=== PATIENT | male | born 1940 | race Caucasian/White ===

== ENCOUNTER 2023-09-20 14:49 | Observation (INO) | payer OTHER, MEDICARE, SELFPAY ==
[2023-09-20] VITALS (11 sets, daily range): BP systolic 139–164; BP diastolic 73–94; PULSE 86–127; RESP 15–22; TEMP 36.4–36.8; O2SAT 95–98; BMI 27.1
--- NOTE | 2023-09-20 | ECG_ITS ---
Test Reason : TACHY Blood Pressure : / mmHG Vent. Rate : 104 BPM Atrial Rate : 000 BPM P-R Int : 000 ms QRS Dur : 140 ms QT Int : 404 ms P-R-T Axes : 000 -80 069 degrees QTc Int : 531 ms Normal sinus rhythm with frequent and consecutive PACs with possible aberrant conduction Left axis deviation Right bundle branch block Anterior infarct , age undetermined Abnormal ECG No previous ECGs available Referred By: Generic ED Physician Electronically Signed By:JAKE SUN MD
--- NOTE | ~2023-09-20 | XR_ITS ---
EXAMINATION: XR CHEST CLINICAL INFORMATION: Syncope COMPARISON: None available. TECHNIQUE: Frontal view of the chest was obtained. FINDINGS: The lungs are well-expanded and clear of acute pneumonic process. Heart size borderline enlarged with normal pulmonary vascularity is noted. No gross bony abnormality. XR/XR chest 1V IMPRESSION: Mild cardiomegaly. No acute pulmonary process seen.
--- NOTE | 2023-09-20 15:16 | PC.NURSE ---
Pt presents to ED via EMS, reports he was at [facility] outside when he felt weak and like he was going to pass out. Denies fall or head hit, was able to sit down on a bench and rest in the shade. Reports he was outside in sun walking around for extended period today. Denies CP, SOB, nausea or recent illnesses. Reports he overall feels better. Alert and oriented, breathing even and unlabored, skin red, warm, dry. Placed on monitor technician, sinus tachycardia with PVCs. IV in right AC 18G by EMS.
--- NOTE | 2023-09-20 16:35 | ECG_ITS ---
Test Reason : SYNCOPE/REPEAT Blood Pressure : / mmHG Vent. Rate : 101 BPM Atrial Rate : 101 BPM P-R Int : 248 ms QRS Dur : 152 ms QT Int : 368 ms P-R-T Axes : 107 -82 071 degrees QTc Int : 477 ms Sinus tachycardia with 1st degree A-V block with occasional Premature ventricular complexes with frequent Premature atrial complexes Right bundle branch block Left anterior fascicular block Bifascicular block Abnormal ECG When compared with ECG of 20-SEP-2023 15:15, No significant changes seen Referred By: Cecilia Kline Electronically Signed By:JAKE SUN MD
--- NOTE | 2023-09-20 16:38 | ED.GENADULT ---
HPI - General Adult General Chief complaint: General Medical Stated complaint: FELT FAINT/RESOLVED, DIZZY PER EMS Time Seen by Provider: 09/20/23 16:05 Source: patient, family and EMS Mode of arrival: EMS Limitations: no limitations History of Present Illness HPI narrative: Patient is an 82-year-old male with past medical history of hypertension, hyperlipidemia, arthritis who presents emergency department via EMS with his son and daughter at bedside. Reportedly he was outside quite a bit today and is hot. Son does admit that he had not been drinking as much water as he should. He was at an ice cream place outdoors standing in the sun waiting for an order when suddenly he began to feel very lightheaded. By patient's account his daughter and a bystander helped him to go sit at a table in the shade. He felt better after this, but ultimately a bystander called EMS. He states it took some convincing but he agreed to come to the hospital. His daughter reports that he actually slumped over while sitting and when asked for further clarification she admits to loss of consciousness and the patient has no recollection of this. At this time he has no complaints and he is requesting to go home. He does state that at baseline he tends to have an unsteady gait due to arthritis in his knees. He ambulated to the bathroom just prior to my evaluation in he reports that he felt unsteady on his feet more than usual. Currently he denies dizziness, lightheadedness, headache, neck pain, vision changes, chest pain, shortness of breath, difficulty breathing, nausea, vomiting, abdominal pain, numbness or tingling of his extremities. He denies any recent ill contacts. Related Data Home Medications ?Medication ?Instructions ?Recorded ?Confirmed amlodipine 5 mg tablet 5 mg PO DAILY 09/20/23 09/20/23 ascorbic acid (vitamin C) 1,000 mg 1 g PO DAILY 09/20/23 09/20/23 tablet (Vitamin C) loratadine 10 mg tablet (Claritin) 10 mg PO DAILY 09/20/23 09/20/23 lovastatin 20 mg tablet 20 mg PO DAILY 09/20/23 09/20/23 multivitamin 1 tab PO DAILY 09/20/23 09/20/23 naproxen sodium 220 mg tablet 220 mg PO BID PRN Pain 09/20/23 09/20/23 Allergies Allergy/AdvReac Type Severity Reaction Status Date / Time No Known Allergies Allergy Verified 09/20/23 15:06 [facility] Past Medical History Medical History Mixed hyperlipidemia Hypertension Social History Social History Patient Tobacco Use Status: Current everyday Tobacco user Tobacco use type: Cigarette Cigarettes Per Day: 15 Second Hand Smoke Exposure: Yes Advance Directives Date on File: 09/20/23 Physical Exam ED Vital Signs: Vital Signs - 24 hr 09/20/23 14:59 09/20/23 15:10 09/20/23 16:52 Temperature 97.9 F Pulse Rate 112 H 103 H 100 Respiratory Rate 18 18 Blood Pressure 154/79 H 154/89 H 158/83 H Pulse Oximetry 97 98 Oxygen Delivery Method Room Air Room Air 09/20/23 16:54 09/20/23 16:55 09/20/23 16:59 Temperature 97.7 F Pulse Rate 100 112 H 107 H Respiratory Rate 18 Blood Pressure 154/83 H 156/91 H 152/84 H Pulse Oximetry 95 Oxygen Delivery Method Room Air 09/20/23 18:25 09/20/23 19:31 09/20/23 19:59 Temperature 97.6 F Pulse Rate 98 127 H 103 H Respiratory Rate 19 22 H 20 Blood Pressure 153/87 H 164/83 H 162/91 H Pulse Oximetry 95 95 96 Oxygen Delivery Method Room Air Room Air Room Air 09/20/23 20:00 Temperature Pulse Rate 97 Respiratory Rate 15 Blood Pressure 146/94 H Pulse Oximetry 96 Oxygen Delivery Method Room Air BMI result Body Mass Index 27.1 Appearance: Alert.?Oriented to person, place and time. No acute distress.?Normal affect. Eyes: Pupils equal, round and reactive to light.? ENT: Pharynx normal.?? Neck: Normal inspection.? Neck supple.?? CVS: Heart sounds normal. Iregular heart rate and rhythm.? Pulses normal.?? Respiratory: No respiratory distress.? Lung sounds with rales at bilateral bases Abdomen: Soft and non-tender. Normoactive bowel sounds. ?? Skin: Skin warm and dry.? Normal skin color.??? Extremities: No lower extremity edema.? No calf ttp? Neuro: Moves all extremities spontaneously. Sensation intact bilaterally. No focal neuro deficits. Ambulates with unsteady gait. Course Reevaluation(s) Reevaluation #1: CBC is without leukocytosis or left shift, anemia or thrombocytopenia. No electrolyte derangement. No SHEREE. LFTs within normal range. High sensitive troponin within normal range but detectable at 20.1. Repeat EKG revealing a sinus tachycardia with first-degree AV block, bifascicular block; LA interval 248 MS and PVCs, QTC 477, no ST elevation, no ST depression. BNP 111, not consistent with acute CHF. Urinalysis without evidence of infection. Reevaluation #2: Advised by nursing staff patient having runs of V-tach, repeat EKG was obtained, reviewed telemetry tracings, appears to have consistent QRS morphology as noted with sinus beats in alternative leads. I did consult with cardiology; Dr. Arias, suspect this is likely SVT, patient received magnesium sulfate 2 g IV, Mag is currently 1.6, and will start metoprolol 5 mg IV Push. Patient to be admitted to medicine service, spoke with Dr. Stone Time: 19:30 Medications Administered Generic Name Dose Route Start Last Admin Trade Name Freq PRN Reason Stop Dose Admin Enoxaparin Sodium 40 mg 09/20/23 20:45 09/20/23 22:21 Enoxaparin Sodium 40 Mg/0.4 Ml Syringe SUBCUT 40 mg Q24H DORENE Administration Sodium Chloride 3 ml 09/21/23 00:00 09/21/23 01:02 0.9 % Sodium Chloride Flush 3 Ml Syringe IVFLUSH 3 ml QSHIFT DORENE Administration Discontinued Medications Generic Name Dose Route Start Last Admin Trade Name Freq PRN Reason Stop Dose Admin Sodium Chloride 1,000 mls @ 999 mls/hr 09/20/23 18:45 09/20/23 19:57 Ns IV 09/20/23 19:45 Infused .Q1H1M DORENE Infusion Magnesium Sulfate 2 gm in 50 mls @ 25 mls/hr 09/20/23 19:46 09/20/23 20:25 Magnesium Sulfate/H2o IV 09/20/23 21:45 Infused ONCE ONE Infusion Metoprolol Tartrate 5 mg 09/20/23 19:46 09/20/23 19:57 Metoprolol Tartrate 5 Mg/5 Ml Vial IVPUSH 09/20/23 19:47 5 mg ONCE ONE Administration Protocol Metoprolol Tartrate 25 mg 09/20/23 20:24 09/20/23 22:21 Metoprolol Tartrate 25 Mg Tablet PO 09/20/23 20:25 25 mg ONCE ONE Administration Protocol Medical Decision Making Medical Decision Making [facility] Narrative: Patient is an 82-year-old male with past medical history of hypertension, hyperlipidemia, arthritis who presents emergency department via EMS for evaluation of dizziness and a syncopal episode. He currently offers no physical complaints. He has no focal neurological deficits on examination no associated headache, diplopia, vertigo, suspect less likely acute intracranial abnormality. No associated chest pain shortness of breath and reported palpitations. No recent ill symptoms to suspect infectious etiology. You arrived tachycardic but afebrile without tachypnea hypoxia or hypotension. I reviewed his initial EKG obtained prior to my assumption of care, reveals an irregular rhythm with ventricular rate of 104, variable LA interval, or does appear to be P waves preceding each QRS complex, QTC prolonged 531, plan to obtain repeat EKG for further evaluation. Will obtain CBC to evaluate for leukocytosis/ anemia, CMP and lipase to evaluate for abnormal electrolytes /abnormal renal function/ abnormal hepatic/biliary function, EKG and troponin to evaluate for ischemia/ACS. Chest x-ray to evaluate for consolidation/ infiltrate/ mass/ pulmonary congestion and Urinalysis. Differential Diagnosis Differential Diagnoses: The differential diagnosis associated with the presentation includes (Arrhythmia, ACS, PE, dissection, ICH, CVA, orthostatic hypotension, heat exhaustion, dehydration) Admission/Observation Consideration of admission/observation: Escalation of care including admission/observation considered Lab Data 09/20/23 16:52 09/20/23 16:52 Labs: Lab Results 09/20/23 09/20/23 09/20/23 Range/Units 16:51 16:52 19:25 WBC 7.7 (4.8-10.8) X10*3/uL RBC 5.09 (4.60-5.80) X10*6/uL Hgb 16.6 (14.0-18.0) g/dl Hct 46.6 (42.0-52.0) % MCV 91.6 (80.0-98.0) fL MCH 32.6 (27.0-33.0) pg MCHC 35.6 (31.0-36.0) g/dl RDW 12.3 (11.0-16.0) % Plt Count 269 (160-400) X10*3/uL MPV 8.9 L (9.4-12.4) fL Immature Gran % (Auto) 0.3 (0.0-0.4) % Neut % (Auto) 67.6 (45-73) % Lymph % (Auto) 21.3 (20-40) % [place] % (Auto) 7.9 (2-11) % Eos % (Auto) 2.1 (0-4) % Baso % (Auto) 0.8 (0-2) % Lymph # (Auto) 1.7 (1.2-4.9) X10*3/uL [place] # (Auto) 0.6 (0.1-1.2) X10*3/uL Eos # (Auto) 0.2 (0.0-0.4) X10*3/uL Baso # (Auto) 0.1 (0.0-0.2) X10*3/uL Abs Immat Gran (auto) 0.02 (0.00-0.03) X10*3/uL Absolute Neuts (auto) 5.2 (2.0-8.3) x10*3/uL Absolute Nucleated RBC 0.000 (0.0-0.012) X10*3/uL Nucleated RBC % (auto) 0.0 (0.0-0.2) /100WBC PT 12.0 (11.1-13.3) SEC INR 1.0 (0.9-1.1) Sodium 141 (135-145) mmol/L Potassium 3.4 (3.3-5.1) mmol/L Chloride 104 (96-108) mmol/L Carbon Dioxide 27 (22-29) mmol/L Anion Gap 13 (12-20) BUN 13 (9-16) mg/dL Creatinine 0.82 (0.5-1.4) mg/dL Estim Creat Clear Calc 68.2 Estimated GFR > 60 Random Glucose 111 (60-115) mg/dL Calcium 9.7 (8.4-10.2) mg/dL Magnesium 1.6 (1.6-2.6) mg/dL Total Bilirubin 0.5 (0.0-1.0) mg/dL AST 19 (5-37) U/L ALT 12 (0-40) U/L Alkaline Phosphatase 79 (39-117) U/L Troponin I High Sens 20.1 17.7 (<3.5-35.0) ng/L B-Natriuretic Peptide 111 H (<100) pg/mL Total Protein 7.2 (6.5-8.0) g/dL Albumin 4.5 (3.5-5.0) g/dL Urine Color Yellow Urine Appearance Clear Urine pH 7.0 (5.0-9.0) Ur Specific [place] 1.015 (1.005-1.025) Urine Protein Trace (Neg-Trace) mg/dL Urine Glucose (UA) Negative (Negative) mg/dL Urine Ketones Trace (Negative) mg/dL Urine Blood Negative (Negative) Urine Nitrite Negative (Negative) Ur Leukocyte Esterase Negative (Negative) Independent Interpretation I performed an independent interpretation of an: EKG and Plain X-Ray (no consolidation or infiltrates) Radiology Impression Discussion of test interpretation with radiology: I have reviewed the radiologist's reading. Radiologist Impression: XR/XR chest 1V IMPRESSION: Mild cardiomegaly. No acute pulmonary process seen. Independent Historian Clinical information obtained from an independent historian. History obtained from or confirmed by: EMS and Other (Son and daughter) Critical Care Time Critical Care Time Critical Care Time: Yes Total Critical Care Time: 60 Attestation: I personally attest to this critical care time spent taking care of the patient exclusive of all other billable procedures was approximately 60 minutes including initial evaluation of patient, ordering tests, x-ray interpretation, EKG interpretation, medical consultation, documentation, re-evaluation. Discharge Plan Discharge Clinical Impression: Syncope, Atrial tachycardia Patient Disposition: Admitted As Inpatient Interventions: Admission Worksheet (ED) Last Done: 09/20/23 23:26 Discharge Date/Time: 09/21/23 00:33
[2023-09-20 16:59] LABS: Basophils Absolute Auto 0.1 X10*3/uL (0.0-0.2); Basophils Percent Auto 0.8 % (0-2); Eosinophils Absolute Auto 0.2 X10*3/uL (0.0-0.4); Eosinophils Percent Auto 2.1 % (0-4); Hematocrit 46.6 % (42.0-52.0); Hemoglobin 16.6 g/dl (14.0-18.0); Imm Gran Abs Auto 0.02 X10*3/uL (0.00-0.03); Imm Gran Pct Auto 0.3 % (0.0-0.4); Lymphocytes Absolute Auto 1.7 X10*3/uL (1.2-4.9); Lymphocytes Percent Auto 21.3 % (20-40); MANUAL DIFF FLAG NO; Mean Corpuscular HGB Conc 35.6 g/dl (31.0-36.0); Mean Corpuscular Hemoglobin 32.6 pg (27.0-33.0); Mean Corpuscular Volume 91.6 fL (80.0-98.0); Mean Platelet Volume 8.9 fL (9.4-12.4); Monocytes Absolute Auto 0.6 X10*3/uL (0.1-1.2); Monocytes Percent Auto 7.9 % (2-11); Neutrophils Absolute Auto 5.2 x10*3/uL (2.0-8.3); Neutrophils Percent Auto 67.6 % (45-73); Platelet Count 269 X10*3/uL (160-400); Red Blood Count 5.09 X10*6/uL (4.60-5.80); Red Cell Distribution Width 12.3 % (11.0-16.0); White Blood Count 7.7 X10*3/uL (4.8-10.8)
[2023-09-20 17:02] LABS: Appearance Urine Clear; Color Urine Yellow; Glucose Urine UA Negative (Negative); Leukocyte Esterase Urine Negative (Negative); Nitrite Urine Negative (Negative); Specific Gravity - Urine 1.015 (1.005-1.025); Urine Blood Negative (Negative); Urine Ketones Trace mg/dL (Negative); Urine Protein Trace mg/dL (Neg-Trace)
[2023-09-20 17:17] LABS: Alanine Aminotransferase 12 U/L (0-40); Albumin Level 4.5 g/dL (3.5-5.0); Alkaline Phosphatase 79 U/L (39-117); Anion Gap 13 (12-20); Aspartate Amino Transferase 19 U/L (5-37); Bilirubin Total 0.5 mg/dL (0.0-1.0); Blood Urea Nitrogen 13 mg/dL (9-16); Calcium 9.7 mg/dL (8.4-10.2); Carbon Dioxide 27 mmol/L (22-29); Chloride 104 mmol/L (96-108); Creatinine Clr Calc Pharmacy 68.2; Estimated Glomerular Filt Rate > 60; Glucose Random 111 mg/dL (60-115); Magnesium 1.6 mg/dL (1.6-2.6); Potassium 3.4 mmol/L (3.3-5.1); Sodium 141 mmol/L (135-145); Total Protein 7.2 g/dL (6.5-8.0)
[2023-09-20 17:23] LABS: B Type Natriuretic Peptide 111 pg/mL (<100)
[2023-09-20 17:24] LABS: Troponin-I High Sensitivity 20.1 ng/L (<3.5-35.0)
[2023-09-20] MEDS: 0.9 % Sodium Chloride 1,000 ML 999 ML IV (18:49)
--- NOTE | 2023-09-20 19:28 | PC.NURSE ---
pt had a run of arrhythmia on the heart monitor. ecg printed for [employer] review. new ekg order and repeat trop obtained. pt denies cp/sob. is axox4 was resting in stretcher at the time of rhythm change.
[2023-09-20] MEDS: Magnesium Sulfate/H2O 2 GM/50 ML PIGGYBACK IV (19:55)
[2023-09-20] MEDS: Metoprolol Tartrate 5 MG/5 ML VIAL IVPUSH (19:57)
[2023-09-20 20:00] LABS: Troponin-I High Sensitivity 17.7 ng/L (<3.5-35.0)
--- NOTE | 2023-09-20 20:01 | PC.NURSE ---
pt is axox4 able to stand to bedside with steady gait to urinate. pt helped back into stretcher. medicated per jun. mag infusion infusing within 30 minutes per José Miguel, CORSETIER verbal order. vitals WNL as documented. HR down to 90s. pt continues to deny cp/sob/n/v/d/dizziness. family at bedside. call kong within reach.
--- NOTE | 2023-09-20 20:39 | P.HPHOSP_ITS ---
History of Present Illness Date of Service: 09/20/23 Chief Complaint: Syncope This is a 82-year-old male with pertinent history of hypertension, mixed hyperlipidemia, knee osteoarthritis who presents to the emergency department for evaluation after a syncopal episode. Patient states he was standing in line under the sun waiting for a hot dog. It was very hot and after standing for a while, he got dizzy and lightheaded. Soon after, patient slumped over and passed out. Patient does not remember but patient's daughter mentioned it. No chest pain or palpitations prior to the syncopal episode. No rhythmic jerking movement of extremities. Patient states his previous syncopal episode was 5 years ago but does not remember the details. No vomiting, diarrhea. He has been eating and drinking well. He is compliant with medications. No fever, chills, chest discomfort, palpitations, shortness of breath, abdominal pain, changes in urinary or bowel habits. In the emergency department, patient had an episode of SVT and was given IV Lopressor. Review of Systems 2 Constitutional: Constitutional: Reports no additional constitutional complaints ENT: Reports dizziness Cardiovascular: Cardiovascular: Reports no additional cardiovascular complaints and Reports syncope Respiratory: Respiratory: Reports no additional respiratory complaints Gastrointestinal: Gastrointestinal: Reports no additional gastrointestinal complaints Genitourinary: Genitourinary: Reports no additional male genitourinary complaints Neurologic: Reports dizziness and Reports syncope [facility] Medical History Mixed hyperlipidemia Hypertension Pertinent family history: Not significant due to age Social History Smoked in Last 30 Days: Yes Use of substances other than those prescribed or required for medical reasons: No Advance Directives: Yes Advance Directives Information Provided: No Advance Directives on File: No Do you have a plan to hurt others: No Plan Meds Allergies Allergy/AdvReac Type Severity Reaction Status Date / Time No Known Allergies Allergy Verified 09/20/23 15:06 Active Medications: Current Medications Magnesium Sulfate (Magnesium Sulfate/H2o) 2 gm in 50 mls @ 25 mls/hr IV ONCE ONE Stop: 09/20/23 21:45 Last Admin: 09/20/23 19:55 Dose: 25 mls/hr Home Medications ?Medication ?Instructions ?Recorded ?Confirmed ?Last Taken ?Type amlodipine 5 mg tablet 5 mg PO DAILY 09/20/23 09/20/23 09/20/23 06:00 History ascorbic acid (vitamin C) 1,000 mg 1 g PO DAILY 09/20/23 09/20/23 09/20/23 06:00 History tablet (Vitamin C) loratadine 10 mg tablet (Claritin) 10 mg PO DAILY 09/20/23 09/20/23 Unknown History lovastatin 20 mg tablet 20 mg PO DAILY 09/20/23 09/20/23 09/20/23 06:00 History multivitamin 1 tab PO DAILY 09/20/23 09/20/23 09/20/23 06:00 History naproxen sodium 220 mg tablet 220 mg PO BID PRN Pain 09/20/23 09/20/23 09/20/23 06:00 History Physical Exam 2 Vital Signs and Narrative: Vital Signs: Last Vital Signs Temp 97.6 F 09/20/23 18:25 Pulse 97 09/20/23 20:00 Resp 15 09/20/23 20:00 BP 146/94 H 09/20/23 20:00 Pulse Ox 96 09/20/23 20:00 O2 Del Method Room Air 09/20/23 20:00 BMI result Body Mass Index 27.1 Results Labs 09/20/23 16:52 09/20/23 16:52 Labs: Laboratory Results - last 24 hr 09/20/23 09/20/23 09/20/23 16:51 16:52 19:25 MCV 91.6 MCH 32.6 MCHC 35.6 RDW 12.3 Plt Count 269 MPV 8.9 L Immature Gran % (Auto) 0.3 Neut % (Auto) 67.6 Lymph % (Auto) 21.3 [place] % (Auto) 7.9 Eos % (Auto) 2.1 Baso % (Auto) 0.8 Lymph # (Auto) 1.7 [place] # (Auto) 0.6 Eos # (Auto) 0.2 Baso # (Auto) 0.1 Abs Immat Gran (auto) 0.02 Absolute Neuts (auto) 5.2 Absolute Nucleated RBC 0.000 Nucleated RBC % (auto) 0.0 PT 12.0 INR 1.0 Anion Gap 13 Estim Creat Clear Calc 68.2 Estimated GFR > 60 Random Glucose 111 Calcium 9.7 Magnesium 1.6 Total Bilirubin 0.5 AST 19 ALT 12 Alkaline Phosphatase 79 Troponin I High Sens 20.1 17.7 B-Natriuretic Peptide 111 H Total Protein 7.2 Albumin 4.5 Urine Color Yellow Urine Appearance Clear Urine pH 7.0 Ur Specific [place] 1.015 Urine Protein Trace Urine Glucose (UA) Negative Urine Ketones Trace Urine Blood Negative Urine Nitrite Negative Ur Leukocyte Esterase Negative Imaging Radiologist's Impressions: Impressions Chest X-Ray 09/20/23 18:15 IMPRESSION: Mild cardiomegaly. No acute pulmonary process seen. Assessment and Plan (1) Syncope: Status: Acute Plan This is a 82-year-old male with pertinent history of hypertension, mixed hyperlipidemia who presents to the emergency department for evaluation after a syncopal episode. #. Syncope, likely orthostatic: Resuscitated with IV crystalloids. Will monitor on telemetry. Repeat orthostatics in a.m. #. Atrial tachycardia: Add an episode of SVT in the ER. Cardiology consulted from the ER, appreciate assistance #. Hypertension: On amlodipine #. Mixed hyperlipidemia: On statin DVT prophylaxis: Lovenox DNR/DNI. Discussed with patient and son at bedside Quality Stroke Does the patient have a stroke diagnosis?: No VTE Prior VTE?: No VTE Risk Level:: Medical - moderate - high VTE Device Contraindication: Treatment Not Indicated VTE Drug Contraindication: N/A - Med Ordered
--- NOTE | 2023-09-20 21:06 | PHA.MEDREC ---
Pharmacy Consult ? Medication Reconciliation Pharmacy has completed the medication reconciliation. Confirmed med list with help of Patients daughter and patient was able to help confirm as well.
[2023-09-20] MEDS: Metoprolol Tartrate 25 MG TABLET PO (22:21)
[2023-09-20] MEDS: Enoxaparin Sodium 40 MG/0.4 ML SYRINGE SUBCUT (22:21)
[2023-09-21] VITALS (9 sets, daily range): BP systolic 118–169; BP diastolic 71–86; PULSE 72–104; RESP 16–18; TEMP 36.1–36.3; O2SAT 92–96; BMI 25.7
[2023-09-21] MEDS: 0.9 % Sodium Chloride Flush 3 ML SYRINGE IVFLUSH ×2 (01:02→08:49)
[2023-09-21 05:52] LABS: MANUAL DIFF FLAG NO
[2023-09-21 06:24] LABS: Basophils Absolute Auto 0.1 X10*3/uL (0.0-0.2); Basophils Percent Auto 0.9 % (0-2); Eosinophils Absolute Auto 0.3 X10*3/uL (0.0-0.4); Eosinophils Percent Auto 3.3 % (0-4); Hematocrit 45.9 % (42.0-52.0); Hemoglobin 16.1 g/dl (14.0-18.0); Imm Gran Abs Auto 0.02 X10*3/uL (0.00-0.03); Imm Gran Pct Auto 0.3 % (0.0-0.4); Lymphocytes Absolute Auto 2.1 X10*3/uL (1.2-4.9); Lymphocytes Percent Auto 26.1 % (20-40); Mean Corpuscular HGB Conc 35.1 g/dl (31.0-36.0); Mean Corpuscular Hemoglobin 32.8 pg (27.0-33.0); Mean Corpuscular Volume 93.5 fL (80.0-98.0); Mean Platelet Volume 9.4 fL (9.4-12.4); Monocytes Absolute Auto 0.7 X10*3/uL (0.1-1.2); Monocytes Percent Auto 9.4 % (2-11); Neutrophils Absolute Auto 4.7 x10*3/uL (2.0-8.3); Platelet Count 294 X10*3/uL (160-400); Red Blood Count 4.91 X10*6/uL (4.60-5.80); Red Cell Distribution Width 12.2 % (11.0-16.0); White Blood Count 7.8 X10*3/uL (4.8-10.8)
[2023-09-21 06:26] LABS: Anion Gap 12 (12-20); Blood Urea Nitrogen 10 mg/dL (9-16); Calcium 9.5 mg/dL (8.4-10.2); Carbon Dioxide 30 mmol/L (22-29); Chloride 103 mmol/L (96-108); Creatinine Clr Calc Pharmacy 78.8; Estimated Glomerular Filt Rate > 60; Glucose Random 96 mg/dL (60-115); Potassium 3.3 mmol/L (3.3-5.1); Sodium 142 mmol/L (135-145)
[2023-09-21] MEDS: Loratadine 10 MG TABLET PO (08:48)
[2023-09-21] MEDS: Ascorbic Acid 500 MG TABLET 1000 MG PO (08:48)
[2023-09-21] MEDS: Pravastatin Sodium 20 MG TABLET PO (08:48)
[2023-09-21] MEDS: Multivitamin TABLET 1 TAB PO (08:48)
[2023-09-21] MEDS: amLODIPine Besylate 5 MG TABLET PO (08:49)
--- NOTE | 2023-09-21 09:41 | ECG_ITS ---
Test Reason : ARRYTHMIA Blood Pressure : / mmHG Vent. Rate : 112 BPM Atrial Rate : 112 BPM P-R Int : 208 ms QRS Dur : 134 ms QT Int : 330 ms P-R-T Axes : 000 -83 068 degrees QTc Int : 450 ms Normal sinus rhythm with Atrial tachycardia with Premature ventricular complexes Left anterior fascicular block Right bundle branch block Abnormal ECG When compared with ECG of 20-SEP-2023 16:43, Atrial tachycardia is now Present Referred By: Cecilia Kline Electronically Signed By:JAKE SUN MD
--- NOTE | 2023-09-21 10:06 | ECG_ITS ---
Test Reason : irreg hr Blood Pressure : / mmHG Vent. Rate : 090 BPM Atrial Rate : 000 BPM P-R Int : 000 ms QRS Dur : 138 ms QT Int : 412 ms P-R-T Axes : 000 -80 057 degrees QTc Int : 504 ms Normal sinus rhythm with frequent Premature atrial complexes Left anterior fascicular block Right bundle branch block Inferior infarct (cited on or before 20-SEP-2023) Abnormal ECG When compared with ECG of 20-SEP-2023 19:21, No significant changes seen Referred By: Jonelle Sanchez Electronically Signed By:JAKE SUN MD
--- NOTE | 2023-09-21 10:33 | PM.DS ---
DS: Providers Provider Date of Service: 09/21/23 Date of admission: 09/20/23 20:37 Primary care physician: Eduardo Vickers MD Consults: 09/20/23 20:42 Consult to Cardiology Routine Consulting Provider: [facility] Reason for consultation: ?cardiogenic syncope Has provider been notified: Yes DS: Diagnosis Discharge Diagnosis (1) Syncope: Status: Acute (2) Atrial tachycardia: Status: Acute (3) Hypertension: Status: Acute DS: Summary Hospital Course Hospital Course: Admission note HPI This is a 82-year-old male with pertinent history of hypertension, mixed hyperlipidemia, knee osteoarthritis who presents to the emergency department for evaluation after a syncopal episode. Patient states he was standing in line under the sun waiting for a hot dog. It was very hot and after standing for a while, he got dizzy and lightheaded. Soon after, patient slumped over and passed out. Patient does not remember but patient's daughter mentioned it. No chest pain or palpitations prior to the syncopal episode. No rhythmic jerking movement of extremities. Patient states his previous syncopal episode was 5 years ago but does not remember the details. No vomiting, diarrhea. He has been eating and drinking well. He is compliant with medications. No fever, chills, chest discomfort, palpitations, shortness of breath, abdominal pain, changes in urinary or bowel habits. In the emergency department, patient had an episode of SVT and was given IV Lopressor. Hospital course The patient was admitted to the hospital for syncopal episode while under the sun in heated weather with full recovery to normal mentation and strength. Likely a result of Orthostatic drop in his BP. treated with IV fluids with good response overnight. repeated orthostatic vitals were negative. He was able to ambulate on halls with no reported dizziness or recurrence of the syncopal episode. He was seen by senior asic design engineer dr Arias for reported tachycardia events. on EKG has PACs but no VTs. Plan to follow as an outpatient for a holter monitoring. Discharge plan Stay well hydrated Avoid heated weather and sun exposure for long time Continue home medicaitons To follow with dr Arias office as outpatient Time Attestation Discharge Coordination Time (in mins): 25 Quality: Safe Use of Opioids Does Pt have an Active Cancer Diagnosis on the Problem List?: No Quality: Stroke Does the patient have a stroke diagnosis?: No Physical Exam Vital Signs: Vital Signs: Last Vital Signs Temp 97.0 F 09/21/23 07:57 Pulse 84 09/21/23 07:57 Resp 16 09/21/23 07:57 BP 137/79 09/21/23 08:49 Pulse Ox 93 09/21/23 07:57 O2 Del Method Room Air 09/21/23 07:57 BMI result Body Mass Index 25.7 Const: Other: Constitutional : Awake, interactive, not in distress Neck : Normal inspection, Supple Cardiovascular : RRR, no JVP, no lower extremity edema Respiratory : good bilateral air entry, no crackles, wheezes or rhonchi Gastrointestinal: soft, lax, Normal bowel sounds, Non tender Skin : Warm, Dry Neurological : Alert & oriented x3, No focal deficit DS: Data Data Completed and Pending Labs on day of discharge: Laboratory Results - last 24 hr 09/20/23 09/20/23 09/20/23 16:51 16:52 19:25 WBC 7.7 RBC 5.09 Hgb 16.6 Hct 46.6 MCV 91.6 MCH 32.6 MCHC 35.6 RDW 12.3 Plt Count 269 MPV 8.9 L Immature Gran % (Auto) 0.3 Neut % (Auto) 67.6 Lymph % (Auto) 21.3 [place] % (Auto) 7.9 Eos % (Auto) 2.1 Baso % (Auto) 0.8 Lymph # (Auto) 1.7 [place] # (Auto) 0.6 Eos # (Auto) 0.2 Baso # (Auto) 0.1 Abs Immat Gran (auto) 0.02 Absolute Neuts (auto) 5.2 Absolute Nucleated RBC 0.000 Nucleated RBC % (auto) 0.0 PT 12.0 INR 1.0 Sodium 141 Potassium 3.4 Chloride 104 Carbon Dioxide 27 Anion Gap 13 BUN 13 Creatinine 0.82 Estim Creat Clear Calc 68.2 Estimated GFR > 60 Random Glucose 111 Calcium 9.7 Magnesium 1.6 Total Bilirubin 0.5 AST 19 ALT 12 Alkaline Phosphatase 79 Troponin I High Sens 20.1 17.7 B-Natriuretic Peptide 111 H Total Protein 7.2 Albumin 4.5 Urine Color Yellow Urine Appearance Clear Urine pH 7.0 Ur Specific [place] 1.015 Urine Protein Trace Urine Glucose (UA) Negative Urine Ketones Trace Urine Blood Negative Urine Nitrite Negative Ur Leukocyte Esterase Negative 09/21/23 05:20 WBC 7.8 RBC 4.91 Hgb 16.1 Hct 45.9 MCV 93.5 MCH 32.8 MCHC 35.1 RDW 12.2 Plt Count 294 MPV 9.4 Immature Gran % (Auto) 0.3 Neut % (Auto) 60.0 Lymph % (Auto) 26.1 [place] % (Auto) 9.4 Eos % (Auto) 3.3 Baso % (Auto) 0.9 Lymph # (Auto) 2.1 [place] # (Auto) 0.7 Eos # (Auto) 0.3 Baso # (Auto) 0.1 Abs Immat Gran (auto) 0.02 Absolute Neuts (auto) 4.7 Absolute Nucleated RBC 0.000 Nucleated RBC % (auto) 0.0 PT INR Sodium 142 Potassium 3.3 Chloride 103 Carbon Dioxide 30 H Anion Gap 12 BUN 10 Creatinine 0.71 Estim Creat Clear Calc 78.8 Estimated GFR > 60 Random Glucose 96 Calcium 9.5 Magnesium Total Bilirubin AST ALT Alkaline Phosphatase Troponin I High Sens B-Natriuretic Peptide Total Protein Albumin Urine Color Urine Appearance Urine pH Ur Specific [place] Urine Protein Urine Glucose (UA) Urine Ketones Urine Blood Urine Nitrite Ur Leukocyte Esterase Imaging Chest x-ray: Radiologist's impression: ITS Impressions Chest X-Ray 09/20/23 18:15 IMPRESSION: Mild cardiomegaly. No acute pulmonary process seen. Discharge Plan Discharge Anticipated Discharge Date/Time: 09/21/23 10:28 Patient Disposition: Home, Self-Care Discharge Diagnosis: Heat exhaustion, dehydration Referrals: Eduardo Vickers MD [Primary Care Provider] - 1 Week Discharge Medications: Continued multivitamin Tablet 1 tab PO DAILY ascorbic acid (vitamin C) [Vitamin C] 1,000 mg Tablet 1 g PO DAILY amlodipine 5 mg tablet 5 mg PO DAILY naproxen sodium 220 mg Tablet 220 mg PO BID PRN (Reason: Pain) lovastatin 20 mg tablet 20 mg PO DAILY loratadine [Claritin] 10 mg Tablet 10 mg PO DAILY Discharge Orders: Discharge Order (Routine); Ordered 09/21/23 Ordered By: Jonelle Sanchez Diet: Advance to usual diet Activity on Discharge: As tolerated Stand Alone Forms: Patient Portal Discharge page Print Language: Albanian Care Plan Goals: Stay well hydrated Avoid heated weather and sun exposure for long time Continue home medicaitons To follow with dr Arias office as outpatient Health Concerns: Read below Plan of Treatment: Read below Assessment: Read below
--- NOTE | 2023-09-21 10:55 | MHC.CM.PN ---
Addendum entered by Keshia Gaines 09/21/23 11:28: DP: NO REFERRAL SENT TO [facility], P.T. REC HOME WITH FAMILY SUPPORT. PT HAS BEEN MEDICALLY CLEARED FOR DC HOME, NO SERVICES. DAUGHTER WILL TRANSPORT HOME. Original Note: [facility] DELIVERED PT LIVES WITH DAUGHTER. PT USES [facility] FOR MAJOR MOBILITY BUT HAS WALKER IN HOME IF NEEDED. +HCP AT HOME, COPY REQUESTED. PCP MERRY Viramontes DP: PT TO BE SEEN BY P.T. TO DETERMINE PLAN. IF HOME P.T. IS RECOMMENDED, PT HAS NO PREFERENCE TO [facility]. REFERRAL SENT TO [facility]. DAUGHTER WILL TRANSPORT. CM WILL CONTINUE TO FOLLOW FOR PLAN.
--- NOTE | 2023-09-21 11:25 | P.CONCA_ITS ---
History of Present Illness History of Present Illness Date of Service: 09/21/23 Requesting physician: Jonelle Sanchez Chief complaint: Syncope Narrative: I was consulted to see Sandro in cardiology consultation today for loss of consciousness. He has a pleasant 82-year-old male with no significant past cardiac history. He has history of hypertension hyperlipidemia for which she takes medications at home. He is generally doing well but is limited due to his arthritis in his knees and his hands. He said mostly his day-to-day activities and outside the home movement is in conjunction with her daughter. Yesterday was out and about with her daughter are to do some errands and was looking at a plant at a store. Subsequently the event to an ice cream shop and will waiting for an ice cream and subsequently was waiting for heart dogs. He was upright for some period of time and he felt very hot and says he does not tolerate heat very well. Then got lightheaded and felt not well and felt like he was going to follow over when his daughter and another person at the sharp helped him to get to the ground. As per the notes he subsequently lost consciousness for few seconds but recovered very quickly. He had no seizure-like activity. No bowel bladder incontinence. He has never had events like this in the past. He drinks about 24 oz of water and milk at nighttime otherwise does not have overall significant oral intake. Takes his medication amlodipine in the morning. Yesterday while in the ER he was noted to have frequent PACs and short runs of PACs and no ventricular arrhythmias. Overnight he has not had any significant ventricular arrhythmias but PACs with aberrancy. Other cardiac markers have been within normal limits. There has been no evidence of orthostatic. There is no overt bleeding. Review of Systems 2 Constitutional: Constitutional: Reports no additional constitutional complaints Eyes: Eyes: Reports no additional eye complaints Cardiovascular: Cardiovascular: Denies chest pain, Reports lightheadedness, Denies palpitations and Denies dyspnea Respiratory: Respiratory: Denies no additional respiratory complaints and Denies dyspnea Gastrointestinal: Gastrointestinal: Denies no additional gastrointestinal complaints Musculoskeletal: Musculoskeletal: Denies no additional musculoskeletal complaints Integumentary/Breasts: Skin/Breast: Denies system reviewed and no additional complaints, except as docu Neurologic: Denies system reviewed and no additional complaints, except as documented Psychiatric: Psychiatric: Denies no additional psychiatric complaints Endocrine: Endocrine: Denies palpitations PMFSH Past Medical History Medical History Mixed hyperlipidemia Hypertension Social History Social History Patient Tobacco Use Status: Current everyday Tobacco user Tobacco use type: Cigarette Cigarettes Per Day: 15 Second Hand Smoke Exposure: Yes Advance Directives Date on File: 09/20/23 service: No Meds Allergies Allergy/AdvReac Type Severity Reaction Status Date / Time No Known Allergies Allergy Verified 09/20/23 15:06 Active Medications: Current Medications Acetaminophen (Acetaminophen 325 Mg Tablet) 650 mg PO Q6H PRN PRN Reason: Pain, Mild (Pain Scale 1-3) Amlodipine Besylate (Amlodipine Besylate 5 Mg Tablet) 5 mg PO DAILY [facility]; Protocol Last Admin: 09/21/23 08:49 Dose: 5 mg Ascorbic Acid (Ascorbic Acid 500 Mg Tablet) 1,000 mg PO DAILY [facility] Last Admin: 09/21/23 08:48 Dose: 1,000 mg Enoxaparin Sodium (Enoxaparin Sodium 40 Mg/0.4 Ml Syringe) 40 mg SUBCUT Q24H [facility] Last Admin: 09/20/23 22:21 Dose: 40 mg Loratadine (Loratadine 10 Mg Tablet) 10 mg PO DAILY [facility] Last Admin: 09/21/23 08:48 Dose: 10 mg Melatonin (Melatonin 3 Mg Tablet) 6 mg PO BEDTIME PRN PRN Reason: Insomnia Multivitamins/Vitamin C (Multivitamin Tablet) 1 tab PO DAILY [facility] Last Admin: 09/21/23 08:48 Dose: 1 tab Ondansetron HCl (Ondansetron Hcl 4 Mg/2 Ml Vial) 4 mg IVPUSH Q8H PRN PRN Reason: Nausea and Vomiting Pravastatin Sodium (Pravastatin Sodium 20 Mg Tablet) 20 mg PO DAILY [facility] Last Admin: 09/21/23 08:48 Dose: 20 mg Sodium Chloride (0.9 % Sodium Chloride Flush 3 Ml Syringe) 3 ml IVFLUSH QSHIFT [facility] Last Admin: 09/21/23 08:49 Dose: 3 ml Home Medications ?Medication ?Instructions ?Recorded ?Confirmed ?Last Taken ?Type amlodipine 5 mg tablet 5 mg PO DAILY 09/20/23 09/20/23 09/20/23 06:00 History ascorbic acid (vitamin C) 1,000 mg 1 g PO DAILY 09/20/23 09/20/23 09/20/23 06:00 History tablet (Vitamin C) loratadine 10 mg tablet (Claritin) 10 mg PO DAILY 09/20/23 09/20/23 Unknown History lovastatin 20 mg tablet 20 mg PO DAILY 09/20/23 09/20/23 09/20/23 06:00 History multivitamin 1 tab PO DAILY 09/20/23 09/20/23 09/20/23 06:00 History naproxen sodium 220 mg tablet 220 mg PO BID PRN Pain 09/20/23 09/20/23 09/20/23 06:00 History Physical Exam 2 Vital Signs: Vital Signs: Last Vital Signs Temp 97.0 F 09/21/23 07:57 Pulse 104 H 09/21/23 10:41 Resp 16 09/21/23 07:57 BP 137/79 09/21/23 10:41 Pulse Ox 96 09/21/23 10:41 O2 Del Method Room Air 09/21/23 07:57 BMI result Body Mass Index 25.7 Const: General: cooperative, comfortable, no acute distress, well developed, alert and awake Nutritional Appearance: average body habitus and well nourished Orientation/consciousness: patient oriented x3 Limitations: a mbulation with cane HEENT: Head: Yes normocephalic and Yes atraumatic Neck: Neck: Yes trachea midline, Yes supple and Yes no JVD Resp: Effort & Inspection: normal respiratory effort Auscultation: clear to auscultation bilaterally Cardio: Jugular venous distension: no JVD Palpation: normal PMI Rate: r egular rate Rhythm: abnormal rhythm with ectopic beats Heart sounds: S1 normal heart sound present, S2 normal heart sound present, no click, no gallops, no murmurs and no rubs GI: Auscultation: normal bowel sounds Skin: General skin exam: no rashes or lesions noted Neuro: General: patient oriented x3 and no focal motor deficits Extrem: General: Yes no clubbing, cyanosis or edema Objective Labs and Meds 09/21/23 05:20 09/21/23 05:20 Lab results: Laboratory Results - last 24 hr 09/20/23 09/20/23 09/20/23 16:51 16:52 19:25 WBC 7.7 RBC 5.09 Hgb 16.6 Hct 46.6 MCV 91.6 MCH 32.6 MCHC 35.6 RDW 12.3 Plt Count 269 MPV 8.9 L Immature Gran % (Auto) 0.3 Neut % (Auto) 67.6 Lymph % (Auto) 21.3 [place] % (Auto) 7.9 Eos % (Auto) 2.1 Baso % (Auto) 0.8 Lymph # (Auto) 1.7 [place] # (Auto) 0.6 Eos # (Auto) 0.2 Baso # (Auto) 0.1 Abs Immat Gran (auto) 0.02 Absolute Neuts (auto) 5.2 Absolute Nucleated RBC 0.000 Nucleated RBC % (auto) 0.0 PT 12.0 INR 1.0 Sodium 141 Potassium 3.4 Chloride 104 Carbon Dioxide 27 Anion Gap 13 BUN 13 Creatinine 0.82 Estim Creat Clear Calc 68.2 Estimated GFR > 60 Random Glucose 111 Calcium 9.7 Magnesium 1.6 Total Bilirubin 0.5 AST 19 ALT 12 Alkaline Phosphatase 79 Troponin I High Sens 20.1 17.7 B-Natriuretic Peptide 111 H Total Protein 7.2 Albumin 4.5 Urine Color Yellow Urine Appearance Clear Urine pH 7.0 Ur Specific [place] 1.015 Urine Protein Trace Urine Glucose (UA) Negative Urine Ketones Trace Urine Blood Negative Urine Nitrite Negative Ur Leukocyte Esterase Negative 09/21/23 05:20 WBC 7.8 RBC 4.91 Hgb 16.1 Hct 45.9 MCV 93.5 MCH 32.8 MCHC 35.1 RDW 12.2 Plt Count 294 MPV 9.4 Immature Gran % (Auto) 0.3 Neut % (Auto) 60.0 Lymph % (Auto) 26.1 [place] % (Auto) 9.4 Eos % (Auto) 3.3 Baso % (Auto) 0.9 Lymph # (Auto) 2.1 [place] # (Auto) 0.7 Eos # (Auto) 0.3 Baso # (Auto) 0.1 Abs Immat Gran (auto) 0.02 Absolute Neuts (auto) 4.7 Absolute Nucleated RBC 0.000 Nucleated RBC % (auto) 0.0 PT INR Sodium 142 Potassium 3.3 Chloride 103 Carbon Dioxide 30 H Anion Gap 12 BUN 10 Creatinine 0.71 Estim Creat Clear Calc 78.8 Estimated GFR > 60 Random Glucose 96 Calcium 9.5 Magnesium Total Bilirubin AST ALT Alkaline Phosphatase Troponin I High Sens B-Natriuretic Peptide Total Protein Albumin Urine Color Urine Appearance Urine pH Ur Specific [place] Urine Protein Urine Glucose (UA) Urine Ketones Urine Blood Urine Nitrite Ur Leukocyte Esterase EKG shows normal sinus rhythm with frequent PACs with bifascicular block. Imaging Radiologist's impression: Impressions Chest X-Ray 09/20/23 18:15 IMPRESSION: Mild cardiomegaly. No acute pulmonary process seen. Assessment and Plan (1) Syncope: Status: Acute Syncope in this elderly gentleman appears to be most likely related to orthostatic hypotension given prolonged standing posture and exposure to heat. Although no orthostasis has been documented. He is improved with IV fluids. He has no orthostatics today. Was noted to have frequent PACs and has underlying bifascicular block and aberrancy. I think he can be discharged home. I have advised him orthostatic precautions advised him to increase his fluid intake at least to 50 oz. Continue current antihypertensive. Given his frequent arrhythmias would also add Toprol 25 mg to his regimen. Will follow-up with outpatient workup with cardiac event monitor as well as an echocardiogram to evaluate for any significant malignant etiology especially pauses and/or av conduction abnormality. Will follow up as outpatient. Thank you for allowing me to partake in his care Procedures Date of Service Date of Service: 09/21/23
--- OUTSIDE RECORDS SUMMARY | 2023-09-24 09:29 | XMS_ITS | Continuity of Care Document ---
Author Organization [facility] ter Address [address] [place] [id number]- Care Team Providers Care Straightener And Aligner Name Role Phone Eduardo Vickers MD Primary Care Physician [phone] Encounter [facility] Date(s): 03/27/19 - 03/27/[address] [address]- [facility] Discharge Disposition: A-D/C Home Attending Physician: Eduardo Vickers MD Admitting Physician: Eduardo Vickers MD Referring Physician: Eduardo Vickers MD Allergies, Adverse Reactions, Alerts Substance Reaction Severity Status cephalexin Active sulfa drugs Active Bactrim Active Results Radiology Reports * Exam Date Time Procedure Performing Provider Status 03/27/19 3:32 PM Chest 2 Views Frontal and Lat Alanna Bray (Verified) Notes: (Chest 2 Views Frontal and Lat) Reason For Exam: pneumonia, RESULT: Chest 2 Views Frontal and Lat Chest 2 Views Frontal and Lat Reason: pneumonia, COMPARISON: 05/12/2018. FINDINGS: LINES AND TUBES: None. LUNGS AND PLEURA: Clear lungs. Normal pulmonary vascularity. No pleural effusion. No pneumothorax. HEART, MEDIASTINUM AND MAX: Heart is normal in size. Normal mediastinal and hilar contour. BONES AND SOFT TISSUES: No acute abnormality. Stable compression deformity at T12. IMPRESSION: No acute abnormality. I have personally reviewed the images and I agree with this report. WSN: [id number] Dictated By: Chencho Bauman MD Dictated Date/Time: 03/27/19 4:21 pm Reviewed By: Darren Mao MD Signed By: Darren Mao MD Signed Date/Time: 03/27/19 4:26 pm Transcribed By: CSChase Transcribed Date/Time: 03/27/19 4:16 pm
== END 2023-09-21 12:10 | disposition home or self-care (01) ==
LOC: HO.ED 16:48 → HO.EDOVER 20:42 → HO.S3 23:15
PROVIDERS: Nurse Practitioner Family; Admitting Provider Student in an Organized Health Care Education/Training Program; Emergency Provider Internal Medicine; PCP Pediatrics; Visit Provider Student in an Organized Health Care Education/Training Program
DX: E86.0 Dehydration (principal); T67.5XXA Heat exhaustion, unspecified, initial encounter; X58.XXXA Exposure to other specified factors, initial encounter; Y93.89 Activity, other specified; Y92.89 Other specified places as the place of occurrence of the external cause; Y99.9 Unspecified external cause status; R55 Syncope and collapse; I47.19 Other supraventricular tachycardia; I10 Essential (primary) hypertension; E78.2 Mixed hyperlipidemia; I49.9 Cardiac arrhythmia, unspecified; I49.1 Atrial premature depolarization
CPT/HCPCS: 36415; 71045; 80048; 80053; 81003; 83735; 83880; 84484; 85025; 85610; 93005; 96361; 96365; 96372; 96375; 97161; 99221; 99285; J1650; J3475

== ENCOUNTER → 2023-09-20 15:15 | Outpatient (BNV) | payer MEDICARE, OTHER, SELFPAY | PROVIDERS: PCP Pediatrics; Visit Provider Internal Medicine Cardiovascular Disease | DX: R94.31 Abnormal electrocardiogram [ECG] [EKG] (principal) | CPT/HCPCS: 93010 ==

== ENCOUNTER 2023-09-20 20:37 | Outpatient (BNV) | payer OTHER, SELFPAY | END 2023-09-21 09:41 | PROVIDERS: Admitting Provider Student in an Organized Health Care Education/Training Program; Emergency Provider Internal Medicine; PCP Pediatrics; Visit Provider Internal Medicine Cardiovascular Disease | DX: R94.31 Abnormal electrocardiogram [ECG] [EKG] (principal) | CPT/HCPCS: 93010 ==

== ENCOUNTER → 2023-09-20 20:37 | Outpatient (BNV) | payer MEDICARE, OTHER, SELFPAY | PROVIDERS: Admitting Provider Student in an Organized Health Care Education/Training Program; Emergency Provider Internal Medicine; PCP Pediatrics; Visit Provider Student in an Organized Health Care Education/Training Program | DX: R55 Syncope and collapse (principal); I47.19 Other supraventricular tachycardia; I10 Essential (primary) hypertension | CPT/HCPCS: 99222; 99238 ==

== ENCOUNTER → 2023-09-20 20:37 | Outpatient (BNV) | payer MEDICARE, OTHER, SELFPAY | PROVIDERS: Admitting Provider Student in an Organized Health Care Education/Training Program; Emergency Provider Internal Medicine; PCP Pediatrics; Visit Provider Internal Medicine Cardiovascular Disease | DX: R55 Syncope and collapse (principal) | CPT/HCPCS: 99222 ==

== ENCOUNTER → 2023-10-15 12:57 | Outpatient (REF) | payer MEDICARE, OTHER, SELFPAY ==
--- NOTE | 2023-10-15 13:00 | HM_ITS ---
* Total procedure length 30 days. Wear time 25 days. * Underlying rhythm is sinus. Average rate 76/Min. * Atrial fibrillation is present about 6% of the time. Some of the strips labeled as SVT also probably atrial fibrillation. * Some strips labeled as wide complex tachycardia. Duration, 10 beats, 17 beats. Some of this can also be atrial fibrillation. * Occasional ventricular ectopy with a burden of 3.8%. * Occasional supraventricular ectopy with a burden of 4%. * Patient's symptoms of chest pressure and racing correlate with supraventricular ventricular ectopy. Other times where there is no symptoms specified by the patient, correlation with supraventricular and ventricular ectopy, sinus rhythm, atrial fibrillation. * Overall, study is positive for atrial fibrillation rapid ventricular response. MTDD
--- NOTE | 2023-10-15 13:00 | CA_ITS ---
Transthoracic Echocardiogram Patient (Last, First, Middle): Sandro Thayer, Gender: Male Date of : 1940 Age: 82 Procedure Date: 10/15/2023 Procedure Type: Transthoracic Echocardiogram Location: OP Height: 172.72 cm Weight: 78.02 kg BSA: 1.92 m2 Heart Rate: 66 bpm BP: 138 / 74 mmHg Compliance Field Technician: ALAINA Referring MD: Victor M Arias MD Bottom Worker: Victor M Arias MD Symptoms: I10 - Essential (primary) hypertension Study Quality: Adequate ECG Rhythm: Sinus Conclusions: - 1. [id number] LV systolic dysfunction with LVEF of 40-45% with grade 2 diastolic dysfunction 2. At least moderately dilated left atrium 3. Mild mitral regurgitation 4. Mildly elevated right ventricular systolic pressure 5. 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 No gross pericardial effusion Findings Left Ventricle Mildly increased left ventricular cavity size. There is normal left ventricular wall thickness. The left ventricular systolic function is mild to moderately decreased. The visually estimated ejection fraction is between 40-45%. Spectral Doppler is indicative of a pseudonormal filling pattern. E/E prime ratio is >15, consistent with elevated filling pressures. Evidence suggests grade II (moderate) diastolic dysfunction. Right Ventricle Mildly increased right ventricular cavity size. There is normal right ventricular systolic function. Atria The left atrium is moderately dilated. Interatrial shunt cannot be excluded. The right atrium is mildly dilated. Aortic Valve There is mild calcification of the aortic valve. There is no aortic valve stenosis. There is no aortic valve regurgitation. Mitral Valve There is mild anterior and posterior mitral leaflet thickening. There is mild mitral annular calcification. There is mild mitral valve regurgitation. There is no mitral valve stenosis. Pulmonic Valve The pulmonic valve is likely normal. There is trace pulmonic valve regurgitation. Tricuspid Valve Normal tricuspid valve structure. There is mild tricuspid valve regurgitation. Normal right atrial pressure. Mild pulmonary hypertension is present. Great Vessels The pulmonary artery was not well visualized. There is mild dilatation of the ascending aorta measuring 4.40 cm. Small plaque is seen in the sino tubular ridge. Venous The inferior vena cava is normal in size and collapses greater than 50% with inspiration. Pericardium/Pleural There is no evidence of pericardial effusion. Prior Study Comparison No prior study available for comparison. Measurements 2D Linear Measurements IVSd: 1.01 0.6-0.9/0.6-1.0 cm LVIDd: 5.67 3.9-5.3/4.2-5.9 cm LVIDd Index: 2.95 2.4-3.2/2.2-3.1 cm/m2 LVIDs: 4.88 2.0-3.6 cm LVPWd: 1.02 0.7-1.1 cm LA Diam: 4.90 2.7-3.8/3.0-4.0 cm LAIDs Index: 2.55 1.5-2.3 cm/m2 LV Mass: 285.22 67-162/88-224 g LV Mass Index: 148.55 43-95/49-115 g/m2 LVOT Diam: 2.10 3.0+(-)1.3 cm 2D Systolic Function EF 4C: 42.10 >55% EF 2C: 42.50 >55% EF BiP: 45.50 >55% Mitral Valve MV Pk E: 0.91 MV PK A: 0.61 MV Decel Time: 170.00 E/A: 1.50 E'Lateral: 5.00 E'Medial: 2.61 E/E' Med: 34.70 E/E' Lat: 18.10 PHT: 50.00 MVA PHT: 4.40 Decel Robeson: 5.37 Aortic Valve AoV Pk Yuan: 0.69 AoV Pk Grad: 2.00 FRANCIA: 2.90 LVOT LVOT Pk Yuan: 0.63 LVOT Mn Yuan: 0.42 LVOT VTI: 0.12 LVOT Pk Grad: 2.00 LVOT Mn Grad: 1.00 LVOT Diam: 2.10 LVOT Area: 3.46 Diastolic Function MV Pk E: 0.91 MV Pk A: 0.61 E/A: 1.50 E'Medial: 2.61 E/E' Med: 34.70 E' Laterial: 5.00 E/E' Lat: 18.10 Right Ventricle TAPSE (mm): 18.30 TVS' Yuan: 11.70 Tricuspid Valve TR Pk Yuan: 3.12 TR Pk Grad: 39.00 RA Press: 3.00 RVSP: 42.00 Great Vessels Aorta Sinus of Valsalva: 4.30 2.0-3.5 cm Ao Asc: 4.40 2.1-3.4 cm Pulmonary Valve PV Pk Yuan: 0.59 Peak PV Grad: 1.00 Updated in Other Vendor System with Status of Final Victor M Arias MD electronically signed on 10/15/2023 3:18:34 PM with status of Final
== END ==
LOC: HO.CARD 12:57
PROVIDERS: Visit Provider Internal Medicine Cardiovascular Disease
DX: I10 Essential (primary) hypertension (principal); I47.19 Other supraventricular tachycardia; R55 Syncope and collapse
CPT/HCPCS: 93270; 93306

== ENCOUNTER → 2023-10-15 13:00 | Outpatient (BNV) | payer MEDICARE, OTHER, SELFPAY | PROVIDERS: Visit Provider Internal Medicine Cardiovascular Disease | DX: I48.91 Unspecified atrial fibrillation (principal) | CPT/HCPCS: 93272; 93306 ==

== ENCOUNTER 2023-11-05 09:59 | Outpatient (AMB) | payer MEDICARE, OTHER, SELFPAY ==
[2023-11-05 10:19] VITALS: BP 128/60; PULSE 93; BMI 25.1
--- NOTE | 2023-11-05 10:19 | MHC.OFFVIS ---
Vital Signs 11/05/23 10:19 Height 5 ft 9 in Weight 169 lb 12.095 oz BMI 25.1 BP 128/60 Blood Pressure Location Lt brachial Position Sitting Pulse 93 Pulse Source Pulse Oximeter Intake Visit Reasons: SVT on JESSICA per NS Allergies Seasonal Allergies Allergy (Mild, Verified 11/05/23 10:25) sneezing Medication List - Last Reconciled 11/05/23 by Bri Cowan NP-C amiodarone 200 mg orally 400mg ( 2 tab) Twice a day for 2 weeks then reduce dose to 200mg ( 1 tab) daily; apixaban (Eliquis) 5 mg PO BID ascorbic acid (vitamin C) (Vitamin C) 1 g PO DAILY loratadine (Claritin) 10 mg PO DAILY lovastatin 20 mg PO DAILY metoprolol succinate ER (Toprol XL) 25 mg PO DAILY multivitamin 1 tab PO DAILY HPI HPI SVT on JESSICA per NS: Details: Sandro is an 83-year-old male past medical history of hypertension, hyperlipidemia who was recently seen in [facility] following a syncopal event. He was evaluated by Dr. Arias at that time and thought to have had orthostatic hypotension. He did have findings of frequent PACs on the tele monitor and was started on metoprolol XL 25 mg daily. An echocardiogram and cardiac event monitor were ordered. We have received transmissions from his monitor showing AFib with RVR. Today he reports that he has been feeling well since his hospital discharge. He has not had any recurrent syncopal events. He denies lightheadedness, presyncope, falls. He has not noticed any heart palpitations. No chest discomfort at rest or with activity. No shortness of breath, PND, orthopnea or edema. Taking his metoprolol daily. Does normal ADLs and tolerates them well. Daughter is present. [facility] Medical History Mixed hyperlipidemia Hypertension Social History Alcohol intake: current Alcohol intake frequency: 0-2 drinks per day Alcohol type: beer Comment: Beer Patient Tobacco Use Status: Current everyday Tobacco user Tobacco use type: Cigarette Cigarettes Per Day: 15 Second Hand Smoke Exposure: Yes Advance Directives Date on File: 09/20/23 service: No Review of Systems Const All systems reviewed & are unremarkable except as noted in HPI and below Denies weakness ENT Denies dizziness Card Denies chest pain, Denies chest pain with activity, Denies syncope, Denies rapid heart rate, Denies pedal edema, Denies edema, Denies leg edema, Denies lightheadedness, Denies palpitations, Denies dyspnea, Denies dyspnea on exertion and Denies orthopnea Resp Denies cough, Denies dyspnea and Denies dyspnea on exertion GI Denies hematochezia and Denies change in stool character Musc Reports abnormal gait (uses walker), Denies muscle cramps, Denies muscle weakness, Denies numbness, Denies radiating pain into limb and Denies tingling Neuro Reports abnormal gait (uses walker), Denies dizziness, Denies syncope, Denies numbness, Denies tingling and Denies weakness Endo Denies palpitations Physical Exam Vital Signs: Last Vital Signs Pulse 93 11/05/23 10:19 BP 128/60 11/05/23 10:19 BMI result Body Mass Index 25.1 Const General: cooperative, healthy appearing, comfortable and no acute distress Orientation/consciousness: patient oriented x3 Neck Neck: Yes normal visual inspection and Yes no JVD Resp Effort & Inspection: normal respiratory effort Auscultation: clear to auscultation bilaterally, no crackles, no rales, no rhonchi and no wheezes Cardio Jugular venous distension: no JVD Rate: regular rate Rhythm: regular rhythm Heart sounds: S1 normal heart sound present, S2 normal heart sound present, no murmurs and no rubs Neuro General: patient oriented x3 Extrem General: Yes normal to inspection and No no pedal edema Psych Appearance: grossly normal Mental Status: mental status grossly normal Speech and movement: Normal speech and movement present Office Procedures EKG Details: Today, read by me, SR with first degree avb, multifocal atrial focus, PVCs, bifacicular block, cant exclude prior anterior infarct, rate 87, JT index 101 [id number], Complete Assessment & Plan Assessment & Plan (1) Atrial fibrillation: Code(s): I48.91 - Unspecified atrial fibrillation Category: Medical Plan: New finding of atrial fibrillation as seen on strips from cardiac event monitor. Heart rates quite elevated with high of 197. Patient ask specifically about the dates and times the strips were obtained and he does not recall feeling anything unusual. He has not had any recurrent syncopal events. He has never had a diagnosis of atrial fibrillation in the past. He says he has been taking the metoprolol XL 25 mg daily. Diagnosis of atrial fibrillation reviewed with him in detail, stroke risk with AFib discussed. CHADS-VASc score of 3. Anticoagulation is indicated. Will start on Eliquis 5 mg b.i.d. which is the appropriate dose for his weight and creatinine. No history of bleeding issues. EKG done today is showing sinus rhythm with first-degree AV block, some beats have multifocal atrial focus, bifascicular block, JT index 101, rate 87. EKG reviewed with Dr. Arias. Will start him on amiodarone load of 400 mg b.i.d. for 2 weeks then reduce dose down to 200 mg once daily. Continue metoprolol. Office EKG in 1 week. His echocardiogram on 10/15/2023 showed EF 40-45%, grade 2 diastolic dysfunction, mild MR and ascending aorta 4.4 cm. He does not appear in heart failure on examination. Will order a pharmacological nuclear stress test to evaluate for any ischemia. Cardiology office visit in 6 weeks, sooner if needed. (2) Atrial tachycardia: Code(s): I47.19 - Other supraventricular tachycardia Category: Medical Plan: PACs and brief atrial tach noted when he was in [facility]. He was started on metoprolol at that time. Has since been found to have atrial fibrillation. (3) Syncope: Code(s): R55 - Syncope and collapse Category: Medical Plan: Seen in [facility] for syncopal event. It was thought to be orthostatic hypotension. He has not had any recurrent events. He continues to wear the cardiac event monitor at this time. (4) Hypertension: Code(s): I10 - Essential (primary) hypertension Category: Medical Plan: Well controlled at this time. Plan Time spent on chart review, documentation, interview and assessment Orders: Orders NM cardiolite stress test Today I48.91 - Unspecified atrial fibrillation, R55 - Syncope and collapse CA lexiscan stress w adrianne Today I47.19 - Other supraventricular tachycardia, I48.91 - Unspecified atrial fibrillation, R55 - Syncope and collapse Medications: New amiodarone 200 mg orally 400mg ( 2 tab) Twice a day for 2 weeks then reduce dose to 200mg ( 1 tab) daily; 70 tabs 1RF apixaban (Eliquis) 5 mg PO BID 60 tabs 5RF Coding Level of Care Code Est Pt Level 4 (54468) Diagnoses Atrial fibrillation I48.91 Atrial tachycardia I47.19 Syncope R55 Hypertension I10 CPT Codes EKG - CPT: 08456-[id number], Complete ([id number]) Time Spent (min) 30
== END 2023-11-05 11:30 | disposition home or self-care (01) ==
PROVIDERS: PCP Pediatrics; Visit Provider Nurse Practitioner Family
DX: I48.91 Unspecified atrial fibrillation (principal); I47.19 Other supraventricular tachycardia; R55 Syncope and collapse; I10 Essential (primary) hypertension
CPT/HCPCS: 93010; 99214

== ENCOUNTER → 2023-11-05 09:59 | Outpatient (BNVA) | payer MEDICARE, OTHER, SELFPAY | PROVIDERS: Visit Provider Nurse Practitioner Family | DX: I48.91 Unspecified atrial fibrillation (principal); I47.19 Other supraventricular tachycardia; R55 Syncope and collapse; I10 Essential (primary) hypertension | CPT/HCPCS: 93005; 99212 ==

== ENCOUNTER → 2023-11-11 10:03 | Outpatient (BNVA) | payer MEDICARE, OTHER, SELFPAY | PROVIDERS: PCP Pediatrics; Visit Provider Nurse Practitioner Family ==

== ENCOUNTER → 2023-12-10 09:09 | Outpatient (REF) | payer MEDICARE, OTHER, SELFPAY ==
--- NOTE | ~2023-12-10 | NM_ITS ---
Lexiscan Myocardial perfusion study Indication: Syncope, cardiomyopathy Technique: The patient was brought in for a Lexiscan perfusion study on 12/10/2023 and was injected 0.4 mg of Lexiscan intravenously. Within a minute of this injection 25 mCi of sestamibi was given intravenously. Images were obtained using the SPECT gamma camera interlaced with the gating device. Images were obtained in supine position. Resting perfusion study was performed on 12/14/2023. Patient was administered 25 mCi of sestamibi intravenously at rest. Images were then obtained in supine position. Total DLP 99mGy-cm. Images were processed with the software and compared side to side in short axis, horizontal long axis and vertical long axis views. Findings: Raw acquisition reviewed. Arms by the patient's side. The stress perfusion study showed decreased tracer uptake along the inferior wall. There is improvement with CT attenuation correction suggestive of diaphragmatic attenuation artifact. The gated study shows diminished LV systolic function with calculated LVEF of 25%. LV cavity is dilated in size. The gated study shows globally reduced wall thickening and contraction of segments. Resting study shows diminished tracer uptake along the inferior wall. There is improvement with CT attenuation correction which could indicate components of diaphragmatic attenuation artifact. Gating at rest reveals globally reduced wall motion with ejection fraction at 33%. The findings are consistent with fixed inferior perfusion defect. No clear reversible defects. W[place]/WV cardiolite stress test Impression: 1. Myocardial perfusion imaging study shows no evidence of ischemia. Fixed inferior perfusion defect which could indicate diaphragmatic attenuation artifact, but cannot exclude prior infarct. 2. Gated LVEF is 23% during stress and 33% during rest. Correlate with echocardiogram. 3. Transient ischemic dilatation not present, but LV cavity is dilated. EKG component of the test reported separately. Electronically signed by: Jez Alvarado MD 12/15/2023 08:37 AM EDT
--- NOTE | 2023-12-10 09:14 | CA_ITS ---
Acquisition Time: 2023-12-10 09:20:08 Total Exercise Time: 00:02:00 Test Indications: Syncope ABN EKG Medications: AMIODORONE ELIQUIS LOVASTATIN METOPROLOL Protocol: LEXISCAN Max HR: 090 BPM 66% of Pred: 136 BPM Max BP: 152/088 mmHG Max Work Load: 1.0 METS Pharmacological stress test with lexiscan injection, without anginal symptoms, with isolated PVCs, venticular cuplet, and venticular bigeminy, with resting HTN, hypertensive response to injection, with nondiagnoistic EKGs. Aminophylline 75mg IVP given to reverse Lexiscan. Blood pressure returned to baseline. Nuclear images pending. Test revieed with Dr. Lala. Referred By: Bri Cowan Overread By: Osiris Daley
== END ==
LOC: HO.CARD 09:09
PROVIDERS: PCP Pediatrics; Visit Provider Nurse Practitioner Family
DX: I48.91 Unspecified atrial fibrillation (principal); R55 Syncope and collapse; I47.19 Other supraventricular tachycardia
CPT/HCPCS: 78452; 93017; A9500; J0280; J2785

== ENCOUNTER → 2023-12-10 09:14 | Outpatient (BNV) | payer MEDICARE, OTHER, SELFPAY | PROVIDERS: PCP Pediatrics; Visit Provider Nurse Practitioner | DX: R55 Syncope and collapse (principal); I42.9 Cardiomyopathy, unspecified | CPT/HCPCS: 78452; 93016; 93018 ==

== ENCOUNTER 2023-12-16 12:52 | Outpatient (AMB) | payer MEDICARE, OTHER, SELFPAY ==
--- NOTE | 2023-12-16 12:57 | MHC.OFFVIS ---
Vital Signs 12/16/23 12:58 Height 5 ft 9 in Weight 171 lb 15.369 oz BMI 25.4 BP 140/86 H Blood Pressure Location Lt brachial Position Sitting Pulse 76 Intake Visit Reasons: 6-8 wk follow up Intake Note: 6-8 week follow-up with ekg feeling ok Allergies Seasonal Allergies Allergy (Mild, Verified 11/05/23 10:25) sneezing Medication List - Last Reconciled 12/16/23 by Victor M Arias MD amiloride 5 mg PO DAILY amiodarone 200 mg PO DAILY 90 days apixaban (Eliquis) 5 mg PO BID 90 days ascorbic acid (vitamin C) (Vitamin C) 1 g PO DAILY loratadine (Claritin) 10 mg PO DAILY lovastatin 20 mg PO DAILY multivitamin 1 tab PO DAILY HPI Comments Details: Sandro comes for follow-up after recent event monitor. Event monitor was done for syncopal episode which revealed incidental atrial fibrillation with significantly rapid heart rate up to 200 beats per minute. He was subsequently started on amiodarone and Eliquis. He has tolerated both therapy well. He did not notice significant fast heart rate or palpitations. He continues to have orthostatic lightheadedness. He also has issues with hypertension. He underwent a myocardial perfusion imaging which showed no evidence of ischemia but gated LVEF was significantly depressed. He has no signs or symptoms of heart failure. He has no syncopal episodes. He does have poor balance and uses either a cane or a walker to help with ambulation. Denies any exertional chest pain. No orthopnea, PND, leg edema. Takes all his medications. Does not drink adequate amount of fluid every day. [facility] Medical History (Updated 12/16/23 @ 13:23 by Victor M Arias MD) Cardiomyopathy Atrial fibrillation Paroxysmal atrial fibrillation Mixed hyperlipidemia Hypertension Social History Alcohol intake: current Alcohol intake frequency: 0-2 drinks per day Alcohol type: beer Comment: Beer Patient Tobacco Use Status: Current everyday Tobacco user Tobacco use type: Cigarette Cigarettes Per Day: 15 Second Hand Smoke Exposure: Yes Advance Directives Date on File: 09/20/23 service: No Review of Systems Const Denies chills, Denies fatigue, Denies fever(s), Denies frequent falls, Denies weakness, Denies weight gain and Denies weight loss ENT Reports disequilibrium Card Denies chest pain, Denies syncope, Denies leg edema, Reports lightheadedness, Denies palpitations, Denies dyspnea, Denies dyspnea on exertion, Denies orthopnea and Denies other (loss of consciousness) Resp Denies cough, Denies dyspnea and Denies dyspnea on exertion GI Denies hematochezia and Denies change in stool character Musc Denies abnormal gait, Denies muscle weakness, Denies numbness, Denies radiating pain into limb and Denies tingling Neuro Denies abnormal gait, Denies syncope, Denies frequent falls, Denies numbness, Denies tingling, Reports disequilibrium and Denies weakness Endo Denies fatigue and Denies palpitations Physical Exam Vital Signs: Last Vital Signs Pulse 76 12/16/23 12:58 BP 140/86 H 12/16/23 12:58 BMI result Body Mass Index 25.4 Const General: cooperative, healthy appearing, comfortable and no acute distress Orientation/consciousness: patient oriented x3 Neck Neck: Yes normal visual inspection and Yes no JVD Resp Effort & Inspection: normal respiratory effort Auscultation: clear to auscultation bilaterally, no crackles, no rales, no rhonchi and no wheezes Cardio Jugular venous distension: no JVD Rate: regular rate Rhythm: regular rhythm Heart sounds: S1 normal heart sound present, S2 normal heart sound present, no murmurs and no rubs Neuro General: patient oriented x3 Extrem General: Yes normal to inspection and No no pedal edema Psych Appearance: grossly normal Mental Status: mental status grossly normal Speech and movement: Normal speech and movement present Office Procedures EKG Details: EKG shows normal sinus rhythm with first-degree AV block with right bundle and left anterior fascicular block with LVH [id number], Complete Assessment & Plan Assessment & Plan (1) Paroxysmal atrial fibrillation: Code(s): I48.0 - Paroxysmal atrial fibrillation Category: Medical Plan: Paroxysmal atrial fibrillation with significantly rapid ventricular response without any obvious symptoms. This was incidental finding. He does have underlying structural heart issues with moderate left atrial enlargement that makes him more prone to get atrial fibrillation. May contribute to his cardiomyopathy process as his atrial fibrillation was pretty asymptomatic. Continue with amiodarone for rhythm control approach at this point time. Follow-up echocardiogram and Holter monitor in 2 months time. Continue full oral anticoagulation, currently on Eliquis 5 mg b.i.d.. Quarterly renal function test should be pursued. (2) Cardiomyopathy: Code(s): I42.9 - Cardiomyopathy, unspecified Category: Medical Plan: Cardiomyopathy process with LVEF of 40-45% with no evidence of myocardial ischemia. Question tachycardia mediated cardiomyopathy. No signs or symptoms of heart failure. Continue aggressive blood pressure control. Will hold off on any further drug therapy given his significant orthostatic syncope symptoms. Follow-up limited echocardiogram in 2 months time, expect LV function to improve. (3) Syncope: Code(s): R55 - Syncope and collapse Category: Medical Plan: Syncopal episode most likely orthostatic in nature continues to have orthostatic symptoms at this point time. He has not had any recurrent syncopal episodes. Strongly encouraged to participate in orthostatic precautions. Also advised to increase fluid intake but avoid salt loading. Will follow up in the clinic in 6 months time, sooner p.r.n.. Thank you for allowing me to partake in his care Orders: Orders CA Echo Limited 2 Months I42.9 - Cardiomyopathy, unspecified ECG 3 day holter monitor 2 Months I48.0 - Paroxysmal atrial fibrillation Medications: New amlodipine 5 mg PO DAILY 30 tabs 1RF I48.0 - Paroxysmal atrial fibrillation Coding Level of Care Code Est Pt Level 4 (33347) Diagnoses Paroxysmal atrial fibrillation I48.0 Cardiomyopathy I42.9 Syncope R55 CPT Codes EKG - CPT: 55705-[id number], Complete ([id number])
[2023-12-16 12:58] VITALS: BP 140/86; PULSE 76; BMI 25.4
== END 2023-12-16 13:31 | disposition home or self-care (01) ==
PROVIDERS: PCP Pediatrics; Visit Provider Internal Medicine Cardiovascular Disease
DX: I48.0 Paroxysmal atrial fibrillation (principal); I42.9 Cardiomyopathy, unspecified; R55 Syncope and collapse
CPT/HCPCS: 93010; 99214

== ENCOUNTER → 2023-12-16 12:52 | Outpatient (BNVA) | payer MEDICARE, OTHER, SELFPAY | PROVIDERS: PCP Pediatrics; Visit Provider Internal Medicine Cardiovascular Disease | DX: I44.0 Atrioventricular block, first degree (principal); I45.2 Bifascicular block; I48.0 Paroxysmal atrial fibrillation; I42.9 Cardiomyopathy, unspecified; R55 Syncope and collapse; E78.5 Hyperlipidemia, unspecified | CPT/HCPCS: 93005; 99212 ==

== ENCOUNTER 2024-02-06 08:47 | Inpatient (IN) | payer MEDICARE, OTHER, SELFPAY ==
--- NOTE | ~2024-02-06 | CT_ITS ---
EXAMINATION: CT HEAD WITHOUT CONTRAST CLINICAL INFORMATION: Stroke protocol, unspecified indication. COMPARISON: None TECHNIQUE: Contiguous axial imaging was performed from the skull base to vertex without intravenous administration of contrast. This CT examination was performed using dose optimization techniques as appropriate, variously including the following: *Automated exposure control *Adjustment of mA and/or kV according to patient size (this includes techniques or standardized protocols for targeted exams where dose is matched to indication/reason for exam; i.e. extremities or head) *Use of iterative reconstruction technique DLP: 782 mGy-cm FINDINGS: Equivocal asymmetric dense MCA sign on the left side (5:52). There is no evidence of acute intracranial hemorrhage or edematous territorial infarction. A few foci of hypoattenuation in the periventricular and deep white matter are consistent with mild microangiopathy. Todd-white matter differentiation is preserved. Proportional prominence of the ventricles and sulcal spaces. No evidence for obstructive hydrocephalus. No abnormal mass effect or midline shift. No extra-axial fluid collections. No acute soft tissue or osseous abnormalities. Moderate mucoperiosteal thickening of the paranasal sinuses with partial opacification of several ethmoid air cells and inspissated mucous secretions in the right frontal sinus. Large polypoid mixed density filling defects in the bilateral nasal cavities. CT/CT head for stroke IMPRESSION: 1. Suggestion of asymmetric dense MCA sign on the left side that is suspicious for intraluminal thrombus. Recommend further evaluation with a CTA of the head. 2. No edematous arterial infarction or intracranial bleed. 3. Mild chronic microangiopathy with generalized cerebral volume loss. 4. Severe paranasal sinus disease. 5. Large polypoid filling defects in the bilateral nasal cavities. Recommend correlation with direct visualization. This critical result was discussed with Dr. Matias at 02/06/2024 9:14 AM Eastern Time and it was ascertained that the content and urgency of the report was understood at the time of direct communication. Electronically signed by: Judi Corrales MD 02/06/2024 09:24 AM EDT
--- NOTE | ~2024-02-06 | XR_ITS ---
EXAMINATION: XR CHEST CLINICAL INFORMATION: Stroke. COMPARISON: Chest radiograph 09/20/2023. TECHNIQUE: Frontal view of the chest was obtained. FINDINGS: Stable appearance of the cardiomediastinal silhouette. Increased bilateral reticulonodular markings. No consolidation, pleural effusion or pneumothorax. No acute osseous findings. XR/XR chest 1V IMPRESSION: Increased bilateral reticulonodular markings possibly infectious/inflammatory. Recommend short-term follow-up chest radiograph to ensure resolution. Electronically signed by: Judi Corrales MD 02/06/2024 12:31 PM EDT
--- NOTE | ~2024-02-06 | CT_ITS ---
EXAMINATION: CTA NECK WITH CONTRAST (STROKE) CTA BRAIN WITH CONTRAST (STROKE) CLINICAL INFORMATION: Right-sided weakness COMPARISON: None available. TECHNIQUE: CTA of the head and neck was performed in the axial plane from the mediastinum to the skull vertex using 70 mL Omnipaque 350 intravenous contrast. Additional reformatted multiplanar images including maximum intensity projection MIP images are generated on the CT workstation. This CT examination was performed using dose optimization techniques as appropriate, variously including the following: *Automated exposure control *Adjustment of mA and/or kV according to patient size (this includes techniques or standardized protocols for targeted exams where dose is matched to indication/reason for exam; i.e. extremities or head) *Use of iterative reconstruction technique DLP: 1651 mGy-cm FINDINGS: The degree of stenosis determined by criteria similar to NASCET. CTA NECK: Three-vessel aortic arch. Atherosclerotic calcifications scattered through the great vessels without significant stenosis. The origins and cervical segments of the common carotid arteries are patent bilaterally. The common carotid artery bifurcations demonstrate extensive mural calcifications, with severe focal stenosis on the left and mild to moderate focal stenosis on the right. Atherosclerotic calcifications are scattered through the cervical segments of internal carotid arteries without significant stenosis. Extensive atherosclerotic calcifications at the origin of the right vertebral artery with near complete short segment stenosis of the proximal right cervical vertebral artery. There is also severe focal stenosis at the origin of the left vertebral artery. Scattered atherosclerotic calcifications throughout the cervical vertebral arteries with associated multifocal mild to moderate stenosis throughout the right segment. No dissection or aneurysm. CTA HEAD: Moderate atherosclerotic calcifications of the bilateral carotid siphons. Anterior circulation: There is moderate stenosis involving a short segment of the right greater than left cavernous ICAs. The remaining intracranial internal carotid arteries segments are patent bilaterally. The major branches of the anterior and middle cerebral arteries as well as anterior communicating artery complex are patent. No large vessel occlusion, saccular aneurysm, or dissection. Posterior circulation: The left intracranial vertebral artery is hypoplastic however remains patent. The right intracranial vertebral artery demonstrates scattered atherosclerotic aspirations without significant stenosis. The basilar artery is mildly tortuous in course however remains patent. The posterior cerebral and superior cerebellar arteries arise normally from the basilar summit. No aneurysm. Soft tissues: There is a masslike soft tissue density within the posterior aspect of the nasal cavity on the left with partial opacification of the nasopharynx. Otherwise, no suspicious cervical adenopathy. Lungs: Emphysematous changes in the lung apices. Multifocal groundglass opacities bilaterally, right greater than left. Bones: No acute osseous abnormality. No lytic or blastic osseous lesions. Multilevel degenerative changes of the visualized spine. CT/CT angio head neck stroke IMPRESSION: -No large vessel occlusion, saccular aneurysm, or dissection. -Extensive atherosclerotic disease throughout the cervical and intracranial vasculature with associated near complete short segment stenosis of the right proximal cervical vertebral artery, severe stenosis of the left carotid bulb, and mild to moderate stenosis of the right carotid bulb. There is also severe focal stenosis of the left vertebral artery origin as well as multifocal mild to moderate stenoses of the cervical vertebral arteries. -Masslike soft tissue density within the posterior aspect of the nasal cavity on the left with partial opacification of the nasopharynx. Recommend direct visualization to exclude an underlying lesion. -Multifocal groundglass opacities in the lung apices, right greater than left. Electronically signed by: Freddy Child MD 02/06/2024 10:44 AM EDT
--- NOTE | ~2024-02-06 | MR_ITS ---
EXAMINATION: MR BRAIN WITHOUT CONTRAST CLINICAL INFORMATION: Right-sided weakness, rule out stroke COMPARISON: Same day CTA head and neck TECHNIQUE: MRI of the brain was obtained using routine sequences without contrast. FINDINGS: Acute infarct in the left thalamus and left temporal lobe. No hemorrhagic transformation. Scattered and confluent periventricular and deep white matter T2/FLAIR hyperintensities, nonspecific however commonly seen with small vessel ischemic disease. Diffuse prominence of the sulci with associated ex vacuo dilation of the ventricles compatible with global cerebral atrophy. No midline shift or hydrocephalus. No acute extra-axial fluid collections. The osseous structures are unremarkable. The pituitary gland, pineal gland and remaining midline structures are unremarkable. No orbital pathology. Mild mucosal thickening of the paranasal sinuses. Probable polyp in the posterior aspect of the left nasal cavity extending posteriorly to partially opacify the paranasal findings. The mastoid air cells are clear. MR/MR head/brain wo con IMPRESSION: 1. Acute infarct in the left thalamus and left temporal lobe. No hemorrhagic transformation. 2. 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 Electronically signed by: Freddy Child MD 02/06/2024 05:03 PM EDT
--- NOTE | 2024-02-06 08:55 | ECG_ITS ---
Test Reason : STROKE SYMPTOMS Blood Pressure : / mmHG Vent. Rate : 078 BPM Atrial Rate : 078 BPM P-R Int : 244 ms QRS Dur : 164 ms QT Int : 464 ms P-R-T Axes : 087 -73 055 degrees QTc Int : 529 ms Sinus rhythm with 1st degree A-V block Right bundle branch block Left anterior fascicular block Bifascicular block Minimal voltage criteria for LVH, may be normal variant ( R in aVL ) Abnormal ECG When compared with ECG of 21-SEP-2023 10:07, QT has lengthened Referred By: Vandana Matias Electronically Signed By:LISBETH JACOB
[2024-02-06 08:56] VITALS: BP 169/103; BP 170/99; PULSE 83; PULSE 89; RESP 18; TEMP 36.6; O2SAT 98; O2SAT 99; BMI 25.9
[2024-02-06 08:56] LABS: Glucose, Whole Blood 104 mg/dL (60-115)
--- NOTE | 2024-02-06 08:56 | ED_ITS ---
HPI - Fall General Chief Complaint: Stroke Stated Complaint: ?STROKE,UNABLE TO WALK/TALK,LKWT 11PM,R SIDE,+THIN Time Seen by Provider: 02/06/24 08:55 Source: patient and EMS Mode of arrival: EMS Limitations: no limitations History of Present Illness ED Provider: DR. Matias HPI Narrative: 83-year-old male history paroxysmal AFib on Eliquis, hypertension, cardiomyopathy came in by EMS for evaluation after fall and possible stroke with weakness on the right side. Patient lives home with his family ambulate with a cane at home, last known well was last night at 23:00 when he went to bed woke up this morning tried to grab his came and go to the bathroom fell down a patient stated he felt very weak on the right side could not move his leg, family heard the thud found in on the ground as per family patient had slurred speech and some confusion, on arrival to the ED patient is able to have a conversation with a stiff was out noticed aphasia. No CP, no SOB, right-sided weakness. Related Data Home Medications ?Medication ?Instructions ?Recorded ?Confirmed ascorbic acid (vitamin C) 1,000 mg 1 g PO DAILY 09/20/23 12/16/23 tablet (Vitamin C) loratadine 10 mg tablet (Claritin) 10 mg PO DAILY 09/20/23 12/16/23 lovastatin 20 mg tablet 20 mg PO DAILY 09/20/23 12/16/23 multivitamin 1 tab PO DAILY 09/20/23 12/16/23 furosemide 20 mg tablet 20 mg PO DAILY 02/06/24 metoprolol succinate 25 mg 25 mg PO DAILY 02/06/24 tablet,extended release 24 hr nicotine (polacrilex) 4 mg buccal 4 mg PO Q2H PRN Nicotine Cravings 02/06/24 lozenge nicotine 14 mg/24 hr daily 1 patch topical DAILY 02/06/24 transdermal patch Previous Rx's ?Medication ?Instructions ?Recorded apixaban 5 mg tablet (Eliquis) 5 mg PO BID 90 days #180 tabs 11/11/23 amlodipine 5 mg tablet 5 mg PO DAILY #30 tabs 12/16/23 amiodarone 200 mg tablet 200 mg PO DAILY 90 days #90 tabs 12/28/23 Allergies Allergy/AdvReac Type Severity Reaction Status Date / Time Seasonal Allergies Allergy Mild sneezing Verified 02/06/24 09:02 Review of Systems 2 Review of Systems: All other systems are reviewed and are negative Constitutional: Reports as per HPI and Reports no additional constitutional complaints Eyes: Reports as per HPI and Reports no additional eye complaints Reports system reviewed and no additional complaints, except as documented Cardiovascular: Reports as per HPI and Reports no additional cardiovascular complaints Respiratory: Reports as per HPI and Reports no additional respiratory complaints Gastrointestinal: Reports as per HPI and Reports no additional gastrointestinal complaints Genitourinary: Reports no additional female genitourinary complaints Musculoskeletal: Reports no additional musculoskeletal complaints Skin/Breast: Reports system reviewed and no additional complaints, except as docu Psychiatric: Reports no additional psychiatric complaints Endocrine: Reports no additional endocrine complaints Hematologic/Lymphatic: Reports no additional hematologic/lymphatic complaints Allergic/Immunologic: Reports no additional allergic/immunologic complaints Reports system reviewed and no additional complaints, except as documented and Reports Abnormal speech present [facility] Past Medical History Medical History Cardiomyopathy Atrial fibrillation Paroxysmal atrial fibrillation Mixed hyperlipidemia Hypertension Social History Social History Alcohol intake: current Alcohol intake frequency: 0-2 drinks per day Alcohol type: beer Comment: Beer Patient Tobacco Use Status: Current everyday Tobacco user Tobacco use type: Cigarette Cigarettes Per Day: 15 Smoked in Last 30 Days: No Second Hand Smoke Exposure: Yes Use of substances other than those prescribed or required for medical reasons: No Advance Directives: No Advance Directives Information Provided: No Advance Directives Date on File: 09/20/23 service: No Physical Exam 2 Vital Signs: Vital Signs: Last Vital Signs Temp 97.8 F 02/06/24 08:56 Pulse 80 02/06/24 10:11 Resp 17 02/06/24 10:11 BP 174/86 H 02/06/24 10:11 Pulse Ox 92 02/06/24 10:11 O2 Del Method Room Air 02/06/24 10:11 BMI result Body Mass Index 25.9 Vital signs have been reviewed and appear to be correct. Blood pressure elevated. Heart rate normal. Respiratory rate normal. Temperature normal. Oxygen saturation normal. Appearance: Alert. Oriented X3. No acute distress. Head: Normal external exam. Normocephalic. Atraumatic. No Delcid signs noted. No raccoon eyes noted Eyes: PERRLA. EOMI. Conjunctiva and sclera normal. Eyelids normal. ENT: TM's Normal. Pharynx normal. Uvula midline. Moist mucous membranes. No trismus noted. No drooling noted. No muffled voice noted. Neck: Normal inspection. Neck supple. FROM. No adenopathy. Thyroid Normal. No meningeal signs. No neck mass noted. CVS: Normal heart rate and rhythm. Heart sound normal. No murmurs noted. Pulses normal throughout. Respiratory: No respiratory distress. Painless inspiration. Breath sounds normal. No wheezes/rales/rhonchi noted. Chest nontender. No accessory muscle usage noted or decreased air movement noted. Abdomen: Soft and nontender. Bowel sounds normal in all 4 quadrants. No distention noted. No organomegaly noted. No visible injury noted. Back: No CVA tenderness. Full range of motion noted. Skin: Skin warm and dry. Normal skin color. Normal skin turgor. No rashes/lesions/lacerations noted. Extremities: No lower extremity edema. Extremities exhibit normal range of motion. Extremities nontender. Neuro: Oriented X 3. Cranial nerve exam: II-XII are grossly intact No motor deficit. No sensory deficit. Reflexes normal. Cerebellar exam no [id number] dysmetria. NIH Stroke Scale Internal: Initial- Upon Arrival Level of Consciousness: Alert Level of Consciousness Questions: Answers both questions correctly Level of Consciousness Commands: Performs both tasks correctly Best Gaze: Normal Visual: No visual loss Facial Palsy: Normal Motor Arm (Right): Drift Motor Arm (Left): No drift Motor Leg (Right): Some effort against gravity Motor Leg (Left): No drift Limb Ataxia: Absent Sensory: Normal Best Language: No aphasia Dysarthia: Normal Extinction and Inattention: No abnormality Score: 3 Course Reevaluation(s) Reevaluation #1: fall secondary to right-sided weakness, NIH score is 3, last known well was 11 last night and patient is on anticoagulation, patient is not a candidate for thrombolysis. CTA showed no occlusion large vessels, Will administer aspirin, admit to the hospitalist service. Time: 11:27 Medications Administered Discontinued Medications Generic Name Dose Route Start Last Admin Trade Name Freq PRN Reason Stop Dose Admin Potassium Chloride 10 meq in 100 mls @ 100 mls/hr 02/06/24 10:15 02/06/24 10:21 Potassium Chloride/H20 IV 02/06/24 11:14 100 mls/hr ONCE ONE Administration Iohexol 100 ml 02/06/24 10:02 02/06/24 10:02 Iohexol 350 Mg/Ml 100 Ml Infus..Btl IV 02/06/24 10:03 70 ml ONCE ONE Administration Potassium Chloride 40 meq 02/06/24 10:15 02/06/24 10:20 Potassium Chloride Packet 20 Meq Packet PO 02/06/24 10:16 40 meq ONCE ONE Administration Medical Decision Making Differential Diagnosis Differential Diagnoses: The differential diagnosis associated with the presentation includes ( Intracranial bleed, ischemic CVA, electrolyte derangement, severe anemia, ACS, dysrhythmia.) Admission/Observation Consideration of admission/observation: Escalation of care including admission/observation considered Lab Data MDM Lab Attestation statement: I reviewed the patient's lab results. 02/06/24 09:21 02/06/24 09:21 Labs: Lab Results 02/06/24 02/06/24 Range/Units 08:51 09:21 WBC 8.2 (4.8-10.8) X10*3/uL RBC 5.16 (4.60-5.80) X10*6/uL Hgb 16.3 (14.0-18.0) g/dl Hct 47.1 (42.0-52.0) % MCV 91.3 (80.0-98.0) fL MCH 31.6 (27.0-33.0) pg MCHC 34.6 (31.0-36.0) g/dl RDW 12.7 (11.0-16.0) % Plt Count 233 (160-400) X10*3/uL MPV 8.9 L (9.4-12.4) fL Immature Gran % (Auto) 0.6 H (0.0-0.4) % Neut % (Auto) 65.7 (45-73) % Lymph % (Auto) 18.8 L (20-40) % [place] % (Auto) 8.4 (2-11) % Eos % (Auto) 5.6 H (0-4) % Baso % (Auto) 0.9 (0-2) % Lymph # (Auto) 1.5 (1.2-4.9) X10*3/uL [place] # (Auto) 0.7 (0.1-1.2) X10*3/uL Eos # (Auto) 0.5 H (0.0-0.4) X10*3/uL Baso # (Auto) 0.1 (0.0-0.2) X10*3/uL Abs Immat Gran (auto) 0.05 H (0.00-0.03) X10*3/uL Absolute Neuts (auto) 5.4 (2.0-8.3) x10*3/uL Absolute Nucleated RBC 0.000 (0.0-0.012) X10*3/uL Nucleated RBC % (auto) 0.0 (0.0-0.2) /100WBC PT 12.8 H (10.9-12.4) SEC INR 1.1 (0.9-1.1) APTT 33.6 (26.0-36.8) SEC Sodium 142 (135-145) mmol/L Potassium 3.2 L (3.3-5.1) mmol/L Chloride 103 (96-108) mmol/L Carbon Dioxide 28 (22-29) mmol/L Anion Gap 14 (12-20) BUN 15 (9-16) mg/dL Creatinine 0.84 (0.5-1.4) mg/dL Estim Creat Clear Calc 65.4 Estimated GFR > 60 POC Glucose 104 (60-115) mg/dL Random Glucose 106 (60-115) mg/dL Calcium 8.9 D (8.4-10.2) mg/dL Troponin I High Sens 25.3 (<3.5-35.0) ng/L Triglycerides 124 (<150) mg/dL Cholesterol 179 (<200) mg/dL LDL Cholesterol, Calc 96 (<100) mg/dL HDL Cholesterol 59 (>40) mg/dL Independent Interpretation I performed an independent interpretation of an: CT Scan ( Head: No acute intracranial pathology/ CTA no large vessel occlusion.) Radiology Impression Discussion of test interpretation with radiology: I have reviewed the radiologist's reading. Discharge Plan Discharge Clinical Impression: Cerebrovascular accident Patient Disposition: Admitted As Inpatient Print Language: Korean
--- NOTE | 2024-02-06 09:05 | PC.NURSE ---
Patient arrived via EMS from home after his family who lives below him heard him fall. Last known well 11pm last night. Patient reports at baseline ambulates with cane. This morning patient woke up tried to get out of bed but right leg was not moving as it normally would. Patient tried to get up and fell between the bed and the wall. Per provider patient brought to ED 6 and MD/ RN attempted to stand patient. Patient able to stand with x 2 assist, but unable to move right leg, able to move left leg to take a step forward. Speech clear however patient reports feels off balance and as though his brain is foggy . Patient brought TO CT
--- NOTE | 2024-02-06 09:12 | PC.NURSE ---
Right hand grasp weaker than left, able to lift left leg higher than right , reports can normally lift right leg higher than he is currently able to , VICRAMOS
[2024-02-06 09:27] LABS: MANUAL DIFF FLAG NO
[2024-02-06 09:28] LABS: Basophils Absolute Auto 0.1 X10*3/uL (0.0-0.2); Basophils Percent Auto 0.9 % (0-2); Eosinophils Absolute Auto 0.5 X10*3/uL (0.0-0.4); Eosinophils Percent Auto 5.6 % (0-4); Hematocrit 47.1 % (42.0-52.0); Hemoglobin 16.3 g/dl (14.0-18.0); Imm Gran Abs Auto 0.05 X10*3/uL (0.00-0.03); Imm Gran Pct Auto 0.6 % (0.0-0.4); Lymphocytes Absolute Auto 1.5 X10*3/uL (1.2-4.9); Lymphocytes Percent Auto 18.8 % (20-40); Mean Corpuscular HGB Conc 34.6 g/dl (31.0-36.0); Mean Corpuscular Hemoglobin 31.6 pg (27.0-33.0); Mean Corpuscular Volume 91.3 fL (80.0-98.0); Mean Platelet Volume 8.9 fL (9.4-12.4); Monocytes Absolute Auto 0.7 X10*3/uL (0.1-1.2); Monocytes Percent Auto 8.4 % (2-11); Neutrophils Absolute Auto 5.4 x10*3/uL (2.0-8.3); Neutrophils Percent Auto 65.7 % (45-73); Platelet Count 233 X10*3/uL (160-400); Red Blood Count 5.16 X10*6/uL (4.60-5.80); Red Cell Distribution Width 12.7 % (11.0-16.0); White Blood Count 8.2 X10*3/uL (4.8-10.8)
--- NOTE | 2024-02-06 09:32 | PC.NURSE ---
Patient passed swallow screen however reports feeling like his coordination holding cup is off. Patient holding cup with both hands, movements coordinated but slow.
[2024-02-06 09:40] LABS: INTERNATIONAL NORM RATIO 1.1 (0.9-1.1); Prothrombin Time 12.8 SEC (10.9-12.4)
[2024-02-06 09:41] LABS: Anion Gap 14 (12-20); Blood Urea Nitrogen 15 mg/dL (9-16); Calcium 8.9 mg/dL (8.4-10.2); Carbon Dioxide 28 mmol/L (22-29); Chloride 103 mmol/L (96-108); Cholesterol 179 mg/dL (<200); Creatinine Clr Calc Pharmacy 65.4; Estimated Glomerular Filt Rate > 60; Glucose Random 106 mg/dL (60-115); HDL Cholesterol 59 mg/dL (>40); LDL Cholesterol Calculated 96 mg/dL (<100); Potassium 3.2 mmol/L (3.3-5.1); Sodium 142 mmol/L (135-145); Triglycerides 124 mg/dL (<150)
[2024-02-06 09:43] LABS: Partial Thromboplastin Time 33.6 SEC (26.0-36.8)
[2024-02-06 09:47] LABS: Troponin-I High Sensitivity 25.3 ng/L (<3.5-35.0)
[2024-02-06] MEDS: iohexoL 350 MG/ML 100 ML INFUS..BTL IV (10:02)
[2024-02-06 10:11] VITALS: BP 174/86; PULSE 80; RESP 17; O2SAT 92
[2024-02-06] MEDS: Potassium Chloride Packet 20 MEQ PACKET 40 MEQ PO (10:20)
[2024-02-06] MEDS: Potassium Chloride/H20 10 MEQ/100 ML PIGGYBACK 100 MEQ IV (10:21)
[2024-02-06 10:48] LABS: Stroke Lab Use COMPLETE
[2024-02-06 12:00] VITALS: BP 173/94; PULSE 98; RESP 19; TEMP 36.6; O2SAT 93
[2024-02-06] MEDS: Aspirin Enteric Coated 81 MG TABLET.DR PO (12:12)
--- NOTE | 2024-02-06 12:42 | PHA.MEDREC ---
Addendum entered by Sasha Lamar RPh 02/06/24 13:09: MED REC REVIEWED BY BHAVANA Original Note: Pharmacy Consult ? Medication Reconciliation Pharmacy has completed the medication reconciliation. Spoke to pts family in the room to confirm meds.
--- NOTE | 2024-02-06 13:09 | PC.NURSE ---
MRI screening form completed with patient and family at bedside and scanned to MRI. Stroke education provided to patient and family who verbalized understanding.
--- NOTE | 2024-02-06 13:22 | P.HPHOSP_ITS ---
History of Present Illness Date of Service: 02/06/24 Chief Complaint: Right sided weakness An 83 years old male with PMH of PAF on Eliquis, HTN, systolic CHF who presents to the hospital after a fall at home with right sided weakness. The patient lives home with family. Right handed. Lives in 2nd floor and uses stair left. He woke up this morning and sat at the edge of the bed for a minute. when he stood up to walk to the bathroom he felt his right leg is too heavy and ended up falling to the floor with no reportede loss of consciousness or head injury. last time he was normal aroun 11 PM when he went to bed. family reports mild confusion and slurred speech when they found him soon after the fall that has improved by nowNo chest pain, palpitations, SOB, nausea, vomiting, diarrhea or urinary symptoms. No chest pain, palpitations, SOB, nausea, vomiting, diarrhea or urinary symptoms. CT and CTA negative for any acute findings. Admitted for further evaluation and treatment. Review of Systems 2 Review of Systems: No fever, chills but has right sided weakness No chest pain, palpitation No shortness of breath or coughing No abdominal pain, nausea or vomiting No urinary symptoms No any rash or wounds [facility] Medical History Cardiomyopathy Atrial fibrillation Paroxysmal atrial fibrillation Mixed hyperlipidemia Hypertension Social History Alcohol intake: current Alcohol intake frequency: 0-2 drinks per day Alcohol type: beer Comment: Beer Patient Tobacco Use Status: Current everyday Tobacco user Tobacco use type: Cigarette Cigarettes Per Day: 15 Smoked in Last 30 Days: No Second Hand Smoke Exposure: Yes Use of substances other than those prescribed or required for medical reasons: No Advance Directives: No Advance Directives Information Provided: No Advance Directives Date on File: 09/20/23 service: No Meds Allergies Allergy/AdvReac Type Severity Reaction Status Date / Time Seasonal Allergies Allergy Mild sneezing Verified 02/06/24 09:02 Active Medications: Current Medications Acetaminophen (Acetaminophen 325 Mg Tablet) 650 mg PO Q6H PRN PRN Reason: Pain, Mild (Pain Scale 1-3), fever or headache Aspirin (Aspirin Enteric Coated 81 Mg Tablet.) 81 mg PO DAILY DORENE Atorvastatin Calcium (Atorvastatin Calcium 40 Mg Tablet) 40 mg PO BEDTIME DORENE Calcium Carbonate (Calcium Carbonate 750 Mg Tab.Chew) 750 mg PO Q4H PRN PRN Reason: Heartburn Magnesium Hydroxide (Milk Of Magnesia 30 Ml Oral.Susp) 30 ml PO DAILY PRN PRN Reason: Constipation Melatonin (Melatonin 3 Mg Tablet) 6 mg PO BEDTIME PRN PRN Reason: Insomnia Ondansetron HCl (Ondansetron Hcl 4 Mg/2 Ml Vial) 4 mg IVPUSH Q8H PRN PRN Reason: Nausea and Vomiting Home Medications ?Medication ?Instructions ?Recorded ?Confirmed ?Last Taken ?Type ascorbic acid (vitamin C) 1,000 mg 1 g PO DAILY 09/20/23 02/06/24 02/05/24 History tablet (Vitamin C) loratadine 10 mg tablet (Claritin) 10 mg PO DAILY 09/20/23 02/06/24 02/05/24 History lovastatin 20 mg tablet 20 mg PO DAILY 09/20/23 02/06/24 02/05/24 History multivitamin 1 tab PO DAILY 09/20/23 02/06/24 02/05/24 History furosemide 20 mg tablet 20 mg PO DAILY 02/06/24 02/06/24 02/05/24 History nicotine (polacrilex) 4 mg buccal 4 mg PO Q2H PRN Nicotine Cravings 02/06/24 02/06/24 Unknown History lozenge nicotine 14 mg/24 hr daily 1 patch topical DAILY 02/06/24 02/06/24 02/05/24 History transdermal patch Physical Exam 2 Vital Signs and Narrative: Vital Signs: Last Vital Signs Temp 97.8 F 02/06/24 12:00 Pulse 98 02/06/24 12:00 Resp 19 02/06/24 12:00 BP 173/94 H 02/06/24 12:00 Pulse Ox 93 02/06/24 12:00 O2 Del Method Room Air 02/06/24 12:00 BMI result Body Mass Index 25.9 Const: Other: Constitutional : Awake, interactive, not in distress Neck : Normal inspection, Supple Cardiovascular : RRR, no JVP, no lower extremity edema Respiratory : good bilateral air entry, no crackles, wheezes or rhonchi Gastrointestinal: soft, lax, Normal bowel sounds, Non tender Skin : Warm, Dry Neurological : Alert & oriented x3, CN 2-12 within normal with mild right sided droop, speech is clear and coherent, sluggish RUE movements with +4 power, RLE with +4 power as well in all muscle group. gait not tested. Results Labs 02/06/24 09:21 02/06/24 09:21 Labs: Laboratory Results - last 24 hr 02/06/24 02/06/24 08:51 09:21 MCV 91.3 MCH 31.6 MCHC 34.6 RDW 12.7 Plt Count 233 MPV 8.9 L Immature Gran % (Auto) 0.6 H Neut % (Auto) 65.7 Lymph % (Auto) 18.8 L [place] % (Auto) 8.4 Eos % (Auto) 5.6 H Baso % (Auto) 0.9 Lymph # (Auto) 1.5 [place] # (Auto) 0.7 Eos # (Auto) 0.5 H Baso # (Auto) 0.1 Abs Immat Gran (auto) 0.05 H Absolute Neuts (auto) 5.4 Absolute Nucleated RBC 0.000 Nucleated RBC % (auto) 0.0 PT 12.8 H INR 1.1 APTT 33.6 Anion Gap 14 Estim Creat Clear Calc 65.4 Estimated GFR > 60 POC Glucose 104 Random Glucose 106 Calcium 8.9 D Troponin I High Sens 25.3 Triglycerides 124 Cholesterol 179 LDL Cholesterol, Calc 96 HDL Cholesterol 59 Imaging Radiologist's Impressions: Impressions Head CT 02/06/24 08:55 IMPRESSION: 1. Suggestion of asymmetric dense MCA sign on the left side that is suspicious for intraluminal thrombus. Recommend further evaluation with a CTA of the head. 2. No edematous arterial infarction or intracranial bleed. 3. Mild chronic microangiopathy with generalized cerebral volume loss. 4. Severe paranasal sinus disease. 5. Large polypoid filling defects in the bilateral nasal cavities. Recommend correlation with direct visualization. This critical result was discussed with Dr. Matias at 02/06/2024 9:14 AM Eastern Time and it was ascertained that the content and urgency of the report was understood at the time of direct communication. Electronically signed by: Judi Corrales MD 02/06/2024 09:24 AM EDT Head/Neck CTA 02/06/24 09:52 IMPRESSION: -No large vessel occlusion, saccular aneurysm, or dissection. -Extensive atherosclerotic disease throughout the cervical and intracranial vasculature with associated near complete short segment stenosis of the right proximal cervical vertebral artery, severe stenosis of the left carotid bulb, and mild to moderate stenosis of the right carotid bulb. There is also severe focal stenosis of the left vertebral artery origin as well as multifocal mild to moderate stenoses of the cervical vertebral arteries. -Masslike soft tissue density within the posterior aspect of the nasal cavity on the left with partial opacification of the nasopharynx. Recommend direct visualization to exclude an underlying lesion. -Multifocal groundglass opacities in the lung apices, right greater than left. Electronically signed by: Freddy Cihld MD 02/06/2024 10:44 AM EDT RP Chest X-Ray 02/06/24 11:32 IMPRESSION: Increased bilateral reticulonodular markings possibly infectious/inflammatory. Recommend short-term follow-up chest radiograph to ensure resolution. Electronically signed by: Judi Corrales MD 02/06/2024 12:31 PM EDT RP Assessment and Plan (1) Cerebrovascular accident: Status: Acute (2) Paroxysmal atrial fibrillation: Status: Acute (3) Acute right-sided weakness: Status: Acute Plan An 83 years old male with PMH of PAF on Eliquis, HTN, systolic CHF who presents to the hospital after a fall at home with right sided weakness. 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 stroke education , aspiration precautions PAF Continue Eliquis and Amiodarone , rate controlled Systolic CHF, not in exacerbation CXR suggesting increase reticulonodular markings, will need recheck CXR in new future Hx smoking Nicotine replacement prn DVT PPx Eliquis The patient will likley need 2 overnight hospital stay given acute right sided weakness suggestive of stroke pending MRI, Neurology consult and PT\OT Quality Stroke Does the patient have a stroke diagnosis?: Yes Reason for No Anti-thrombotic by Day Two: N/A - Med Ordered VTE Prior VTE?: No VTE Risk Level:: Medical - moderate - high VTE Device Contraindication: Treatment Not Indicated VTE Drug Contraindication: N/A - Med Ordered
[2024-02-06 16:00] VITALS: BP 172/83; PULSE 92; RESP 20; TEMP 36.3; O2SAT 92
[2024-02-06 20:00] VITALS: BP 169/85; PULSE 92; RESP 20; TEMP 37.1; O2SAT 92
[2024-02-06] MEDS: Apixaban 5 MG TABLET PO (20:32)
[2024-02-06] MEDS: Atorvastatin Calcium 40 MG TABLET PO (20:32)
[2024-02-06] MEDS: Melatonin 3 MG TABLET 6 MG PO (20:34)
[2024-02-06 23:32] VITALS: BP 158/81; PULSE 77; RESP 16; TEMP 36.2; O2SAT 95
[2024-02-07 03:35] VITALS: BP 146/68; PULSE 71; RESP 16; TEMP 36.2; O2SAT 92
--- NOTE | 2024-02-07 07:00 | CA_ITS ---
Transthoracic Echocardiogram Patient (Last, First, Middle): Sandro Thayer, Gender: Male Date of : 1940 Age: 83 Procedure Date: 02/07/2024 Procedure Type: Transthoracic Echocardiogram [place] [facility] [place] Height: 175.26 cm Weight: 79.38 kg BSA: 1.95 m2 Heart Rate: bpm BP: 136 / 86 mmHg Tooling Manager: Referring MD: Jonelle Snachez MD Symptoms: acute stroke for evaluation Study Quality: Good ECG Rhythm: Sinus Conclusions: - Normal left ventricular cavity size. There is moderately increased left ventricular wall thickness. The left ventricular systolic function is moderately decreased. The visually estimated ejection fraction is between 30-35%. - Normal right ventricular cavity size and systolic function. - There is mild tricuspid valve regurgitation. - There is mild dilatation of the ascending aorta measuring 4.20 cm. Findings Procedure Information Contrast agent, definity, is being given per protocol without apparent complications. Left Ventricle Normal left ventricular cavity size. There is moderately increased left ventricular wall thickness. The left ventricular systolic function is moderately decreased. The visually estimated ejection fraction is between 30 35%. There is no evidence of regional wall motion abnormalities. There is paradoxical septal motion consistent with a left bundle branch block. Diastolic function is indeterminate on the basis of available data. Right Ventricle Normal right ventricular cavity size and systolic function. Atria The left atrium is mildly dilated. Aortic Valve There is a normal trileaflet aortic valve. There is no aortic valve stenosis. There is no aortic valve regurgitation. Mitral Valve The mitral valve appears normal. There is mild mitral valve regurgitation. There is no mitral valve stenosis. Tricuspid Valve Normal tricuspid valve structure. There is mild tricuspid valve regurgitation. Normal right atrial pressure. There is no evidence of pulmonary hypertension. Great Vessels There is mild dilatation of the ascending aorta measuring 4.20 cm. Venous The inferior vena cava is normal in size and collapses greater than 50% with inspiration. Pericardium/Pleural There is no evidence of pericardial effusion. Prior Study Comparison Changes noted compared to prior study dated: 10/15/2023. Moderate LV dysfunction. Measurements 2D Linear Measurements IVSd: 1.42 0.6-0.9/0.6-1.0 cm LVIDd: 4.81 3.9-5.3/4.2-5.9 cm LVIDd Index: 2.47 2.4-3.2/2.2-3.1 cm/m2 LVIDs: 3.82 2.0-3.6 cm LVPWd: 1.46 0.7-1.1 cm Ao Root: 4.10 2.1-3.5 cm LA Diam: 3.80 2.7-3.8/3.0-4.0 cm LAIDs Index: 1.95 1.5-2.3 cm/m2 LV Mass: 357.21 67-162/88-224 g LV Mass Index: 183.19 43-95/49-115 g/m2 LVOT Diam: 2.40 3.0+(-)1.3 cm 2D Systolic Function EF 4C: 36.50 >55% EF 2C: 23.20 >55% EF BiP: 30.50 >55% Mitral Valve MV Pk E: 0.55 MV PK A: 0.65 MV Decel Time: 121.00 E/A: 0.80 E'Lateral: 5.98 E'Medial: 4.90 E/E' Med: 11.10 E/E' Lat: 9.10 PHT: 35.00 MVA PHT: 6.29 Decel [place]: 4.50 Aortic Valve AoV Pk Yuan: 0.93 AoV Mn Yuan: 0.65 AoV VTI: 0.20 AoV Pk Grad: 3.00 Aov Mn Grad: 2.00 FRANCIA Cont.VTI: 3.83 LVOT LVOT Pk Yuan: 0.78 LVOT Mn Yuan: 0.50 LVOT VTI: 0.17 LVOT Pk Grad: 2.00 LVOT Mn Grad: 1.00 LVOT Diam: 2.40 LVOT Area: 4.52 Diastolic Function MV Pk E: 0.55 MV Pk A: 0.65 E/A: 0.80 E'Medial: 4.90 E/E' Med: 11.10 E' Laterial: 5.98 E/E' Lat: 9.10 Right Ventricle TAPSE (mm): 22.00 TVS' Yuan: 11.00 Tricuspid Valve TR Pk Yuan: 2.48 TR Pk Grad: 25.00 RA Press: 3.00 RVSP: 28.00 Great Vessels Aorta Ao Root-2D: 4.10 2.0-3.7 cm Ao Asc: 4.20 2.1-3.4 cm Pulmonary Valve PV Pk Yuan: 0.73 Peak PV Grad: 2.00 Updated in Other Vendor System with Status of Final Yuriy Lala MD electronically signed on 02/07/2024 8:22:09 PM with status of Final
[2024-02-07 07:14] VITALS: BP 136/86; PULSE 68; RESP 19; TEMP 36.3; O2SAT 93
[2024-02-07 07:20] LABS: Anion Gap 12 (12-20); Blood Urea Nitrogen 18 mg/dL (9-16); Calcium 8.9 mg/dL (8.4-10.2); Carbon Dioxide 29 mmol/L (22-29); Chloride 105 mmol/L (96-108); Cholesterol 164 mg/dL (<200); Creatinine Clr Calc Pharmacy 68.7; Estimated Glomerular Filt Rate > 60; Glucose Random 107 mg/dL (60-115); HDL Cholesterol 58 mg/dL (>40); LDL Cholesterol Calculated 86 mg/dL (<100); Potassium 3.3 mmol/L (3.3-5.1); Sodium 143 mmol/L (135-145); Triglycerides 104 mg/dL (<150)
[2024-02-07 08:09] LABS: Prothrombin Time Whole Bld POC 12.8 sec (11.1-13.5); ~PT, ~INR - Anti Coag Clinic 1.1 (0.9-1.1)
[2024-02-07] MEDS: Apixaban 5 MG TABLET PO ×2 (08:33→20:26)
[2024-02-07] MEDS: Amiodarone HCL 200 MG TABLET PO (08:33)
[2024-02-07] MEDS: Loratadine 10 MG TABLET PO (08:33)
[2024-02-07] MEDS: Furosemide 20 MG TABLET PO (08:33)
[2024-02-07] MEDS: Aspirin Enteric Coated 81 MG TABLET.DR PO (08:33)
[2024-02-07] MEDS: Nicotine 14 MG PATCH.TD24 TRANSDERMA (08:34)
[2024-02-07 11:23] VITALS: BP 136/77; PULSE 80; RESP 17; TEMP 36.4; O2SAT 93
--- NOTE | 2024-02-07 11:36 | P.PNIM_ITS ---
Subjective Subjective Date of Service: 02/07/24 Interval History: seen and evaluated this morning reporting difficulties using his right hand still weak in RLE MRI showing acute stroke no other overnigvht events Review of Systems No fever, chills but has right sided weakness Review of Systems: Yes all other systems are reviewed and are negative Physical Exam 2 Vital Signs: Vital Signs: Last Vital Signs Temp 97.6 F 02/07/24 11:23 Pulse 80 02/07/24 11:23 Resp 17 02/07/24 11:23 BP 136/77 02/07/24 11:23 Pulse Ox 93 02/07/24 11:23 O2 Del Method Room Air 02/07/24 11:23 BMI result Body Mass Index 25.9 Const: Other: Constitutional : Awake, interactive, not in distress Neck : Normal inspection, Supple Cardiovascular : RRR, no JVP, no lower extremity edema Respiratory : good bilateral air entry, no crackles, wheezes or rhonchi Gastrointestinal: soft, lax, Normal bowel sounds, Non tender Skin : Warm, Dry Neurological : Alert & oriented x3, CN 2-12 within normal with mild right sided droop, speech is clear and coherent, sluggish RUE movements with +4 power, RLE with +4 power as well in all muscle group. gait not tested. Objective Data Active Medications Acetaminophen (Acetaminophen 325 Mg Tablet) 650 mg PO Q6H PRN PRN Reason: Pain, Mild (Pain Scale 1-3), fever or headache Amiodarone HCl (Amiodarone Hcl 200 Mg Tablet) 200 mg PO DAILY [facility] Last Admin: 02/07/24 08:33 Dose: 200 mg Documented By: DIAZ Apixaban (Apixaban 5 Mg Tablet) 5 mg PO BID [facility] Last Admin: 02/07/24 08:33 Dose: 5 mg Documented By: DIAZ Ascorbic Acid (Ascorbic Acid 500 Mg Tablet) 1,000 mg PO DAILY [facility] Last Admin: 02/07/24 08:47 Dose: Not Given Documented By: DIAZ Non-Admin Reason: Patient Refused Aspirin (Aspirin Enteric Coated 81 Mg Tablet.) 81 mg PO DAILY [facility] Last Admin: 02/07/24 08:33 Dose: 81 mg Documented By: DIAZ Atorvastatin Calcium (Atorvastatin Calcium 40 Mg Tablet) 40 mg PO BEDTIME [facility] Last Admin: 02/06/24 20:32 Dose: 40 mg Documented By: JAIME Calcium Carbonate (Calcium Carbonate 750 Mg Tab.Chew) 750 mg PO Q4H PRN PRN Reason: Heartburn Furosemide (Furosemide 20 Mg Tablet) 20 mg PO DAILY [facility]; Protocol Last Admin: 02/07/24 08:33 Dose: 20 mg Documented By: DIAZ Loratadine (Loratadine 10 Mg Tablet) 10 mg PO DAILY [facility] Last Admin: 02/07/24 08:33 Dose: 10 mg Documented By: DIAZ Magnesium Hydroxide (Milk Of Magnesia 30 Ml Oral.Susp) 30 ml PO DAILY PRN PRN Reason: Constipation Melatonin (Melatonin 3 Mg Tablet) 6 mg PO BEDTIME PRN PRN Reason: Insomnia Last Admin: 02/06/24 20:34 Dose: 6 mg Documented By: JAIME Multivitamins/Vitamin C (Multivitamin Tablet) 1 tab PO DAILY [facility] Last Admin: 02/07/24 08:46 Dose: Not Given Documented By: DIAZ Non-Admin Reason: Patient Refused Nicotine (Nicotine 14 Mg Patch.Td24) 14 mg TRANSDERMA DAILY [facility] Last Admin: 02/07/24 08:34 Dose: 14 mg Documented By: DIAZ Nicotine Polacrilex (Nicotine Polacrilex Lozenge 4 Mg Lozenge) 4 mg BUCCAL Q2H PRN PRN Reason: Nicotine Cravings Ondansetron HCl (Ondansetron Hcl 4 Mg/2 Ml Vial) 4 mg IVPUSH Q8H PRN PRN Reason: Nausea and Vomiting Labs 02/06/24 09:21 02/07/24 06:28 Labs: Laboratory Results - last 24 hr 02/06/24 02/07/24 08:51 06:28 Hold Purple Top SEE NOTE Whole Blood PT 12.8 Whole Blood INR 1.1 Anion Gap 12 Estim Creat Clear Calc 68.7 Estimated GFR > 60 Random Glucose 107 Calcium 8.9 Triglycerides 104 Cholesterol 164 LDL Cholesterol, Calc 86 HDL Cholesterol 58 Assessment and Plan (1) Acute right-sided weakness: Status: Acute (2) Cerebrovascular accident: Status: Acute (3) Acute thalamic infarction: Status: Acute Plan An 83 years old male with PMH of PAF on Eliquis, HTN, systolic CHF who presents to the hospital after a fall at home with right sided weakness. Right sided weakness 2/2 Acute left thalamus CVA CT and CTA negative for any acute findings MRI brain showing acute left thalamus and temporal lobe stroke pending ECHO passed swallowing screen keep on Tele Neurology consult, consider dual Anti-platelets but patient on Eliquis, ok to add only ASA Start ASA and Atorvastatin PT\OT and [employer] stroke education , aspiration precautions PAF Continue Eliquis and Amiodarone , rate controlled Systolic CHF, not in exacerbation CXR suggesting increase reticulonodular markings, will need recheck CXR in new future Hx smoking Nicotine replacement prn DVT PPx Eliquis The patient will likley need overnight hospital stay given acute right sided weakness suggestive of stroke pending MRI, Neurology consult and PT\OT Quality Stroke Does the patient have a stroke diagnosis?: Yes Reason for No Anti-thrombotic by Day Two: N/A - Med Ordered VTE Prior VTE?: No VTE Risk Level:: Medical - moderate - high VTE Device Contraindication: Treatment Not Indicated VTE Drug Contraindication: N/A - Med Ordered
--- NOTE | 2024-02-07 11:42 | PM.NEUROCN ---
History of Present Illness Data of Consult Service Date: 02/07/24 Primary Care Provider: Eduardo Vickers MD [facility] Reason for consult: Stroke 83 years old man who woke up yesterday and when he tried to get out of bed fell down noticing right-sided weakness. The night before he was okay. There was no associated headache nausea vomiting or double vision. He was feeling little bit better but right-sided weakness was still there. Review of Systems Review of Systems: No recent cold or flu-like illness PMFSH Past Medical History Medical History Cardiomyopathy Atrial fibrillation Paroxysmal atrial fibrillation Mixed hyperlipidemia Hypertension Social History Social History Household Members: Family Housing: House Do you presently have visiting nurse or other home services: No Alcohol intake: current Alcohol intake frequency: 0-2 drinks per day Alcohol type: beer Comment: Beer Patient Tobacco Use Status: Former Tobacco user Tobacco use type: Cigarette Cigarettes Per Day: 15 Years Smoked: 70 e-Cigarette/Vaping Use: Former Use Second Hand Smoke Exposure: No Advance Directives Date on File: 09/20/23 service: No Meds Allergies Allergy/AdvReac Type Severity Reaction Status Date / Time Seasonal Allergies Allergy Mild sneezing Verified 02/06/24 09:02 Active Medications: Current Medications Acetaminophen (Acetaminophen 325 Mg Tablet) 650 mg PO Q6H PRN PRN Reason: Pain, Mild (Pain Scale 1-3), fever or headache Amiodarone HCl (Amiodarone Hcl 200 Mg Tablet) 200 mg PO DAILY [facility] Last Admin: 02/07/24 08:33 Dose: 200 mg Apixaban (Apixaban 5 Mg Tablet) 5 mg PO BID [facility] Last Admin: 02/07/24 08:33 Dose: 5 mg Ascorbic Acid (Ascorbic Acid 500 Mg Tablet) 1,000 mg PO DAILY [facility] Last Admin: 02/07/24 08:47 Dose: Not Given Aspirin (Aspirin Enteric Coated 81 Mg Tablet.Dr) 81 mg PO DAILY [facility] Last Admin: 02/07/24 08:33 Dose: 81 mg Atorvastatin Calcium (Atorvastatin Calcium 40 Mg Tablet) 40 mg PO BEDTIME [facility] Last Admin: 02/06/24 20:32 Dose: 40 mg Calcium Carbonate (Calcium Carbonate 750 Mg Tab.Chew) 750 mg PO Q4H PRN PRN Reason: Heartburn Furosemide (Furosemide 20 Mg Tablet) 20 mg PO DAILY [facility]; Protocol Last Admin: 02/07/24 08:33 Dose: 20 mg Loratadine (Loratadine 10 Mg Tablet) 10 mg PO DAILY [facility] Last Admin: 02/07/24 08:33 Dose: 10 mg Magnesium Hydroxide (Milk Of Magnesia 30 Ml Oral.Susp) 30 ml PO DAILY PRN PRN Reason: Constipation Melatonin (Melatonin 3 Mg Tablet) 6 mg PO BEDTIME PRN PRN Reason: Insomnia Last Admin: 02/06/24 20:34 Dose: 6 mg Multivitamins/Vitamin C (Multivitamin Tablet) 1 tab PO DAILY [facility] Last Admin: 02/07/24 08:46 Dose: Not Given Nicotine (Nicotine 14 Mg Patch.Td24) 14 mg TRANSDERMA DAILY [facility] Last Admin: 02/07/24 08:34 Dose: 14 mg Nicotine Polacrilex (Nicotine Polacrilex Lozenge 4 Mg Lozenge) 4 mg BUCCAL Q2H PRN PRN Reason: Nicotine Cravings Ondansetron HCl (Ondansetron Hcl 4 Mg/2 Ml Vial) 4 mg IVPUSH Q8H PRN PRN Reason: Nausea and Vomiting Home Medications ?Medication ?Instructions ?Recorded ?Confirmed ?Last Taken ?Type ascorbic acid (vitamin C) 1,000 mg 1 g PO DAILY 09/20/23 02/06/24 02/05/24 History tablet (Vitamin C) loratadine 10 mg tablet (Claritin) 10 mg PO DAILY 09/20/23 02/06/24 02/05/24 History lovastatin 20 mg tablet 20 mg PO DAILY 09/20/23 02/06/24 02/05/24 History multivitamin 1 tab PO DAILY 09/20/23 02/06/24 02/05/24 History furosemide 20 mg tablet 20 mg PO DAILY 02/06/24 02/06/24 02/05/24 History nicotine (polacrilex) 4 mg buccal 4 mg PO Q2H PRN Nicotine Cravings 02/06/24 02/06/24 Unknown History lozenge nicotine 14 mg/24 hr daily 1 patch topical DAILY 02/06/24 02/06/24 02/05/24 History transdermal patch Physical Exam Vital Signs: Vital Signs: Last Vital Signs Temp 97.6 F 02/07/24 11:23 Pulse 80 02/07/24 11:23 Resp 17 02/07/24 11:23 BP 136/77 02/07/24 11:23 Pulse Ox 93 02/07/24 11:23 O2 Del Method Room Air 02/07/24 11:23 BMI result Body Mass Index 25.9 Neuro: Other: He is alert and awake with normal spontaneity of speech fluency comprehension and affect. Face is symmetrical. Visual rollins are okay. There is mild right pronator drift. Plantars are equivocal. With double simultaneous stimulation of touch he did not feel on the right side. Results Labs 02/06/24 09:21 02/07/24 06:28 Labs: BMP 02/07/24 06:28 Sodium 143 Potassium 3.3 Chloride 105 Carbon Dioxide 29 BUN 18 H Creatinine 0.80 Calcium 8.9 MRI of brain revealed a small left thalamus and small part of temporal lobe. CTA revealed extensive atherosclerotic intracranial disease. Assessment and Plan (1) Cerebrovascular accident: Qualifiers: CVA mechanism: thrombosis Precerebral and cerebral artery: vertebral artery Laterality of affected vessel: left Qualified Code(s): I63.012 - Cerebral infarction due to thrombosis of left vertebral artery Status: Acute 83 years old man with extensive intracranial atherosclerotic disease had a small left thalamic can smaller left medial temporal acute ischemic infarction resulting in right hemiparesis and some sensory deficit. Mainstay of management is PT OT, anti-platelet therapy and in this regard I would suggest dual anti-platelet therapy with clopidogrel and baby aspirin for few months, statin and blood pressure control. Procedures Date of Service Date of Service: 02/07/24
--- NOTE | 2024-02-07 13:25 | MHC.CM.PN ---
CM met with Patient and his Daughter/HCP/Aixa at bedside and addressed IMM with him (original was given to Patient and a copy has been placed on the chart). Patient lives in a house with his Daughter and Son/Sukhjinder and he uses both a cane and a rollator to assist with mobility. PT is recommending Acute Rehab and Patient has been accepted at his first choice facility, [facility]. CM has initiated and will follow for dc planning. PCP is Dr. Eduardo Vickers.
[2024-02-07 15:53] VITALS: BP 127/81; PULSE 83; RESP 17; TEMP 36.2; O2SAT 96
[2024-02-07 18:23] LABS: MANUAL DIFF FLAG NO
[2024-02-07 18:50] LABS: Basophils Absolute Auto 0.1 X10*3/uL (0.0-0.2); Basophils Percent Auto 0.7 % (0-2); Eosinophils Absolute Auto 0.2 X10*3/uL (0.0-0.4); Eosinophils Percent Auto 2.7 % (0-4); Hematocrit 46.1 % (42.0-52.0); Hemoglobin 15.9 g/dl (14.0-18.0); Imm Gran Abs Auto 0.06 X10*3/uL (0.00-0.03); Imm Gran Pct Auto 0.7 % (0.0-0.4); Lymphocytes Absolute Auto 1.9 X10*3/uL (1.2-4.9); Lymphocytes Percent Auto 22.4 % (20-40); Mean Corpuscular HGB Conc 34.5 g/dl (31.0-36.0); Mean Corpuscular Hemoglobin 31.5 pg (27.0-33.0); Mean Corpuscular Volume 91.5 fL (80.0-98.0); Mean Platelet Volume 9.2 fL (9.4-12.4); Monocytes Absolute Auto 0.7 X10*3/uL (0.1-1.2); Monocytes Percent Auto 7.5 % (2-11); Neutrophils Absolute Auto 5.7 x10*3/uL (2.0-8.3); Platelet Count 266 X10*3/uL (160-400); Red Blood Count 5.04 X10*6/uL (4.60-5.80); Red Cell Distribution Width 12.9 % (11.0-16.0); White Blood Count 8.7 X10*3/uL (4.8-10.8)
[2024-02-07 19:58] VITALS: BP 160/72; PULSE 76; RESP 16; TEMP 36.3; O2SAT 97
[2024-02-07] MEDS: Atorvastatin Calcium 40 MG TABLET PO (20:26)
[2024-02-07 23:02] VITALS: BP 150/80
[2024-02-08] VITALS (8 sets, daily range): BP systolic 136–178; BP diastolic 64–86; PULSE 75–101; RESP 14–20; TEMP 36.2–37; O2SAT 94–98
[2024-02-08] MEDS: Multivitamin TABLET 1 TAB PO (08:30)
[2024-02-08] MEDS: Amiodarone HCL 200 MG TABLET PO (08:30)
[2024-02-08] MEDS: Ascorbic Acid 500 MG TABLET 1000 MG PO (08:30)
[2024-02-08] MEDS: Apixaban 5 MG TABLET PO ×2 (08:30→21:07)
[2024-02-08] MEDS: Furosemide 20 MG TABLET PO (08:30)
[2024-02-08] MEDS: Aspirin Enteric Coated 81 MG TABLET.DR PO (08:31)
[2024-02-08] MEDS: Loratadine 10 MG TABLET PO (08:31)
[2024-02-08] MEDS: Nicotine 14 MG PATCH.TD24 TRANSDERMA (08:31)
--- NOTE | 2024-02-08 11:51 | PM.DS ---
DS: Providers Provider Date of Service: 02/09/24 Date of admission: 02/06/24 13:00 Date of discharge: 02/09/24 Primary care physician: Eduardo Vickers MD Consults: 02/06/24 13:00 Consult to Neurology Stat Consulting Provider: [facility] Reason for consultation: right sided weakness DS: Diagnosis Discharge Diagnosis (1) Acute right-sided weakness: Status: Acute (2) Cerebrovascular accident: Status: Acute (3) Acute thalamic infarction: Status: Acute DS: Summary Hospital Course Hospital Course: from initial hpi: 83 years old male with PMH of PAF on Eliquis, HTN, systolic CHF who presents to the hospital after a fall at home with right sided weakness. The patient lives home with family. Right handed. Lives in 2nd floor and uses stair left. He woke up this morning and sat at the edge of the bed for a minute. when he stood up to walk to the bathroom he felt his right leg is too heavy and ended up falling to the floor with no reportede loss of consciousness or head injury. last time he was normal aroun 11 PM when he went to bed. family reports mild confusion and slurred speech when they found him soon after the fall that has improved by nowNo chest pain, palpitations, SOB, nausea, vomiting, diarrhea or urinary symptoms. No chest pain, palpitations, SOB, nausea, vomiting, diarrhea or urinary symptoms. CT and CTA negative for any acute findings. Admitted for further evaluation and treatment. hospital course: Patient was admitted for acute CVA of the left thalamus and temporal lobe. Was seen by Neurology who recommended continuing apixaban and statin and adding baby aspirin, was seen by PT and OT and recommended for acute rehab to which patient will be discharged. For paroxysmal atrial fibrillation was continued on apixaban and amiodarone. For chronic systolic CHF was not in exacerbation remained euvolemic. Patient still has some right-sided weakness and will be discharged to acute rehab. Time Attestation Discharge Coordination Time (in mins): Thirty-five Quality: Safe Use of Opioids Does Pt have an Active Cancer Diagnosis on the Problem List?: No Quality: Stroke Does the patient have a stroke diagnosis?: Yes Reason for No Anti-thrombotic at DC: N/A - Med Ordered Reason for No Anticoagulant at DC: N/A - Med Ordered Reason Not Initiating IV-Tpa: Drug treatment not indicated Reason for No Anti-thrombotic by Day Two: N/A - Med Ordered Reason for No Statin at DC: N/A - Med Ordered Physical Exam Vital Signs: Vital Signs: Last Vital Signs Temp 97.4 F 02/08/24 10:26 Pulse 94 02/08/24 10:26 Resp 16 02/08/24 10:26 BP 148/69 H 02/08/24 10:26 Pulse Ox 96 02/08/24 10:26 O2 Del Method Room Air 02/08/24 10:26 BMI result Body Mass Index 25.9 Neuro: Other: He is alert and awake with normal spontaneity of speech fluency comprehension and affect. Face is symmetrical. Visual rollins are okay. There is mild right pronator drift. Plantars are equivocal. With double simultaneous stimulation of touch he did not feel on the right side. DS: Data Data Completed and Pending Labs on day of discharge: Laboratory Results - last 24 hr 02/07/24 18:17 WBC 8.7 RBC 5.04 Hgb 15.9 Hct 46.1 MCV 91.5 MCH 31.5 MCHC 34.5 RDW 12.9 Plt Count 266 MPV 9.2 L Immature Gran % (Auto) 0.7 H Neut % (Auto) 66.0 Lymph % (Auto) 22.4 [place] % (Auto) 7.5 Eos % (Auto) 2.7 Baso % (Auto) 0.7 Lymph # (Auto) 1.9 [place] # (Auto) 0.7 Eos # (Auto) 0.2 Baso # (Auto) 0.1 Abs Immat Gran (auto) 0.06 H Absolute Neuts (auto) 5.7 Absolute Nucleated RBC 0.000 Nucleated RBC % (auto) 0.0 Discharge Plan Discharge Anticipated Discharge Date/Time: 02/08/24 11:50 Patient Disposition: Xfer Inpatient Rehab Fac Discharge Diagnosis: CVA Referrals: [facility] [Outside] - 1 Week Eduardo Vickers MD [Primary Care Provider] - 1 Week Discharge Medications: New aspirin 81 mg Tablet,Delayed Release (Dr/Ec) 81 mg PO DAILY Qty: 0 0RF Continued Eliquis 5 mg tablet 5 mg PO BID 90 Days Qty: 180 1RF Rx Instructions: Requested 90 days' supply for lower co-pay amiodarone 200 mg tablet 200 mg PO DAILY 90 Days Qty: 90 1RF Rx Instructions: Refill Now - pt is out of this medication multivitamin Tablet 1 tab PO DAILY ascorbic acid (vitamin C) [Vitamin C] 1,000 mg Tablet 1 g PO DAILY lovastatin 20 mg tablet 20 mg PO DAILY loratadine [Claritin] 10 mg Tablet 10 mg PO DAILY nicotine 14 mg/24 hr patch 24 hour 1 patch topical DAILY furosemide 20 mg tablet 20 mg PO DAILY nicotine (polacrilex) 4 mg lozenge 4 mg PO Q2H PRN (Reason: Nicotine Cravings) Rx Instructions: MAX 20 PIECES IN 24 HOURS Discharge Orders: Discharge Order (Routine); Ordered 02/08/24 Ordered By: Mau Aranda Diet: Advance to usual diet Activity on Discharge: As tolerated Stand Alone Forms: Patient Portal Discharge page Print Language: Bolivian Care Plan Goals: Recovery and prevent further strokes Health Concerns: Stroke Plan of Treatment: Continue apixaban and lovastatin, aspirin added, acute rehab Assessment: See above
--- NOTE | 2024-02-08 12:15 | MHC.CM.PN ---
Addendum entered by Viola Ferrara 02/08/24 13:11: A copy of the Patients HCP has been scanned into the EMR. It has also been sent to [facility]. Original Note: IMM 02/07/24 Patient DX CVA has been accepted @ [facility]. Insurance authorization is pending. 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
--- NOTE | 2024-02-08 14:14 | MHC.SPEECHCO ---
Pt accepted to [facility], pending authorization. No further CLINIC OFFICE ASSISTANT intervention required at this level of care. Continue to recommend re-evaluation by CLINIC OFFICE ASSISTANT at next level of care.
--- NOTE | 2024-02-08 16:32 | HO.PM.IMPN ---
Subjective Subjective Date of Service: 02/08/24 Interval History: right sided weakness Physical Exam Vital Signs: Vital Signs: Last Vital Signs Temp 98.6 F 02/08/24 15:27 Pulse 101 H 02/08/24 15:27 Resp 20 02/08/24 15:27 BP 136/78 02/08/24 15:27 Pulse Ox 94 02/08/24 15:27 O2 Del Method Room Air 02/08/24 15:27 BMI result Body Mass Index 25.9 right hemiparesis Objective Data Active Medications Acetaminophen (Acetaminophen 325 Mg Tablet) 650 mg PO Q6H PRN PRN Reason: Pain, Mild (Pain Scale 1-3), fever or headache Amiodarone HCl (Amiodarone Hcl 200 Mg Tablet) 200 mg PO DAILY [facility] Last Admin: 02/08/24 08:30 Dose: 200 mg Documented By: SHALINI Apixaban (Apixaban 5 Mg Tablet) 5 mg PO BID [facility] Last Admin: 02/08/24 08:30 Dose: 5 mg Documented By: SHALINI Ascorbic Acid (Ascorbic Acid 500 Mg Tablet) 1,000 mg PO DAILY [facility] Last Admin: 02/08/24 08:30 Dose: 1,000 mg Documented By: SHALINI Aspirin (Aspirin Enteric Coated 81 Mg Tablet.) 81 mg PO DAILY [facility] Last Admin: 02/08/24 08:31 Dose: 81 mg Documented By: SHALINI Atorvastatin Calcium (Atorvastatin Calcium 40 Mg Tablet) 40 mg PO BEDTIME [facility] Last Admin: 02/07/24 20:26 Dose: 40 mg Documented By: USMAN Calcium Carbonate (Calcium Carbonate 750 Mg Tab.Chew) 750 mg PO Q4H PRN PRN Reason: Heartburn Furosemide (Furosemide 20 Mg Tablet) 20 mg PO DAILY [facility]; Protocol Last Admin: 02/08/24 08:30 Dose: 20 mg Documented By: SHALINI Loratadine (Loratadine 10 Mg Tablet) 10 mg PO DAILY [facility] Last Admin: 02/08/24 08:31 Dose: 10 mg Documented By: SHALINI Magnesium Hydroxide (Milk Of Magnesia 30 Ml Oral.Susp) 30 ml PO DAILY PRN PRN Reason: Constipation Melatonin (Melatonin 3 Mg Tablet) 6 mg PO BEDTIME PRN PRN Reason: Insomnia Last Admin: 02/06/24 20:34 Dose: 6 mg Documented By: JAIME Multivitamins/Vitamin C (Multivitamin Tablet) 1 tab PO DAILY [facility] Last Admin: 02/08/24 08:30 Dose: 1 tab Documented By: SHALINI Nicotine (Nicotine 14 Mg Patch.Td24) 14 mg TRANSDERMA DAILY [facility] Last Admin: 02/08/24 08:31 Dose: 14 mg Documented By: SHALINI Nicotine Polacrilex (Nicotine Polacrilex Lozenge 4 Mg Lozenge) 4 mg BUCCAL Q2H PRN PRN Reason: Nicotine Cravings Ondansetron HCl (Ondansetron Hcl 4 Mg/2 Ml Vial) 4 mg IVPUSH Q8H PRN PRN Reason: Nausea and Vomiting Labs 02/07/24 18:17 02/07/24 06:28 Labs: Laboratory Results - last 24 hr 02/07/24 18:17 MCV 91.5 MCH 31.5 MCHC 34.5 RDW 12.9 Plt Count 266 MPV 9.2 L Immature Gran % (Auto) 0.7 H Neut % (Auto) 66.0 Lymph % (Auto) 22.4 [place] % (Auto) 7.5 Eos % (Auto) 2.7 Baso % (Auto) 0.7 Lymph # (Auto) 1.9 [place] # (Auto) 0.7 Eos # (Auto) 0.2 Baso # (Auto) 0.1 Abs Immat Gran (auto) 0.06 H Absolute Neuts (auto) 5.7 Absolute Nucleated RBC 0.000 Nucleated RBC % (auto) 0.0 Assessment and Plan (1) Acute thalamic infarction: Status: Acute Plan 83 years old male with PMH of PAF on Eliquis, HTN, systolic CHF who presented to the hospital after a fall at home with right sided weakness. Right sided weakness 2/2 Acute CVA ASA and Atorvastatin continue eliquis plan for acute rehab PAF Continue Eliquis and Amiodarone , rate controlled Systolic CHF, not in exacerbation chronic Hx smoking Nicotine replacement prn DVT PPx Eliquis reason for continued hospitalization:auth pending Quality Stroke Does the patient have a stroke diagnosis?: Yes Reason for No Anti-thrombotic by Day Two: N/A - Med Ordered VTE Prior VTE?: No VTE Risk Level:: Medical - moderate - high VTE Device Contraindication: Treatment Not Indicated VTE Drug Contraindication: N/A - Med Ordered
[2024-02-08] MEDS: Melatonin 3 MG TABLET 6 MG PO (21:07)
[2024-02-08] MEDS: Atorvastatin Calcium 40 MG TABLET PO (21:08)
[2024-02-09 04:00] VITALS: BP 141/66; PULSE 74; RESP 12; TEMP 36.6; O2SAT 93
[2024-02-09 07:41] VITALS: BP 129/60; PULSE 80; RESP 18; TEMP 36.6; O2SAT 94
[2024-02-09] MEDS: Nicotine 14 MG PATCH.TD24 TRANSDERMA (08:19)
[2024-02-09] MEDS: Multivitamin TABLET 1 TAB PO (08:19)
[2024-02-09] MEDS: Ascorbic Acid 500 MG TABLET 1000 MG PO (08:19)
[2024-02-09] MEDS: Furosemide 20 MG TABLET PO (08:20)
[2024-02-09] MEDS: Amiodarone HCL 200 MG TABLET PO (08:20)
[2024-02-09] MEDS: Aspirin Enteric Coated 81 MG TABLET.DR PO (08:20)
[2024-02-09] MEDS: Apixaban 5 MG TABLET PO (08:21)
[2024-02-09] MEDS: Loratadine 10 MG TABLET PO (08:21)
--- NOTE | 2024-02-09 08:42 | MHC.CM.PN ---
Pt has been medically cleared for DC, he will go to [facility] acute [facility] this afternoon via BLS.
[2024-02-09 10:52] VITALS: BP 128/86; PULSE 91; RESP 17; TEMP 36.7; O2SAT 94
[2024-02-09 11:58] VITALS: BP 128/86; PULSE 91; O2SAT 94
--- NOTE | 2024-02-09 12:07 | PC.NURSE ---
Per Md Q2 neuro assessment no longer required
== END 2024-02-09 15:03 | DRG 65 ==
LOC: HO.ED 11:23 → HO.EDOVER 14:00 → HO.IMC 14:06
PROVIDERS: Admitting Provider Student in an Organized Health Care Education/Training Program; Emergency Provider Emergency Medicine; PCP Pediatrics; Visit Provider Internal Medicine
DX: I63.012 Cerebral infarction due to thrombosis of left vertebral artery (principal); G81.91 Hemiplegia, unspecified affecting right dominant side; I50.22 Chronic systolic (congestive) heart failure; R29.703 NIHSS score 3; I48.0 Paroxysmal atrial fibrillation; I11.0 Hypertensive heart disease with heart failure; Z79.01 Long term (current) use of anticoagulants; Z87.891 Personal history of nicotine dependence; Z79.899 Other long term (current) drug therapy
CPT/HCPCS: 36415; 70450; 70496; 70498; 70551; 71045; 80048; 80061; 82947; 84484; 85025; 85610; 85730; 93005; 93306; 96125; 97110; 97116; 97162; 97166; 97530; 97535; 99285; J3480; Q9957; Q9967

== ENCOUNTER → 2024-02-06 08:55 | Outpatient (BNV) | payer MEDICARE, OTHER, SELFPAY | PROVIDERS: Admitting Provider Student in an Organized Health Care Education/Training Program; Emergency Provider Emergency Medicine; Visit Provider Internal Medicine | DX: I45.2 Bifascicular block (principal); R94.31 Abnormal electrocardiogram [ECG] [EKG] | CPT/HCPCS: 93010 ==

== ENCOUNTER → 2024-02-06 09:39 | Outpatient (BNV) | payer MEDICARE, OTHER, SELFPAY | PROVIDERS: Emergency Provider Emergency Medicine; Visit Provider Student in an Organized Health Care Education/Training Program | DX: R53.1 Weakness (principal); I63.012 Cerebral infarction due to thrombosis of left vertebral artery; I63.81 Other cerebral infarction due to occlusion or stenosis of small artery | CPT/HCPCS: 99223; 99232; 99239; 99499 ==

== ENCOUNTER 2024-02-06 13:00 | Outpatient (BNV) | payer MEDICARE, OTHER, SELFPAY | END 2024-02-07 07:00 | PROVIDERS: Admitting Provider Student in an Organized Health Care Education/Training Program; Emergency Provider Emergency Medicine; PCP Pediatrics; Visit Provider Internal Medicine Cardiovascular Disease | DX: I34.0 Nonrheumatic mitral (valve) insufficiency (principal); I36.1 Nonrheumatic tricuspid (valve) insufficiency; I44.7 Left bundle-branch block, unspecified | CPT/HCPCS: 93306 ==

== ENCOUNTER → 2024-02-06 13:00 | Outpatient (BNV) | payer MEDICARE, OTHER, SELFPAY | PROVIDERS: Admitting Provider Student in an Organized Health Care Education/Training Program; Emergency Provider Emergency Medicine; PCP Pediatrics; Visit Provider Psychiatry & Neurology Neurology | DX: I63.012 Cerebral infarction due to thrombosis of left vertebral artery (principal) | CPT/HCPCS: 99222 ==

== ENCOUNTER → 2024-05-15 10:15 | Outpatient (BNV) | payer MEDICARE, OTHER, SELFPAY | PROVIDERS: Emergency Provider Emergency Medicine; PCP Pediatrics; Visit Provider Radiology Diagnostic Radiology | DX: R56.9 Unspecified convulsions (principal) | CPT/HCPCS: 70450; 71046 ==

== ENCOUNTER → 2024-05-15 10:15 | Outpatient (BNV) | payer MEDICARE, OTHER, SELFPAY | PROVIDERS: Admitting Provider Student in an Organized Health Care Education/Training Program; Emergency Provider Emergency Medicine; PCP Pediatrics; Visit Provider Internal Medicine | DX: R94.31 Abnormal electrocardiogram [ECG] [EKG] (principal); I45.2 Bifascicular block | CPT/HCPCS: 93010 ==

== ENCOUNTER → 2024-05-15 15:31 | Outpatient (BNV) | payer MEDICARE, OTHER, SELFPAY | PROVIDERS: Admitting Provider Student in an Organized Health Care Education/Training Program; Emergency Provider Emergency Medicine; PCP Pediatrics; Visit Provider Psychiatry & Neurology Neurology | DX: I48.92 Unspecified atrial flutter (principal) | CPT/HCPCS: 99222 ==

== ENCOUNTER → 2024-05-15 15:31 | Outpatient (BNV) | payer MEDICARE, OTHER, SELFPAY | PROVIDERS: Admitting Provider Student in an Organized Health Care Education/Training Program; Emergency Provider Emergency Medicine; PCP Pediatrics; Visit Provider Internal Medicine | DX: I48.92 Unspecified atrial flutter (principal); I42.9 Cardiomyopathy, unspecified; I45.2 Bifascicular block | CPT/HCPCS: 99223 ==

== ENCOUNTER → 2024-05-15 15:31 | Outpatient (BNV) | payer MEDICARE, OTHER, SELFPAY | PROVIDERS: Admitting Provider Student in an Organized Health Care Education/Training Program; Emergency Provider Emergency Medicine; PCP Pediatrics; Visit Provider Student in an Organized Health Care Education/Training Program | DX: I45.2 Bifascicular block (principal); I48.92 Unspecified atrial flutter; J18.9 Pneumonia, unspecified organism; A41.9 Sepsis, unspecified organism; J96.01 Acute respiratory failure with hypoxia | CPT/HCPCS: 99232; 99239 ==

== ENCOUNTER 2024-06-07 10:28 | Outpatient (AMB) | payer MEDICARE, OTHER, SELFPAY ==
--- NOTE | 2024-06-07 10:40 | A.OFFVIS_ITS ---
Vital Signs 06/07/24 10:41 Height 5 ft 9 in BMI Reason not done Patient refused/unable BP 122/62 Blood Pressure Location Lt brachial Position Sitting Pulse 60 Pulse Source Monitor Intake Visit Reasons: 6m follow up Allergies Seasonal Allergies Allergy (Mild, Verified 05/15/24 10:20) sneezing Medication List - Last Reconciled 06/07/24 by Victor M Arias MD acetaminophen 650 mg PO Q6H PRN amiodarone 200 mg PO DAILY 90 days apixaban (Eliquis) 5 mg PO BID@0800,1700 ascorbic acid (vitamin C) (Vitamin C) 1 g PO DAILY aspirin 81 mg PO DAILY atorvastatin 80 mg PO DAILY@1700 doxycycline hyclate 100 mg PO BID [id number] 100-62.5-25 mcg (Trelegy Ellipta) 1 ea inhalation DAILY furosemide 20 mg PO DAILY loratadine (Claritin) 10 mg PO DAILY metoprolol tartrate 50 mg PO BID multivitamin 1 tab PO DAILY pantoprazole 40 mg PO DAILY@0630 HPI Comments Details: Sandro comes for follow-up. He was recently admitted to the hospital with pneumonia and question seizure however this was ruled out. During the hospitalization was noted to have wide complex tachycardia which she was suspected to be atrial flutter with aberrant conduction. Metoprolol was added to his regimen and continue amiodarone therapy. He is currently feeling well. As per the daughter he was having lot of symptoms of patient denies a lot of symptoms. Denies any significant orthopnea, PND, leg edema. Complains of edema in his feet. Denies any exertional shortness of breath although daughter notices that he is short of breath with activity. He does use a walker to move around the house. Has had no new neurologic symptoms. No significant prolonged palpitations, fast heart rate. No lightheadedness, syncope. FORMERLY [facility], [facility]–1983 Medical History Cardiomyopathy Acute respiratory failure with hypoxia Sepsis Bifascicular block Atrial flutter with rapid ventricular response Left lower lobe pneumonia Atrial fibrillation Paroxysmal atrial fibrillation Mixed hyperlipidemia Hypertension Family History Unknown No problems noted. Social History Household Members: Family Housing: House Do you presently have visiting nurse or other home services: No Alcohol intake: current Alcohol intake frequency: 0-2 drinks per day Alcohol type: beer Comment: Beer Patient Tobacco Use Status: Former Tobacco user Tobacco use type: Cigarette Cigarettes Per Day: 15 Years Smoked: 70 e-Cigarette/Vaping Use: Former Use Second Hand Smoke Exposure: No Advance Directives Date on File: 09/20/23 service: No Review of Systems Const Denies weakness ENT Denies dizziness Card Denies chest pain, Denies chest pain with activity, Denies syncope, Denies rapid heart rate, Denies pedal edema, Denies edema, Denies leg edema, Denies lightheadedness, Denies palpitations, Denies dyspnea, Denies dyspnea on exertion and Denies orthopnea Resp Denies cough, Denies dyspnea and Denies dyspnea on exertion GI Denies hematochezia and Denies change in stool character Musc Denies abnormal gait, Denies muscle cramps, Denies muscle weakness, Denies numbness, Denies radiating pain into limb and Denies tingling Neuro Denies abnormal gait, Denies dizziness, Denies syncope, Denies numbness, Denies tingling and Denies weakness Endo Denies palpitations Physical Exam Vital Signs: Last Vital Signs Pulse 60 06/07/24 10:41 BP 122/62 06/07/24 10:41 Const General: cooperative, healthy appearing, comfortable and no acute distress Orientation/consciousness: patient oriented x3 Limitations: wheelchair Neck Neck: Yes normal visual inspection and Yes no JVD Resp Effort & Inspection: normal respiratory effort Auscultation: clear to auscultation bilaterally, crackles (Coarse) bilateral, no rales, no rhonchi and no wheezes Cardio Jugular venous distension: no JVD Rate: regular rate Rhythm: regular rhythm Heart sounds: S1 normal heart sound present, S2 normal heart sound present, no murmurs and no rubs Neuro General: patient oriented x3 Extrem General: Yes normal to inspection and No no pedal edema Psych Appearance: grossly normal Mental Status: mental status grossly normal Speech and movement: Normal speech and movement present Office Procedures EKG Details: EKG shows normal sinus rhythm with first-degree AV block with PACs with aberrant conduction with right bundle-branch block and LVH with left axis deviation suggestive of left anterior fascicular block [id number], Complete Assessment & Plan Assessment & Plan (1) Paroxysmal atrial fibrillation: Code(s): I48.0 - Paroxysmal atrial fibrillation Category: Medical Plan: Paroxysmal atrial fibrillation/flutter which has now suppressed on metoprolol and amiodarone therapy. Continue the same. Follow-up Holter monitor in couple of months. Continue full oral anticoagulation, currently on Eliquis 5 mg b.i.d.. Importance of oral anticoagulation was discussed. High risk for recurrent stroke given his prior stroke event. Avoidance of stimulants was discussed. He does have lung findings that up possibly suggestive of fibrotic disease. He is being followed up by Pulmonary. If there was suggestion of interstitial lung disease may need to consider alternative to amiodarone therapy including ablation if he is agreeable. (2) Cardiomyopathy: Code(s): I42.9 - Cardiomyopathy, unspecified Category: Medical Plan: Cardiomyopathy without overt signs of congestive heart failure at this point time. Continue metoprolol for neurohormonal modulation. Currently on Lasix 20 mg daily without any signs or symptoms of heart failure. Continue the same. Daily weight monitoring avoidance salt loading was discussed. Additional diuretics as need be. Will also add low-dose valsartan for neurohormonal modulation. Advised to monitor blood pressure at home maintain a log. Follow- up echocardiogram in 2 months time. Will follow up in the clinic in 3 months time, sooner p.r.n.. Thank you for allowing me to partake in his care Orders: Orders CA echo transthoracic complete 2 Months I42.9 - Cardiomyopathy, unspecified ECG 3 day holter monitor 2 Months I48.0 - Paroxysmal atrial fibrillation Medications: New valsartan 20 mg (1/2 x 40 mg) PO BID 30 tabs 5RF Coding Level of Care Code Est Pt Level 4 (41971) Complex EM visit Add On G2211 Diagnoses Paroxysmal atrial fibrillation I48.0 Cardiomyopathy I42.9 CPT Codes EKG - CPT: 94518-[id number], Complete ([id number])
[2024-06-07 10:41] VITALS: BP 122/62; PULSE 60
--- OUTSIDE RECORDS SUMMARY | 2024-06-07 11:06 | XMS_ITS | Data Portability ---
Author Organization [facility], Main Office Address [address] [place] [id number] Care Team Providers Care Hooker Machine Tender Name Role Phone EDUARDO LUZ Primary Care Provider [phone] ROSA ZHONG Orthopedic Surgeon ROMEO RAMOS Sales Development Director DEPARTMENT OF AFFAIRS Merchandiser MONI CARDIOVASCULAR S Iron Worker [phone] NATALIIA PLASENCIA Marble Ceiling Installer Assessment Encounter Date Assessment Date Assessment LastModified by Organization Details LastModified Time 03/08/2024 03/08/2024 Discussed with patient the signs/symptom s warranted for a return to office visit and/or an ER visit. Patient understood and agreed with the plan. [email or web address] Not available 03/07/2024 20:59:10 Plan of Treatment Reminders Order Date Submit Date Provider Last Modified By Organization Details Last Modified Time Details Appointments FOLLOW UP HOSP 30 MIN 2024 01:45P Vel Luz MD Not available Not available Not available Lab HbA1c (hemoglob in A1c), blood 2023 024 MICHELLE [facility], [address], [place], [address], 01/21/2024 08:09:27 urinalysi s macro (dipstick ) panel, urine 2023 024 MICHELLE [facility], [address] , [address], [place], [address], 01/19/2024 08:09:20 pro BNP (pro B-type natriuret ic peptide), serum or plasma 2023 024 [facility], [address], [address], [place], [address], 01/21/2024 08:09:28 CMP, serum or plasma 2023 024 [facility], [address], [address], [place], [address], 01/21/2024 08:09:25 lipid panel, serum 2023 024 [facility], [address], [address], [place], [address], 01/21/2024 08:09:26 Referral None recorded. Procedures None recorded. Surgeries None recorded. Imaging None recorded. Medication Orders lidocaine 5 % topical patch 2023 025 [facility]/Pharmacy #[id number], [address] [place], [address], 05/24/2024 14:53:30 nicotine (polacril ex) 4 mg buccal lozenge [address]/Pharmacy #[id number], [address] [place], [address], 05/24/2024 14:53:15 nicotine 14 mg/24 hr daily transderm al patch [address]/Pharmacy #0315, [address] [place], [address], 05/24/2024 14:53:02 furosemid e 20 mg tablet 2023 024 [facility]/Pharmacy #[id number], [address] [place], [address], 01/06/2024 15:03:47 Patient TargetsNo targets recorded. Patient Instructions Encounter Date Encounter Id Patient Instructions Last Modified By Organization Details Last Modified Time 01/06/2024 [id number] shortness of breath: care instructions [email or web address] Not available 01/06/2024 15:03:42 heart failure: care instructions [email or web address] Not available 01/06/2024 15:03:42 learning about heart failure [email or web address] Not available 01/06/2024 15:03:42 03/08/2024 [id number] [facility], all current and discharge medications (OTC, herbal therapies, supplements) reviewed and reconciled with patient and or caregiver, including potential side effects, drug interactions, instructions, and the consequences of not taking medication. Reviewed potential barriers to medication adherence, such as side effects from medication or cost of medication. [email or web address] Not available 03/08/2024 11:01:56 Reason for Referral None Reported. Results Created Date Observation Date Name Description Value Unit Range Abnormal Flag Note LastModifiedBy Organization Detail LastModifiedTime 12/17/1912/18/2023 TSH+F REE T4 TSH 2.770 uIU/m L 0.450- 4.500 normal Not Available [facility] ([facility]) [address] [place], [address], 12/18/2023 06:08:02 12/17/19 24 12/18/2023 TSH+F REE T4 T4,free(dire ct) 1.36 NG/dL 0.82-1 .77 normal Not Available [facility] ([facility]) [address] [place], [address], 12/18/2023 06:08:02 01/18/2001/19/2024 URINA LYSIS , ROUTI NE specific gravity 1.019 1.005- 1.030 normal Not Available [facility] ([facility]) [address] [place], [address], 01/19/2024 08:09:20 01/18/2001/19/2024 URINA LYSIS , ROUTI NE pH 7.0 5.0-7. 5 normal Not Available [facility] ([facility]) [address] [place], [address], 01/19/2024 08:09:20 01/18/2001/19/2024 URINA LYSIS , ROUTI NE urine-color Yellow yellow Not Available [facility] ([facility]) [address] [facility] [facility] [address], [place], [address], 01/19/2024 08:09:20 01/18/2001/19/2024 URINA LYSIS , ROUTI NE appearance Clear clear Not Available [facility] ([facility]) [address] [facility] [facility] [address], [place], [address], 01/19/2024 08:09:20 01/18/2001/19/2024 URINA LYSIS , ROUTI NE WBC esterase Negati ve negati ve Not Available [facility] ([facility]) [address] [facility] [address], [place], [address], 01/19/2024 08:09:20 01/18/2001/19/2024 URINA LYSIS , ROUTI NE protein 1+ negati ve/tra ce abnormal Not Available [facility] ([facility]) [address] [facility] [address], [place], [address], 01/19/2024 08:09:20 01/18/2001/19/2024 URINA LYSIS , ROUTI NE glucose Negati ve negati ve Not Available [facility] ([facility]) [address] [facility] [address], [place], [address], 01/19/2024 08:09:20 01/18/2001/19/2024 URINA LYSIS , ROUTI NE ketones Negati ve negati ve Not Available [facility] ([facility]) [address] [facility] [address], [place], [address], 01/19/2024 08:09:20 01/18/2001/19/2024 URINA LYSIS , ROUTI NE occult blood Negati ve negati ve Not Available [facility] ([facility]) [address] [place], [address], 01/19/2024 08:09:20 01/18/2001/19/2024 URINA LYSIS , ROUTI NE bilirubin Negati ve negati ve Not Available [facility] ([facility]) [address] [facility] [address], [place], [address], 01/19/2024 08:09:20 01/18/20 24 01/19/2024 URINA LYSIS , ROUTI NE urobilinogen ,semi-qn 0.2 mg/dL 0.2-1. 0 normal Not Available [facility] ([facility]) [address] [facility] [address], [place], [address], 01/19/2024 08:09:20 01/18/2001/19/2024 URINA LYSIS , ROUTI NE nitrite, urine Negati ve negati ve Not Available [facility] ([facility]) [address] [facility] [address], [place], [address], 01/19/2024 08:09:20 01/18/2001/19/2024 URINA LYSIS , ROUTI NE microscopic examination See below: Micro scopi c was indic ated and was perfo rmed. Not Available [facility] ([facility]) [address] [place], [address], 01/19/2024 08:09:20 01/18/20 24 01/19/2024 URINA LYSIS , ROUTI NE WBC None seen /hpf 0 - 5 Not Available [facility] ([facility]) [address] [facility] [address], [place], [address], 01/19/2024 08:09:20 01/18/20 24 01/19/2024 URINA LYSIS , ROUTI NE RBC 0-2 /hpf 0 - 2 Not Available [facility] ([facility]) [address] [place], [address], 01/19/2024 08:09:20 01/18/20 24 01/19/2024 URINA LYSIS , ROUTI NE epithelial cells (non renal) None seen /hpf 0 - 10 Not Available [facility] ([facility]) [address], [place], [address], 01/19/2024 08:09:20 01/18/2001/19/2024 URINA LYSIS , ROUTI NE epithelial cells (renal) INSTRUCTOR HAIRSPRING Not Available [facility] ([facility]) [address], [place], [address], 01/19/2024 08:09:20 01/18/2001/19/2024 URINA LYSIS , ROUTI NE casts None seen /lpf none seen Not Available [facility] ([facility]) [address] [facility] [address], [place], [address], 01/19/2024 08:09:20 01/18/2001/19/2024 URINA LYSIS , ROUTI NE cast type INSTRUCTOR HAIRSPRING Not Available [facility] ([facility]) [address] [facility] [address], [place], [address], 01/19/2024 08:09:20 01/18/2001/19/2024 URINA LYSIS , ROUTI NE crystals INSTRUCTOR HAIRSPRING Not Available [facility] ([facility]) [address] [facility] [address], [place], [address], 01/19/2024 08:09:20 01/18/2001/19/2024 URINA LYSIS , ROUTI NE crystal type INSTRUCTOR HAIRSPRING Not Available [facility] ([facility]) [address] [facility] [address], [place], [address], 01/19/2024 08:09:20 01/18/2001/19/2024 URINA LYSIS , ROUTI NE mucus threads INSTRUCTOR HAIRSPRING Not Available [facility] ([facility]) [address] [facility] [address], [place], [address], 01/19/2024 08:09:20 01/18/2001/19/2024 URINA LYSIS , ROUTI NE bacteria None seen none seen/f ew Not Available [facility] ([facility]) [address] [facility] [address], [place], [address], 01/19/2024 08:09:20 01/18/20 24 01/19/2024 URINA LYSIS , ROUTI NE yeast INSTRUCTOR HAIRSPRING Not Available [facility] ([facility]) [address] [place], [address], 01/19/2024 08:09:20 01/18/20 24 01/19/2024 URINA LYSIS , ROUTI NE trichomonas INSTRUCTOR HAIRSPRING Not Available [facility] ([facility]) [address] [place], [address], 01/19/2024 08:09:20 01/18/2001/19/2024 URINA LYSIS , ROUTI NE comment INSTRUCTOR HAIRSPRING Not Available [facility] ([facility]) [address] [facility] [place], [address], 01/19/2024 08:09:20 01/18/20 24 01/19/2024 COMP. METAB OLIC PANEL (14) glucose 96 mg/dL 70-99 normal Not Available [facility] ([facility]) [address] [place], [address], 01/21/2024 08:09:24 01/18/20 24 01/19/2024 COMP. METAB OLIC PANEL (14) BUN 21 mg/dL 8-27 normal Not Available [facility] ([facility]) [address] [facility] [place], [address], 01/21/2024 08:09:24 01/18/20 24 01/19/2024 COMP. METAB OLIC PANEL (14) creatinine 0.97 mg/dL 0.76-1 .27 normal Not Available [facility] ([facility]) [address] [facility] [place], [address], 01/21/2024 08:09:24 01/18/20 24 01/19/2024 COMP. METAB OLIC PANEL (14) eGFR 77 mL/mi n/1.7 3 >59 normal Not Available [facility] ([facility]) [address] [place], [address], 01/21/2024 08:09:24 01/18/20 24 01/19/2024 COMP. METAB OLIC PANEL (14) BUN/creatini ne ratio 22 10-24 normal Not Available [facility] ([facility]) [address] [place], [address], 01/21/2024 08:09:24 01/18/20 24 01/19/2024 COMP. METAB OLIC PANEL (14) sodium 144 mmol/ L 134-14 4 normal Not Available [facility] ([facility]) [address] [place], [address], 01/21/2024 08:09:24 01/18/20 24 01/19/2024 COMP. METAB OLIC PANEL (14) potassium 3.8 mmol/ L 3.5-5. 2 normal Not Available [facility] ([facility]) [address], [place], [address], 01/21/2024 08:09:24 01/18/20 24 01/19/2024 COMP. METAB OLIC PANEL (14) chloride 100 mmol/ L 96-106 normal Not Available [facility] ([facility]) [address] [place], [address], 01/21/2024 08:09:24 01/18/20 24 01/19/2024 COMP. METAB OLIC PANEL (14) carbon dioxide, total 28 mmol/ L 20-29 normal Not Available [facility] ([facility]) [address] [place], [address], 01/21/2024 08:09:24 01/18/20 24 01/19/2024 COMP. METAB OLIC PANEL (14) calcium 9.3 mg/dL 8.6-10 .2 normal Not Available [facility] ([place] [facility]) [address] [place], [address], 01/21/2024 08:09:24 01/18/20 24 01/19/2024 COMP. METAB OLIC PANEL (14) protein, total 6.3 g/dL 6.0-8. 5 normal Not Available [facility] ([facility]) [address] [place], [address], 01/21/2024 08:09:24 01/18/20 24 01/19/2024 COMP. METAB OLIC PANEL (14) albumin 4.3 g/dL 3.7-4. 7 normal Not Available [facility] ([facility]) [address] [place], [address], 01/21/2024 08:09:24 01/18/20 24 01/19/2024 COMP. METAB OLIC PANEL (14) globulin, total 2.0 g/dL 1.5-4. 5 Not Available [facility] ([facility]) [address] [place], [address], 01/21/2024 08:09:24 01/18/2001/19/2024 COMP. METAB OLIC PANEL (14) bilirubin, total 0.6 mg/dL 0.0-1. 2 normal Not Available [facility] ([facility]) [address] [place], [address], 01/21/2024 08:09:24 01/18/20 24 01/19/2024 COMP. METAB OLIC PANEL (14) alkaline phosphatase 91 IU/L 44-121 normal Not Available [facility] ([facility]) [address] [place], [address], 01/21/2024 08:09:24 01/18/20 24 01/19/2024 COMP. METAB OLIC PANEL (14) AST (SGOT) 22 IU/L 0-40 normal Not Available [facility] ([facility]) [address] [place], [address], 01/21/2024 08:09:24 01/18/20 24 01/19/2024 COMP. METAB OLIC PANEL (14) ALT (SGPT) 14 IU/L 0-44 normal Not Available [facility] ([facility]) [address] [facility] [address], [place], [address], 01/21/2024 08:09:24 01/18/2001/21/2024 URINA LYSIS , ROUTI NE specific gravity COMMEN T Eliana e refer to the follo wing speci men for addit ional lab resul ts. Not Available [facility] ([facility]) [address] [facility] [address], [place], [address], 01/21/2024 08:09:26 01/18/2001/21/2024 URINA LYSIS , ROUTI NE pH TNP Test not perfo rmed Not Available [facility] ([facility]) [address] [facility] [address], [place], [address], 01/21/2024 08:09:26 01/18/2001/21/2024 URINA LYSIS , ROUTI NE urine-color INSTRUCTOR HAIRSPRING Not Available [facility] ([facility]) [address] [facility] [address], [place], [address], 01/21/2024 08:09:26 01/18/2001/21/2024 URINA LYSIS , ROUTI NE appearance INSTRUCTOR HAIRSPRING Not Available [facility] ([facility]) [address] [facility] [address], [place], [address], 01/21/2024 08:09:26 01/18/2001/21/2024 URINA LYSIS , ROUTI NE WBC esterase INSTRUCTOR HAIRSPRING Not Available [facility] ([facility]) [address] [facility] [address], [place], [address], 01/21/2024 08:09:26 01/18/20 24 01/21/2024 URINA LYSIS , ROUTI NE protein TNP Test not perfo rmed Not Available [facility] ([facility]) [address] [facility] [address], [place], [address], 01/21/2024 08:09:26 01/18/2001/21/2024 URINA LYSIS , ROUTI NE glucose TNP Test not perfo rmed Not Available [facility] ([facility]) [address] [facility] [address], [place], [address], 01/21/2024 08:09:26 01/18/2001/21/2024 URINA LYSIS , ROUTI NE ketones TNP Test not perfo rmed Not Available [facility] ([facility]) [address] [facility] [address], [place], [address], 01/21/2024 08:09:26 01/18/2001/21/2024 URINA LYSIS , ROUTI NE occult blood INSTRUCTOR HAIRSPRING Not Available [facility] ([facility]) [address] [facility] [address], [place], [address], 01/21/2024 08:09:26 01/18/2001/21/2024 URINA LYSIS , ROUTI NE bilirubin INSTRUCTOR HAIRSPRING Not Available [facility] ([facility]) [address] [facility] [address], [place], [address], 01/21/2024 08:09:26 01/18/2001/21/2024 URINA LYSIS , ROUTI NE urobilinogen ,semi-qn INSTRUCTOR HAIRSPRING Not Available [facility] ([facility]) [address] [place], [address], 01/21/2024 08:09:26 01/18/2001/21/2024 URINA LYSIS , ROUTI NE nitrite, urine INSTRUCTOR HAIRSPRING Not Available [facility] ([facility]) [address] [place], [address], 01/21/2024 08:09:26 01/18/2001/21/2024 URINA LYSIS , ROUTI NE microscopic examination INSTRUCTOR HAIRSPRING Not Available [facility] ([facility]) [address] [facility] [address], [place], [address], 01/21/2024 08:09:26 01/18/2001/19/2024 LIPID PANEL cholesterol, total 172 mg/dL 100-19 9 normal Not Available [facility] ([facility]) [address] [place], [address], 01/21/2024 08:09:26 01/18/2001/19/2024 LIPID PANEL triglyceride s 74 mg/dL 0-149 normal Not Available [facility] ([facility]) [address] [facility] [place], [address], 01/21/2024 08:09:26 01/18/2001/19/2024 LIPID PANEL HDL cholesterol 69 mg/dL >39 normal Not Available [facility] ([facility]) [address] [facility] [place], [address], 01/21/2024 08:09:26 01/18/2001/19/2024 LIPID PANEL VLDL cholesterol jossue 14 mg/dL 5-40 Not Available [facility] ([facility]) [address] [facility] [place], [address], 01/21/2024 08:09:26 01/18/2001/19/2024 LIPID PANEL LDL [facility] 89 mg/dL 0-99 Not Available [facility] ([facility]) [address] [facility] [place], [address], 01/21/2024 08:09:26 01/18/2001/19/2024 LIPID PANEL LDL calc comment: INSTRUCTOR HAIRSPRING Not Available [facility] ([facility]) [address] [facility] [place], [address], 01/21/2024 08:09:26 01/18/20 24 01/19/2024 HEMOG LOBIN A1C hemoglobin A1C 5.9 % 4.8-5. 6 above high normal Predi abete s: 5.7 - 6.4 Diabe maryanne: >6.4 Glyce john contr ol for adult s with diabe maryanne: <7.0 Not Available [facility] ([facility]) [address] [facility] [address], [place], [address], 01/21/2024 08:09:27 01/18/20 24 01/19/2024 NT-RI OBNP nt-probnp 961 pg/mL 0-486 above high normal The follo wing cut-p oints have been sugge sted for the use of proBN P for the diagn ostic evalu ation of heart failu re (HF) in patie nts with acute dyspn ea: Modal ity Age Optim al Cut (year s) Point ----- ----- ----- ----- ----- ----- ----- ----- ----- ----- ---- Diagn osis (rule in HF) <50 450 pg/mL 50 - 75 900 pg/mL >75 1800 pg/mL Exclu clotilde (rule out HF) Age indep enden t 300 pg/mL Not Available [facility] ([facility]) [address] [facility] [address], [place], [address], 01/21/2024 08:09:28 01/18/20 24 01/21/[address] PROBL EM request problem COMMEN T Pleas e refer to the follo wing speci men [place]ul [place]. [id number] Not Available [facility] ([facility]) [address] [facility] [address], [place], [address], 01/21/2024 08:09:28 12/15/19 24 12/10/2023 myoca rdial perfu clotilde study w/ ramila beasley n (PROC ) No observ ation record ed. [facility] (Medical Records) [address] [address], [place], [address], 01/06/2024 14:54:08 05/15/1905/15/2024 CT, head, w/o contr ast No observ ation record ed. [facility] (Medical Records) [address] [place], [address], 05/17/2024 10:30:20 05/15/19 25 05/15/2024 XR, chest No observ ation record ed. [facility] (Medical Records) [address] [place], [address], 05/17/2024 10:32:13 05/17/19 25 05/15/2024 elect roleigh ephal ogram (EEG) (PROC ) No observ ation record ed. [facility] (Medical Records) [address] [place], [address], 05/17/2024 11:26:46 Result Notes None recorded. Problems Name Problem SNOMED Code Status Onset Date Resolution Date Notes Provider Name and Address Organization Details Recorded Time Tobacco dependen ce syndrome 75344678 Completed 201310/31/2013 IMPRESSI ON: PT REMAINS PRECONTE MPLATIVE AND UNDERSTA NDING/AC CEPTING OF POTENTIA L DECORATOR HAND HEALTYH CONSEQUE NCES. AWARE OF AVAIALAB LE TREATMEN T OPTIONS. ; RECORDED 08/25/19 14 9:12AM BY HELEN GUDINO MA, ANNOTATI ON/ADDEN DUM Eduardo Luz MD [address], [place], [address] , [facility] 6 08:56:47 Influenz a vaccine needed [id number] Completed 201210/31/2013 RECORDED 02/14/20 13 9:08AM BY HELEN GUDINO MA, OFFICE VISIT Eduardo Luz MD [address], [place], [address] , [facility] 6 08:56:47 Adult health examinat ion Completed 201309/03/2014 IMPRESSI ON: WILL UPDATE IMMUNIZA TION STATUS AND SCREEN BASED ON RISK FACTORS. REGULAR DENTAL CARE AND SEATBELT USE ADVISED. DISTRACT ED DRIVING DISCUSSE D. COLON AND PROSTATE CANCER SCREENIN G ARE NOT UTD AND PT UNDERSTA NDS/ACCE PT POTENTIA L CONSEQUE NCES. PT CURRENTL Y DEMONSTR ATES LOW RISK FOR FALLS AND NO SIGNIFIC ANT COGNITIV E DECLINE. 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 MILD INCREASE TODAY LIKELY CORRELAT ES TO WEIGHT GAIN. INCREASE D EFFORTS FOR NA INTAKE REDUCTIO N, EXERCISE AND WEIGHT LOSS ADVISED. ; RECORDED 02/14/20 13 9:03AM BY HELEN GUDINO MA, ANNOTATI ON/ADDEN DUM Eduardo Luz MD [address] [facility] [address], [place], [address] , [facility] 6 08:56:47 Insomnia [id number] Completed 201309/07/2016 MITCH Rene [address] [facility], [place], [address] , [facility] 3 14:06:35 Renewal of prescrip tion Completed 201210/31/2013 RECORDED 02/14/20 13 9:03AM BY HELEN GUDINO MA, ANNOTATI ON/ADDEN DUM Eduardo Luz MD [address] [facility] [facility] [address], [place], [address] , [facility] 6 08:56:47 Obesity [id number] Completed 201309/05/2015 Eduardo Luz MD [address] [facility] [address], [place], [address] , [facility] 9 11:00:13 [place]weig ht [id number] Completed 201309/07/2016 Eduardo Luz MD [address] [facility] [address] [address], [place], [address] , [facility] 7 10:18:52 Chronic sinusiti s 92668531 Completed 201309/16/2018 Helen Gudino MA null, [facility] 9 10:26:04 Screenin g for malignan t neoplasm of colon Completed 201310/31/2013 RECORDED 08/25/19 14 9:22AM BY HELEN GUDINO MA, OFFICE VISIT Eduardo Luz MD [address] [facility], [place], [address] , [facility] 6 08:56:47 Tobacco dependen ce syndrome [id number] Active 2013 Not Available [facility] 2 13:16:52 Tobacco dependen ce syndrome 80556978 Completed 201311/27/2013 IMPRESSI ON: PT REMAINS PRECONTE MPLATIVE AND UNDERSTA NDING/AC CEPTING OF POTENTIA L DECORATOR HAND HEALTYH CONSEQUE NCES. AWARE OF AVAIALAB LE TREATMEN T OPTIONS. ; RECORDED 08/25/19 14 9:12AM BY HELEN GUDINO MA, ANNOTATI ON/ADDEN DUM Eduardo Luz MD [address] [facility], [place], [address] , [facility] 6 08:56:47 Influenz a vaccine needed [id number] 06 Completed 201211/27/2013 RECORDED 02/14/20 13 9:08AM BY HELEN GUDINO MA, OFFICE VISIT Eduardo Luz MD [address] [facility], [place], [address] , [facility] 6 08:56:47 Pure hypercho lesterol emia [id number] Completed 201311/27/2013 RECORDED 08/25/19 14 9:45AM BY EDUARDO Vasques MD, OFFICE VISIT Eduardo Luz MD [address] [facility] [address], [place], [address] , [facility] 6 08:56:47 Renewal of prescrip tion Completed 201211/27/2013 RECORDED 02/14/20 13 9:03AM BY HELEN GUDINO MA, ANNOTATI ON/ADDEN DUM Eduardo Luz MD [address] [facility], [place], [address] , [facility] 6 08:56:47 Screenin g for malignan t neoplasm of colon Completed 201311/27/2013 RECORDED 08/25/19 14 9:22AM BY HELEN GUDINO MA, OFFICE VISIT Eduardo Luz MD [address] [facility] [address], [place], [address] , [facility] 6 08:56:47 Impaired fasting glycemia 662456351 Active Not Available [employer] 2 13:16:52 Body mass index 30+ - obesity 752717561 Completed 09/07/2016 Eduardo Luz MD [address] [facility] [address], [place], [address] , [facility] 7 10:18:48 Weight decrease d 691545605 Completed 09/05/2015 Eduardo Luz MD [address], [place], [address] , [facility] 6 08:56:47 Verruca vulgaris 71672481 Active Not Available [facility] 2 13:16:52 Rupture of anterior cruciate ligament 658439948 Active Not Available [facility] 2 13:16:52 Tear of meniscus of knee 005187686 Active Not Available [facility] 2 13:16:52 Advance directiv carmine [place] with patient 594436168 Completed 09/16/2017 Eduardo Luz MD [address], [place], [address] , [facility] 8 08:58:51 Body mass index 25-29 - overweig ht 481650503 Completed 09/16/2018 Helen Gudino MA [facility], [facility] 9 10:25:59 Proteinu meri 20043486 Completed 201605/11/2018 Eduardo Luz MD [address], [place], [address] , [facility] 9 22:20:18 Obesity 066363444 Active 2018 Not Available [facility] 2 13:16:52 Ventricu lar prematur e beats 74485872 Active 2018 Not Available [facility] 2 13:16:52 Left axis deviatio n greater than -90 degrees by EKG 950637 Completed 201804/10/2019 Eduardo Luz MD [address], [place], [address] , [facility] 9 12:02:04 Left axis deviatio n 86507139 Active 2018 Not Available [facility] 2 13:16:52 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 Not Available [facility] 2 13:16:52 Diastoli c dysfunct ion 8875662 Active 2019 Not Available [facility] 2 13:16:52 Ascendin g aorta dilatati on 987945621 Active 2019 4.4cm Eduardo Luz MD [address], [place], [address] , [facility] 4 12:50:16 Left atrial dilatati on 333302154 Active 2019 Not Available [facility] 2 13:16:52 Calcific ation of mitral valve 855367656 Active 2019 Not Available [facility] 2 13:16:52 Insomnia 367768991 [facility] 2022 [facility] [address], [place], [address] , [facility] 3 14:06:35 Angle-cl osure glaucoma 569705023 Active 2022 bilatera l Eduardo Luz MD [address], [place], [address] , [facility] 3 20:53:53 Prediabe maryanne 344953854 Active 2022 Eduardo Luz MD [address], [place], [address] , [facility] 3 11:39:43 Not for resuscit ation 607070067 Active 2022 Eduardo Luz MD [address], [place], [address] , [facility] 3 12:55:21 Atrial fibrilla tion 80863533 Active 2023 Eduardo Luz MD [address], [place], [address] , [facility] 4 13:01:17 Paroxysm al atrial fibrilla tion 479552294 Active 2023 Eduardo Luz MD [address] [address], [place], [address] , [facility] 4 12:03:13 Congesti ve heart failure 64017246 Active 2023 EF 25% Eduardo Luz MD [address] [address], [place], [address] , [facility] 4 13:27:48 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 Procedures Surgical History Date Name Laterality Status Provider Name and Address Organization Details Recorded Time 12/10/19 24 radionuclide myocardial perfusion stress study completed Eduardo Luz MD [address], [address], [facility] 12/15/2023 13:27:03 10/15/19 24 Echo transthoracic completed Eduardo Luz MD [address], [address], [facility] 12/07/2023 11:34:21 12/02/19 23 Advanced Care Planning completed Eduardo Luz MD [address], [address], [facility] 12/01/2022 12:54:51 09/24/19 22 injection of bilateral knee joints completed Eduardo Luz MD [address] [facility], [place], [address], [facility] 09/27/2021 14:14:18 09/19/19 20 Mini-Cog Test completed Helen Gudino MA [facility] 09/19/2019 11:00:15 05/29/19 20 Echo transthoracic completed Eduardo Luz MD [address] [facility] [address] [facility], [place], [address], [facility] 05/31/2019 07:45:39 09/17/19 19 Mini-Cog Test completed Helen Gudino MA [facility] 09/16/2018 10:30:16 09/17/19 18 Mini-Cog Test completed Emerita Paulino MA [facility] 09/16/2017 08:27:28 09/08/19 17 Fall Risk Assessment completed Helen Gudino MA [facility] 09/07/2016 09:57:15 09/08/19 17 Mini-Cog Test completed Helen Gudino MA [facility] 09/07/2016 09:57:27 09/05/19 16 Fall Risk Assessment completed Helen Gudino MA [facility] 09/05/2015 08:38:38 09/05/19 16 Mini-Cog Test completed Helen Gudino MA [facility] 09/05/2015 08:38:38 09/05/19 16 Advanced Care Planning completed Helen Gudino MA [facility] 09/05/2015 08:38:38 09/04/19 15 Fall Risk Assessment completed Helen Gudino MA [facility] 09/03/2014 09:47:01 09/04/19 15 Mini-Cog Test completed Helen Gudino MA [facility] 09/03/2014 09:47:01 04/19/18 80 Back Surgery completed Eduardo Luz MD [address] [facility] [address], [place], [address], [facility] 02/19/2014 08:28:43 Colonoscopy completed Helen Gudino MA [facility] 09/03/2014 09:47:00 Arthroscopic Surgery completed Elham Gasca [facility] 01/25/2020 10:06:23 Imaging Results Imaging Date Name Status LastModified by Organization Details LastModified Time 12/10/2023 myocardial perfusion study w/ wall motion (PROC) completed [facility] (Medical Records) [address] [place], [address], 01/06/2024 14:54:08 05/15/2024 CT, head, w/o contrast completed [facility] (Medical Records) [address] [place], [address], 05/17/2024 10:30:20 05/15/2024 XR, chest completed [facility] (Medical Records) [address] [place], [address], 05/17/2024 10:32:13 05/15/2024 electroencephalogram (EEG) (PROC) completed [facility] (Medical Records) [address] [place], [address], 05/17/2024 11:26:46 Procedure Notes None recorded. Medical Equipment None Reported. Allergies Allergen ID Allergen Name Allergen Category Reaction Reaction Severity Criticality Documentation Date Start Date Code Code System Note Provider Name and Address Organization Details Recorded Time 65596 sulfameth azine medicatio n diarrhea Not available Not available 09/16/2018 36153 RxNorm Helen Gudino MA null, [facility] 9 10:24:39 4082 cephalexi n monohydra te medicatio n abdominal pain mild Not available 10/31/20132013 38645 8 RxNorm Eduardo Luz MD [address], [place], [address], [facility] 8 08:58:04 Medications Name Sig Start Date Stop Date Status Note LastModified by Organization Details LastModified Time atorvastat in 80 mg tablet Take 1 tablet every day by oral route for 90 days. active Not Available Not Available No t Available ascorbic acid (vitamin C) 1,000 mg tablet Take 1 tablet every day by oral route. active Not Available Not Available No t Available doxycyclin e hyclate 100 mg capsule Take 1 capsule twice a day by oral route for 3 days. 2024 active Not Available Not Available Not Avai lable azithromyc in 250 mg tablet TAKE 2 TABLETS (500 MG) BY ORAL ROUTE ONCE DAILY FOR 1 DAY THEN 1 TABLET (250 MG) BY ORAL ROUTE ONCE DAILY FOR 4 DAYS 09/16 completed Not Available Not Available Not Available amiodarone 200 mg tablet Take 1 tablet every day by oral route. active Not Available Not Available No t Available lisinopril 20 mg tablet Take 1 tablet every day by oral route. 05/24 completed Not Available Not Available Not Available atenolol 50 mg-chlorth alidone 25 mg tablet TAKE 1 TABLET BY MOUTH EVERY DAY 07/17 completed Not Available Not Available Not Available amlodipine 2.5 mg tablet Take 1 tablet every day by oral route. 12/01 completed Not Available Not Available Not Available amlodipine 5 mg tablet TAKE 1 TABLET BY MOUTH EVERY DAY 09/26 completed Not Available Not Available Not Available lovastatin 10 mg tablet TAKE 1 TABLET BY MOUTH EVERY DAY 01/24 completed Not Available Not Available Not Available aspirin 81 mg tablet,del ayed release TAKE 1 TABLET BY MOUTH EVERY DAY active Not Available Not Available No t Available Aleve 220 mg tablet Take 1 tablet every 12 hours by oral route as needed. 03/06 completed Not Available Not Available Not Available amoxicilli n 875 mg tablet 03/08 completed Not Available Not Available Not Available prednisolo ne acetate 1 % eye drops,susp ension ADMINIST ER 1 DROP INTO LEFT EYE FOUR TIMES A DAY FOR 5 DAYS. 12/06 completed Not Available Not Available Not Available lorazepam 0.5 mg tablet Take 1 tablet as needed by oral route at bedtime for 30 days. 03/06 completed Not Available Not Available Not Available ascorbic acid (vitamin C) 500 mg tablet Take 2 tablets every day by oral route as directed . 05/24 completed Not Available Not Available Not Available Nicoderm CQ 14 mg/24 hr daily transderma l patch Apply 1 patch every day by transder mal route. active PLEASE VERIFY IF USING 05/24/19 Not Available Not Available Not Available pantoprazo le 40 mg tablet,del ayed release Take 1 tablet every day by oral route for 90 days. active Not Available Not Available No t Available lidocaine 5 % topical patch APPLY 1 PATCH BY TOPICAL ROUTE ONCE DAILY (MAY WEAR UP TO 12HOURS. ) active PA DENIED; must get OTC Not Available Not Available Not Available metoprolol tartrate 50 mg tablet Take 1 tablet twice a day by oral route. active Not Available Not Available No t Available Tylenol 325 mg tablet Take 2 tablets every 6 hours by oral route as needed. active Not Available Not Available No t Available hydroxyzin e HCl 25 mg tablet Take 1 tablet as needed by oral route at bedtime for 90 days. active Not Available Not Available No t Available furosemide 20 mg tablet TAKE 1 TABLET BY MOUTH EVERY DAY active Not Available Not Available No t Available metoprolol succinate ER 25 mg tablet,ext ended release 24 hr TAKE 1 TABLET BY MOUTH EVERY DAY 09/26 completed Not Available Not Available Not Available cefuroxime axetil 500 mg tablet Take 1 tablet every 12 hours by oral route for 3 days. 2024 active Not Available Not Available Not Avai lable lovastatin 20 mg tablet TAKE 1 TABLET BY MOUTH EVERY DAY 03/06 completed Not Available Not Available Not Available albuterol sulfate HFA 90 mcg/actuat ion aerosol inhaler INHALE 2 PUFFS BY MOUTH EVERY 4 HOURS NEEDED FOR SHORTNES S OF BREATH OR WHEEZING active Not Available Not Available No t Available doxycyclin e hyclate 100 mg tablet Take 1 tablet twice a day by oral route for 10 days. 04/10 completed Not Available Not Available Not Available atenolol 50 mg tablet TAKE 1 TABLET BY MOUTH EVERY DAY 09/21 completed Not Available Not Available Not Available loratadine 10 mg tablet Take 1 tablet every day by oral route. active Not Available Not Available No t Available nicotine 7 mg/24 hr daily transderma l patch Apply patch as directed for 2-4 weeks as needed 03/06 completed Not Available Not Available Not Available nicotine (polacrile x) 4 mg buccal lozenge TAKE 1 TABLET EVERY 2 HOURS BY ORAL ROUTE NEEDED. active 05/24/19 PLEASE VERIFY IF USING Not Available Not Available Not Available zinc 50 mg capsule Take 1 capsule every day by oral route. active 05/24/19 PLEASE VERIFY IF TAKING, NOT ON D/C SUMM Not Available Not Available Not Available Vitamin C 03/08 completed Not Available Not Available Not Available Doxycyclin e 100 mg , 1 tab every 12 hours for 10 day #20 05/16 completed Not Available Not Available Not Available Multivitam ins Take 1 tablet po daily active Not Available Not Available No t Available loratadine 10 mg capsule Take 1 capsule every day by oral route. 09/18 completed Not Available Not Available Not Available Aleve 220 mg capsule Take 1 capsule every day by oral route. 01/24 completed Not Available Not Available Not Available Mediplast Weidman-Callu s-Wart Remover 40 % topical patch Apply 1 patch every day by topical route as directed . 2014 active Not Available Not Available Not Avai lable ZzzQuil 50 mg/30 mL oral liquid Take by oral route. 03/06 completed sleep aid Not Available Not Available Not Available Combivent Respimat 20 mcg-100 mcg/actuat ion solution for inhalation Inhale 1 puff 4 times a day by inhalati on route as needed. 06/24 completed Not Available Not Available Not Available Eliquis 5 mg tablet TAKE 1 TAB ORALLY 2 TIMES A DAY active Not Available Not Available No t Available naproxen 220 mg-diphenh ydramine 25 mg tablet Take 1 tablet twice a day by oral route. 09/18 completed Not Available Not Available Not Available Trelegy Ellipta 100 mcg-62.5 mcg-25 mcg powder for inhalation Inhale 1 puff every day by inhalati on route. active Not Available Not Available No t Available metoprolol succinate ER 25 mg capsule sprinkle, ext. release 24 hr Take 1 capsule every day by oral route. 12/06 completed Not Available Not Available Not Available Fluzone High-Dose (PF) 180 mcg/0.5 mL intramuscu lar syringe ADM 0.5ML IM UTD 01/24 completed Not Available Not Available Not Available albuterol sulf 90 mcg/actuat ion breath activated powder inhaler,se nsor Inhale 2 puffs every 4 hours by inhalati on route as needed. active Not Available Not Available No t Available Vitals Date Recorded Body height Body mass index (BMI) Body weight Heart rate Oxygen saturation Oxygen saturation in Arterial blood by Pulse oximetry Body temperature Systolic blood pressure Diastolic blood pressure Provider Name and Address Organization Details Last Updated DateTime 4 169.55 cm 26.8 kg/m2 90372.7 g 89 /min 95 % 95 % 97.6 [degF] 150 mm[Hg] 70 mm[Hg] Roseanna Edwards MA [facility] 4 14:22:11 Date Recorded Oxygen saturation Oxygen saturation in Arterial blood by Pulse oximetry Provider Name and Address Organization Details Last Updated DateTime 01/06/2024 90 % 90 % Eduardo Luz MD [address] [facility] [address], [address], [facility] 01/06/2024 16:18:34 Date Recorded Body height Heart rate Oxygen saturation Oxygen saturation in Arterial blood by Pulse oximetry Body temperature Systolic blood pressure Diastolic blood pressure Provider Name and Address Organization Details Last Updated DateTime 4 169.55 cm 87 /min 97 % 97 % 98.3 [degF] 147 mm[Hg] 68 mm[Hg] Rob duncan MA [facility] 4 11:08:53 Social History Question Answer Notes LastModified by Organizat ion Details LastModified Time Tobacco Smoking Status Former Smoker stopped 01/03/[address] [facility] 01/06/2024 14:20:14 Do You Have An Advance Directive? Yes HCP Son/Rusty, Dtr/Aixa [email or web address] Information not available 09/28/2022 What Is Your Level Of Alcohol Consumption? Moderate [id number] Information not available 02/20/2020 Is Blood Transfusion Acceptable In An Emergency? Yes [id number] Information not available 02/20/2020 What Is Your Level Of Caffeine Consumption? Moderate Coffee 1 Daily [email or web address] Information not available 12/07/2023 How Much Tobacco Do You Chew? None [id number] Information not available 02/20/2020 In The 14 Days Before Symptom Onset, Have You Had Close Contact With A Laboratory-confi rmed COVID-19 While That Case Was Ill? No Information not available 06/25/2020 In The 14 Days Before Symptom Onset, Have You Had Close Contact With A Person Who Is Under Investigation For COVID-19 While That Person Was Ill? No Information not available 06/25/2020 Have You Been To An Area Known To Be High Risk For COVID-19? No Information not available 06/25/2020 Are You Currently Employed? No Retired [id number] Information not available 02/20/2020 Are You Deaf Or Do You Have Serious Difficulty Hearing? No Information not available 06/25/2020 What Type Of Diet Are You Following? REGULAR [id number] Information not available 02/20/2020 Which Illicit Or Recreational Drugs Have You Used? None [id number] Information not available 02/20/2020 Do You Or Have You Ever Used E-cigarettes Or Vape? Never Used Electronic Cigarettes Information not available 06/25/2020 What Is Your Occupation? Former [employer] [id number] Information not available 02/20/2020 Live Alone Or With Others? With Others 2 Adult Children, 1 Dog Information not available 12/07/2023 Do You Take Precautions To Prevent Distracted Driving? Yes Information not available 09/05/2015 How Often Do You Need To Have Someone Help You When You Read Instructions, Pamphlets, Or Other Written Material From Your Doctor Or Pharmacy? Never Information not available 09/05/2015 Have You Served In The ? Yes Information not available 09/07/2016 Have You Or Anyone In Your Household Had Any Of The Following Symptoms In The Last 14 Days: Sore Throat, Cough, Chills, Body Aches For Unknown Reasons, Shortness Of Breath For Unknown Reasons, Loss Of Smell, Loss Of Taste, Fever At Or Greater Than 100 Degrees Fahrenheit? No Information not available 01/25/2020 Are You Or Anyone In Your Household A Health Care Provider Or Emergency Responder? No Information not available 01/25/2020 To The Best Of Your Knowledge Have You Been In Close Proximity To Any Individual Who Tested Positive For COVID-19? No Information not available 01/25/2020 *AWV ONLY* Are You Presently Prescribed Opioid Medication By PCP Or Specialist? If YES -Provider Assess The Benefit For Other, Non-opioid Pain Therapies Instead, Even If The Patient Does Not Have OUD But Is Possibly At Risk. No Information not available 02/20/2021 Have You Recently Traveled To A COVID-19 High Risk Area Or Gathering In The Last 10 Days? No [email or web address] Information not available 06/25/2020 Marital Status [email or web address] Informatio n not available 07/31/2022 What Was The Date Of Your Most Recent Tobacco Screening? 12/07/2023 Information not available 12/07/2023 How Many Children Do You Have? 2 Rusty And Aixa [id number] Information not available 02/20/2020 What Is Your Current Pack Years? 30ormorepacky ears Information not available 02/20/2021 Difficulty Reading? No robb Information not available 09/03/2014 Seat Belts Used Routinely Yes Information not available 09/05/2015 Are You Sexually Active? Yes [id number] Information not available 02/20/2020 Smoke Alarm In Home Yes Information not available 09/05/2015 At What Age Did You Start Smoking Tobacco? 14 [id number] Information not available 02/20/2020 Are You Passively Exposed To Smoke? No Information not available 09/07/2016 Do You Or Have You Ever Used Smokeless Tobacco? Never Used Smokeless Tobacco [id number] Information not available 02/20/2020 How Much Tobacco Do You Smoke? 0.5 PPD <1 PPD Information not available 02/20/2021 Do You Use Any Illicit Or Recreational Drugs? No Information not available 02/20/2021 Do You Use Sunscreen Routinely? Yes [id number] Information not available 02/20/2020 How Many Years Have You Smoked Tobacco? 66 Information not available 12/01/2022 Difficulty Watching TV? No Information not available 09/03/2014 Do You Or Have You Ever Used Any Other Forms Of Tobacco Or Nicotine? No Information not available 02/20/2021 Sex: Unknown Functional Status Question Answer Note LastModified by Organizat ion Details LastModified Time Do you have difficulty walking or climbing stairs? No Information not available 06/25/2020 Difficulty driving at night? Yes Information no t available 09/03/2014 Are you able to walk? YESASSIST Information not available 11/27/2021 Do you have difficulty doing errands alone? No Information not available 06/25/2020 Are you able to care for yourself? Yes [id number] Information not available 02/20/2020 Do you have difficulty dressing or bathing? No Information not available 06/25/2020 What is your exercise level? [email or web address] Information not available 12/07/2023 Mental Status Question Answer Note LastModified by Organization D etails LastModified Time Do you have difficulty concentrating, remembering or making decisions? No Information no t available 06/25/2020 Family History Relationship Description Onset Age of this Age Resolved Age Notes LastModified by Organization Details LastModified Time Father Hypertensive disorder [email or web address] Not available 09/04 09:01:07 Mother Hypertensive disorder [email or web address] Not available 09/04 09:01:07 Mother Cerebrovascu lar accident 80 [email or web address] Not available 09:01:07 Brother Osteoarthrit is Not available 2020 10:08:10 Brother Coronary arterioscler osis Not available 2020 10:08:10 Brother Body condition unknown 75 Not available 2020 10:08:10 Brother Body condition unknown 85 Not available 2020 10:08:10 Son Well adult Not availab le 06/25/2020 10:08:10 Daughter Well adult Not avail able 06/25/2020 10:08:10 Medical History Condition Response Coronary Artery Disease N Gout N Other N Blood Diseases N Kidney Stones N Hyperthyroidism N Breast Cancer N mrsa exposure N Lung Disease N Hypothyroidism N Depression N COPD N Defects or Inherited Disease N Developmental or Behavioral Disorders N Breast Problem N Anesthesia Complications N Headaches/Migraines N Varicose Veins N Anxiety Disorder N Muscle, Joint, or Bone Problems N Obesity N Vision or Eye Problems N Arthritis N Head Injury/Concussion N Infertility N Polyps N Mental Disorder N Congenital Anomalies N Acid Reflux (GERD) N Cancer N Stroke N ADHD N Endometriosis N High Cholesterol Y Liver Disease N Headaches N Fibromyalgia N Kidney Disease N Heart Problems N Ear or Hearing Problems N Hospitalizations N Thyroid Problems N GI Problems N Developmental Delay N Acne N Eating Disorder N Skin Problems N Anemia N Constipation N Bladder Problems N Mental Illness N Diabetes N Ovarian Cancer N Bedwetting N Blood Transfusions N Heart Problems/Murmur N Seizures/Epilepsy N Tuberculosis N AIDS/HIV N Congestive Heart Failure (CHF) N Eczema N Abuse/Domestic Violence N Diverticulitis N Asthma N Allergies N Reflux/GERD N Hepatitis N Heart Disease N Pulmonary Embolism N Hypertension Y Chicken Pox N Autism Spectrum Disorder (ASD) N Osteoporosis N Immunizations Vaccine Type Date Status Note Provider Nam e and Address Organization Details Recorded Time Influenza, split virus, trivalent, preservative 4 completed Cleo metzger [facility] 08/21/2021 14:57:09 zoster live 4 completed [facility] 06/03/2023 11:25:44 Influenza, high-dose, trivalent, PF 6 completed WALLY [place] [facility] 09/18/2021 10:45:52 Influenza, split virus, quadrivalent, preservative 8 completed Cleo metzger [facility] 08/21/2021 14:57:09 Influenza, high-dose, trivalent, PF 9 completed WALLY [place] [facility] 11/27/2021 11:20:28 COVID-19, mRNA, LNP-S, PF, 30 mcg/0.3 mL dose 1 completed Helen Gudino WALLY yassine, [facility] 09/18/2021 10:45:52 COVID-19, mRNA, LNP-S, PF, 30 mcg/0.3 mL dose 1 completed Helen Gudino [facility]ALLY [facility], [facility] 09/18/2021 10:45:52 COVID-19, mRNA, LNP-S, PF, 30 mcg/0.3 mL dose 1 completed Helen Gudino WALLY [facility], [facility] 09/18/2021 10:45:52 Influenza, high-dose, quadrivalent, PF 1 completed WALLY [place], [facility] 11/27/2021 11:20:28 COVID-19, mRNA, LNP-S, PF, 30 mcg/0.3 mL dose, sonu-sucrose 2 completed WALLY Burnett [facility] 09/18/2021 10:45:52 Influenza, high-dose, trivalent, PF 8 completed WALLY Burnett, [facility] 09/18/2021 10:45:52 zoster live 4 completed Helen Gudino [place], [facility] 09/18/2021 10:45:52 Influenza, split virus, trivalent, preservative 2 completed WALLY [place], [facility] 09/18/2021 10:45:52 Influenza, high-dose, trivalent, PF 7 completed WALLY Burnett, [facility] 11/27/2021 11:20:28 pneum[facility] P[facility]23 6 [facility] 11:20:28 Pneumococcal conjugate PCV 13 4 [facility]27[facility]21 11:20:28 Influenza, split virus, quadrivalent, PF 5 completed WALLY Burnett, [facility] 11/27/2021 11:20:28 Tdap 4 completed WALLY Burnett, [facility] 11/27/2021 11:20:28 Influenza, high-dose, quadrivalent, PF 0 completed WALLY Burnett, [facility] 11/27/2021 11:20:28 zoster recombinant 2 completed Roseanna Edwards WALLY [place], [facility] 03/31/2022 11:19:40 COVID-19, mRNA, LNP-S, bivalent, PF, 30 mcg/0.3 mL dose 2 completed W[place], [facility] 03/31/2022 11:19:40 Influenza, adjuvanted, quadrivalent, PF 2 completed W[place], [facility] 03/31/2022 11:19:40 zoster recombinant 3 completed WALLY [place], [facility] 07/31/2022 13:08:48 Influenza, high-dose, quadrivalent, PF 3 completed [place], [facility] 06/03/2023 11:25:44 COVID-19, mRNA, LNP-S, PF, sonu-sucrose, 30 mcg/0.3 mL 3 completed W[place], [facility] 06/03/2023 11:25:44 Influenza, adjuvanted, trivalent, PF 4 completed [place], [facility] 01/06/2024 14:09:07 COVID-19, mRNA, LNP-S, PF, sonu-sucrose, 30 mcg/0.3 mL 4 completed Roseanna Edwards MA null, [facility] 01/06/2024 14:09:07 Tdap 4 completed Keshia Vazquez CPPM null, [facility] 03/08/2024 07:45:11 Influenza, split virus, trivalent, preservative 2 completed Cleojames Daniels null, [facility] 08/21/2021 14:57:09 Influenza, split virus, trivalent, preservative 3 completed Cleo Daniels null, [facility] 08/21/2021 14:57:09 Past Encounters Encounter ID Performer Location Encounter Start Date Encounter Closed Date Diagnosis/Indication Diagnosis SNOMED-CT Code Diagnosis ICD10 Code Diagnosis Note [id number] autoEComm erce [id number] [facility] [place] [address] 01/01/2012 00:00:00 [id number] autoEComm erce [id number] [facility] [facility] [place] [address] 08/16/2012 00:00:00 [id number] autoEComm erce [id number] [facility] [facility] [place] [address] 02/13/2013 00:00:00 [id number] autoEComm erce [id number] [facility] [facility] [place] [address] 08/24/2013 00:00:00 [id number] Main Office [address] [facility] [address] [facility] [place] [address] 02/19/2014 07:54:09 02/19/2014 08:44:05 Essential hypertension 31082892 Well controlled . Continue current regimen. Hypercholesterolemia 72780289 LDL at goal. med well toelrated. Continue current dose. Insomnia 294820518 Stabl e and tolerating rx well. Will continue. 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 Continue current regimen. Administra tion of pneumococcal vaccine 43148718 Administra tion of diphtheria, pertussis, and tetanus vaccine 602193992 [id number] Wilfred Newby Main Office [address] [address] [place] [address] 09/03/2014 08:39:15 09/03/2014 10:24:51 Adult health examination 860551495 Immunizati on status utd, will screen based on risk factors. Pt continues to decline AAA/colon cancer screening, despite being advised of and understand ing potential health consequenc es. Regular dental and ophtho care advised as well as seatbelt and sunscreen use. Distracted driving discussed. Pt currently demonstrat es risk for falls, but no significan t cognitive decline. Advance directives in place. Essential hypertension 21173279 No meds this AM will continue current regimen and reassess. Hypercholesterolemia 18337470 LDL at goal. med well toelrated. Continue current dose. Tobacco de pendence syndrome 83804642 Remans precontemp lative and understand s/accepts potential health consequenc es. Continue current regimen. Impaired f asting glycemia [facility]99923653 [facility] 490549357 Secondary to severe knee OA which is being addressed. Body mass index 30+ - obesity 416467467 [id number] Eduardo Luz MD Main Office [address] [address] [place], [place] [address] 02/28/2015 08:05:46 02/28/2015 08:54:18 Hypercholesterolemia 47554548 E78.0 LDL at goal. med well toelrated. Continue current dose. Essential hypertension 31040474 I10 Well controlled in context of significan t wt loss. Advised to call if s/s of hypotensio n develop as would decrease med dose. Needs infl uenza immunization 250353138 Z23 Weight decreased 4299725 01 R63.4 Pt continues to decline any cancer screening tests, understand ing of potential consequenc es. Even CXR was declined. Pt states that weight loss is a result of significan t diet and lifestyle modificati ons made to limit knee OA progressio n. WIll check some labs. Verruca vulgaris 8890384 3 B07.9 OTC treatments discussed/ advised. Call if not helping or symptoms worsen. Would refer to derm. [id number] Eduardo Luz MD Main Office [address] [address] [place] [address] 09/05/2015 08:13:23 09/05/2015 09:19:59 Adult health examination 501544778 Z00.01 Immunizati on status utd, will screen based on risk factors. Pt continues to decline AAA/colon cancer screening, despite being advised of and understand ing potential health consequenc es. Regular dental and ophtho care advised as well as seat belt and sunscreen use. Distracted driving discussed. Pt currently demonstrat es risk for falls, but no significan t cognitive decline. Advance directives in place. Advance di rective discussed with patient 037439242 Z71.89 Essential hypertension 40547231 I10 Hypercholesterolemia 136 53575 E78.0 LDL at goal. med well toelrated. Continue current dose. 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 Continue current regimen. Impaired f asting glycemia 178988369 R73.01 Body mass index 25-29 - overweight 922596573 E66.3 [id number] Eduardo Luz MD Main Office [address] [facility] [address] [place] [address] 03/06/2016 07:56:56 03/06/2016 08:51:53 Pure hypercholesterolemia 241524083 E78.01 Will reassess control on low dose statin. Pt advised to call if having any symptoms of potential adverse effects whic were discussed at length. Essential hypertension 64614272 I10 Impaired f asting glycemia 123498686 R73.01 Likely statin related. Will follow. Administra tion of pneumococcal vaccine 66225143 Z23 [id number] Eduardo Luz MD Main Office [address] [facility] [address] [place] [address] 09/07/2016 09:16:09 09/07/2016 10:43:19 Adult health examination 283540890 Z00.01 Immunizati on status utd, flu advised in the Fall. Will screen based on risk factors. Pt continues to decline AAA/colon cancer screening, despite being advised of and understand ing potential health consequenc es. Regular dental and ophtho care advised as well as seat belt and sunscreen use. Distracted driving discussed. Pt currently demonstrat es risk for falls and declines PT. No significan t cognitive decline. Advance directives in place. Body mass index 25-29 - overweight 930316859 E66.3 Z68.25 Multiple joint pain 3567 8005 M25.50 Likely OA, following with ortho. Tobacco de pendence syndrome 31154918 F17.290 Remans precontemp lative and understand s/accepts potential health consequenc es. Continue current regimen. Essential hypertension 87766374 I10 Pure hypercholesterolemia 429585742 E78.01 Impaired f asting glycemia 003108532 R73.01 Likely statin related. Will follow. Numbness of hand 5903593 04 R20.0 Likely CTS. Will try conservati ve tx and call ortho or f/u here if persistent /worse. [id number] Eduardo Luz MD Main Office [address] [place] [address] 03/08/2017 08:00:22 03/08/2017 09:29:19 Pure hypercholesterolemia 618386826 E78.01 LDL at goal. Continue current regimen. Essential hypertension 52903990 I10 Influenza vaccine needed 7890699727 106 Z23 Osteoarthritis 022568536 M19.90 Proteinuria 96005766 R80 .9 Suspect fasting had something to do with this result. Will reassess today. Impaired f asting glycemia 295852471 R73.01 Likely statin related. Will follow. [id number] Eduardo Luz MD Main Office [address] [place] [address], [place] [address] 09/16/2017 08:06:18 09/16/2017 09:53:37 Adult health examination 807316465 Z00.00 Immunizati on status utd, flu advised in the Fall, and Shingrix via local pharmacy. Will screen based on risk factors. Pt continues to decline AAA/colon cancer screening, despite being advised of and understand ing potential health consequenc es. Regular dental and ophtho care advised as well as seat belt and sunscreen use. Distracted driving discussed. Pt currently demonstrat es risk for falls and declines PT. No significan t cognitive decline. Advance directives in place. Proteinuria 95793031 R80 .9 Suspect fasting had something to do with this result. Will reassess/m onitor, and discuss further assessment if persistent /worse. Pure hypercholesterolemia 594949371 E78.01 LDL at goal. Continue current regimen. Essential hypertension 08673158 I10 Mild elevation today. Using NSAIDS and gaining weight. Will continue monitoring for now. Tobacco de pendence syndrome 40105220 F17.290 Remans precontemp lative and understand s/accepts potential health consequenc es. Continue current regimen. Impaired f asting glycemia 589081260 R73.01 Likely statin related. Will follow. Obesity 075283178 E66.9 Body mass index 30+ - obesity 645619144 Z68.30 [id number] Eduardo Luz MD Main Office [address] [place] [address] 03/21/2018 08:49:50 03/21/2018 09:34:58 Pure hypercholesterolemia 974667694 E78.01 LDL at goal. Continue current regimen. Essential hypertension 02601796 I10 Well controlled . Continue current regimen. Hypokalemia 07592821 E87 .6 Likely related to diuretic. Will reassess and consider starting KCL vs reducing diuretic dose depending on results. [id number] Keshia Vazquez CPP Main Office [address] [address] 05/13/2018 09:25:53 05/13/2018 11:36:09 [id number] Eduardo Luz MD Main Office [address] [place] [address] 05/16/2018 09:41:06 05/16/2018 10:40:18 Pneumonia 936148026 J18.9 Improving with azithro. Likely superimpos ed on COPD. Advised to call inb/worse or if second sickening occurs and broader/ex tended coverage would be warranted. Expiratory wheezing 9763 007 R06.2 Likely some aspect of COPD contributi ng. WIll try to manage with inhaler combo and consider short course of prednisone if not continuing to slowly improve. [id number] Eduardo Luz MD Main Office [address] [place], [place] [address] [address] 09/16/2018 10:08:24 09/16/2018 11:11:09 Adult health examination 751287795 Z00.00 Immunizati on status utd, flu advised in the Fall, and Shingrix via local pharmacy. Will screen based on risk factors. Pt continues to decline AAA/colon cancer screening, despite being advised of and understand ing potential health consequenc es. Regular dental and ophtho care advised as well as seat belt and sunscreen use. Distracted driving discussed. Pt currently demonstrat es risk for falls and declines PT. No significan t cognitive decline. Advance directives in place. Varicella vaccination 68 099620 Z23 Tobacco de pendence syndrome 05773955 F17.290 Remans precontemp lative and understand s/accepts potential health consequenc es. Continue current regimen. Obesity 462525837 E66.9 Z68.30 Impaired f asting glycemia 526699949 R73.01 Likely statin related. Will follow. Essential hypertension 81575176 I10 Mild elevation today. Using NSAIDS and gaining weight. Will continue monitoring for now. Body mass index 30+ - obesity 341230560 Z68.30 Pure hypercholesterolemia 991458780 E78.01 LDL at goal. Continue current regimen. Hypokalemia 22354135 E87 .6 Will reassess today and reduce diuretic if still low. [id number] Eduardo Luz MD Main Office [address] [place] [address] 03/27/2019 13:14:06 03/27/2019 14:49:47 Pneumonia 774767755 J18.9 Suspect atypical process potentiall y involved based on risk factors. Will image to rule out complicate d process. Irregular heart beat 361 736859 R00.8 Concerned for Afib but ECG shows ectopy and conduction delays. Ventricula r premature beats 61787970 I49.3 With prolonged QT will assess potential metabolic/ electrolyt e issues as well as structural heart disease. Intraventr icular conduction defect 3698452 I45.4 Left axis deviation 3973 2002 R94.31 [id number] Eduardo Luz MD Main Office [address] [place] [address] 04/10/2019 11:12:11 04/10/2019 12:10:51 Essential hypertension 07116537 I10 Well controleld continue current regimen. Left axis deviation 3973 2003 R94.31 Has echo scheduled. PVC's asymptomat ic. If normal will defer further evaluation for now. Chronic sinusitis 196343 00 J32.9 Chronic issue without improvemen t after course of abx. Will defer imaging or further eval unless more concerning symptoms develop. [id number] Eduardo Luz MD Main Office [address] [facility] [address] [place] [address] 09/19/2019 10:46:19 09/19/2019 11:44:00 Adult health examination 587799055 Z00.00 Immunizati on status utd, flu advised in the Fall, and Shingrix via local pharmacy. Will screen based on risk factors. Pt continues to decline AAA/colon cancer screening, despite being advised of and understand ing potential health consequenc es. Regular dental and ophtho care advised as well as seat belt and sunscreen use. Distracted driving discussed. Pt currently demonstrat es risk for falls and declines PT. No significan t cognitive decline. Advance directives in place. Varicella vaccination 68 021783 Z23 Tobacco de pendence syndrome 29154098 F17.290 Remains precontemp lative and understand s/accepts potential health consequenc es. Continue current regimen. Screening for malignant neoplasm of lung 001017190 Z87.891 Eligible patients must have >=30 pack years. Pt declines screening and is above the recommende d age anyways. Screening for malignant neoplasm of colon 661842199 Z12.11 pt is willing to do FOB Ascending aorta dilatation 910374041 I77.810 Will reassess next year and focus on risk factor control. Essential hypertension 44903927 I10 Well controlled continue current regimen. Pure hypercholesterolemia 237794460 E78.01 LDL at goal. Continue current regimen. [facility] 736411194 Z91.81 Secondary to severe knee OA which is chronic. Not interested in PT. [id number] Anne Marie Randolph MA Main Office [address] [facility] [address] [place] [address] 09/27/2019 09:27:08 09/27/2019 09:38:00 Screening for malignant neoplasm of colon 255474567 Z12.11 [id number] Eduardo Luz MD Main Office [address] [facility] [address] [place] [address] 01/25/2020 10:05:38 01/25/2020 10:54:18 Essential hypertension 86357075 I10 Well controlled continue current regimen. Influenza vaccine needed 8100662932 106 Z23 Pure hypercholesterolemia 390900516 E78.01 LDL at goal. Continue current regimen. Ascending aorta dilatation 932797630 I77.810 Will reassess next year and focus on risk factor control. Impaired f asting glycemia 365934384 R73.01 Likely statin related. Will follow. [id number] Eduardo Luz MD Main Office [address] [facility] [address] [place] [address] 06/25/2020 10:07:24 06/25/2020 11:12:34 Pure hypercholesterolemia 993224268 E78.01 LDL previously at goal. Will reassess and continue current regimen. Essential hypertension 67722906 I10 Fair control continue current regimen for now. Consider ARB if >130/90 at f/u. Ascending aorta dilatation 561834583 I77.810 Will reassess later this year and focus on risk factor control. [id number] Eduardo [facility] MD [facility] [address] [facility] [address] [facility] [place] [address] 09/27/2020 09:00:31 09/27/2020 11:30:33 Adult health examination 720571308 Z00.00 Immunizati on status utd, flu advised in the Fall, and Shingrix via local pharmacy. Screening utd based on risk factors. Pt continues to decline AAA/colon cancer screening, despite being advised of and understand ing potential health consequenc es. Regular dental and ophtho care advised as well as seat belt and sunscreen use. Distracted driving discussed. Pt currently demonstrat es risk for falls and declines PT. No significan t cognitive decline. Advance directives in place. Varicella vaccination 68 474270 Z23 Tobacco de pendence syndrome 65520992 F17.290 Remains precontemp lative and understand s/accepts potential health consequenc es. Screening for malignant neoplasm of lung 978177995 Z87.891 Eligible patients must have >=30 pack years. Pt declines screening and is above the recommende d age anyways. Screening for malignant neoplasm of colon 416428380 Z12.11 Occult blood negative last year. Declines colonoscop y. Understand s/accepts potential consequenc es. Ascending aorta dilatation 071678712 I77.810 Will reassess in the Fall and focus on risk factor control. Essential hypertension 89874901 I10 Well controlled continue current regimen. Pure hypercholesterolemia 029248731 E78.01 LDL at goal. Continue current regimen. At [facility] risk for falls 580654094 Z91.81 Secondary to severe knee OA which is chronic. Not interested in PT. Impaired f asting glycemia 317943510 R73.01 Likely statin related. Will follow. [id number] Eduardo Luz MD Main Office [address] [facility] [address] [place] [address] 02/20/2021 10:33:11 02/20/2021 11:35:54 Pure hypercholesterolemia 057063529 E78.01 LDL at goal. Continue current regimen. Essential hypertension 71942816 I10 Not at goal but improved on recheck. Will continue current regimen and monitor for now. Ascending aorta dilatation 178098707 I77.810 Discussed arranging f/u ECHO but pt declines. Understand s potential; consequenc es. States that he wouldn't pursue interventi ons if progressin g. Impaired f asting glycemia 856155399 R73.01 Likely statin related. Will follow. [id number] Eduardo Luz MD Main Office [address] [facility] [address] [place] [address] 09/18/2021 10:31:24 09/18/2021 11:25:13 Essential hypertension 43169660 I10 Not at goal will add low dose CCB and titrate as tolerated to goal 120/80. Pure hypercholesterolemia 656193295 E78.01 LDL at goal, but due for reassessme nt. Ascending aorta dilatation 600565078 I77.810 Discussed arranging f/u ECHO but pt declines. Understand s potential consequenc es. States that he wouldn't pursue interventi ons if progressin g. States that his family/HCP understand his wishes as well. [id number] Eduardo Luz MD Main Office [address] [facility] [address] [facility] [address] 11/27/2021 10:46:41 11/27/2021 11:39:46 Adult health examination 882485545 Z00.00 Immunizati on status utd, flu advised in the Fall. Screening utd based on risk factors. Pt continues to decline AAA/colon cancer screening, despite being advised of and understand ing potential health consequenc es. Regular dental and ophtho care advised as well as seat belt and sunscreen use. Distracted driving discussed. Pt currently demonstrat es risk for falls and declines PT. No significan t cognitive decline. Advance directives in place. Varicella vaccination 68 834779 Z23 Essential hypertension 58345630 I10 BP has responded dramatical ly to low dose CCB both here and at home. Will d/c to see if needed. May try substituti ng CCB for BB at f/u if >130/90. Impaired f asting glycemia 878976743 R73.01 Likely statin related. Will follow. Pure hypercholesterolemia 049321175 E78.01 LDL at goal, but due for reassessme nt. Tobacco de pendence syndrome 21943413 F17.290 Remains precontemp lative and understand s/accepts potential health consequenc es. Ascending aorta dilatation 380848754 I77.810 Discussed arranging f/u ECHO but pt declines. Understand s potential consequenc es. States that he wouldn't pursue interventi ons if progressin g. States that his family/HCP understand his wishes as well. Screening for malignant neoplasm of lung 987125224 Z87.891 Eligible patients must have >=30 pack years. Pt declines screening and is above the recommende d age anyways. Screening for malignant neoplasm of colon 475472744 Z12.11 Occult blood negative last year. Declines colonoscop y. Understand s/accepts potential consequenc es. [facility] for [facility] 844186907 Z91.81 Secondary to severe knee OA which is chronic. Not interested in PT. [id number] Eduardo Luz MD Main Office [address] [facility] [address] [place] [address] 03/31/2022 11:11:46 03/31/2022 12:05:02 Essential hypertension 00726208 I10 Low BP at home, and diuretic affording low K. Will d/c chlorthali done and monitor on atenolol alone. Impaired f asting glycemia 715775212 R73.01 Likely statin related. Will follow. Pure hypercholesterolemia 904485451 E78.01 LDL at goal, but due for reassessme nt. Hypokalemia 00088374 E87 .6 Will monitor with d/c of diuretic. Ascending aorta dilatation 510366745 I77.810 Discussed arranging f/u ECHO but pt declines. Understand s potential consequenc es. States that he wouldn't pursue interventi ons if progresscortney ramos. States that his family/HCP understand his wishes as well. [id number] MITCH Rene Main Office [address] [facility] [address] [facility] [address] 07/17/2022 13:36:22 07/17/2022 14:22:48 Insomnia 760187836 G47.00 His 3 weeks ago and he is having trouble both falling and staying asleep. Lorazepam helps him fall asleep and sleep through the night. He denies dizziness. Will fill script short term and he will discuss further with PCP. I did explain this is not typically first line therapy and not meterman. Bereavement 61700130 Z63 .4 Grieving his of 56 years. Essential hypertension 23385086 I10 Repeat BP elevated, he denies sx of headache, dizziness, chest pain or palpitatio ns.Take 2 atenolol for now, check BP every other day with home BP cuff. F/u in 2 weeks on with readings from machine. [id number] Eduardo Luz MD Telehealt h [address] [facility] [address] [facility], [place] [address] 07/31/2022 12:32:53 08/03/2022 14:46:44 Essential hypertension 73381877 I10 Stress of Yeimi's recent passing and regular NSAID use are likely contributi ng factors. Will resume amlodipine and continue atenolol 50mg for now. Depending on BP response would consider titrating CCB and weaning off of atenolol. Advised to go for labs before next appt. Insomnia 123856337 G47.0 0 Stable and tolerating rx well. Will continue. Ascending aorta dilatation 610294496 I77.810 Discussed arranging f/u ECHO but pt declines. Understand s potential consequenc es. States that he wouldn't pursue interventi ons if progressin g. States that his family/HCP understand his wishes as well. [id number] Eduardo Luz MD Main Office [address] [facility] [address] [place] [address] 09/28/2022 11:11:45 09/28/2022 12:20:25 Essential hypertension 66100156 I10 Not at goal, will titrate amlodipine dose to goal BP <130/90. [id number] Eduardo Luz MD Main Office [address] [facility] [address] [place] [address] 12/01/2022 10:45:34 12/01/2022 11:55:00 Adult health examination [id number] Z00.00 Immunizati on status utd, flu advised in the Fall. Screening utd based on risk factors. Pt continues to decline AAA/colon cancer screening which is appropriat e. Regular dental and ophtho care advised as well as seat belt and sunscreen use. Distracted driving discussed. Pt currently demonstrat es risk for falls and declines PT. No significan t cognitive decline. Advance directives in place. Essential hypertension 28965348 I10 Impaired f asting glycemia 732767441 R73.01 Likely statin related. Will follow. Pure hypercholesterolemia 823565538 E78.01 LDL at goal, but due for reassessme nt. Tobacco de pendence syndrome 54630076 F17.290 Remains precontemp lative and understand s/accepts potential health consequenc es. Ascending aorta dilatation 093407054 I77.810 Discussed arranging f/u ECHO but pt declines. Understand s potential consequenc es. States that he wouldn't pursue interventi ons if progressin g. States that his family/HCP understand his wishes as well. Screening for malignant neoplasm of lung 596350345 Z87.891 Eligible patients must have >=30 pack years. Pt declines screening and is above the recommende d age anyways. Screening for malignant neoplasm of colon 853936893 Z12.11 Asymptomat ic, declines colonoscop y. Understand s/accepts potential consequenc es. At increas ed risk for falls 184187721 Z91.81 Secondary to severe knee OA which is chronic. Not interested in PT. Advance di rective discussed with patient 326595315 Z71.89 Molst form completed and scanned into chart Sensorineu ral hearing loss of bilateral ears 362876518 H90.3 Has hearing aides but [facility] Not for resuscitation 30 7510727 Z66 Verified verbally and documneted on MOLST form. [id number] Eduardo Luz MD Main Office [address] [facility] [address] [place] [address] 06/03/2023 11:07:37 06/03/2023 12:10:51 Pure hypercholesterolemia 698384948 E78.01 LDL at goal, but due for reassessme nt before next appt Essential hypertension 67588904 I10 Prediabetes 206645428 R7 3.03 [id number] KELLY CONWAY Main Office [address] [facility] [address] [place], [place] [address] 09/21/2023 13:06:54 09/24/2023 15:13:00 [id number] Starla Damon Main Office [address] [facility] [address], [place] [address] 09/27/2023 10:17:43 09/27/2023 11:08:05 Syncope 704237111 R55 -has an appt scheduled with cardiology -cardiolog y plans to f/u with holter monitor-joseph s not experience s syncopal episode or symptoms since discharge- ED ekg revealed a few PACs, no VTs or ST changes-am bulates with walker Transition of care 19427 64006 105 Z75.8 reviewed hospital documentat ion Essential hypertension 47273642 I10 in office BP stable at 122/63-c/w current regimen [id number] Eduardo Luz MD Main Office [address] [facility] [address], [place] [address] 12/07/2023 10:48:23 12/07/2023 12:06:50 Adult health examination 933046372 Z00.00 Immunizati on status utd, flu advised in the Fall. Screening utd based on risk factors. Pt continues to decline AAA/colon cancer screening which is appropriat e. Regular dental and ophtho care advised as well as seat belt and sunscreen use. Distracted driving discussed. Pt currently demonstrat es risk for falls and declines PT. No significan t cognitive decline. Advance directives in place. Essential hypertension 58337780 I10 Not at goal today, but better on recheck and normal at recent cardiology appt. Has stress test scheduled this Wednesday, and cards f/u in 2 weeks. Will defer medication adjustment s to them this time. Impaired f asting glycemia 838057938 R73.01 Likely statin related. Will follow. Pure hypercholesterolemia 484647094 E78.01 LDL at goal, but due for reassessme nt. Tobacco de pendence syndrome 80925984 F17.290 Remains precontemp lative and understand s/accepts potential health consequenc es. Ascending aorta dilatation 876066682 I77.810 Basically stable in size on recent echo. Will monitor with cardiology . Screening for malignant neoplasm of lung 583750077 Z87.891 Eligible patients must have >=30 pack years. Pt declines screening and is above the recommende d age anyways. Screening for malignant neoplasm of colon 781294463 Z12.11 Asymptomat ic, declines colonoscop y. Understand s/accepts potential consequenc es. At [facility] ed risk for falls 810912887 Z91.81 Secondary to severe knee OA which is chronic. Not interested in PT, or surgical interventi ons. Advance di rective discussed with patient 042722554 Z71.89 Molst form completed and scanned into chart Sensorineu ral hearing loss of bilateral ears 766748592 H90.3 Has hearing aides but needs [facility] to [facility] to use them Not for resuscitation 30 4152699 Z66 Verified verbally with patient and his dtr Emma. Documented on MOLST form. Administra tion of viral vaccine 22857228 Z29.11 Requires a tetanus booster 388718277 Z28.39 Administra tion of pneumococcal vaccine 18151313 Z23 Paroxysmal atrial fibrillation 396669874 I48.0 On amiodarone , will monitlor thyroid and lung function. [id number] Eduardo Luz MD Main Office [address] [facility] [address] [facility] [place], [place] [address] 01/06/2024 14:01:06 01/06/2024 15:09:35 Dyspnea 492652840 R06.00 Constellat ion of symptoms makes me suspect this is related to fluid overload/C HF rather than COPD. COPD diagnosis will need to be firmed up if diuretic does not help. Ambulatory O2 assessment did not warrant considerat ion of oxygen supplement ation. Congestive heart failure 05255269 I50.22 Will start diuretic and check labs. If dyspnea does not improve and proBNP is normal will need to pursue further pulmonary assessment . Has cardiology f/u in 4 weeks. Prediabetes 768482881 R7 3.03 For some reasona the labs ordered at last visit were not all done. Tobacco de pendence in remission 824041347 F17.201 Quit 4 days ago because of the dyspnea. Would like some nicotine replacemen t therapy. [id number] Eduardo Luz MD Main Office [address] [place] [address] 02/09/2024 12:00:29 02/10/2024 16:38:42 [id number] KELLY CONWAY Main Office [address] [place] [address] 03/01/2024 13:16:06 03/12/2024 19:55:29 [id number] Starlaelton Damon Main Office [address] [facility] [address] [place] [address] 03/08/2024 11:00:45 03/08/2024 11:49:15 Transition of care 5014694877 105 Z75.8 reviewed hospital documentat ion Essential hypertension 93471442 I10 in office BP of 147/68-has visiting nurse and BP at home is at goal-c/w current regimen Cerebrovas cular accident 517767045 I63.9 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 mobility and ADLs-was evaluated by neurology> started on ASA 81mg QD, lovastatin 80mg QD-has PT/OT services at home, 3-4 times a week Paroxysmal atrial fibrillation 955464380 I48.0 -anticoagu lated with eliquis 5mg BID, amiodarone 200mg QD-has been off metoprolol due to low HR Osteoarthr itis of knee 974449488 M17.0 -chronic hx-receive s cortisone injections , 4 times a year-compl eted steroid taper given by physiatry with improvemen ts in pain Congestive heart failure 55833757 I50.9 -c/w furosemide 20mg QD-follows with cardiology -mild right ankle edema>disc ussed to wear compressio n stockings and elevate leg [id number] Eduardo Luz MD Main Office [address] [facility] [address] [place] [address] 05/18/2024 12:42:17 05/31/2024 11:45:17 Health Concerns Section Related Observation LastModified by Organization Detai ls LastModified Time None Recorded Concern Status LastModified by Organization Details LastModified Time None Recorded Advance Directives Directive Y: HCP Son/Rusty, Dtr/Aixa Payers Encounter Date Sequence Insurance Name Policy Number Policy Dempsey Covered Member ID Dempsey Member ID Guarantor Name 01/06/2024 1 [employer] (MEDICARE REPLACEMENT PPO) [id number] 1 Sandro Thayer [id number] Sandro Thayer 01/06/2024 2 [employer] (FFS/PPO) 77 Sandro Thayer [id number] Sandro Thayer 02/09/2024 1 [employer] (MEDICARE REPLACEMENT PPO) [id number] 1 Sandro Thayer [id number] Sandro Thayer 02/09/2024 2 [employer] (FFS/PPO) 77 Sandro Thayer [id number] Sandro Thayer 03/01/2024 1 [employer] (MEDICARE REPLACEMENT PPO) [id number] 1 Sandro Thayer [id number] Sandro Tahyer 03/01/2024 2 [employer] (FFS/PPO) 77 Sandro Thayer [id number] Sandro Thayer 03/08/2024 1 [employer] (MEDICARE REPLACEMENT PPO) [id number] 1 Sandro Thayer [id number] Sandro Thayer 03/08/2024 2 [employer] (FFS/PPO) 77 Sandro Thayer [id number] Sandro Thayer 05/18/2024 1 [employer] (MEDICARE REPLACEMENT PPO) [id number] 1 Sandro Thayer [id number] Sandro Thayer 05/18/2024 2 [employer] (FFS/PPO) 77 Sandro Thayer [id number] Sandro Thayer Notes Date Note Type Note Provider Name and Address Organization Details Recorded Time 01/06/2024 text/html CHF F/UReported bypatient.Functional Capacity:NYHA II (dyspnea climbing > 1 flight of stairs) Weight Changes:no change in weight Nocturnal Symptoms:orthopnea present;PND present Dietary Compliance:does not comply with low sodium diet;does not comply to free water restrictions Associated Symptoms:no chest discomfort;shortness of breath;dyspnea on exertion;fatigueNotes :Follows with cardiology and had a nuc stress last month which showed an EF of 25%, ECHO in 09/2023 showed EF 40-45% with grade 2 DD. Not currently on diuretic.dyspneaRepor annalisa bypatient.Notes:83 y/o with a history of afib, CHF and life long tobacco use who presents with worsening nocturnal dyspnea over past couple of weeks. Eduardo Luz MD [address], [address], [facility] 01/06/2024 16:26:28 02/09/2024 text/html Hospitalization Contact RecordReported bypatient.Follow UpHospital[facility]; admit date: (Please enter in format 'MM/DD/YYYY') (02/06/2024); date of discharge: (Please enter in format 'MM/DD/YYYY') (02/09/2024); date of contact: (Please enter in format 'MM/DD/YYYY') (02/10/2024)Notes:Med icare covered inpatient stay? yesMedicare YAMILETH with in 48 working hours? yesHigh Complexity code valid on or before:JanuaryModerate Complexity code valid on or before:FebruaryHCP on file? yesMOLST on file? yesDischarge Summary available? yes02/10/2024- NOTED ON D/C SUMMARY THAT PT WAS TRANSFERRED UPON DISCHARGE TO INPATIENT REHAB FACILITY. Pt presented to [facility] ED after a fall at home with right sided weakness.Pt woke that morning and sat on edge of bed for a minute. When he stood to walk to BR he felt his rt leg was to heavy and ended up falling to floor, no LOC or head injury. Family reported mild confusion and slurred speech. 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 Seen by Neuro, recom continue apixaban and statin and then adding aspirin 81 mg. Seen by PT and OT, recom acute inpatient rehab as pt still having some right sided weakness. MEDS RECONCILED Eduardo Luz MD [address] [facility] [address], [place], [address], [facility] 02/10/2024 16:38:39 03/01/2024 text/html Hospitalization Contact RecordReported bypatient.Follow UpHospital: SNF; admit date: (Please enter in format 'MM/DD/YYYY') (02/09/2024); date of discharge: (Please enter in format 'MM/DD/YYYY') (03/01/2024); date of contact: (Please enter in format 'MM/DD/YYYY') (03/02/2024)Notes:Med icare covered inpatient stay? yesMedicare YAMILETH with in 48 working hours? yesHigh Complexity code valid on or before:FebruaryModerate Complexity code valid on or before:FebruaryHCP on file? yesMOLST on file? yesDischarge Summary available? yes03/06/2024- pt already had hosp f/u scheduled prior to leaving SNF.Was admitted to [facility] from 02/06/24-02/09/24, then transferred to [facility] until 03/01/2024. Pt presented to [facility] ED with right sided weakness, causing fall. Pt had gotten OOB and noted weakness, attempted to go to the bathroom when he fell to the ground due to inability to use RLE. Family in the house at the time and responded immediately. In ED pt had CT showing symmetric dense MCA sign to the left side thatis suspicious of intraluminal thrombus. CTA head/neck done after showing no large vessel occlusion saccular aneurysm or dissection. 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 Also severe focal stenosis of the left vertebral artery origin as well as multifocal mild to moderate stenosis of the cervical vertebral arteries.Pt seen by neuro who recs further studies, pt admitted and MRI brain showed acute infarct of left thalamus and left frontal lobe with no hemmorhagic transformation. Started on aspirin 81 and lovastatin 20 tx. Left CVA with right hemiparesis and impaired functional mobility and ADL'sOnce at rehab, it was decided to increase lovastatin to 80 mg daily.PT/OT for gait stability, balance, endurance strength. Physiatry consulted for recs. MEDS RECONCILED KELLY CONWAY [address] [facility] [address], [place], [address], [facility] 03/12/2024 19:55:27 03/08/2024 text/html Hospitalization Contact RecordFor follow up, patient reports hospital: [facility], admit date: (02/09/2024), date of discharge: (03/01/2024), and date of contact: (03/02/2024).Medicare covered inpatient stay? yesMedicare YAMILETH with in 48 working hours? yesHigh Complexity code valid on or before:FebruaryModerate Complexity code valid on or before:FebruaryHCP on file? yesMOLST on file? yesDischarge Summary available? yes03/06/2024- pt already had hosp f/u scheduled prior to leaving SNF.Was admitted to [facility] from 02/06/24-02/09/24, then transferred to [facility] until 03/01/2024. Pt presented to [facility] ED with right sided weakness, causing fall. Pt had gotten OOB and noted weakness, attempted to go to the bathroom when he fell to the ground due to inability to use RLE. Family in the house at the time and responded immediately. In ED pt had CT showing symmetric dense MCA sign to the left side thatis suspicious of intraluminal thrombus. CTA head/neck done after showing no large vessel occlusion saccular aneurysm or dissection. 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 Also severe focal stenosis of the left vertebral artery origin as well as multifocal mild to moderate stenosis of the cervical vertebral arteries.Pt seen by neuro who recs further studies, pt admitted and MRI brain showed acute infarct of left thalamus and left frontal lobe with no hemmorhagic transformation. Started on aspirin 81 and lovastatin 20 tx. Left CVA with right hemiparesis and impaired functional mobility and ADL'sOnce at rehab, it was decided to increase lovastatin to 80 mg daily.PT/OT for gait stability, balance, endurance strength. Physiatry consulted for recs. MEDS RECONCILED Starla metzger [facility] 03/22/2024 09:44:09 05/18/2024 text/html Hospitalization Contact RecordReported bypatient.Follow UpHospital: [facility]; admit date: (Please enter in format 'MM/DD/YYYY') (05/15/2024); date of discharge: (Please enter in format 'MM/DD/YYYY') (05/18/2024); date of contact: (Please enter in format 'MM/DD/YYYY') (05/18/2024)Notes:Med icare covered inpatient stay? yesMedicare YAMILETH with in 48 working hours? yesHigh Complexity code valid on or before:MayModerate Complexity code valid on or before:MayHCP on file? yesMOLST on file? yesDischarge Summary available? yes05/24/2024- 1st attempt to contact pt, message left for pt to return call.05/29/2024- 2nd attempt to contact pt, message left for pt to return call.05/29/2024- dtr returned call, pt has appt on 06/08/2024 with PCP Pt presented to [facility] ED after witnessed episodes of convulsions . Pt currently has services thru [facility]/PT after recent CVA in the fall with residual rt sided weakness. 2 witnessed episodes lasting 5-10 secs where he threw his head back and violently shook upper extremities. Pt aware when happening and experiences some dizziness and blurred vision. Pt described feeling off and had palpitations prior to episodes.--of note, was noted on cardiac monitoring to have 20-30 sec runs of monomorphic tachycardia into the 140's every few minutes. Pt states he felt his rt hand was slightly shaky during these episodes. EKG obtained showing wide QRS tachycardia that was reviewed by Cardiology and thought to be Atrial Flutter Tachycardia. Pt given Metoprolol 5 mg IV with good effect. In ED, pt tachy to the 140's and desatting to 88%on RA. Labs significant for leukocytosis 17.7 with left shift. lactic acid 2.1, Mg 1.3, alk phos 152 and initial trop 25.0 (similar to previous)CT of head neg for acute intracranial abnormalities, though showed chronic infarcts.EKG demonstrated sinus rhythm with 1st degree AV block, PAC's, chronic RBBB. and prolonged QTc of 601. Pt treated with Magnesium 2 g IV, Metoprolol 5 mg IV, IVF, Doxycycline and Ceftriaxone. Hosp Course:IV abx for PNA. Pt's sepsis was resolved. BC's have been negative and was able to be weaned off oxygen. D/C home on 3 more days of oral Ceftin and Doxycycline. Hosp course complicated by intermittent bursts of AFlutter with RVR. Treated with IV Metoprolol then ctrfoew0y to oral Metoprolol 25 mg every 6 hrs. Continue Eliquis, Amiodarone, Beta Blockers. Has f/u with Cards to discuss poss ablation. MEDS RECONCILED Eduardo Luz MD [address] [facility] [address], [place], [address], [facility] 05/31/2024 11:45:15
--- OUTSIDE RECORDS SUMMARY | 2024-06-07 11:07 | XMS_ITS | Continuity of Care Document ---
Author Name [facility] Organization [facility] Care Team Providers Care Mail Order Clerk Name Role Phone [facility] Unavailable Unavailable Problems Combined list of problems from Department of Defense and Veterans Affairs facilities. It does not include entries that were removed or entered in error. Problem Status Onset Date Problem Type Date of Resolution Comments Source Hypertension Active 04/19/19 18 Condition [facility] Mixed hyperlipidemia Active 04/19/19 13 Condition [facility] NonVA Provider Active Condition Sep 172023 Entered By: ZULY MADDEN Comment: PCP - Eduardo Vickers MD - [facility] Osteoarthritis of Knee ([facility] [id number]) Active Condition Oct 06, 2022 Entered By: ROD DEVLIN Comment: Bilaterally [facility] Sensorineural hearing loss, bilateral Active Condition [facility] Diagnosis: ICD-10-CM M21.371 Foot drop, right foot Active Diagnosis [place] Diagnosis: ICD-10-CM M25.561 Pain in right knee Active Diagnosis [place] Diagnosis: ICD-10-CM L60.3 Nail dystrophy Active Diagnosis [facility] Diagnosis: ICD-10-CM I10 Essential (primary) hypertension Active Diagnosis [place] Diagnosis: ICD-10-CM Z46.1 Encounter for fitting and adjustment of hearing aid Active Diagnosis [facility] Medications Combined list of outpatient medications from Department of Defense and Veterans Affairs facilities.Medications provided include 1) outpatient medications from the last 15 months, and 2) patient-reported medications. Medication Details Route Status Patient Instructions Prescription Expires Prescription Number Last Dispense Date Ordering Provider Order Date Order Qty Source LIDOCAINE 5% PATCH APPLY 1 PATCH TOPICALL Y ONCE DAILY FOR NERVE PAIN (LEAVE PATCH ON FOR 12 HOURS, THEN REMOVE PATCH) TOPICA L 05/25/2024 [id number] HAY MADDEN SA 2024 30 [place] LOVASTATIN 20MG TAB TAKE ONE TABLET BY MOUTH AT BEDTIME ORAL ACTIVE HAY MADDEN SA 2023 [place] METOPROLOL SUCCINATE 25MG TAB,SA TAKE ONE TABLET BY MOUTH ONCE DAILY ORAL ACTIVE [place] MADD[place] SA 2023 [place] Immunizations Combined list of available immunizations from the Department of Defense and Veterans Affairs facilities. Immunization Series Date Given Administered By Site Reaction Lot Number CVX Code Drug Annealing Furnace Operator Status Comments Source ZOSTER RECOMBINANT 2 2022 187 complet ed -obtained from Medical records provided by [employer] s Lot#: [id number] [facility] [employer] COVID-19 (bewarket), MRNA, LNP-S, PF, 30 MCG/0.3 ML DOSE 4 2022 208 complet ed Covid Card Lot#: [id number] Mfr: [employer] [facility] [employer] [facility] [place] [facility] ZOSTER RECOMBINANT 1 2021 187 complet ed -obtained from Medical records provided by [employer] s Lot#: [id number] [facility] [employer] INFLUENZA, UNSPECIFIED FORMULATION 2021 88 complet ed Vet's record [place] [facility] [employer] COVID-19 (PFIZER), MRNA, LNP-S, BIVALENT, PF, 30 MCG/0.3 ML DOSE 1 2021 300 complet ed -obtained from Medical records provided by [employer] s Lot#: [id number] [place] [email or web address] INFLUENZA, UNSPECIFIED FORMULATION 2021 88 complet ed -obtained from Medical records provided by [facility] s Lot#: [id number] Mfr: SEQIRUS [place] [facility] [employer] COVID-19 (bewarket), MRNA, LNP-S, PF, 30 MCG/0.3 ML DOSE, JENA-SUCROSE (AGES 12+ YEARS) 1 2021 217 complet ed -obtained from Medical records provided by [employer] s Lot#: [id number] [email or web address] COVID-19 (PFIZER), MRNA, LNP-S, PF, 30 MCG/0.3 ML DOSE 3 2020 208 complet ed JLV Lot#: [id number] Mfr: [employer] [facility] [place] [facility] COVID-19 (PFIZER), MRNA, LNP-S, PF, 30 MCG/0.3 ML DOSE 2 2020 208 complet ed Covid Card Lot#: [id number] Mfr: [employer] [facility] [place] [facility] COVID-19 (PFIZER), MRNA, LNP-S, PF, 30 MCG/0.3 ML DOSE 1 2020 208 complet ed Covid Card Lot#: [id number] Mfr: [employer] [facility] [place] [facility] PNEUMOCOCCAL POLYSACCHARID E PPV23 2015 33 complet ed -obtained from Medical records provided by [employer] s Lot#: [id number] Mfr: [employer] [facility] [place] [facility] PNEUMOCOCCAL CONJUGATE PCV 13 2013 133 complet ed -obtained from Medical records provided by [facility] s Lot#: [id number] [place] [facility] [place] [facility] TDAP 2013 115 complet ed -obtained from Medical records provided by [facility] s Lot#: [id number] Mfr[facility] [place] [facility] [facility] Vital Signs Combined list of inpatient and outpatient Vital Signs from Department of Defense and Veterans Affairs, ranging from 12 months to all on record, depending upon the facility. Vital Sign Value Date Comments Source SYSTOLIC BLOOD PRESSURE 154 03/20/20 14:17:53 [place] DIASTOLIC BLOOD PRESSURE 84 024 14:17:53 [place] PULSE OXIMETRY 95 03/20/2024 14:17:53 [place] PAIN 0 03/20/2024 14:17:53 [place] TEMPERATURE 98 03/20/2024 14:17:53 [place] PULSE 90 03/20/2024 14:17:53 [place] RESPIRATION 16 03/20/2024 14:17:53 [place] SYSTOLIC BLOOD PRESSURE 165 10/12/19 24 10:58:46 [facility] DIASTOLIC BLOOD PRESSURE 77 024 10:58:46 [facility] PULSE OXIMETRY 95 10/12/2023 10:58:46 [facility] WEIGHT 172.8 10/12/2023 10:58:46 [facility] BMI 26 kg/m2 10/12/2023 10:58:46 [facility] PAIN 0 10/12/2023 10:58:46 [facility] HEIGHT 68 10/12/2023 10:58:46 [facility] TEMPERATURE 98.5 10/12/2023 10:58:46 [facility] PULSE 98 10/12/2023 10:58:46 [facility] RESPIRATION 16 10/12/2023 10:58:46 [facility] Encounters Combined list of: 1) Encounters from Department of Veterans Affairs facilities going backup to the last 18 months, not all VA inpatient encounters are included; 2) Encounters from the Department of [employer] facilities going backup to 280 months. Location Location Details Encounter Type Encounter Number Reason For Visit Attending Provider ADM Date DC Date Status Disposition Source [facility] HEARING AID REPAIR/MOD IFYING [id number] Diagnos is: ICD-10- CM Z46.1 Encount er for fitting and adjustm ent of hearing aid Conchita PALMER 01/22 [facility] Outpatient Encounter [id number] 08/04 [facility]counter [id number] 08/04 [facility] Encounter [id number] 09/19 [facility] En[facility] [id number] 09/28 [facility] [place] [facility] O/P EST MOD 30 MIN [id number] Diagnos is: ICD-10- CM I10 Essenti al (primar y) hyperte nsion REED MADDEN 10/11 [place] [facility] O/P NEW LOW 30 MIN [id number] Diagnos is: ICD-10- CM L60.3 Nail dystrop hy JENNIFER CAMPOS ES F 11/07 [place] [facility] Outpatient Encounter [id number] 02/05 [facility] Outpatient Encounter [id number] 02/28 [facility] [place] [facility] O/P EST LOW 20 MIN [id number] Diagnos is: ICD-10- CM L60.3 Nail dystrop hy JENNIFER CAMPOS ES F 03/20 [place]/OP EST MAY X REQ PHY/QHP [id number] Diagnos is: ICD-10- CM M25.561 Pain in right knee GILBERT MOJICA IC K 03/20 [place] [facility] Outpatient Encounter [id number] 03/20 [facility] Outpatient Encounter [id number] 03/23 [facility] [place] GAIT TRAINING THERAPY [id number] Diagnos is: ICD-10- CM M21.371 Foot drop, right foot STEVE CARTER 04/06 [place] [facility] Outpatient Encounter [id number] 04/20 [facility] [place] [facility] Social History Combined list of available smoking, tobacco, and other social history from Department of Defense and Veterans Affairs facilities. Social History Type Response Date Comment Sourc e Tobacco smoking status NHIS VA-TOBACCO USER EVERY DAY 09/18 [place] History of tobacco use VA-TOBACCO USE WI 30 MIN OF WAKEUP 10/12/2023 [place] Plan of Care List of future care activities from Department of Veterans Affairs facilities. Additional future care activities may be listed in the Assessment and Plan section. Date/Time Care Activity Care Activity Detail [facility] 07/24/2024 AMBULATORY - MEDICINE AMBULATORY - MEDICI [facility] 10/10/2024 AMBULATORY - MEDICINE AMBULATORY - MEDICI [facility] Advance Directives List of completed, amended, or rescinded Advance Directives on record at Department of Veterans Affairs facilities. An actual copy of the Directive is not included. Date Advance Directive Provider Source 10/06/2022 ADVANCE DIRECTIVE [facility]
--- OUTSIDE RECORDS SUMMARY | 2024-06-07 11:07 | XMS_ITS | Data Portability ---
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 Plan of Treatment Reminders Order Date Submit Date Provider Last Modified By Organization Details Last Modified Time Details Appointments RECHECK 15 2024 01:30P Vel Babin PA-C Not available Not available Not available Lab None recorded . Referral None recorded . Procedures None recorded . Surgeries None recorded . Imaging None recorded . Medication Orders Lidoderm 5 % topical patch 2023 024 [facility], [address] [place] [address], [id number], 04/10/2024 14:08:37 Patient TargetsNo targets recorded. Patient Instructions Encounter Date Encounter Id Patient Instructions Last Modified By Organization Details Last Modified Time 07/01/2023 [id number] Injection Counseling: We discussed various methods of treatment for this diagnosis, including both non-surgical and surgical treatment options. The procedure was discussed in detail, including rationale for proceeding with the procedure, specifics of the technical aspects of the procedure, and the expected post procedure course including the possible need for activity modification, therapy, and duration of expected recovery. Risks to the injection include: pain, numbing, scar, infection, loss of motion, nerve or vascular injury, stiffness, skin discoloration, fat atrophy, or allergic reaction to medicine. The {{patient* parent }} voiced understanding of the procedure and risks, and the decision for injection was made today. [email or web address] Not available 07/01/2023 10:49:28 Reason for Referral None Reported. 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 Procedures Surgical History Date Name Laterality Status Provider Name and Address Organization Details Recorded Time 4 Knee Kenalog 40 1cc Injection, Bilateral completed Tigre Puchalski, PA-C [address], [place], [address], [facility] 04/07/2024 12:53:28 4 Knee Kenalog 40 1cc Injection, Bilateral completed Tigre Puchalski, PA-C [address], [place], [address], [facility] 12/31/2023 13:25:43 4 Knee Kenalog 40 1cc Injection, Bilateral completed Tigre Puchalski, PA-C [address], [place], [address], [facility] 09/30/2023 13:44:47 4 Knee Kenalog 40 2cc Injection, Bilateral completed Tigre Puchalski, PA-C [address], [place], [address], [facility] 07/01/2023 10:49:08 Imaging Results None recorded. Procedure Notes None recorded. Medical Equipment None Reported. Allergies Allergen ID Allergen Name Allergen Category Reaction Reaction Severity Criticality Documentation Date Start Date Code Code System Note Provider Name and Address Organization Details Recorded Time 56408 Grass pollen (substanc e) environme nt,medica tion Not available Not available Not available 06/21/20232014 35851 7009 SNOMED Not Available [facility] 13:10:11 96303 Product containin g cephalosp osman (product) medicatio n Not available Not available Not available 06/21/20232014 69620 9009 SNOMED Not Available [facility] 13:10:11 92148 mold extract environme nt Not available Not available Not available 06/21/20232014 37894 8 RxNorm Not Available [facility] 4 13:10:11 Medications Name Sig Start Date Stop Date Status Note LastModified by Organization Details LastModified Time atorvastati n 80 mg tablet TAKE 1 TABLET BY MOUTH EVERY DAY active Not Available Not Available No t Available nicotine 14 mg/24 hr daily transdermal patch APPLY 1 PATCH TRANSDERM AL DAILY,X14 DAY active Not Available Not Available No t Available amiodarone 200 mg tablet TAKE 1 TABLET BY MOUTH EVERY DAY active Not Available Not Available No t Available lisinopril 20 mg tablet TAKE 1 TABLET BY MOUTH EVERY DAY active Not Available Not Available No t Available amlodipine 2.5 mg tablet TAKE 1 TABLET BY MOUTH EVERY DAY active Not Available Not Available No t Available amlodipine 5 mg tablet TAKE 1 TABLET BY MOUTH EVERY DAY active Not Available Not Available No t Available aspirin 81 mg tablet,mauro yed release TAKE 1 TABLET BY MOUTH EVERY DAY active Not Available Not Available No t Available prednisolon e acetate 1 % eye drops,suspe nsion ADMINISTE R 1 DROP INTO LEFT EYE FOUR TIMES A DAY FOR 5 DAYS. active Not Available Not Available No t Available lorazepam 0.5 mg tablet TAKE 1 TABLET BY MOUTH EVERY DAY AT BEDTIME FOR 30 DAYS active Not Available Not Available No t Available Lidoderm 5 % topical patch APPLY 1 PATCH BY TOPICAL ROUTE ONCE DAILY (MAY WEAR UP TO 12HOURS.) 2023 active Not Available Not Available Not Avai lable pantoprazol e 40 mg tablet,mauro yed release TAKE 1 TABLET BY MOUTH EVERY DAY active Not Available Not Available No t Available furosemide 20 mg tablet TAKE 1 TABLET BY MOUTH EVERY DAY active Not Available Not Available No t Available metoprolol succinate ER 25 mg tablet,exte nded release 24 hr TAKE 1 TABLET BY MOUTH EVERY DAY active Not Available Not Available No t Available lovastatin 20 mg tablet TAKE 1 TABLET BY MOUTH EVERY DAY active Not Available Not Available No t Available albuterol sulfate HFA 90 mcg/actuati on aerosol inhaler INHALE 2 PUFFS BY MOUTH EVERY 4 HOURS NEEDED FOR SHORTNESS OF BREATH OR WHEEZING active Not Available Not Available No t Available nicotine (polacrilex ) 4 mg buccal lozenge TAKE 1 TABLET EVERY 2 HOURS BY ORAL ROUTE NEEDED. active Not Available Not Available No t Available atenolol-ch lorthalidon e Atenolol- Chlorthal idone 50-25MG Tablet 10/13 completed Statu s: 'Disc ontin ued'; Not Available Not Available Not Available Eliquis 5 mg tablet TAKE 1 TABLET BY MOUTH TWICE A DAY active Not Available Not Available No t Available Trelegy Ellipta 100 mcg-62.5 mcg-25 mcg powder for inhalation INHALE 1 PUFF BY MOUTH EVERY DAY active Not Available Not Available No t Available Vitals Date Recorded Body height Body mass index (BMI) Body weight Provider Name and Address Organization Details Last Updated DateTime 07/01/2023 172.72 cm 28.9 kg/m2 69040.55 g LUCAS ROMO [facility] 07/01/2023 10:36:07 Date Recorded Body height Provider Name an d Address Organization Details Last Updated DateTime 09/30/2023 172.72 cm JOAN GILBERT [facility] 09/30/2023 12:57:51 Date Recorded Body height Body mass index (BMI) Body weight Provider Name and Address Organization Details Last Updated DateTime 12/31/2023 172.72 cm 25.8 kg/m2 28227.7 g Joan Silveira [facility] 12/31/2023 13:27:24 Date Recorded Body height Body mass index (BMI) Body weight Provider Name and Address Organization Details Last Updated DateTime 04/07/2024 172.72 cm 25.8 kg/m2 24241.7 g Rachell Johnson [facility] 04/07/2024 12:53:37 Social History None recorded. Functional Status None recorded. Mental Status None recorded. Family History Nothing Reported. Medical History Condition Response Arthritis Y Stroke Y Hypertension Y Cholesterol Y Past Encounters Encounter ID Performer Location Encounter Start Date Encounter Closed Date Diagnosis/Indication Diagnosis SNOMED-CT Code Diagnosis ICD10 Code Diagnosis Note [id number] [facility] Witt [address] [place] [address] 07/01/2023 10:14:05 07/16/2023 13:16:40 Osteoarthritis of knee 489181641 M17.0 You have been provided with a cortisone injection in order to reduce the pain and inflammati on that you are experienci ng. The injection consists of two medication s. Cortisone (an anti-infla mmatory that will take 48-72 hours to take effect) and Lidocaine (a numbing agent that will last 2-3 hours). Please note that not everyone will have a lasting response following the injection. PATIENT INSTRUCTIO NSOnce the Lidocaine wears off, you may have an increase in your pain. I recommend icing the affected area for 20 minutes 3-4 times per day.It is recommende d that you refrain from any high level activities using the joint or limb that was injected for approximat isis 24-48 hours. Normal day-to-day activities are generally not a problem.PO SSIBLE SIDE EFFECTSInd ividuals with dark complexion s may experience some skin discolorat ion locally at the site of the injection. There is the possibilit y of an increase in discomfort within 48 hours following the injection. This is called a ? f lare? . To help minimize the chances of this, please see the post-injec tion instructio ns above.Ther e is a less than 1% chance of an infection. If you notice any signs of infection (redness, warmth, drainage, fever greater than 100 degrees) please call our office or contact us through the portal [facility]. [id number] YOLANDA Witt [address] [place] [address] 09/30/2023 12:42:22 10/26/2023 10:46:18 Osteoarthritis of knee 474991477 M17.0 You have been provided with a cortisone injection in order to reduce the pain and inflammati on that you are experienci ng. The injection consists of two medication s. Cortisone (an anti-infla mmatory that will take 48-72 hours to take effect) and Lidocaine (a numbing agent that will last 2-3 hours). Please note that not everyone will have a lasting response following the injection. PATIENT INSTRUCTIO NSOnce the Lidocaine wears off, you may have an increase in your pain. I recommend icing the affected area for 20 minutes 3-4 times per day.It is recommende d that you refrain from any high level activities using the joint or limb that was injected for approximat isis 24-48 hours. Normal day-to-day activities are generally not a problem.PO SSIBLE SIDE EFFECTSInd ividuals with dark complexion s may experience some skin discolorat ion locally at the site of the injection. There is the possibilit y of an increase in discomfort within 48 hours following the injection. This is called a ? f lare? . To help minimize the chances of this, please see the post-injec tion instructio ns above.Ther e is a less than 1% chance of an infection. If you notice any signs of infection (redness, warmth, drainage, fever greater than 100 degrees) please call our office or contact us through the portal [facility]. [id number] YOLANDA Witt [address] [place] [address] 12/31/2023 13:21:19 01/21/2024 13:01:00 Osteoarthritis of knee 939766616 M17.0 You have been provided with a cortisone injection in order to reduce the pain and inflammati on that you are experienci ng. The injection consists of two medication s. Cortisone (an anti-infla mmatory that will take 48-72 hours to take effect) and Lidocaine (a numbing agent that will last 2-3 hours). Please note that not everyone will have a lasting response following the injection. PATIENT INSTRUCTIO NSOnce the Lidocaine wears off, you may have an increase in your pain. I recommend icing the affected area for 20 minutes 3-4 times per day.It is recommende d that you refrain from any high level activities using the joint or limb that was injected for approximat isis 24-48 hours. Normal day-to-day activities are generally not a problem.PO SSIBLE SIDE EFFECTSInd ividuals with dark complexion s may experience some skin discolorat ion locally at the site of the injection. There is the possibilit y of an increase in discomfort within 48 hours following the injection. This is called a ? f lare? . To help minimize the chances of this, please see the post-injec tion instructio ns above.Ther e is a less than 1% chance of an infection. If you notice any signs of infection (redness, warmth, drainage, fever greater than 100 degrees) please call our office or contact us through the portal [facility]. [id number] YOLANDA Witt [address] [place] [address] 04/07/2024 12:35:52 04/27/2024 15:58:41 Osteoarthritis of knee [id number] M17.0 You have been provided with a cortisone injection in order to reduce the pain and inflammati on that you are experienci ng. The injection consists of two medication s. Cortisone (an anti-infla mmatory that will take 48-72 hours to take effect) and Lidocaine (a numbing agent that will last 2-3 hours). Please note that not everyone will have a lasting response following the injection. PATIENT INSTRUCTIO NSOnce the Lidocaine wears off, you may have an increase in your pain. I recommend icing the affected area for 20 minutes 3-4 times per day.It is recommende d that you refrain from any high level activities using the joint or limb that was injected for approximat isis 24-48 hours. Normal day-to-day activities are generally not a problem.PO SSIBLE SIDE EFFECTSInd ividuals with dark complexion s may experience some skin discolorat ion locally at the site of the injection. There is the possibilit y of an increase in discomfort within 48 hours following the injection. This is called a ? f lare? . To help minimize the chances of this, please see the post-injec tion instructio ns above.Ther e is a less than 1% chance of an infection. If you notice any signs of infection (redness, warmth, drainage, fever greater than 100 degrees) please call our office or contact us through the portal [facility]. Health Concerns Section Related Observation LastModified by Organization Detai ls LastModified Time None Recorded Concern Status LastModified by Organization Details LastModified Time None Recorded Advance Directives Directive None Recorded Payers Encounter Date Sequence Insurance Name Policy Number Policy Dempsey Covered Member ID Dempsey Member ID Guarantor Name 07/01/2023 2 [employer] 77 Sandro Thayer [id number] Sandro Thayer 07/01/2023 1 [employer] (MEDICARE REPLACEMENT PPO) [id number] Sandro Thayer [id number] Sandro Thayer 09/30/2023 2 [facility] [facility] 77 Sandro Thayer [id number] Sandro Thayer 09/30/2023 1 [employer] (MEDICARE REPLACEMENT PPO) [id number] Sandro Thayer [id number] Sandro Thayer 12/31/2023 2 [facility] [employer] 77 Sandro Thayer [id number] Sandro Thayer 12/31/2023 1 [employer] (MEDICARE REPLACEMENT PPO) [id number] Sandro Thayer [id number] Sandro Thayer 04/07/2024 2 [facility] [employer]AN 77 Sandro Thayer [id number] Sandro Thayer 04/07/2024 1 [employer] (MEDICARE REPLACEMENT PPO) [id number] Sandro Thayer [id number] Sandro Thayer Notes Date Note Type Note Provider Name and Address Organization Details Recorded Time 07/01/2023 text/html I am seeing the patient today under the supervision of Dr. Velasco Who was available but who did not see the patient. HPI: Patient comes in for recheck of {{right left bilater al*}} knee pain. Has known osteoarthritis in the medial compartment of the knee(s). Been treated conservatively with cortisone injection to this point with 6 weeks relief of symptoms. No new injury or modalities. Past family, medical, social history and review of systems has been reviewed, updated and is located in the patient? s chart. Examination:The patient is well appearing and in no apparent distress. Alert and oriented x3. Vital signs per intake sheet. Examination of the {{right left bilater al*}} knee9s) reveals no effusion erythema or warmth. Decreased range of motion. Lower extremity varus deformity. Point tender over the medial joint line. Calf soft and nontender. 4+/5 strength of knee flexion extension. Impression: Osteoarthritis Plan: Nature of the diagnosis discussed with the patient today. Both surgical and nonsurgical options were reviewed. This point recommend a repeat cortisone injection. Patient agreed.After aseptic technique and consent the {{right left bilater al*}} knee(s) was injected in the {{anterior lateral* anterior medial superior lateral}} portal with 1 cc of Kenalog-40 and 5 cc of 0.25% Marcaine. Patient tolerated the procedure well postinjection precautions were reviewed. Follow-up with us in 3 months for discussion of continued conservative management versus total joint arthroplasty. Tigre Babin PA-C [address], [place], [address], [facility] 07/01/2023 11:10:27 09/30/2023 text/html I am seeing the patient today under the supervision of {{Dr. Camila Velasco}} who was available but who did not see the patient. HPI: Patient comes in for recheck of {{right left bilater al*}} knee pain. Has known osteoarthritis in the medial compartment of the knee(s). Been treated conservatively with cortisone injection to this point with {{ 4#}} weeks relief of symptoms. No new injury or modalities. Past family, medical, social history and review of systems has been reviewed, updated and is located in the patient? s chart. Examination:The patient is well appearing and in no apparent distress. Alert and oriented x3. Vital signs per intake sheet. Examination of the {{right left bilater al*}} knee reveals no effusion erythema or warmth. Decreased range of motion. Lower extremity varus deformity. Point tender over the medial joint line. Calf soft and nontender. 4+/5 strength of knee flexion extension. Impression: Osteoarthritis Plan: Nature of the diagnosis discussed with the patient today. Both surgical and nonsurgical options were reviewed. This point recommend a repeat cortisone injection. Patient agreed. See Procedure note. Follow-up with us in 3 months for discussion of continued conservative management versus total joint arthroplasty. Tigre Babin PA-C [address], [place], [address], [facility] 09/30/2023 13:45:13 12/31/2023 text/html I am seeing the patient today under the supervision of {{Dr. Erum Valverde#}} who was available but who did not see the patient. HPI: Patient comes in for recheck of {{right left bilater al*}} knee pain. Has known osteoarthritis in the medial compartment of the knee(s). Been treated conservatively with cortisone injection to this point with {{ 4#}} weeks relief of symptoms. No new injury or modalities. Past family, medical, social history and review of systems has been reviewed, updated and is located in the patient? s chart. Examination:The patient is well appearing and in no apparent distress. Alert and oriented x3. Vital signs per intake sheet. Examination of the {{right left bilater al*}} knee reveals no effusion erythema or warmth. Decreased range of motion. Lower extremity varus deformity. Point tender over the medial joint line. Calf soft and nontender. 4+/5 strength of knee flexion extension. Impression: Osteoarthritis Plan: Nature of the diagnosis discussed with the patient today. Both surgical and nonsurgical options were reviewed. This point recommend a repeat cortisone injection. Patient agreed. See Procedure note. Follow-up with us in 3 months for discussion of continued conservative management versus total joint arthroplasty. Tigre Babin PA-C [address] [facility] [address] [facility], [place], [address], [facility] 12/31/2023 13:40:35 04/07/2024 text/html I am seeing the patient today under the supervision of {{Dr. Erum Newby#}} who was available but who did not see the patient. HPI: Patient comes in for recheck of {{right left bilater al*}} knee pain. Has known osteoarthritis in the medial compartment of the knee(s). Been treated conservatively with cortisone injection to this point with {{ 4#}} weeks relief of symptoms. No new injury or modalities. Unfortunately patient did suffer a stroke in the interval office visits. Patient reports at that time patient was using Lidoderm patches with the physical therapy has seen significant benefit. Past family, medical, social history and review of systems has been reviewed, updated and is located in the patient? s chart. Examination:The patient is well appearing and in no apparent distress. Alert and oriented x3. Vital signs per intake sheet. Examination of the {{right left bilater al*}} knee reveals no effusion erythema or warmth. Decreased range of motion. Lower extremity varus deformity. Point tender over the medial joint line. Calf soft and nontender. 4+/5 strength of knee flexion extension. Impression: Osteoarthritis Plan: Nature of the diagnosis discussed with the patient today. Both surgical and nonsurgical options were reviewed. This point recommend a repeat cortisone injection. Also recommend a prescription for Lidoderm patches. Patient agreed. See Procedure note. Follow-up with us in 3 months for discussion of continued conservative management versus total joint arthroplasty. Tigre Babin PA-C [address] [facility] [address], [place], [address], [facility] 04/07/2024 13:29:45
== END 2024-06-07 11:17 | disposition home or self-care (01) ==
PROVIDERS: PCP Pediatrics; Visit Provider Internal Medicine Cardiovascular Disease
DX: I48.0 Paroxysmal atrial fibrillation (principal); I42.9 Cardiomyopathy, unspecified
CPT/HCPCS: 93010; 99214; G2211

== ENCOUNTER → 2024-06-07 10:28 | Outpatient (BNVA) | payer MEDICARE, OTHER, SELFPAY | PROVIDERS: PCP Pediatrics; Visit Provider Internal Medicine Cardiovascular Disease | DX: I48.0 Paroxysmal atrial fibrillation (principal); I42.9 Cardiomyopathy, unspecified; I44.0 Atrioventricular block, first degree; I45.10 Unspecified right bundle-branch block; R94.31 Abnormal electrocardiogram [ECG] [EKG] | CPT/HCPCS: 93005; 99212 ==

== ENCOUNTER → 2024-07-03 10:31 | Outpatient (REF) | payer MEDICARE, OTHER, SELFPAY ==
--- NOTE | 2024-07-03 10:41 | CA_ITS ---
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 The calculated ejection fraction is 36% by biplane method. - Evidence suggests grade II (moderate) diastolic dysfunction. - The basal inferior segment is akinetic. - No obvious valvular pathology seen on this study. - There is mild dilatation of the sinuses of Valsalva measuring 4.30 cm and mild dilatation of the ascending aorta measuring 4.10 cm. Findings Procedure Information The quality of the study was technically difficult. The study quality is limited by lung artifact. Left Ventricle Moderately increased left ventricular cavity size. There is moderately increased left ventricular wall thickness. The left ventricular systolic function is moderately decreased. The calculated ejection fraction is 36% by biplane method. There is evidence of regional wall motion abnormalities. Evidence suggests grade II (moderate) diastolic dysfunction. Wall Motion Rest Echo Findings The basal inferior segment is akinetic. Right Ventricle Normal right ventricular cavity size. There is mildly decreased right ventricular systolic function. Atria Both atria are normal in size. Aortic Valve There is a normal trileaflet aortic valve. There is no aortic valve stenosis. There is no aortic valve regurgitation. Mitral Valve There is mild mitral annular calcification. There is trace mitral valve regurgitation. There is no mitral valve stenosis. Pulmonic Valve The pulmonic valve is likely normal. Tricuspid Valve There is trace tricuspid valve regurgitation. Tricuspid regurgitation envelope is inadequate for calculation of right ventricular systolic pressure. Great Vessels There is mild dilatation of the sinuses of Valsalva measuring 4.30 cm and mild dilatation of the ascending aorta measuring 4.10 cm. Venous The inferior vena cava is normal in size and collapses greater than 50% with inspiration. Pericardium/Pleural There is no evidence of pericardial effusion. Prior Study Comparison No significant change compared to prior study dated: 02/07/2024. Recommendations, Care & Conclusions No obvious valvular pathology seen on this study. Measurements 2D Linear Measurements IVSd: 1.34 0.6-0.9/0.6-1.0 cm LVIDd: 6.09 3.9-5.3/4.2-5.9 cm LVIDd Index: 3.01 2.4-3.2/2.2-3.1 cm/m2 LVIDs: 5.34 2.0-3.6 cm LVPWd: 1.27 0.7-1.1 cm Ao Root: 4.30 2.1-3.5 cm LA Diam: 4.90 2.7-3.8/3.0-4.0 cm LAIDs Index: 2.43 1.5-2.3 cm/m2 LV Mass: 449.94 67-162/88-224 g LV Mass Index: 222.74 43-95/49-115 g/m2 LVOT Diam: 2.30 3.0+(-)1.3 cm 2D Systolic Function EF 4C: 30.10 >55% EF 2C: 37.00 >55% EF BiP: 35.80 >55% Mitral Valve MV Pk E: 0.71 MV PK A: 0.62 MV Decel Time: 153.00 E/A: 1.10 E'Lateral: 3.92 E'Medial: 4.35 E/E' Med: 16.30 E/E' Lat: 18.00 PHT: 45.00 MVA PHT: 4.89 Decel [place]: 4.61 Aortic Valve AoV Pk Yuan: 0.91 AoV Pk Grad: 3.00 FRANCIA: 3.62 LVOT LVOT Pk Yuan: 0.80 LVOT Mn Yuan: 0.51 LVOT VTI: 0.16 LVOT Pk Grad: 3.00 LVOT Mn Grad: 1.00 LVOT Diam: 2.30 LVOT Area: 4.15 Diastolic Function MV Pk E: 0.71 MV Pk A: 0.62 E/A: 1.10 E'Medial: 4.35 E/E' Med: 16.30 E' Laterial: 3.92 E/E' Lat: 18.00 Right Ventricle TAPSE (mm): 18.30 Tricuspid Valve RA Press: 3.00 Great Vessels Aorta Ao Root-2D: 4.30 2.0-3.7 cm Sinus of Valsalva: 4.30 2.0-3.5 cm Ao Asc: 4.10 2.1-3.4 cm Pulmonary Valve PV Pk Yuan: 0.84 Peak PV Grad: 3.00 Updated in Other Vendor System with Status of Final Jez Alvarado MD electronically signed on 07/03/2024 2:00:03 PM with status of Final
--- OUTSIDE RECORDS SUMMARY | 2024-07-03 11:54 | XMS_ITS | Encounter Summary ---
Author Name [facility] Organization [facility] Address [address] [place] [id number] Care Team Providers Care [employer] Learning Support Teacher Name Role Phone ZULY MADDEN Primary Care Provider Unavailabl e Insurance Providers: All historical and current Section Date Range: From patient's date of to the date document was created. This section includes the names of all active insurance providers for the patient. Insurance Provider Type of Coverage Plan Name Start of Policy Coverage End of Policy Coverage Group Number Member ID Insurance Provider's Telephone Number Policy Dempsey's Name Patient's Relationship to Policy Dempsey [employer] [facility] (WNR) MEDICARE ADVANTAGE [facility] (WNR) Apr 19, 2024 [id number] [phone] SUNI ALLEN PATIENT Selected Encounter This section includes the information on record at [place] for the Encounter. Date/Time Encounter Type Encounter Description Reason Provider Source Nov 08, 2023 02:00 PM OFFICE O/P NEW LOW 30 MIN PODIATRY ICD-10-CM L60.3 Nail dystrophy ADEEL CAMPOS Buddy Encounter Template Text not used by [place] Assessments - Encounter Diagnoses This section includes the primary and secondary diagnoses documented for the Encounter. Date/Time Primary/Secondary Diagnosis Diagnosis Name Provider Source Nov 08, 2023 03:02 PM PRIMARY Nail dystrophy ADEEL CAMPOS Nov 08, 2023 03:02 PM SECONDARY Ingrowing nail ADEEL CAMPOS [facility] Nov 08, 2023 03:02 PM SECONDARY Pain in left toe(s) ADEEL CAMPOS [facility] Nov 08, 2023 03:02 PM SECONDARY Pain in right toe(s) ADEEL CAMPOS [facility] Nov 08, 2023 03:02 PM SECONDARY Peripheral vascular disease, unspecified ADEEL CAMPOS [place] Plan of Treatment: Future Appointments (+ 6 months) and Future Tests (+/- 45 days) The Plan of Treatment section includes future care activities for the patient [facility] This section includes future appointments and future orders which are active, pending or scheduled. Future Appointments This section includes appointments that were scheduled to occur 6 months from the date of the Encounter, up to a maximum of 20 appointments. The data comes from all [place] treatment facilities. Appointment Date/Time Appointment Type Appointme nt Facility Name Mar 20, 2024 01:30 PM AMBULATORY - MEDICINE [facility] Mar 20, 2024 02:00 PM AMBULATORY - MEDICINE [facility] Apr 06, 2024 01:30 PM AMBULATORY - RE[facility]AB [facility] Social History: Smoking Status (Most current) and Tobacco Use (All prior to encounter date) This section includes the most current, and the historical, smoking and tobacco- related health factors from the [place] facility where the Encounter took place. Current Smoking Status This section includes the most current smoking, or tobacco-related health factor, from the [place] facility where the Encounter took place. Date/Time Current Smoking Status Comment [facility] Oct 12, 2023 10:30 AM VA-TOBACCO USER EVERY DAY [place] Tobacco Use History This section includes a history of the smoking, or tobacco-related health factors, that were collected on or before the date of the Encounter. The data comes from the [place] facility where the Encounter took place. Date/Time Smoking Status/Tobacco Use Comment F acility Oct 12, 2023 10:30 AM VA-TOBACCO USE ADVICE [facility] Oct 12, 2023 10:30 AM VA-TOBACCO USE ACCOUNTS PAYABLE ADMINISTRATOR NO [facility] Oct 12, 2023 10:30 AM VA-TOBACCO USE MED NO [place] Oct 12, 2023 10:30 AM VA-TOBACCO USE WI 30 MIN OF WAKE UP [facility] Oct 12, 2023 10:30 AM VA-TOBACCO USER EVERY DAY [facility] Advance Directives: All historical and current Section Date Range: From patient's date of to the date document was created. This section includes ALL of a patient's completed or amended [place] Advance and Rescinded Directives. The entries below indicate that a directive exists for the patient, but an actual copy is not included with this document. The data comes from all [place] facilities. Date Advance Directives Provider Source Oct 06, 2022 ADVANCE DIRECTIVE MANUELA LUTZ [facility] Encounter Notes: All associated encounter notes This section contains the clinical notes associated to the Encounter. Date/Time Encounter Note(s) Provider Source Nov 08, 2023 09:26 AM PODIATRY CONSULT: [facility] TITLE: CONSULT REPORT/PODIATRY STANDARD TITLE: PODIATRY CONSULT DATE OF NOTE: NOV 08, 2023@09:26 ENTRY DATE: NOV 08, 2023@09:26:17 AUTHOR: ADEEL CAMPOS COSIGNER: URGENCY: STATUS: COMPLETED NAME: SUNI MCCALL DATE: NOV 08, 2023 : Sep PCP: JONY HINOJOSA LAST SEEN: INITIAL CONSULT VISIT TODAY NOTE: HAS RECEIVED BOTH COVID VACCINE + 4 BOOSTERS AT [facility] HPI: Pt. is a 83 yo alert WDWN CAUC MALE who presents for initial podiatric examination with Dr. Campos for treatment of a presenting complaint of painful ingrown toenails. Patient has NOT BEEN SEEN BY PODIATRY IN THE PAST AT THE [place] Patient has been referred by: JONY HINOJOSA NP Location of symptoms are: NAILS 1-2-3-4-5 BILATERAL but primarily 1-2-3 RT & 1-2 LT Onset of symptoms has been several YEARS due to this being a recurrent condition that has been exacerbating over the past few weeks. Duration of symptoms is daily with periods of exacerbation and remission. Description of symptoms is of an aching-throbbing nature ESPECIALLY MED & LATERAL NAIL BORDERS 1 & 2 LEFT & 1- 2-3 RT. Contributing factors are: shoes and increased activity. Previous treatment: PRIVATE PODIATRY AND HAS NOT BEEN PLEASED WITH CARE. PMH: Active problems - Computerized Problem List is the source for the followin. NonVA Provider 2. Osteoarthritis of Knee (SCT [id number]) 3. Sensorineural hearing loss, bilateral 4. Hypertension 5. Mixed hyperlipidemia *NOTE: REVIEWED ABOVE, NOTING NON-CONTRIBUTORY TO THE CC OTHER THAN THE PRESENCE OF Family History: Non-contributory Social History: N/A Current medications: Active Outpatient Medications (including Supplies): *NOTE: DENIES ANY RECENT CHANGES IN MEDS UPON QUESTIONING TODAY-SEE RECONCILIATION PERFOMED THIS DATE BELOW TOBACCO USE = 3/4 PACK PER DAY Active Non-VA Medications Status = 1) Non-VA LOVASTATIN 20MG TAB 20MG BY MOUTH AT BEDTIME ACTIVE 2) Non-VA METOPROLOL SUCCINATE 25MG SA TAB 25MG BY MOUTH ACTIVE ONCE DAILY Allergies:Patient has answered NKA Previous Surgery/Hospitalization: N/A TO THE CC HEIGHT:172.8 lb [78.38 kg] (10/12/2023 10:58) WEIGHT:68 in [172.7 cm] (10/12/2023 10:58) REVIEW OF SYSTEMS: DEFERRED BEING NON-CONTRIBUTORY TO THE CC & I HAVE REVIEWED THE PCP NOTES & PMH WELL. O: DERMATOLOGICAL: Exam reveals skin color & text to be WNL. Temp is diminished warm to cool proximal to distal. There is absence of hair noted. Nails are Wthickened yellow-brown discolored and displaying flakiness, crumbling, sub-ungual debris and rubor in the affected nail grooves. The affected nails are 1-2-3RT & 1-2- LT. There are no superficial painful hyperkeratotic lesions noted at this time. There are no rashes, ulcers, indurations or nodules noted. VASCULAR: Exam reveals DP & PT pulses to be absent non-palpable bilateral. CFT is <3 sec x 10. There are no superficial varices noted and there is +2 edema noted. MUSCULOSKELETAL: Exam reveals muscle strength and tone to be equal & symmetrical bilaterally & WNL for an individual of this age and present physical-medical condition. There is pain free ROM at all joints distal to and including the ankle. NEUROLOGICAL: Exam reveals S/D, vibratory, light touch & proprioception sensations to be equal & symmetrical bilaterally & WNL for an individual of this age and present physical-medical status. Protective sensation utilizing a Cameron-Drew lOg monofilament is 08/10 bilateral. BIOMECHANICAL: Exam is deferred at this time as BEING non-contributory to the cc . 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 P: Treatment consists of debridement-reduction of all nails via manual & electric means with excision of the offending nail borders and thinning of the nail plates to the point of imminent bleeding. All care rendered without complications & the patient is progressing well after podiatric care this date and will be scheduled for periodic podiatric care in an attempt to prevent future complications due to the underlying medical conditions. Treatment by a non-professional could be extremely hazardous to the patient's wellbeing due to the underlying medical conditions. Return to Clinic: Weeks 03/20 @ 1:30PM) *DISCUSSED NEW PROTOCOLS AND CALLED MARY JANE TODAY FOR RESCHEDULING I DISCUSSED THE FINDINGS & PLAN WITH PATIENT (UNCHANGED SINCE PREVIOUS VISIT) & PATIENT AGREES AND UNDERSTANDS PLAN Medication Reconciliation: PERFORMED TODAY - SEE BELOW. Outpatient: Has the patient been taking medications as documented in the EMLR? YES: The patient has been taking medications as documented in the EMLR. Essential Medication List for Review used to complete this medication reconciliation. INCLUDED IN THIS LIST: Alphabetical list of active outpatient prescriptions dispensed from this [facility] (local) and dispensed from another [place] or [facility] facility (remote) as well as inpatient orders (local, pending and active), local clinic medications, locally documented non-VA medications, and local prescriptions that have or been discontinued in the past 90 days. - All changes in medications, including all non-VA/Herbal/OTC medications were entered into CPRS. - If there were any medications the patient should no longer take, they were discontinued. - The patient/caregiver was instructed to update this list, discard old lists, and take this list to the next appointment, whether with a VA or non-VA provider. /joan/ ADEEL CAMPOS DPM MEDIA ARTS PROFESSOR Signed: 11/08/2023 15:04 ADEEL CAMPOS
--- OUTSIDE RECORDS SUMMARY | 2024-07-03 11:54 | XMS_ITS | Data Portability ---
Author Organization [facility], Main Office Address [address] [facility] [address] [place] [id number] Care Team Providers Care Mis Director Name Role Phone EDUARDO LUZ Primary Care Provider ROSA ZHONG Orthopedic Surgeon [phone] ROMEO RAMOS Rac Specialist DEPARTMENT OF AFFAIRS Auto Hiker MONI CARDIOVASCULAR Blood Bank Calendar Control Clerk NATALIIA PLASENCIA Marine Architect Assessment Encounter Date Assessment Date Assessment LastModified by Organization Details LastModified Time 03/08/2024 03/08/2024 Discussed with patient the signs/symptom s warranted for a return to office visit and/or an ER visit. Patient understood and agreed with the plan. [email or web address] Not available 03/07/2024 20:59:10 Plan of Treatment Reminders Order Date Submit Date Provider Last Modified By Organization Details Last Modified Time Details Appointments telehealt [email or web address] 2024 01:25P M Eduardo Luz MD Not available Not available Not available [email or web address] 2024 11:00A M Eduardo Luz MD Not available Not available Not available Lab None recorded. Referral None recorded. Procedures None recorded. Surgeries None recorded. Imaging None recorded. Medication Orders trazodone 50 mg tablet 2024 025 [employer] [facility] #[id number], [address] [place], [address], 06/08/2024 14:35:15 lidocaine 5 % topical patch 2023 025 [employer] [facility] #[id number], [address] [place], [address], 05/24/2024 14:53:30 Patient TargetsNo targets recorded. Patient Instructions Encounter Date Encounter Id Patient Instructions Last Modified By Organization Details Last Modified Time 03/08/2024 [id number] At [facility] follow up visit, all current and discharge medications (OTC, herbal therapies, supplements) reviewed and reconciled with patient and or caregiver, including potential side effects, drug interactions, instructions, and the consequences of not taking medication. Reviewed potential barriers to medication adherence, such as side effects from medication or cost of medication. [email or web address] Not available 03/08/2024 11:01:56 06/08/2024 [id number] insomnia: care instructions [email or web address] Not available 06/08/2024 14:35:09 high cholesterol: care instructions [email or web address] Not available 06/08/2024 14:35:09 atrial fibrillation: care instructions [email or web address] Not available 06/08/2024 14:35:10 high blood pressure: care instructions [email or web address] Not available 06/08/2024 14:35:09 learning about high blood pressure [email or web address] Not available 06/08/2024 14:35:09 Reason for Referral None Reported. Results Created Date Observation Date Name Description Value Unit Range Abnormal Flag Note LastModifiedBy Organization Detail LastModifiedTime 01/18/2001/19/2024 URINA LYSIS , ROUTI NE specific gravity 1.019 1.005- 1.030 normal Not Available [facility] ([facility]) [address] [place], [address], 01/19/2024 08:09:20 01/18/2001/19/2024 URINA LYSIS , ROUTI NE pH 7.0 5.0-7. 5 normal Not Available [facility] ([facility]) [address] [place], [address], 01/19/2024 08:09:20 01/18/2001/19/2024 URINA LYSIS , ROUTI NE urine-color Yellow yellow Not Available [facility] ([facility]) [address] [place], [address], 01/19/2024 08:09:20 01/18/20 24 01/19/2024 URINA LYSIS , ROUTI NE appearance Clear clear Not Available [facility] ([facility]) [address] [facility], [place], [address], 01/19/2024 08:09:20 01/18/20 24 01/19/2024 URINA LYSIS , ROUTI NE WBC esterase Negati ve negati ve Not Available [facility] ([facility]) [address] [facility], [place], [address], 01/19/2024 08:09:20 01/18/2001/19/2024 URINA LYSIS , ROUTI NE protein 1+ negati ve/tra ce abnormal Not Available [facility] ([facility]) [address] [facility], [place], [address], 01/19/2024 08:09:20 01/18/2001/19/2024 URINA LYSIS , ROUTI NE glucose Negati ve negati ve Not Available [facility] ([facility]) [address] [place], [address], 01/19/2024 08:09:20 01/18/20 24 01/19/2024 URINA LYSIS , ROUTI NE ketones Negati ve negati ve Not Available [facility] ([facility]) [address] [facility], [place], [address], 01/19/2024 08:09:20 01/18/20 24 01/19/2024 URINA LYSIS , ROUTI NE occult blood Negati ve negati ve Not Available [facility] ([facility]) [address] [place], [address], 01/19/2024 08:09:20 01/18/20 24 01/19/2024 URINA LYSIS , ROUTI NE bilirubin Negati ve negati ve Not Available [facility] ([facility]) [address] [place], [address], 01/19/2024 08:09:20 01/18/20 24 01/19/2024 URINA LYSIS , ROUTI NE urobilinogen ,semi-qn 0.2 mg/dL 0.2-1. 0 normal Not Available [facility] ([facility]) [address] [facility], [place], [address], 01/19/2024 08:09:20 01/18/2001/19/2024 URINA LYSIS , ROUTI NE nitrite, urine Negati ve negati ve Not Available [facility] ([facility]) [address] [facility], [place], [address], 01/19/2024 08:09:20 01/18/2001/19/2024 URINA LYSIS , ROUTI NE microscopic examination See below: Micro scopi c was indic ated and was perfo rmed. Not Available [facility] ([facility]) [address] [facility], [place], [address], 01/19/2024 08:09:20 01/18/20 24 01/19/2024 URINA LYSIS , ROUTI NE WBC None seen /hpf 0 - 5 Not Available [facility] ([facility]) [address] [facility], [place], [address], 01/19/2024 08:09:20 01/18/20 24 01/19/2024 URINA LYSIS , ROUTI NE RBC 0-2 /hpf 0 - 2 Not Available [facility] ([facility]) [address] [facility], [place], [address], 01/19/2024 08:09:20 01/18/2001/19/2024 URINA LYSIS , ROUTI NE epithelial cells (non renal) None seen /hpf 0 - 10 Not Available [facility] ([facility]) [address] [place], [address], 01/19/2024 08:09:20 01/18/2001/19/2024 URINA LYSIS , ROUTI NE epithelial cells (renal) GMAT TUTOR Not Available [facility] ([facility]) [address] [facility], [place], [address], 01/19/2024 08:09:20 01/18/2001/19/2024 URINA LYSIS , ROUTI NE casts None seen /lpf none seen Not Available [facility] ([facility]) [address] [facility], [place], [address], 01/19/2024 08:09:20 01/18/2001/19/2024 URINA LYSIS , ROUTI NE cast type GMAT TUTOR Not Available [facility] ([facility]) [address] [facility], [place], [address], 01/19/2024 08:09:20 01/18/2001/19/2024 URINA LYSIS , ROUTI NE crystals GMAT TUTOR Not Available [facility] ([facility]) [address] [facility], [place], [address], 01/19/2024 08:09:20 01/18/2001/19/2024 URINA LYSIS , ROUTI NE crystal type GMAT TUTOR Not Available [facility] ([facility]) [address] [facility], [place], [address], 01/19/2024 08:09:20 01/18/2001/19/2024 URINA LYSIS , ROUTI NE mucus threads GMAT TUTOR Not Available [facility] ([facility]) [address] [facility], [place], [address], 01/19/2024 08:09:20 01/18/2001/19/2024 URINA LYSIS , ROUTI NE bacteria None seen none seen/f ew Not Available [facility] ([facility]) [address] [facility], [place], [address], 01/19/2024 08:09:20 01/18/20 24 01/19/2024 URINA LYSIS , ROUTI NE yeast GMAT TUTOR Not Available [facility] ([facility]) [address], [place], [address], 01/19/2024 08:09:20 01/18/2001/19/2024 URINA LYSIS , ROUTI NE trichomonas GMAT TUTOR Not Available [facility] ([facility]) [address], [place], [address], 01/19/2024 08:09:20 01/18/2001/19/2024 URINA LYSIS , ROUTI NE comment GMAT TUTOR Not Available [facility] ([facility]) [address], [place], [address], 01/19/2024 08:09:20 01/18/2001/19/2024 COMP. METAB OLIC PANEL (14) glucose 96 mg/dL 70-99 normal Not Available [facility] ([facility]) [address] [facility], [place], [address], 01/21/2024 08:09:24 01/18/20 24 01/19/2024 COMP. METAB OLIC PANEL (14) BUN 21 mg/dL 8-27 normal Not Available [facility] ([facility]) [address] [facility], [place], [address], 01/21/2024 08:09:24 01/18/20 24 01/19/2024 COMP. METAB OLIC PANEL (14) creatinine 0.97 mg/dL 0.76-1 .27 normal Not Available [facility] ([facility]) [address] [facility], [place], [address], 01/21/2024 08:09:24 01/18/20 24 01/19/2024 COMP. METAB OLIC PANEL (14) eGFR 77 mL/mi n/1.7 3 >59 normal Not Available [facility] ([facility]) [address] [facility], [place], [address], 01/21/2024 08:09:24 01/18/20 24 01/19/2024 COMP. METAB OLIC PANEL (14) BUN/creatini ne ratio 22 10-24 normal Not Available [facility] ([facility]) [address] [facility] [place], [address], 01/21/2024 08:09:24 01/18/20 24 01/19/2024 COMP. METAB OLIC PANEL (14) sodium 144 mmol/ L 134-14 4 normal Not Available [facility] ([facility]) [address] [facility] [place], [address], 01/21/2024 08:09:24 01/18/2001/19/2024 COMP. METAB OLIC PANEL (14) potassium 3.8 mmol/ L 3.5-5. 2 normal Not Available [facility] ([facility]) [address] [facility] [place], [address], 01/21/2024 08:09:24 01/18/20 24 01/19/2024 COMP. METAB OLIC PANEL (14) chloride 100 mmol/ L 96-106 normal Not Available [facility] ([facility]) [address] [facility] [place], [address], 01/21/2024 08:09:24 01/18/20 24 01/19/2024 COMP. METAB OLIC PANEL (14) carbon dioxide, total 28 mmol/ L 20-29 normal Not Available [facility] ([facility]) [address] [facility] [place], [address], 01/21/2024 08:09:24 01/18/20 24 01/19/2024 COMP. METAB OLIC PANEL (14) calcium 9.3 mg/dL 8.6-10 .2 normal Not Available [facility] ([facility]) [address] [facility] [place], [address], 01/21/2024 08:09:24 01/18/20 24 01/19/2024 COMP. METAB OLIC PANEL (14) protein, total 6.3 g/dL 6.0-8. 5 normal Not Available [facility] ([facility]) [address] [place], [address], 01/21/2024 08:09:24 01/18/20 24 01/19/2024 COMP. METAB OLIC PANEL (14) albumin 4.3 g/dL 3.7-4. 7 normal Not Available [facility] ([facility]) [address] [place], [address], 01/21/2024 08:09:24 01/18/20 24 01/19/2024 COMP. METAB OLIC PANEL (14) globulin, total 2.0 g/dL 1.5-4. 5 Not Available [facility] ([facility]) [address] [place], [address], 01/21/2024 08:09:24 01/18/20 24 01/19/2024 COMP. METAB OLIC PANEL (14) bilirubin, total 0.6 mg/dL 0.0-1. 2 normal Not Available [facility] ([facility]) [address] [place], [address], 01/21/2024 08:09:24 01/18/20 24 01/19/2024 COMP. METAB OLIC PANEL (14) alkaline phosphatase 91 IU/L 44-121 normal Not Available [facility] ([facility]) [address] [facility] [place], [address], 01/21/2024 08:09:24 01/18/20 24 01/19/2024 COMP. METAB OLIC PANEL (14) AST (SGOT) 22 IU/L 0-40 normal Not Available [facility] ([facility]) [address] [facility] [place], [address], 01/21/2024 08:09:24 01/18/20 24 01/19/2024 COMP. METAB OLIC PANEL (14) ALT (SGPT) 14 IU/L 0-44 normal Not Available [facility] ([facility]) [address] [facility], [place], [address], 01/21/2024 08:09:24 01/18/2001/21/2024 URINA LYSIS , ROUTI NE specific gravity RICCI lou refer to the follo wing speci men for addit ional lab resul ts. Not Available [facility] ([facility]) [address] [facility], [place], [address], 01/21/2024 08:09:26 01/18/2001/21/2024 URINA LYSIS , ROUTI NE pH TNP Test not perfo rmed Not Available [facility] ([facility]) [address] [facility], [place], [address], 01/21/2024 08:09:26 01/18/2001/21/2024 URINA LYSIS , ROUTI NE urine-color GMAT TUTOR Not Available [facility] ([facility]) [address] [facility], [place], [address], 01/21/2024 08:09:26 01/18/2001/21/2024 URINA LYSIS , ROUTI NE appearance GMAT TUTOR Not Available [facility] ([facility]) [address] [facility], [place], [address], 01/21/2024 08:09:26 01/18/2001/21/2024 URINA LYSIS , ROUTI NE WBC esterase GMAT TUTOR Not Available [facility] ([facility]) [address] [facility], [place], [address], 01/21/2024 08:09:26 01/18/2001/21/2024 URINA LYSIS , ROUTI NE protein TNP Test not perfo rmed Not Available [facility] ([facility]) [address] [facility], [place], [address], 01/21/2024 08:09:26 01/18/2001/21/2024 URINA LYSIS , ROUTI NE glucose TNP Test not perfo rmed Not Available [facility] ([facility]) [address] [facility], [place], [address], 01/21/2024 08:09:26 01/18/2001/21/2024 URINA LYSIS , ROUTI NE ketones TNP Test not perfo rmed Not Available [facility] ([facility]) [address] [facility], [place], [address], 01/21/2024 08:09:26 01/18/2001/21/2024 URINA LYSIS , ROUTI NE occult blood GMAT TUTOR Not Available [facility] ([facility]) [address] [facility], [place], [address], 01/21/2024 08:09:26 01/18/2001/21/2024 URINA LYSIS , ROUTI NE bilirubin GMAT TUTOR Not Available [facility] ([facility]) [address] [facility], [place], [address], 01/21/2024 08:09:26 01/18/2001/21/2024 URINA LYSIS , ROUTI NE urobilinogen ,semi-qn GMAT TUTOR Not Available [facility] ([facility]) [address] [facility], [place], [address], 01/21/2024 08:09:26 01/18/2001/21/2024 URINA LYSIS , ROUTI NE nitrite, urine GMAT TUTOR Not Available [facility] ([facility]) [address] [facility], [place], [address], 01/21/2024 08:09:26 01/18/2001/21/2024 URINA LYSIS , ROUTI NE microscopic examination GMAT TUTOR Not Available [facility] ([facility]) [address] [facility], [place], [address], 01/21/2024 08:09:26 01/18/2001/19/2024 LIPID PANEL cholesterol, total 172 mg/dL 100-19 9 normal Not Available [facility] ([facility]) [address] [place], [address], 01/21/2024 08:09:26 01/18/2001/19/2024 LIPID PANEL triglyceride s 74 mg/dL 0-149 normal Not Available [facility] ([facility]) [address] [place], [address], 01/21/2024 08:09:26 01/18/2001/19/2024 LIPID PANEL HDL cholesterol 69 mg/dL >39 normal Not Available [facility] ([facility]) [address] [place], [address], 01/21/2024 08:09:26 01/18/2001/19/2024 LIPID PANEL VLDL cholesterol jossue 14 mg/dL 5-40 Not Available [facility] ([facility]) [address] [place], [address], 01/21/2024 08:09:26 01/18/2001/19/2024 LIPID PANEL LDL chol calc ([facility]) 89 mg/dL 0-99 Not Available [facility] ([facility]) [address] [place], [address], 01/21/2024 08:09:26 01/18/2001/19/2024 LIPID PANEL LDL calc comment: GMAT TUTOR Not Available [facility] ([facility]) [address] [place], [address], 01/21/2024 08:09:26 01/18/2001/19/2024 HEMOG LOBIN A1C hemoglobin A1C 5.9 % 4.8-5. 6 above high normal Predi abete s: 5.7 - 6.4 Diabe maryanne: >6.4 Glyce jonh contr ol for adult s with diabe maryanne: <7.0 Not Available [facility] ([facility]) [address] [place], [address], 01/21/2024 08:09:27 01/18/2001/19/2024 NT-PA OBNP nt-probnp 961 pg/mL 0-486 above high normal [facility]-p oints have been sugge sted [...] enden t 300 pg/mL Not Available [facility] ([facility]) [address] [facility], [place], [address], 01/21/2024 08:09:28 01/18/2001/21/[address] PROBL EM request problem COMMEN T Eliana e refer to the [employer] wing speci [place]. [id number] Not Available [facility] ([facility]) [address] [place], [address], 01/21/2024 08:09:28 05/15/1905/15/2024 CT, head, w/o contr ast No observ ation record ed. [facility] (Medical Records) [address] [place], [address], 05/17/2024 10:30:20 05/15/19 25 05/15/2024 XR, chest No observ ation record ed. [facility] (Medical Records) [address] [place], [address], 05/17/2024 10:32:13 05/17/19 25 05/15/2024 elect sirisha tellez (EEG) (PROC ) No observ ation record ed. [facility] (Medical Records) [address] [facility], [place], [address], 05/17/2024 11:26:46 Result Notes None recorded. Problems Name Problem SNOMED Code Status Onset Date Resolution Date Notes Provider Name and Address Organization Details Recorded Time Tobacco dependen ce syndrome 80990778 Completed 201310/31/2013 IMPRESSI ON: PT REMAINS PRECONTE MPLATIVE AND UNDERSTA NDING/AC CEPTING OF POTENTIA L PENITENTIARY HEALTYH CONSEQUE NCES. AWARE OF AVAIALAB LE TREATMEN T OPTIONS. ; RECORDED 08/25/19 14 9:12AM BY HELEN GUDINO MA, ANNOTATI ON/ADDEN DUM Eduardo Luz MD [address] [address], [place], [address] , [facility] 6 08:56:47 Influenz a vaccine needed [id number] 06 Completed 201210/31/2013 RECORDED 02/14/20 13 9:08AM BY HELEN GUDINO MA, OFFICE VISIT Eduardo Luz MD [address] [address], [place], [address] , [facility] 6 08:56:47 Adult health examinat ion Completed [...] Vasques MD, OFFICE VISIT Eduardo Luz MD [address] [address], [place], [address] , [facility] 6 08:56:47 Hypercho lesterol emia 64649930 Completed 201309/05/2015 Eduardo Luz MD [address], [place], [address] , [facility] 6 08:56:47 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 MILD INCREASE TODAY LIKELY CORRELAT ES TO WEIGHT GAIN. INCREASE D EFFORTS FOR NA INTAKE REDUCTIO N, EXERCISE AND WEIGHT LOSS ADVISED. ; RECORDED 02/14/20 13 9:03AM BY HELEN GUDINO MA, ANNOTATI ON/ADDEN DUM Eduardo Luz MD [address] [facility] [address], [place], [address] , [facility] 6 08:56:47 Insomnia 806775976 Completed 201309/07/2016 [facility] [address] [facility] [address], [place], [address] , [facility] 3 14:06:35 Renewal of prescrip tion Completed 201210/31/2013 RECORDED 02/14/20 13 9:03AM BY HELEN GUDINO MA, ANNOTATI ON/ADDEN DUM Eduardo Luz MD [address] [facility] [address], [place], [address] , [facility] 6 08:56:47 Obesity 997139480 Completed 201309/05/2015 Eduardo Luz MD [address] [facility] [address], [place], [address] , [facility] 9 11:00:13 Overweig ht 441442026 Completed 201309/07/2016 Eduardo Luz MD [address] [facility] [address], [place], [address] , [facility] 7 10:18:52 Chronic sinusiti s 16671977 Completed 201309/16/2018 Helen Gudino MA null, [facility] 9 10:26:04 Screenin g for malignan t neoplasm of colon Completed 201310/31/2013 RECORDED 08/25/19 14 9:22AM BY HELEN GUDINO MA, OFFICE VISIT Eduardo Luz MD [address] [facility] [address], [place], [address] , [facility] 6 08:56:47 Tobacco dependen ce syndrome 28598801 Active 2013 Not Available [facility] 2 13:16:52 Tobacco dependen ce syndrome 43366896 Completed 201311/27/2013 IMPRESSI ON: PT REMAINS PRECONTE MPLATIVE AND UNDERSTA NDING/AC 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 AWARE OF AVAIALAB LE TREATMEN T OPTIONS. ; RECORDED 08/25/19 14 9:12AM BY HELEN GUDINO MA, ANNOTATI ON/ADDEN DUM Eduardo Luz MD [address] [facility] [address], [place], [address] , [facility] 6 08:56:47 Influenz a vaccine needed 80998699758 06 Completed 201211/27/2013 RECORDED 02/14/20 13 9:08AM BY HELEN GUDINO MA, OFFICE VISIT Eduardo Luz MD [address] [facility] [address], [place], [address] , [facility] 6 08:56:47 Pure hypercho lesterol emia 588723961 Completed 201311/27/2013 RECORDED 08/25/19 14 9:45AM BY EDUARDO Vasques MD, OFFICE VISIT Eduardo Luz MD [address], [place], [address] , [facility] 6 08:56:47 Renewal of prescrip tion Completed 201211/27/2013 RECORDED 02/14/20 13 9:03AM BY HELEN GUDINO MA, ANNOTATI ON/ADDEN DUM Eduardo Luz MD [address], [place], [address] , [facility] 6 08:56:47 Screenin g for malignan t neoplasm of colon Completed 201311/27/2013 RECORDED 08/25/19 14 9:22AM BY HELEN GUDINO MA, OFFICE VISIT Eduardo Luz MD [address], [place], [address] , [facility] 6 08:56:47 Impaired fasting glycemia 668491063 Active Not Available [facility] 2 13:16:52 Body mass index 30+ - obesity 328112038 Completed 09/07/2016 Eduardo Luz MD [address] [facility] [address], [place], [address] , [facility] 7 10:18:48 Weight decrease d 216799899 Completed 09/05/2015 Eduardo Luz MD [address], [place], [address] , [facility] 6 08:56:47 Verruca vulgaris 67090679 Active Not Available [facility] 2 13:16:52 Rupture of anterior cruciate ligament 236171020 Active Not Available [facility] 2 13:16:52 Tear of meniscus of knee 574076771 Active Not Available [facility] 2 13:16:52 Advance directiv e discusse d with patient 441076360 Completed 09/16/2017 Eduardo Luz MD [address], [place], [address] , [facility] 8 08:58:51 Body mass index 25-29 - overweig ht 777445068 Completed 09/16/2018 Helen Gudino MA null, [facility] 9 10:25:59 Proteinu meri 19430348 Completed 201605/11/2018 Eduardo Luz MD [address], [place], [address] , [facility] 9 22:20:18 Obesity 965950369 Active 2018 Not Available [facility] 2 13:16:52 Ventricu lar prematur e beats 42061954 Active 2018 Not Available [facility] 2 13:16:52 Left axis deviatio n greater than -90 degrees by EKG 724797 Completed 201804/10/2019 Eduardo Luz MD [address], [place], [address] , [facility] 9 12:02:04 Left axis deviatio n 07503188 Active 2018 Not Available [facility] 2 13:16:52 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 Not Available [facility] 2 13:16:52 Diastoli c dysfunct ion 8367768 Active 2019 Not Available [facility] 2 13:16:52 Ascendin g aorta dilatati on 319532050 Active 2019 4.4cm Eduardo Luz MD [address], [place], [address] , [facility] 4 12:50:16 Left atrial dilatati on 247929522 Active 2019 Not Available [facility] 2 13:16:52 Calcific ation of mitral valve 623697019 Active 2019 Not Available [facility] 2 13:16:52 Insomnia 920993549 Active 2022 Jacqueline Linder, [facility] [address], [place], [address] , [facility] 3 14:06:35 Angle-cl osure glaucoma [id number] Active 2022 andrew l Eduardo Luz MD [address], [place], [address] , [facility] 3 20:53:53 Prediabe maryanne 964985139 Active 2022 Eduardo Luz MD [address], [place], [address] , [facility] [place] 3 11:39:43 Not for resuscit ation 693060752 Active 2022 Eduardo Luz MD [address], [place], [address] , [facility] 3 12:55:21 Atrial fibrilla tion [id number] Completed 202306/08/2024 Eduardo Luz MD [address], [place], [address] , [facility] [place] 5 14:42:33 Paroxysm al atrial fibrilla tion 365394757 Active 2023 Eduardo Luz MD [address], [place], [address] , [facility] [place] 4 12:03:13 Congesti ve heart failure 39860187 Active 2023 EF 25% Eduardo Luz MD [address], [place], [address] , [facility] [place] 4 13:27:48 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 Eduardo Luz MD [address] [facility] [address], [place], [address] , [facility] [place] 4 06:04:40 Right hemipleg ia 285780737 Active 2023 Eduardo Luz MD [address] [address], [place], [address] , [facility] 4 09:18:51 Osteoart hritis of knee 447725041 [facility] 09:[facility] Cardiomy opathy 04909746 Active 2024 Eduardo Luz MD [address] [address], [place], [address] , [facility] 5 14:16:02 Atrial fibrilla tion 55431322 Active 2024 Eduardo Luz MD [address] [address], [place], [address] , [facility] 5 14:42:32 Problem Notes None recorded. Procedures Surgical History Date Name Laterality Status Provider Name and Address Organization Details Recorded Time 12/10/19 24 radionuclide myocardial perfusion stress study completed Eduardo Luz MD [address] [address], [place], [address], [facility] 12/15/2023 13:27:03 10/15/19 24 Echo transthoracic completed Eduardo Luz MD [address] [address], [place], [address], [facility] 12/07/2023 11:34:21 12/02/19 23 Advanced Care Planning completed Eduardo Luz MD [address], [address], [facility] 12/01/2022 12:54:51 09/24/19 22 injection of bilateral knee joints completed Eduardo Luz MD [address] [facility] [address] [facility], [place], [address], [facility] 09/27/2021 14:14:18 09/19/19 20 Mini-Cog Test completed Helen Gudino MA [facility] 09/19/2019 11:00:15 05/29/19 20 Echo transthoracic completed Eduardo Luz MD [address] [facility] [address], [place], [address], [facility] 05/31/2019 07:45:39 09/17/19 19 Mini-Cog Test completed Helen Gudino MA [facility] 09/16/2018 10:30:16 09/17/19 18 Mini-Cog Test completed Emerita Paulino MA [facility] 09/16/2017 08:27:28 09/08/19 17 Fall Risk Assessment completed Helen Gudino MA [facility] 09/07/2016 09:57:15 09/08/19 17 Mini-Cog Test completed Helen Gudino MA [facility] 09/07/2016 09:57:27 09/05/19 16 Fall Risk Assessment completed Helen Gudino MA [facility] 09/05/2015 08:38:38 09/05/19 16 Mini-Cog Test completed Helen Gudino MA [facility] 09/05/2015 08:38:38 09/05/19 16 Advanced Care Planning completed Helen Gudino MA [facility] 09/05/2015 08:38:38 09/04/19 15 Fall Risk Assessment completed Helen Gudino MA [facility] 09/03/2014 09:47:01 09/04/19 15 Mini-Cog Test completed Helen Gudino MA [facility] 09/03/2014 09:47:01 04/19/18 80 Back Surgery completed Eduardo Luz MD [address], [place], [address], [facility] 02/19/2014 08:28:43 Colonoscopy completed Helen Gudino MA [facility] 09/03/2014 09:47:00 Arthroscopic Surgery completed Elham Gasca [facility] 01/25/2020 10:06:23 Imaging Results Imaging Date Name Status LastModified by Organization Details LastModified Time 05/15/2024 CT, head, w/o contrast completed [facility] (Medical Records) [address] [place], [address], 05/17/2024 10:30:20 05/15/2024 XR, chest completed [facility] (Medical Records) [address] [place], [address], 05/17/2024 10:32:13 05/15/2024 electroencephalogram (EEG) (PROC) completed [facility] (Medical Records) [address] [place], [address], 05/17/2024 11:26:46 Procedure Notes None recorded. Medical Equipment None Reported. Allergies Allergen ID Allergen Name Allergen Category Reaction Reaction Severity Criticality Documentation Date Start Date Code Code System Note Provider Name and Address Organization Details Recorded Time 21390 sulfameth azine medicatio n diarrhea Not available Not available 09/16/2018 54576 RxNorm Helen Gudino MA null, [facility] 9 10:24:39 4082 cephalexi n monohydra te medicatio n abdominal pain mild Not available 10/31/20132013 53673 8 RxNorm Eduardo Luz MD [address], [place], [address], [facility] 8 08:58:04 Medications Name Sig Start Date Stop Date Status Note LastModified by Organization Details LastModified Time atorvasta tin 80 mg tablet Take 1 tablet every day by oral route for 90 days. active Not Available Not Available No t Available ascorbic acid (vitamin C) 1,000 mg tablet Take 1 tablet every day by oral route. active Not Available Not Available No t Available doxycycli ne hyclate 100 mg capsule Take 1 capsule twice a day by oral route for 3 days. 06/08 completed Not Available Not Available Not Available trazodone 50 mg tablet TAKE 1 TABLET BY MOUTH EVERYDAY AT BEDTIME active Not Available Not Available No t Available azithromy micky 250 mg tablet TAKE 2 TABLETS (500 MG) BY ORAL ROUTE ONCE DAILY FOR 1 DAY THEN 1 TABLET (250 MG) BY ORAL ROUTE ONCE DAILY FOR 4 DAYS 09/16 completed Not Available Not Available Not Available amiodaron e 200 mg tablet Take 1 tablet every day by oral route. active Not Available Not Available No t Available lisinopri l 20 mg tablet Take 1 tablet every day by oral route. 05/24 completed Not Available Not Available Not Available metoprolo l succinate ER 100 mg tablet,ex tended release 24 hr active Not Available Not Available Not Available atenolol 50 mg-chlort halidone 25 mg tablet TAKE 1 TABLET BY MOUTH EVERY DAY 07/17 completed Not Available Not Available Not Available amlodipin e 2.5 mg tablet Take 1 tablet every day by oral route. 12/01 completed Not Available Not Available Not Available amlodipin e 5 mg tablet TAKE 1 TABLET BY MOUTH EVERY DAY 09/26 completed Not Available Not Available Not Available lovastati n 10 mg tablet TAKE 1 TABLET BY MOUTH EVERY DAY 01/24 completed Not Available Not Available Not Available aspirin 81 mg tablet,de layed release TAKE 1 TABLET BY MOUTH EVERY DAY active Not Available Not Available No t Available acetamino phen 650 mg tablet Take 1 tablet every 6 hours by oral route as needed. active Not Available Not Available No t Available Aleve 220 mg tablet Take 1 tablet every 12 hours by oral route as needed. 03/06 completed Not Available Not Available Not Available amoxicill in 875 mg tablet 03/08 completed Not Available Not Available Not Available prednisol one acetate 1 % eye drops,feliciano pension ADMINIST ER 1 DROP INTO LEFT EYE [...] Available Nicoderm CQ 14 mg/24 hr daily transderm al patch Apply 1 patch every day by transder mal route. 06/08 completed per patient not useing patch Not Available Not Available Not Available pantopraz ole 40 mg tablet,de layed release Take 1 tablet every day by oral route for 90 days. active Not Available Not Available No t Available lidocaine 5 % topical patch APPLY 1 PATCH BY TOPICAL ROUTE ONCE DAILY (MAY WEAR UP TO 12HOURS. ) active PA DENIED; must get OTC Not Available Not Available Not Available metoprolo l tartrate 50 mg tablet Take 1 tablet twice a day by oral route. active Not Available Not Available No t Available Tylenol 325 mg tablet Take 2 tablets every 6 hours by oral route as needed. 06/08 completed Not Available Not Available Not Available hydroxyzi ne HCl 25 mg tablet Take 1 tablet as needed by oral route at bedtime for 90 days. active Not Available Not Available No t Available furosemid e 20 mg tablet TAKE 1 TABLET BY MOUTH EVERY DAY active Not Available Not Available No t Available metoprolo l succinate ER 25 mg tablet,ex tended release 24 hr TAKE 1 TABLET BY MOUTH EVERY DAY 09/26 completed Not Available Not Available Not Available cefuroxim e axetil 500 mg tablet Take 1 tablet every 12 hours by oral route for 3 days. 06/08 completed Not Available Not Available Not Available lovastati n 20 mg tablet TAKE 1 TABLET BY MOUTH EVERY DAY 03/06 completed Not Available Not Available Not Available albuterol sulfate HFA 90 mcg/actua tion aerosol inhaler INHALE 2 PUFFS INHALATI ON 4 TIMES A DAY,X30 DAYS, NEEDED WHEEZING /SHORTNE SS OF BREATH active Not Available Not Available No t Available doxycycli ne hyclate 100 mg tablet Take 1 tablet twice a day by oral route for 10 days. 04/10 completed Not Available Not Available Not Available atenolol 50 mg tablet TAKE 1 TABLET BY MOUTH EVERY DAY 09/21 completed Not Available Not Available Not Available loratadin e 10 mg tablet Take 1 tablet every day by oral route. active Not Available Not Available No t Available nicotine 7 mg/24 hr daily transderm al patch Apply patch as directed for 2-4 weeks as needed 03/06 completed Not Available Not Available Not Available valsartan 40 mg tablet Take 0.5 tablets twice a day by oral route. active 06/08/24 per patient/ [facility] Cardiol[facility] gist prescrib ing and will start med on Wednesday06/11/24 Not Available Not Available Not Available nicotine (polacril ex) 4 mg buccal lozenge TAKE 1 TABLET EVERY 2 HOURS BY ORAL ROUTE NEEDED. 06/08 completed PLEASE VERIFY IF USING Not Available Not Available Not Available zinc 50 mg capsule Take 1 capsule every day by oral route. active PLEASE VERIFY IF TAKING, NOT ON D/C SUMM Not Available Not Available Not Available Vitamin C 03/08 completed Not Available Not Available Not Available Doxycycli ne 100 mg , 1 tab every 12 hours for 10 day #20 05/16 completed Not Available Not Available Not Available Multivita mins Take 1 tablet po daily active Not Available Not Available No t Available loratadin e 10 mg capsule Take 1 capsule every day by oral route. 09/18 completed Not Available Not Available Not Available Aleve 220 mg capsule Take 1 capsule every day by oral route. 01/24 completed Not Available Not Available Not Available Mediplast [place]-Call us-Wart Remover 40 % topical patch Apply 1 patch every day by topical route as directed . 2014 active Not Available Not Available Not Avai lable ZzzQuil 50 mg/30 mL oral liquid Take by oral route. 03/06 completed sleep aid Not Available Not Available Not Available Combivent Respimat 20 mcg-100 mcg/actua tion solution for inhalatio n Inhale 1 puff 4 times a day by inhalati on route as needed. 06/24 completed Not Available Not Available Not Available Eliquis 5 mg tablet TAKE 1 TAB ORALLY 2 TIMES A DAY active Not Available Not Available No t Available naproxen 220 mg-diphen hydramine 25 mg tablet Take 1 tablet twice a day by oral route. 09/18 completed Not Available Not Available Not Available Trelegy Ellipta 100 mcg-62.5 mcg-25 mcg powder for inhalatio n INHALE 1 PUFF DAILY AT THE SAME TIME EVERY DAY active Not Available Not Available No t Available metoprolo l succinate ER 25 mg capsule sprinkle, ext. release 24 hr Take 1 capsule every day by oral route. 12/06 completed Not Available Not Available Not Available Fluzone High-Dose 2019-20 (PF) 180 mcg/0.5 mL intramusc ular syringe ADM 0.5ML IM UTD 01/24 completed Not Available Not Available Not Available albuterol sulf 90 mcg/actua tion breath activated powder inhaler,s ensor Inhale 2 puffs every 4 hours by inhalati on route as needed. 06/08 completed Not Available Not Available Not Available Vitals Date Recorded Body height Heart rate Oxygen saturation Oxygen saturation in Arterial blood by Pulse oximetry Body temperature Systolic blood pressure Diastolic blood pressure Provider Name and Address Organization Details Last Updated DateTime 4 169.55 cm 87 /min 97 % 97 % 98.3 [degF] 147 mm[Hg] 68 mm[Hg] Rob duncan [facility] 4 11:08:53 Date Recorded Body height Body mass index (BMI) Body weight Heart rate Oxygen saturation Oxygen saturation in Arterial blood by Pulse oximetry Body temperature Systolic blood pressure Diastolic blood pressure Systolic blood pressure Diastolic blood pressure Provider Name and Address Organization Details Last Updated DateTime 5 169.55 cm 28.9 kg/m2 29289.4 g 59 /min 93 % 93 % 97.6 [degF] 158 mm[Hg] 68 mm[Hg] 148 mm[Hg] 70 mm[Hg] Roseanna Little [facility] 5 14:07:22 Date Recorded Systolic blood pressure Diastolic blood pressure Provider Name and Address Organization Details Last Updated DateTime 06/08/2024 138 mm[Hg] 79 mm[Hg] Eduardo Luz MD [address] [address], [place], [address], [facility] 06/08/2024 14:40:40 Social History Question Answer Notes LastModified by Organizat ion Details LastModified Time Tobacco Smoking Status Former Smoker stopped 01/03/24 Roseanna Edwards [facility] 01/06/2024 14:20:14 Do You Have An Advance Directive? Yes HCP Son/Rusty, Dtr/Aixa [email or web address] Information not available 09/28/2022 What Is Your Level Of Alcohol Consumption? Moderate [id number] Information not available 02/20/2020 Is Blood Transfusion Acceptable In An Emergency? Yes [id number] Information not available 02/20/2020 What Is Your Level Of Caffeine Consumption? Moderate Coffee 1 Daily Information not available 12/07/2023 How Much Tobacco Do You Chew? None [id number] Information not available 02/20/2020 In The 14 [...] 06/25/2020 Are You Currently Employed? No Retired [id number] Information not available 02/20/2020 Are You Deaf Or Do You Have Serious Difficulty Hearing? No Information not available 06/25/2020 What Type Of Diet Are You Following? REGULAR [id number] Information not available 02/20/2020 Which Illicit Or Recreational Drugs Have You Used? None [id number] Information not available 02/20/2020 Do You Or Have You Ever Used E-cigarettes Or Vape? 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 No [email or web address] Information not available 06/25/2020 Marital Status Informatio n not available 07/31/2022 What Was The Date Of Your Most Recent Tobacco Screening? 12/07/2023 Information not available 12/07/2023 How Many Children Do You Have? 2 Rusty And Aixa [id number] Information not available 02/20/2020 What Is Your Current Pack Years? 30ormorepacky ears Information not available 02/20/2021 Difficulty Reading? No [email or web address] Information not available 09/03/2014 Seat Belts Used Routinely Yes Information not available 09/05/2015 Are You Sexually Active? Yes [id number] Information not available 02/20/2020 Smoke Alarm In Home Yes Information not available 09/05/2015 At What Age Did You Start Smoking Tobacco? 14 [id number] Information not available 02/20/2020 Are You Passively Exposed To Smoke? No Information not available 09/07/2016 Do You Or Have You Ever Used Smokeless Tobacco? Never Used Smokeless Tobacco [id number] Information not available 02/20/2020 How Much Tobacco Do You Smoke? 0.5 PPD <1 PPD Information not available 02/20/2021 Do You Use Any Illicit Or Recreational Drugs? No Information not available 02/20/2021 Do You Use Sunscreen Routinely? Yes [id number] Information not available 02/20/2020 How Many Years [...] you able to care for yourself? Yes [id number] Information not available 02/20/2020 Do you have difficulty dressing or bathing? No Information not available 06/25/2020 What is your exercise level? None Information not available 12/07/2023 Mental Status Question [...] History Condition Response Coronary Artery Disease N Other N Gout N Kidney Stones N Blood Diseases N Hyperthyroidism N Breast Cancer N mrsa exposure N Depression N COPD N Lung Disease N Hypothyroidism N Developmental or Behavioral Disorders N Defects or Inherited Disease N Breast Problem N Anesthesia Complications N Headaches/Migraines N Varicose Veins N Anxiety Disorder N Muscle, Joint, or Bone Problems N Obesity N Vision or Eye Problems N Arthritis N Head Injury/Concussion N Polyps N Infertility N Mental Disorder N Congenital Anomalies N Acid Reflux (GERD) N Cancer N Stroke N ADHD N Endometriosis N High Cholesterol Y Liver Disease N Headaches N Fibromyalgia N Kidney Disease N Heart Problems N Ear or Hearing Problems N Hospitalizations N Thyroid Problems N GI Problems N Developmental Delay N Acne N Skin Problems N Eating Disorder N Anemia N Constipation N Bladder Problems N Mental Illness N Ovarian Cancer N Diabetes N Bedwetting N Blood Transfusions N Seizures/Epilepsy N Heart Problems/Murmur N Tuberculosis N AIDS/HIV N Congestive Heart Failure (CHF) N Eczema N Diverticulitis N Abuse/Domestic Violence N Asthma N Allergies N Reflux/GERD N Hepatitis N Heart Disease N Pulmonary Embolism N Hypertension Y Osteoporosis N Chicken Pox N Autism Spectrum Disorder (ASD) N Immunizations Vaccine Type Date Status Note Provider Nam e and Address Organization Details Recorded Time Influenza, split virus, trivalent, preservative 4 completed Cleo metzger [facility] 08/21/2021 14:57:09 zoster live 4 completed [facility] 06/03/2023 11:25:44 Influenza, high-dose, trivalent, PF 6 completed WALLY [place] [facility] 09/18/2021 10:45:52 Influenza, split virus, quadrivalent, preservative 8 completed Cleo Daniels null, [facility] 08/21/2021 14:57:09 Influenza, high-dose, trivalent, PF 9 completed Helen Gudino MA null, [facility] 11/27/2021 11:20:28 COVID-19, mRNA, LNP-S, PF, 30 mcg/0.3 mL dose 1 [facility] 10:45:52 COVID-19, mRNA, LNP-S, PF, 30 mcg/0.3 mL dose 1 completed Helen Gudino MA null, [facility] 09/18/2021 10:45:52 COVID-19, mRNA, LNP-S, PF, 30 mcg/0.3 mL dose 1 completed Helen Gudino MA null, [facility] 09/18/2021 10:45:52 Influenza, high-dose, quadrivalent, PF 1 completed Helen Gudino MA null, [facility] 11/27/2021 11:20:28 COVID-19, mRNA, LNP-S, PF, 30 mcg/0.3 mL dose, sonu-sucrose 2 completed Helen Gudino MA null, [facility] 09/18/2021 10:45:52 Influenza, high-dose, trivalent, PF 8 completed Helenlaura Gudino MA null, [facility] 09/18/2021 10:45:52 zoster live 4 completed Helen Gudino MA null, [facility] 09/18/2021 10:45:52 Influenza, split virus, trivalent, preservative 2 completed Helen Gudino MA null, [facility] 09/18/2021 10:45:52 Influenza, high-dose, trivalent, PF 7 completed WALLY [place], [facility] 11/27/2021 11:20:28 pneumococcal polysaccharide PPV23 6 completed WALLY [place], [facility] 11/27/2021 11:20:28 Pneumococcal conjugate PCV 13 4 completed WALLY [place], [facility] 11/27/2021 11:20:28 Influenza, split virus, quadrivalent, PF 5 completed WALLY [place], [facility] 11/27/2021 11:20:28 Tdap 4 completed WALLY [place], [facility] 11/27/2021 11:20:28 Influenza, high-dose, quadrivalent, PF 0 completed WALLY [place], [facility] 11/27/2021 11:20:28 zoster recombinant 2 completed [place] [place], [facility] 03/31/2022 11:19:40 COVID-19, mRNA, LNP-S, bivalent, PF, 30 mcg/0.3 mL dose 2 completed WALLY [place], [facility] 03/31/2022 11:19:40 Influenza, adjuvanted, quadrivalent, PF 2 completed WALLY [place], [facility] 03/31/2022 11:19:40 zoster recombinant 3 completed WALLY [place], [facility] 07/31/2022 13:08:48 Influenza, high-dose, quadrivalent, PF 3 completed WALLY [place], [facility] 06/03/2023 11:25:44 COVID-19, mRNA, LNP-S, PF, sonu-sucrose, 30 mcg/0.3 mL 3 completed Roseanna Edwards [facility] null, [facility] 06/03/2023 11:25:44 Influenza, adjuvanted, trivalent, PF 4 completed Roseannaelham Edwards [facility] null, [facility] 01/06/2024 14:09:07 COVID-19, mRNA, LNP-S, PF, sonu-sucrose, 30 mcg/0.3 mL 4 completed Roseanna Edwards [facility] null, [facility] 01/06/2024 14:09:07 Tdap 4 completed Keshia Vazquez [facility] null, [facility] 03/08/2024 07:45:11 Influenza, split virus, trivalent, preservative 2 completed Cleo metzger, [facility] 08/21/2021 14:57:09 Influenza, split virus, trivalent, preservative 3 completed Cleo Daniels null, [facility] 08/21/2021 14:57:09 Past Encounters Encounter ID Performer Location Encounter Start Date Encounter Closed Date Diagnosis/Indication Diagnosis SNOMED-CT Code Diagnosis ICD10 Code Diagnosis Note [id number] autoEComm erce [address] [facility] [place] [address] 01/01/2012 00:00:00 [id number] autoEComm erce [address] [facility] [facility] [place] [address] 08/16/2012 00:00:00 [id number] autoEComm erce [address] [facility] [place] [address] 02/13/2013 00:00:00 [id number] autoEComm erce [address] [facility] [facility] [place] [address] 08/24/2013 00:00:00 [id number] Main Office [address] [facility] [address] [facility] [place] [address] 02/19/2014 07:54:09 02/19/2014 08:44:05 Essential hypertension 17879099 Well controlled . Continue current regimen. Hypercholesterolemia 85115247 LDL at goal. med well toelrated. Continue current dose. Insomnia 631390078 Stabl e and tolerating rx well. Will continue. 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 Continue current regimen. Administra tion of pneumococcal vaccine 20462245 Administra tion of diphtheria, pertussis, and tetanus vaccine [id number] Wilfred Newby Main Office [address] [facility] [address] [facility] [place] [address] 09/03/2014 08:39:15 09/03/2014 10:24:51 Adult health examination 313410081 Immunizati on status utd, will screen based on risk factors. Pt continues to decline AAA/colon cancer screening, despite being advised of and understand ing potential health consequenc es. Regular dental and ophtho care advised as well as seatbelt and sunscreen use. Distracted driving discussed. Pt currently demonstrat es risk for falls, but no significan t cognitive decline. Advance directives in place. Essential hypertension 83270074 No meds this AM will continue current regimen and reassess. Hypercholesterolemia 09258863 LDL at goal. med well toelrated. Continue current dose. Tobacco de pendence syndrome 85017986 Remans precontemp lative and understand s/accepts potential health consequenc es. Continue current regimen. Impaired f asting glycemia 016791138 At [facility] ed risk for falls 654806660 Secondary to severe knee OA which is being addressed. Body mass index 30+ - obesity 350481217 [id number] Eduardo Luz MD Main Office [address] [facility] [address] [facility] [place] [address] 02/28/2015 08:05:46 02/28/2015 08:54:18 Hypercholesterolemia 77763183 E78.0 LDL at goal. med well toelrated. Continue current dose. Essential hypertension 71992132 I10 Well controlled in context of significan t wt loss. Advised to call if s/s of hypotensio n develop as would decrease med dose. Needs infl uenza immunization 663975976 Z23 Weight decreased 5431440 01 R63.4 Pt continues to decline any cancer screening tests, understand ing of potential consequenc es. Even CXR was declined. Pt states that weight loss is a result of significan t diet and lifestyle modificati ons made to limit knee OA progressio n. WIll check some labs. 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 Call if not helping or symptoms worsen. Would refer to derm. [id number] Eduardo Luz MD Main Office [address] [place] [address] 09/05/2015 08:13:23 09/05/2015 09:19:59 Adult health examination 026511066 Z00.01 Immunizati on status utd, will screen [...] place. Advance di rective discussed with patient 651517323 Z71.89 Essential hypertension 99042792 I10 Hypercholesterolemia 136 02235 E78.0 LDL at goal. med well toelrated. Continue current dose. Tobacco de pendence syndrome 32080256 F17.290 Remans precontemp lative and understand s/accepts potential health consequenc es. Continue current regimen. Impaired f asting glycemia 252143861 R73.01 Body mass index 25-29 - overweight 889138412 E66.3 [id number] Eduardo Luz MD Main Office [address] [place] [address] 03/06/2016 07:56:56 03/06/2016 08:51:53 Pure hypercholesterolemia 534014703 E78.01 Will reassess control on low dose statin. Pt advised to call if having any symptoms of potential adverse effects whic were discussed at length. Essential hypertension 07658942 I10 Impaired f asting glycemia 559731723 R73.01 Likely statin related. Will follow. Administra tion of pneumococcal vaccine 53775286 Z23 [id number] Eduardo Luz MD Main Office [address] [place] [address] 09/07/2016 09:16:09 09/07/2016 10:43:19 Adult health examination 375816799 Z00.01 Immunizati on status utd, flu advised [...] place. Body mass index 25-29 - overweight 138250046 E66.3 Z68.25 Multiple joint pain 3567 8005 M25.50 Likely OA, following with ortho. Tobacco de pendence syndrome 06492621 F17.290 Remans precontemp lative and understand s/accepts potential health consequenc es. Continue current regimen. Essential hypertension 48365769 I10 Pure hypercholesterolemia 469303479 E78.01 Impaired f asting glycemia 549944971 R73.01 Likely statin related. Will follow. Numbness of hand 2294399 04 R20.0 Likely CTS. Will try conservati ve tx and call ortho or f/u here if persistent /worse. [id number] Eduardo Luz MD Main Office [address]40 [facility] [address] [place] [address] 03/08/2017 08:00:22 03/08/2017 09:29:19 Pure hypercholesterolemia 692344720 E78.01 LDL at goal. Continue current regimen. Essential hypertension 53948794 I10 Influenza vaccine needed 0372142817 106 Z23 Osteoarthritis 187278917 M19.90 Proteinuria 45214061 R80 .9 Suspect fasting had something to do with this result. Will reassess today. Impaired f asting glycemia 073104124 R73.01 Likely statin related. Will follow. [id number] Eduardo Luz MD Main Office 36[address] [facility] [address] [place] [address] 09/16/2017 08:06:18 09/16/2017 09:53:37 Adult health examination 413817336 Z00.00 Immunizati on status utd, flu advised [...] cognitive decline. Advance directives in place. Proteinuria 36923680 R80 .9 Suspect fasting had something to do with this result. Will reassess/m onitor, and discuss further assessment if persistent /worse. Pure hypercholesterolemia 471807968 E78.01 LDL at goal. Continue current regimen. Essential hypertension 38207571 I10 Mild elevation today. Using NSAIDS and gaining weight. Will continue monitoring for now. Tobacco de pendence syndrome 11287484 F17.290 Remans precontemp lative and understand s/accepts potential health consequenc es. Continue current regimen. Impaired f asting glycemia 471075389 R73.01 Likely statin related. Will follow. Obesity 050496016 E66.9 Body mass index 30+ - obesity 220142063 Z68.30 [id number] Eduardo Luz MD Main Office [address] [place] [address] 03/21/2018 08:49:50 03/21/2018 09:34:58 Pure hypercholesterolemia 124327824 E78.01 LDL at goal. Continue current regimen. Essential hypertension 72744974 I10 Well controlled . Continue current regimen. Hypokalemia 15011260 E87 .6 Likely related to diuretic. Will reassess and consider starting KCL vs reducing diuretic dose depending on results. [id number] Keshia Vazquez CPP Main Office [address] [place] [address] 05/13/2018 09:25:53 05/13/2018 11:36:09 [id number] Eduardo Luz MD Main Office [address] [place] [address] 05/16/2018 09:41:06 05/16/2018 10:40:18 Pneumonia 204811237 J18.9 Improving with azithro. Likely superimpos ed on COPD. Advised to call inb/worse or if second sickening occurs and broader/ex tended coverage would be warranted. Expiratory wheezing 9763 007 R06.2 Likely some aspect of COPD contributi ng. WIll try to manage with inhaler combo and consider short course of prednisone if not continuing to slowly improve. [id number] Eduardo Luz MD Main Office [address] [facility] [address] [place] [address] 09/16/2018 10:08:24 09/16/2018 11:11:09 Adult health examination 815279345 Z00.00 Immunizati on status utd, flu advised [...] Advance directives in place. Varicella vaccination 68 451448 Z23 Tobacco de pendence syndrome 21407450 F17.290 Remans precontemp lative and understand s/accepts potential health consequenc es. Continue current regimen. Obesity 368203616 E66.9 Z68.30 Impaired f asting glycemia 637346900 R73.01 Likely statin related. Will follow. Essential hypertension 80273034 I10 Mild elevation today. Using NSAIDS and gaining weight. Will continue monitoring for now. Body mass index 30+ - obesity 949729895 Z68.30 Pure hypercholesterolemia 655991207 E78.01 LDL at goal. Continue current regimen. Hypokalemia 49497840 E87 .6 Will reassess today and reduce diuretic if still low. [id number] Eduardo Luz MD Main Office [address] [facility] [address] [place] [address] 03/27/2019 13:14:06 03/27/2019 14:49:47 Pneumonia 207664693 J18.9 Suspect atypical process potentiall y involved based on risk factors. Will image to rule out complicate d process. Irregular heart beat 361 374859 R00.8 Concerned for Afib but ECG shows ectopy and conduction delays. Ventricula r premature beats 20991403 I49.3 With prolonged QT will assess potential metabolic/ electrolyt e issues as well as structural heart disease. Intraventr icular conduction defect 8541989 I45.4 Left axis deviation 3973 2002 R94.31 [id number] Eduardo Luz MD Main Office [address] [place] [address] 04/10/2019 11:12:11 04/10/2019 12:10:51 Essential hypertension 03599674 I10 Well controleld continue current regimen. Left axis deviation 3973 2002 R94.31 Has echo scheduled. PVC's asymptomat ic. If normal will defer further evaluation for now. Chronic sinusitis 801745 00 J32.9 Chronic issue without improvemen t after course of abx. Will defer imaging or further eval unless more concerning symptoms develop. [id number] Eduardo Luz MD Main Office [address] [place] [address] 09/19/2019 10:46:19 09/19/2019 11:44:00 Adult health examination 807548205 Z00.00 Immunizati on status utd, flu advised [...] Advance directives in place. 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 Continue current regimen. Screening for malignant neoplasm of lung 136144591 Z87.891 Eligible patients must have >=30 pack years. Pt declines screening and is above the recommende d age anyways. Screening for malignant neoplasm of colon 275442624 Z12.11 pt is willing to do FOB Ascending aorta dilatation 836988173 I77.810 Will reassess next year and focus on risk factor control. Essential hypertension 92747219 I10 Well controlled continue current regimen. Pure hypercholesterolemia 817499205 E78.01 LDL at goal. Continue current regimen. At [facility] ed risk for falls 775363007 Z91.81 Secondary to severe knee OA which is chronic. Not interested in PT. [id number] Anne Marie Randolph MA Main Office [address] [address] [place] [address] 09/27/2019 09:27:08 09/27/2019 09:38:00 Screening for malignant neoplasm of colon 218431736 Z12.11 [id number] Eduardo Luz MD Main Office [address] [address] [place] [address] 01/25/2020 10:05:38 01/25/2020 10:54:18 Essential hypertension 53225958 I10 Well controlled continue current regimen. Influenza vaccine needed 8215339299 106 Z23 Pure hypercholesterolemia 577467866 E78.01 LDL at goal. Continue current regimen. Ascending aorta dilatation 038420285 I77.810 Will reassess next year and focus on risk factor control. Impaired f asting glycemia 462560253 R73.01 Likely statin related. Will follow. [id number] Eduardo Lzu MD Main Office [address] [address] [place] [address] 06/25/2020 10:07:24 06/25/2020 11:12:34 Pure hypercholesterolemia 866591759 E78.01 LDL previously at goal. Will reassess and continue current regimen. Essential hypertension 98481851 I10 Fair control continue current regimen for now. Consider ARB if >130/90 at f/u. Ascending aorta dilatation 763286102 I77.810 Will reassess later this year and focus on risk factor control. [id number] Eduardo Luz MD [facility] [address] [address] [place] [address] 09/27/2020 09:00:31 09/27/2020 11:30:33 Adult health examination 907048469 Z00.00 Immunizati on status utd, flu advised [...] Advance directives in place. Varicella vaccination 68 060840 Z23 Tobacco de pendence syndrome 82203536 F17.290 Remains precontemp lative and understand s/accepts potential health consequenc es. Screening for malignant neoplasm of lung 873744124 Z87.891 Eligible patients must have >=30 pack years. Pt declines screening and is above the recommende d age anyways. Screening for malignant neoplasm of colon 851240915 Z12.11 Occult blood negative last year. Declines colonoscop y. Understand s/accepts potential consequenc es. Ascending aorta dilatation 765497468 I77.810 Will reassess in the Fall and focus on risk factor control. Essential hypertension 87803361 I10 Well controlled continue current regimen. Pure hypercholesterolemia 542219074 E78.01 LDL at goal. Continue current regimen. At [facility] risk for falls 913267909 Z91.81 Secondary to severe knee OA which is chronic. Not interested in PT. Impaired f asting glycemia 163350061 R73.01 Likely statin related. Will follow. [id number] Eduardo Luz MD Main Office [address] [facility] [address] [place] [address] 02/20/2021 10:33:11 02/20/2021 11:35:54 Pure hypercholesterolemia 998784783 E78.01 LDL at goal. Continue current regimen. Essential hypertension 74759467 I10 Not at goal but improved on recheck. Will continue current regimen and monitor for now. Ascending aorta dilatation 389154723 I77.810 Discussed arranging f/u ECHO but pt declines. Understand s potential; consequenc es. States that he wouldn't pursue interventi ons if progressin g. Impaired f asting glycemia 659354636 R73.01 Likely statin related. Will follow. [id number] Eduardo Luz MD Main Office [address] [facility] [address] [place] [address] 09/18/2021 10:31:24 09/18/2021 11:25:13 Essential hypertension 73794000 I10 Not at goal will add low dose CCB and titrate as tolerated to goal 120/80. Pure hypercholesterolemia 495635592 E78.01 LDL at goal, but due for reassessme nt. Ascending aorta dilatation 688890410 I77.810 Discussed arranging f/u ECHO but pt declines. Understand s potential consequenc es. States that he wouldn't pursue interventi ons if progresscortney ramos. States that his family/HCP understand his wishes as well. [id number] Eduardo Luz MD Main Office [address] [place] [address] 11/27/2021 10:46:41 11/27/2021 11:39:46 Adult health examination 959350706 Z00.00 Immunizati on status utd, flu advised [...] Advance directives in place. Varicella vaccination 68 821710 Z23 Essential hypertension 79046665 I10 BP has responded dramatical ly to low dose CCB both here and at home. Will d/c to see if needed. May try substituti ng CCB for BB at f/u if >130/90. Impaired f asting glycemia 737007758 R73.01 Likely statin related. Will follow. Pure hypercholesterolemia 968829005 E78.01 LDL at goal, but due for reassessme nt. Tobacco de pendence syndrome 82950104 F17.290 Remains precontemp lative and understand s/accepts potential health consequenc es. Ascending aorta dilatation 544733797 I77.810 Discussed arranging f/u ECHO but pt declines. Understand s potential consequenc es. States that he wouldn't pursue interventi ons if progressin rachel. States that his family/HCP understand his wishes as well. Screening for malignant neoplasm of lung 758691286 Z87.891 Eligible patients must have >=30 pack years. Pt declines screening and is above the recommende d age anyways. Screening for malignant neoplasm of colon 337641165 Z12.11 Occult blood negative last year. Declines colonoscop y. Understand s/accepts potential consequenc es. 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 Not interested in PT. [id number] Eduardo Luz MD Main Office [address] [place] [address] 03/31/2022 11:11:46 03/31/2022 12:05:02 Essential hypertension 72774383 I10 Low BP at home, and diuretic affording low K. Will d/c chlorthali done and monitor on atenolol alone. Impaired f asting glycemia 722067024 R73.01 Likely statin related. Will follow. Pure hypercholesterolemia 171905935 E78.01 LDL at goal, but due for reassessme nt. Hypokalemia 09749465 E87 .6 Will monitor with d/c of diuretic. Ascending aorta dilatation 612880488 I77.810 Discussed arranging f/u ECHO but pt declines. Understand s potential consequenc es. States that he wouldn't pursue interventi ons if progressin g. States that his family/HCP understand his wishes as well. [id number] MITCH Rene Main Office [address] [address] [place] [address] 07/17/2022 13:36:22 07/17/2022 14:22:48 Insomnia 458764538 G47.00 His 3 weeks ago and he is having trouble both falling and staying asleep. Lorazepam helps him fall asleep and sleep through the night. He denies dizziness. Will fill script short term and he will discuss further with PCP. I did explain this is not typically first line therapy and not [employer]. Bereavement 03155660 Z63 .4 Grieving his of 56 years. Essential hypertension 77373917 I10 Repeat BP elevated, he denies sx of headache, dizziness, chest pain or palpitatio ns.Take 2 atenolol for now, check BP every other day with home BP cuff. F/u in 2 weeks on with readings from machine. [id number] Eduardo Luz MD [facility] [address] [address] [place] [address] 07/31/2022 12:32:53 08/03/2022 14:46:44 Essential hypertension 22221857 I10 Stress of Yeimi's recent passing and regular NSAID use are likely contributi ng factors. Will resume amlodipine and continue atenolol 50mg for now. Depending on BP response would consider titrating CCB and weaning off of atenolol. Advised to go for labs before next appt. Insomnia 906850985 G47.0 0 Stable and tolerating rx well. Will continue. Ascending aorta dilatation 647163827 I77.810 Discussed arranging f/u ECHO but pt declines. Understand s potential consequenc es. States that he wouldn't pursue interventi ons if progressin g. States that his family/HCP understand his wishes as well. [id number] Eduardo Luz MD Main Office [address] [facility] [address] [facility] [place] [address] 09/28/2022 11:11:45 09/28/2022 12:20:25 Essential hypertension 80429139 I10 Not at goal, will titrate amlodipine dose to goal BP <130/90. [id number] Eduardo Luz MD Main Office [address] [facility] [address] [place] [address] 12/01/2022 10:45:34 12/01/2022 11:55:00 Adult health examination 083665344 Z00.00 Immunizati on status utd, flu advised [...] decline. Advance directives in place. Essential hypertension 33851626 I10 Impaired f asting glycemia 006323882 R73.01 Likely statin related. Will follow. Pure hypercholesterolemia 815796317 E78.01 LDL at goal, but due for reassessme nt. Tobacco de pendence syndrome 14130590 F17.290 Remains precontemp lative and understand s/accepts potential health consequenc es. Ascending aorta dilatation 932643770 I77.810 Discussed arranging f/u ECHO but pt declines. Understand s potential consequenc es. States that he wouldn't pursue interventi ons if progressin g. States that his family/HCP understand his wishes as well. Screening for malignant neoplasm of lung 417306891 Z87.891 Eligible patients must have >=30 pack years. Pt declines screening and is above the recommende d age anyways. Screening for malignant neoplasm of colon 829244284 Z12.11 Asymptomat ic, declines colonoscop y. Understand s/accepts potential consequenc es. 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 Not interested in PT. Advance di rective discussed with patient 660218136 Z71.89 Molst form completed and scanned into chart Sensorineu ral hearing loss of bilateral ears 797530629 H90.3 Has hearing aides but needs [facility] to [facility] understand how to use them Not for resuscitation 30 8491368 Z66 Verified verbally and documneted on MOLST form. [id number] Eduardo Luz MD Main Office [address] [place] [address] 06/03/2023 11:07:37 06/03/2023 12:10:51 Pure hypercholesterolemia 430014717 E78.01 LDL at goal, but due for reassessme nt before next appt Essential hypertension 53089691 I10 Prediabetes 337546391 R7 3.03 [id number] KELLY CONWAY Main Office [address] [place] [address] 09/21/2023 13:06:54 09/24/2023 15:13:00 [id number] Starla Damon Main Office [address] [place] [address] 09/27/2023 10:17:43 09/27/2023 11:08:05 Syncope 522542350 R55 -has an appt scheduled with cardiology -cardiolog y plans to f/u with holter monitor-joseph s not experience s syncopal episode or symptoms since discharge- ED ekg revealed a few PACs, no VTs or ST changes-am bulates with walker Transition of care 26802 16444 105 Z75.8 reviewed hospital documentat ion Essential hypertension 55154494 I10 in office BP stable at 122/63-c/w current regimen [id number] Eduardo Luz MD Main Office [address] [facility] [address] [place] [address] 12/07/2023 10:48:23 12/07/2023 12:06:50 Adult health examination 093637097 Z00.00 Immunizati on status utd, flu advised [...] decline. Advance directives in place. Essential hypertension 13726612 I10 Not at goal today, but better on recheck and normal at recent cardiology appt. Has stress test scheduled this Wednesday, and cards f/u in 2 weeks. Will defer medication adjustment s to them this time. Impaired f asting glycemia 075070784 R73.01 Likely statin related. Will follow. Pure hypercholesterolemia 769395022 E78.01 LDL at goal, but due for reassessme nt. Tobacco de pendence syndrome 97327017 F17.290 Remains precontemp lative and understand s/accepts potential health consequenc es. Ascending aorta dilatation 824342706 I77.810 Basically stable in size on recent echo. Will monitor with cardiology . Screening for malignant neoplasm of lung 287588243 Z87.891 Eligible patients must have >=30 pack years. Pt declines screening and is above the recommende d age anyways. Screening for malignant neoplasm of colon 065477367 Z12.11 Asymptomat ic, declines colonoscop y. Understand s/accepts potential consequenc es. 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 Not interested in PT, or surgical interventi ons. Advance di rective discussed with patient 157222253 Z71.89 Molst form completed and scanned into chart Sensorineu ral hearing loss of bilateral ears 372481518 H90.3 Has hearing aides but needs [facility] to [facility] understand how to use them Not for resuscitation 30 5108416 Z66 Verified verbally with patient and his dtr Emma. Documented on MOLST form. Administra tion of viral vaccine 83625218 Z29.11 Requires a tetanus booster 425459926 Z28.39 Administra tion of pneumococcal vaccine 20184594 Z23 Paroxysmal atrial fibrillation 761372063 I48.0 On amiodarone , will monitlor thyroid and lung function. [id number] Eduardo uLz MD Main Office [address] [address] [place] [address] 01/06/2024 14:01:06 01/06/2024 15:09:35 Dyspnea 803976799 R06.00 Constellat ion of symptoms makes me suspect this is related to fluid overload/C HF rather than COPD. COPD diagnosis will need to be firmed up if diuretic does not help. Ambulatory O2 assessment did not warrant considerat ion of oxygen supplement ation. Congestive heart failure 44368712 I50.22 Will start diuretic and check labs. If dyspnea does not improve and proBNP is normal will need to pursue further pulmonary assessment . Has cardiology f/u in 4 weeks. Prediabetes 601361008 R7 3.03 For some reasona the labs ordered at last visit were not all done. Tobacco de pendence in remission 061751398 F17.201 Quit 4 days ago because of the dyspnea. Would like some nicotine replacemen t therapy. [id number] Eduardo Luz MD Main Office [address] [address] [place] [address] 02/09/2024 12:00:29 02/10/2024 16:38:42 [id number] KELLY CONWAY Main Office [address] [address] [place] [address] 03/01/2024 13:16:06 03/12/2024 19:55:29 [id number] Starla Damon Main Office [address] [address] [place] [address] 03/08/2024 11:00:45 03/08/2024 11:49:15 Transition of care 8427618577 105 Z75.8 reviewed hospital documentat ion Essential hypertension 34797413 I10 in office BP of 147/68-has visiting nurse and BP at home is at goal-c/w current regimen Cerebrovas cular accident 272200809 I63.9 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 mobility and ADLs-was evaluated by neurology> started on ASA 81mg QD, lovastatin 80mg QD-has PT/OT services at home, 3-4 times a week Paroxysmal atrial fibrillation 672152234 I48.0 -anticoagu lated with eliquis 5mg BID, amiodarone 200mg QD-has been off metoprolol due to low HR Osteoarthr itis of knee 853271122 M17.0 -chronic hx-receive s cortisone injections , 4 times a year-compl eted steroid taper given by physiatry with improvemen ts in pain Congestive heart failure 45704863 I50.9 -c/w furosemide 20mg QD-follows with cardiology -mild right ankle edema>disc ussed to wear compressio n stockings and elevate leg [id number] Eduardo Luz MD Main Office [address] [place] [address] 05/18/2024 12:42:17 05/31/2024 11:45:17 [id number] Eduardo Luz MD Main Office [address] [place] [address] 06/08/2024 13:25:08 06/08/2024 14:41:50 Pure hypercholesterolemia 779516946 E78.01 LDL at goal, on high dose statin, will continue current dose. Essential hypertension 03206404 I10 Better on recheck and nl yesterday. Following with cardiology closely, will continue current regimen. Will be starting valsartan this weekend. Atrial fibrillation 4943 6004 I48.0 Rate well controlled on DOAC, amio and BB. Insomnia 826083137 G47.0 0 Will try trazodone after Mg supplement . Advised of common/ser ious potential side effects and to call with any problems. Paroxysmal atrial fibrillation 625596398 I48.0 On amiodarone , will monitor thyroid and lung function. Administra tion of viral vaccine 30701992 Z29.11 Health Concerns Section Related Observation LastModified by Organization Detai ls LastModified Time None Recorded Concern Status LastModified by Organization Details LastModified Time None Recorded Advance Directives Directive Y: HCP Son/Rusty, Dtr/[employer]ixa Payers Encounter Date Sequence Insurance Name Policy Number Policy Dempsey Covered Member ID Dempsey Member ID Guarantor Name 02/09/2024 1 [employer] (MEDICARE REPLACEMENT PPO) [id number] 1 Sandro Thayer [id number] Sandro Thayer 02/09/2024 2 [employer] - [employer] BENEFIT PLAN (FFS/PPO) 77 Sandro Thayer [id number] Sandro Thayer 03/01/2024 1 [employer] (MEDICARE REPLACEMENT PPO) [id number] 1 Sandro Thayer [id number] Sandro hTayer 03/01/2024 2 [employer] - [employer] BENEFIT PLAN (FFS/PPO) 77 Sandro Thayer [id number] Sandro Thayer 03/08/2024 1 [employer] (MEDICARE REPLACEMENT PPO) [id number] 1 Sandro Thayer [id number] Sandro Thayer 03/08/2024 2 [employer] - [employer] BENEFIT PLAN (FFS/PPO) 77 Snadro Thayer [id number] Sandro Thayer 05/18/2024 1 [employer] (MEDICARE REPLACEMENT PPO) [id number] 1 Sandro Thayer [id number] Sandro Thayer 05/18/2024 2 [employer] - [employer] BENEFIT PLAN (FFS/PPO) 77 Sandro Thayer [id number] Sandro Thayer 06/08/2024 1 [employer] (MEDICARE REPLACEMENT PPO) [id number] 1 Sandro Thayer [id number] Sandro Thayre 06/08/2024 2 [employer] - [employer] BENEFIT PLAN (FFS/PPO) 77 Sandro Thayer [id number] Sandro Thayer Notes Date Note Type Note Provider Name and Address Organization Details Recorded Time 024 text/ht ml Hospitalization Contact RecordReported bypatient.Follow UpHospital: [facility]; admit date: (Please enter in format 'MM/DD/YYYY') (02/06/2024); date of discharge: (Please enter in format 'MM/DD/YYYY') (02/09/2024); date of contact: (Please enter in format 'MM/DD/YYYY') (02/10/2024)Notes:Medicare covered inpatient stay? yesMedicare YAMILETH with in 48 working hours? yesHigh Complexity code valid on or before:JanuaryModerate Complexity code valid on or before:FebruaryHCP on file? yesMOLST on file? yesDischarge Summary available? yes02/10/2024- NOTED ON D/C SUMMARY THAT PT WAS TRANSFERRED UPON DISCHARGE TO INPATIENT REHAB FACILITY. Pt presented to [facility] after a fall at home with right sided weakness.Pt woke that morning and sat on edge of bed for a minute. When he stood to walk to he felt his rt leg was to [...] sided weakness. MEDS RECONCILED Eduardo Luz MD [address] [facility] [address], [place], [address], [facility] 02/10/2024 16:38:39 024 text/ht ml Hospitalization Contact RecordReported bypatient.Follow UpHospital: SNF; admit date: (Please enter in format 'MM/DD/YYYY') (02/09/2024); date of discharge: (Please enter in format 'MM/DD/YYYY') (03/01/2024); date of contact: (Please enter in format 'MM/DD/YYYY') (03/02/2024)Notes:Medicare covered inpatient stay? yesMedicare YAMILETH with in 48 working hours? yesHigh Complexity code valid on or before:FebruaryModerate Complexity code valid on or before:FebruaryHCP on file? yesMOLST on file? yesDischarge Summary available? yes03/06/2024- pt already had hosp f/u scheduled prior to leaving SNF.Was admitted to [facility] from 02/06/24-02/09/24, then transferred to [facility] until 03/01/2024. Pt presented to [facility] with right sided weakness, causing fall. [...] for recs. MEDS RECONCILED KELLY CONWAY [address] [facility] [address], [place], [address], [facility] 03/12/2024 19:55:27 024 text/ht ml Hospitalization Contact RecordFor follow up, patient reports hospital: snf, admit date: (02/09/2024), date of discharge: (03/01/2024), and date of contact: (03/02/2024).Medicare covered inpatient stay? yesMedicare YAMILETH with in 48 working hours? yesHigh Complexity code valid on or before:FebruaryModerate Complexity code valid on or before:FebruaryHCP on file? yesMOLST on file? yesDischarge Summary available? yes03/06/2024- pt already had hosp f/u scheduled prior to leaving SNF.Was admitted to [facility] from 02/06/24-02/09/24, then transferred to [facility] until 03/01/2024. Pt presented to [facility] with right sided weakness, causing fall. [...] consulted for recs. MEDS RECONCILED Starla metzger [facility] 03/22/2024 09:44:09 025 text/ht ml Hospitalization Contact RecordReported bypatient.Follow UpHospital: [facility]; admit date: (Please enter in format 'MM/DD/YYYY') (05/15/2024); date of discharge: (Please enter in format 'MM/DD/YYYY') (05/18/2024); date of contact: (Please enter in format 'MM/DD/YYYY') (05/18/2024)Notes:Medicare covered inpatient stay? yesMedicare YAMILETH with in [...] on 06/08/2024 with PCP Pt presented to [facility] after witnessed episodes of convulsions . [...] with RVR. Treated with IV Metoprolol then [id number] to oral Metoprolol 25 mg every 6 hrs. Continue Eliquis, Amiodarone, Beta Blockers. Has f/u with Cards to discuss poss ablation. MEDS RECONCILED Eduardo Luz MD [address], [place], [address], [facility] 05/31/2024 11:45:15 025 text/ht ml Hospitalization Contact RecordReported bypatient.Follow UpHospital: [facility]; admit date: (Please enter in format 'MM/DD/YYYY') (05/15/2024); date of discharge: (Please enter in format 'MM/DD/YYYY') (05/18/2024); date of contact: (Please enter in format 'MM/DD/YYYY') (05/18/2024)Notes:Medicare covered inpatient stay? yesMedicare YAMILETH with in [...] on 06/08/2024 with PCP Pt presented to [facility] after witnessed episodes of convulsions . [...] with RVR. Treated with IV Metoprolol then [id number] to oral Metoprolol 25 mg every 6 hrs. Continue Eliquis, Amiodarone, Beta Blockers. Has f/u with Cards to discuss poss ablation. MEDS RECONCILEDHyperlipidemiaReported bypatient.Duration:chronic Control:usually well controlled; improving; at goal Current Therapy:currently taking: (atorvastatin 80mg); last cholesterol level: (172); last LDL level: (89); last triglyceride level: (74); last HDL level: (69) Compliance:does not exercise Complications:coronary artery disease;cardiovascular disease Risk Factors:hypertensionHypertension F/UReported bypatient.Associated Symptoms:no dizziness; no lightheadedness; no chest pain; no shortness of breath Lifestyle:not exercising regularly Medications:taking medications as directedNotes:BP was normal at cardiology appt yesterday.InsomniaReported bypatient.Severity:moderate Onset/Timing:gradual onset Associated Symptoms:no anxiety; no depression; no known sleep apnea; legs do not feel restless;snoringNotes:Has stopped alcohol and tobacco use. Eduardo Luz MD [address] [address], [place], [address], [facility] 06/08/2024 14:44:33
--- OUTSIDE RECORDS SUMMARY | 2024-07-03 11:54 | XMS_ITS | Continuity of Care Document ---
Author Name [facility] Organization [facility] Care Team Providers Care Clam Picker Name Role Phone [facility] Unavailable Unavailable Problems Combined list of problems [...] Comment: PCP - Eduardo Vickers MD - [facility] Osteoarthritis of Knee ([facility] [id number]) Active Condition Oct 06, 2022 Entered By: ROD DEVLIN Comment: Bilaterally [facility] Sensorineural hearing loss, bilateral Active Condition [facility] Diagnosis: ICD-10-CM M21.371 Foot drop, right foot Active Diagnosis [facility] Diagnosis: ICD-10-CM M25.561 Pain in right knee Active Diagnosis [facility] Diagnosis: ICD-10-CM L60.3 Nail dystrophy Active Diagnosis [facility] Diagnosis: ICD-10-CM I10 Essential (primary) hypertension Active Diagnosis [facility] Diagnosis: ICD-10-CM Z46.1 Encounter for fitting and [...] HOURS, THEN REMOVE PATCH) TOPICA L 05/25/2024 [id number] HAY MADDEN SA 2024 30 [place] [...] Site Reaction Lot Number CVX Code 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 Comments Source ZOSTER RECOMBINANT 2 2022 187 complet ed -obtained from Medical records provided by [employer] Auditor s Lot#: [id number] [facility] COVID-19 (InSpa), MRNA, LNP-S, PF, 30 MCG/0.3 ML DOSE 4 2022 208 complet ed Covid Card Lot#: [id number] Mfr: [employer]pa, INC [facility] ZOSTER RECOMBINANT 1 2021 187 complet ed -obtained from Medical records provided by [employer] Auditor s Lot#: [id number] [facility] INFLUENZA, UNSPECIFIED FORMULATION 2021 88 complet ed Vet's record [facility] COVID-19 (PFIZER), MRNA, LNP-S, BIVALENT, PF, 30 MCG/0.3 ML DOSE 1 2021 300 complet ed -obtained from Medical records provided by [employer] Auditor s Lot#: [id number] AR [employer]knowledge [facility] INFLUENZA, UNSPECIFIED FORMULATION 2021 88 complet ed -obtained from Medical records provided by [facility] s Lot#: [id number] Mfr: SEQIRUS [facility] COVID-19 (InSpa), MRNA, LNP-S, PF, 30 MCG/0.3 ML DOSE, JENA-SUCROSE (AGES 12+ YEARS) 1 2021 217 complet ed -obtained from Medical records provided by [employer] s Lot#: [id number] AR [employer] [facility] COVID-19 (PFIZER), MRNA, LNP-S, PF, 30 MCG/0.3 ML DOSE 3 2020 208 complet ed JLV Lot#: [id number] Mfr: [employer], INC [facility] COVID-19 (PFIZER), MRNA, LNP-S, PF, 30 MCG/0.3 ML DOSE 2 2020 208 complet ed Covid Card Lot#: [id number] Mfr: [employer] [facility] COVID-19 (PFIZER), MRNA, LNP-S, PF, 30 MCG/0.3 ML DOSE 1 2020 208 complet ed Covid Card Lot#: [id number] Mfr: [employer] [facility] [place] [facility] [facility] PNEUMOCOCCAL POLYSACCHARID E [id number] 2015 33 complet ed -obtained from Medical records provided by [employer] Auditor s Lot#: [id number] Mfr: [employer] [facility] [place] [facility] PNEUMOCOCCAL CONJUGATE PCV 13 2013 133 complet ed -obtained from Medical records provided by [facility] s Lot#: [id number] [facility] TDAP 2013 115 complet ed -obtained from Medical records provided by [facility] s Lot#: [id number] Mfr: SANOFI PASTEUR [facility] Vital Signs Combined list of inpatient and outpatient Vital Signs from Department of Defense and Veterans Affairs, ranging from 12 months to all on record, depending upon the facility. Vital Sign Value Date Comments Source SYSTOLIC BLOOD PRESSURE 154 03/20/20 14:17:53 [facility] DIASTOLIC BLOOD PRESSURE 84 024 14:17:53 [facility] PULSE OXIMETRY 95 03/20/2024 14:17:53 [facility] PAIN 0 03/20/2024 14:17:53 [facility] TEMPERATURE 98 03/20/2024 14:17:53 [facility] PULSE 90 03/20/2024 14:17:53 [facility] RESPIRATION 16 03/20/2024 14:17:53 [facility] SYSTOLIC BLOOD PRESSURE 165 10/12/19 24 10:58:46 [facility] DIASTOLIC BLOOD PRESSURE 77 024 10:58:46 [facility] PULSE OXIMETRY 95 10/12/2023 10:58:46 [facility] [...] included; 2) Encounters from the Department of amBX facilities going backup to 280 months. Location Location Details Encounter Type Encounter Number Reason For Visit Attending Provider ADM Date DC Date Status Disposition Source [facility] HEARING AID REPAIR/MOD IFYING [id number] Diagnos is: ICD-10- CM Z46.1 Encount er for fitting and adjustm ent of hearing aid Conchita PALMER 01/22 [facility] Outpatient Encounter [id number] 08/04 [facility] Out[facility] Encounter [id number] 08/04 [facility] Out[facility] Encounter [id number] 09/19 [facility] Out[facility] Encounter [id number] 09/28 [facility] [place] [facility] O/P EST MOD 30 MIN [id number] Diagnos is: ICD-10- CM I10 Essenti al (primar y) hyperte nsion REED MADDEN 10/11 [place] [facility] O/P NEW LOW 30 MIN [id number] Diagnos is: ICD-10- CM L60.3 Nail dystrop hy JENNIFER CAMPOS ES F 11/07 [place] [facility] Outpatient Encounter [id number] 02/05 [facility] Outpatient Encounter [id number] 02/28 [facility] [place] [facility] O/P EST LOW 20 MIN [id number] Diagnos is: ICD-10- CM L60.3 Nail dystrop hy JENNIFER CAMPOS ES F 03/20 [place]/OP EST MAY X REQ PHY/QHP [id number] Diagnos is: ICD-10- CM M25.561 Pain in right knee GILBERT MOJICA IC K 03/20 [place] [facility] Outpatient Encounter [id number] 03/20 [facility] Outpatient Encounter [id number] 03/23 [facility] [place] GAIT TRAINING THERAPY [id number] Diagnos is: ICD-10- CM M21.371 Foot drop, right foot STEVE CARTER 04/06 [place] [facility] Outpatient Encounter [id number] 04/20 [facility] Social History Combined list of available smoking, tobacco, and other social history from Department of Defense and Veterans Affairs facilities. Social History Type Response Date Comment Sourc e Tobacco smoking status NHIS VA-TOBACCO USER EVERY DAY 09/18 [facility] History of tobacco use VA-TOBACCO USE WI 30 MIN OF WAKEUP 10/12/2023 [facility] Plan of Care List of future care activities from Department of Veterans Affairs facilities. Additional future care activities may be listed in the Assessment and Plan section. Date/Time Care Activity Care Activity Detail [facility] 07/24/2024 AMBULATORY - MEDICINE AMBULATORY - MEDICI [place] 10/10/2024 AMBULATORY - MEDICINE AMBULATORY - MEDICI [facility] Advance Directives List of completed, amended, or rescinded Advance Directives on record at Department of Veterans Affairs facilities. An actual copy of the Directive is not included. Date Advance Directive Provider Source 10/06/2022 ADVANCE DIRECTIVE [facility]
--- OUTSIDE RECORDS SUMMARY | 2024-07-03 11:54 | XMS_ITS | Encounter Summary ---
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 Date/Time Encounter Type Encounter Description Reason Provider Source Mar 20, 2024 01:30 PM OFFICE O/P EST LOW 20 MIN PODIATRY ICD-10-CM L60.3 Nail dystrophy ADEEL CAMPOS Encounter Template Text not used by [place] Assessments - Encounter Diagnoses This section includes the primary and secondary diagnoses documented for the Encounter. Date/Time Primary/Secondary Diagnosis Diagnosis Name Provider Source Apr 06, 2024 01:32 PM PRIMARY Nail dystrophy ADEEL CAMPOS Apr 06, 2024 01:32 PM SECONDARY Pain in left toe(s) ADEEL CAMPOS Apr 06, 2024 01:32 PM SECONDARY Pain in right toe(s) ADEEL CAMPOS [facility] Apr 06, 2024 01:32 PM SECONDARY Peripheral vascular disease, unspecified ADEEL CAMPOS [facility] Plan of Treatment: Future Appointments (+ 6 months) and Future Tests (+/- 45 days) The Plan of Treatment section includes future care activities for the patient from all [place] treatmentfacilities. This section includes future appointments and future orders which are active, pending or scheduled. Future Appointments This section includes appointments that were scheduled to occur 6 months from the date of the Encounter, up to a maximum of 20 appointments. The data comes from all [place] treatment facilities. Appointment Date/Time Appointment Type Appointme nt Facility Name Apr 06, 2024 01:30 PM AMBULATORY - REHAB MEDICIN E [facility] Jul 24, 2024 01:30 PM AMBULATORY - MEDICINE [facility] Vital Signs: All taken on the encounter date This section contains inpatient and outpatient Vital Signs collected on the date of the Encounter. Date/Time Temperature Pulse Blood Pressure Respiratory Rate SP02 Pain Height Weight Body Mass Index Source Mar 20, 2024 02:17 PM 98 90 154/84 16 95 0 [facility] I[facility] Social History: Smoking Status (Most current) and Tobacco Use (All prior to encounter date) This section includes the most current, and the historical, smoking and tobacco- related health factors from the [place] facility where the Encounter took place. Current Smoking Status This section includes the most current smoking, or tobacco-related health factor, from the [place] facility where the Encounter took place. Date/Time Current Smoking Status Comment Facil ity Oct 12, 2023 10:30 AM VA-TOBACCO USER EVERY DAY [facility] Tobacco Use History This section includes a history of the smoking, or tobacco-related health factors, that were collected on or before the date of the Encounter. The data comes from the [place] facility where the Encounter took place. 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 This section includes ALL of a patient's completed or amended [place] Advance and Rescinded Directives. The entries below indicate that a directive exists for the patient, but an actual copy is not included with this document. The data comes from all [place] facilities. Date Advance Directives Provider Source Oct 06, 2022 ADVANCE DIRECTIVE MANUELA LUTZ [facility] Encounter Notes: All associated encounter notes This section contains the clinical notes associated to the Encounter. Date/Time Encounter Note(s) Provider Source Mar 20, 2024 08:56 AM PODIATRY NOTE: LOCAL TITLE: PODIATRY NOTE STANDARD TITLE: PODIATRY NOTE DATE OF NOTE: MAR 20, 2024@08:56 ENTRY DATE: MAR 20, 2024@08:56:13 AUTHOR: ADEEL CAMPOS COSIGNER: URGENCY: STATUS: COMPLETED LAST SEEN: INITIAL CONSULT VISIT 11/08/2023 NOTE: [facility] Pt. is a 83 yo alert WDWN CAUC MALE who IS SEEN for CONTINUED podiatric examination & CARE for treatment of a presenting complaint of painful ingrown toenails. Patient had NOT BEEN SEEN BY PODIATRY IN THE PAST AT THE [place] prior to initial visit. Patient has been referred by: JONY HINOJOSA NP Location of symptoms are: NAILS 1-2-3-4-5 BILATERAL but primarily 1-2-3 RT & 1-2 LT Onset of symptoms has been several YEARS due to this being a recurrent condition that has been exacerbating over the past few MONTHS HE HAS NOT BEEN SEEN FOR 2 YEARS. Duration of symptoms is daily with periods of exacerbation and remission. Description of symptoms is of an aching-throbbing nature ESPECIALLY MED & LATERAL NAIL BORDERS 1 & 2 LEFT & 1-2-3 RT. Contributing factors are: shoes and increased activity. Previous treatment: PRIVATE PODIATRY AND HAS NOT BEEN PLEASED WITH CARE. PMH: Active problems - Computerized Problem List is the source for the following: *NOTE: REVIEWED ABOVE, NOTING NON-CONTRIBUTORY TO THE CC *NOTE: PLEASE SEE PROBLEM LIST TEMPLATE FOR COMPLETE LIST NEEDED. Family History: Non-contributory Social History: N/A *NOTE: DENIES ANY RECENT CHANGES IN MEDS UPON QUESTIONING TODAY-SEE RECONCILIATION PERFOMED THIS DATE BELOW TOBACCO USE = 3/4 PACK PER DAY Allergies:Patient has answered NKA Previous Surgery/Hospitalization: N/A [...] present physical-medical status. Protective sensation utilizing a [place] lOg monofilament is 08/10 bilateral. BIOMECHANICAL: Exam [...] underlying medical conditions. Return to Clinic: Weeks 07/24 @ 1:30PM) *DISCUSSED NEW PROTOCOLS AND CALLED MARY JANE TODAY FOR RESCHEDULING I DISCUSSED THE FINDINGS & PLAN WITH PATIENT (UNCHANGED SINCE PREVIOUS VISIT) & PATIENT AGREES AND UNDERSTANDS PLAN *TALKED WITH HIS DAUGHTER OLIVIA CRUZ RECENT SRTROKE AND SLOWLY RESPONDING AND IN NEED OF A KNEE BRACXE & I REFERRED THEM TO AMY AT THE WALK IN CLINIC [facility] TO DETERMINE HOW TO OBTAIN THE LIDOCAINE PATCHES. Medication Reconciliation: PERFORMED TODAY - SEE BELOW. Outpatient: Has the patient been taking medications as documented in the EMLR? YES: The patient has been taking medications as documented in the EMLR. Essential Medication List for Review used to complete this medication reconciliation. INCLUDED IN THIS LIST: Alphabetical list of active outpatient prescriptions dispensed from this VA (local) and dispensed from another VA or DoD facility (remote) as well as inpatient orders [...] whether with a VA or non-VA provider. JLV Link Data on this list may not be complete. Please check JLV. Allergies/ADRs (Tool #5) FACILITY ALLERGY/ADR -------- No Remote Allergy/ADR Data available for this patient [facility] No Known Allergies Med Recon NoGlossary (Tool #1) INCLUDED IN THIS LIST: Alphabetical list of active outpatient prescriptions dispensed from this VA (local) and dispensed from another VA or DoD facility (remote) as well as inpatient orders (local pending and active), local clinic medications, locally documented non-VA medications, and local prescriptions that have or been discontinued in the past 90 days. Non-VA Meds Last Documented On: Oct 12, 2023 NOTE The display of VA prescriptions dispensed from another [place] or [facility] facility (remote) is limited to active outpatient prescription entries matched to National Drug File at the originating site and may not include some items such as investigational drugs, compounds, etc. NOT INCLUDED IN THIS LIST: Medications self-entered by the patient into personal health records (i.e. [place]) are NOT included in this list. Non-VA medications documented outside this [place], remote inpatient orders (regardless of status) and remote clinic medications are NOT included in this list. The patient and provider must always discuss medications the patient is taking, regardless of where the medication was dispensed or obtained. Non-VA LOVASTATIN 20MG TAB TAKE ONE TABLET BY MOUTH AT BEDTIME Patient wants to buy from Non-VA pharmacy. Medication prescribed by Non-VA provider. Non-VA METOPROLOL SUCCINATE 25MG SA TAB TAKE ONE TABLET BY MOUTH ONCE DAILY Patient wants to buy from Non-VA pharmacy. Medication prescribed by Non-VA provider. SUPPLIES /joan/ ADEEL CAMPOS DPM STNA Signed: 03/20/2024 14:04 ADEEL CAMPOS
--- OUTSIDE RECORDS SUMMARY | 2024-07-03 11:54 | XMS_ITS | Encounter Summary ---
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 Date/Time Encounter Type Encounter Description Reason Provider Source Oct 12, 2023 10:30 AM OFFICE O/P EST MOD 30 MIN PRIMARY CARE/MEDICINE ICD-10-CM I10 Essential (primary) hypertension ZULY MADDEN Buddy Encounter Template Text not used by [place] Assessments - Encounter Diagnoses This section includes the primary and secondary diagnoses documented for the Encounter. Date/Time Primary/Secondary Diagnosis Diagnosis Name Provider Source Nov 10, 2023 12:24 PM PRIMARY Essential (primary) hypertension ZULY MADDENFIELD Nov 10, 2023 12:24 PM SECONDARY Mixed hyperlipidemia ZULY MADDEN GREGORY [facility] Plan of Treatment: Future Appointments (+ 6 months) and Future Tests (+/- 45 days) The Plan of Treatment section includes [facility] care activities for the [facility] [place] [facility] This section includes future appointments and future orders which are active, pending or scheduled. Future Appointments This section includes appointments that were scheduled to occur 6 months from the date of the Encounter, up to a maximum of 20 appointments. The data comes from all [place] treatment facilities. Appointment Date/Time Appointment Type Appointme nt Facility Name Nov 08, 2023 02:00 PM AMBULATORY - MEDICINE [facility] Mar 20, 2024 01:30 PM AMBULATORY - MEDICINE [facility] Mar 20, 2024 02:00 PM AMBULATORY - MEDICINE [facility] Apr 06, 2024 01:30 PM AMBULATORY - REHAB MEDICIN E [facility] Social History: Smoking Status (Most current) and Tobacco Use (All prior to encounter date) This section includes the most current, and the historical, smoking and tobacco- related health factors from the [place] facility where the Encounter took place. Current Smoking Status This section includes the most current smoking, or tobacco-related health factor, from the [place] facility where the Encounter took place. Date/Time Current Smoking Status Comment Facil y Oct 12, 2023 10:30 AM VA-TOBACCO USER EVERY DAY [facility] Tobacco Use History This section includes a history of the smoking, or tobacco-related health factors, that were collected on or before the date of the Encounter. The data comes from the [place] facility where the Encounter took place. Date/Time Smoking Status/Tobacco Use Comment F acility Oct 12, 2023 10:30 AM VA-TOBACCO USE ADVICE [facility] Oct 12, 2023 10:30 AM VA-TOBACCO USE A P MECHANIC NO [facility] Oct 12, 2023 10:30 AM VA-TOBACCO USE MED NO [facility] Oct 12, 2023 10:30 AM VA-TOBACCO USE WI 30 MIN OF WAKE UP [facility] Oct 12, 2023 10:30 AM VA-TOBACCO USER EVERY DAY [facility] Advance Directives: All historical and current Section Date Range: From patient's date of to the date document was created. This section includes ALL of a patient's completed or amended [place] Advance and Rescinded Directives. The entries below indicate that a directive exists for the patient, but an actual copy is not included with this document. The data comes from all [place] facilities. Date Advance Directives Provider Source Oct 06, 2022 ADVANCE DIRECTIVE MANUELA LUTZ [facility] Encounter Notes: All associated encounter notes This section contains the clinical notes associated to the Encounter. Date/Time Encounter Note(s) Provider Source Apr 25, 2024 12:51 PM NURSING ADMINISTRA TIVE NOTE: LOCAL TITLE: NON-VA PRESCRIPTION STANDARD TITLE: NURSING ADMINISTRATIVE NOTE DATE OF NOTE: APR 25, 2024@12:51 ENTRY DATE: APR 25, 2024@12:51:29 AUTHOR: HILARY PHOENIX COSIGNER: URGENCY: STATUS: COMPLETED Outside script received from [facility] Tigre Babin PA-C [address] [place] [id number] P: RX: Lidoderm 5% topical patch Sig: Apply 1 patch by topical route daily may wear up to 12 hours Qty: 30 Ref: 0 /es/ HILARY PHOENIX LPN PACT 10 Signed: 04/25/2024 12:54 Receipt Acknowledged By: 04/25/2024 20:35 /es/ ZULY MADDEN MD Primary Care Physician HILARY PHOENIX [facility] Oct 12, 2023 10:59 AM PREVENTIVE MEDICIN E NURSING NOTE: LOCAL TITLE: CLINICAL REMINDERS/NURSING STANDARD TITLE: PREVENTIVE MEDICINE NURSING NOTE DATE OF NOTE: OCT 12, 2023@10:59 ENTRY DATE: OCT 12, 2023@10:59:31 AUTHOR: HILARY PHOENIX EXP COSIGNER: URGENCY: STATUS: COMPLETED Advance Directive Screen MH AD: Patient has an Advance Directive on file at this [facility]. No updates are needed at this time. The patient received education about Advance Directives and written notification of his/her rights. Suicide Screen: C-SSRS Screening Story Suicide Severity Rating Scale (C-SSRS) screener 1. Over the past month, have you wished you were or wished you could go to sleep and not wake up? No 2. Over the past month, have you had any actual thoughts of killing yourself? No 3. Over the past month, have you been thinking about how you might do this? Response not required due to responses to other questions. 4. Over the past month, have you had these thoughts and had some intention of acting on them? Response not required due to responses to other questions. 5. Over the past month, have you started to work out or worked out the details of how to kill yourself? Response not required due to responses to other questions. 6. If yes, at any time in the past month did you intend to carry out this plan? Response not required due to responses to other questions. 7. In your lifetime, have you ever done anything, started to do anything, or prepared to do anything to end your life (for example, collected pills, obtained a gun, gave away valuables, went to the roof but didn't jump)? No 8. If YES, was this within the past 3 months? Response not required due to responses to other questions. Homelessness/Food Insecurity Screen: In the past 2 months, have you been living in stable housing that you own, rent, or stay in as part of a household? Yes - Living in stable housing. Are you worried or concerned that in the next 2 months you may NOT have stable housing that you own, rent, or stay in as part of a household? No - Not worried about housing near future The reports the following: Within the past 12 months, you worried whether your food would run out before you got money to buy more. Never true Within the past 12 months, the food you bought just didn't last and you didn't have money to get more. Never true Depression Screening: Perform PHQ-2 A PHQ-2 screen was performed. The score was 0 which is a negative screen for depression. Over the past two weeks, how often have you been bothered by the following problems? 1. Little interest or pleasure in doing things Not at all 2. Feeling down, depressed, or hopeless Not at all Falls & Incontinence Screen: Falls Screen: During the past 12 months, did the patient report any falls? 4. No falls within the past year. Incontinence Screen: During the past 12 months, has the patient has any characteristics of incontinence (ability, voiding, leakage, etc.)? No incontinence. Preferred Language: What is your, or your caregiver's preferred language for healthcare? Preferred Language: Slovenian Tobacco Use Screening: The patient uses tobacco every day. The patient uses tobacco within 30 minutes of waking up. The patient has been smoking or using tobacco for thirty years or more. Patient was advised to quit smoking and/or using tobacco. Discussion with patient included: - Quitting smoking or tobacco use is one of the most important things you can do to protect and improve your health and [place] has the resources to support you. - Set a quit date when you are ready to quit. - Get support from your family and friends. - Review any past quit attempts- What helped? What didn't? - On the day you plan to quit, get rid of all cigarettes and tobacco products from your home, car or work. - Using a combination of behavioral counseling or other support strategies and FDA-approved cessation medications is the most effective way to ensure success in quitting. Patient was offered Behavioral Counseling and other support strategies to assist with quitting. Discussion with patient included: - Behavioral counseling or other support strategies greatly increases your chances of successfully quitting smoking or tobacco use by helping you develop a quit plan and providing support and other strategies to make behavioral changes to help you quit. - [place] has a number of behavioral counseling options to help you with quitting, including: * Provide information about the facility smoking or tobacco use treatment options or clinics * [place]'s national quitline, 5-271-DZAR-VET, with counseling available Wednesday-Wednesday The patient was not interested in receiving additional information about how to use the treatment options discussed. Patient was offered FDA-approved cessation medications. Discussion with patient included: - Medications for Nicotine replacement therapy such as the patch, gum or lozenge, and other medications such as varenicline or bupropion, can play an important role in the initial weeks and months after you quit smoking or tobacco use. - Medications help with cravings and withdrawal symptoms and they greatly increase your chances of successfully quitting. The patient was not interested in a prescription for tobacco cessation medications. Influenza Immunization: No influenza vaccination was received during the recent influenza season. Td / Tdap Immunization: The patient declines to receive the recommended dose of Td/Tdap vaccine. Immunization: TD(ADULT) UNSPECIFIED FORMULATION Refusal Reason: PATIENT DECISION Patient refuses all immunization(s) in the Td group Date Documented: 10/12/23 11:01 Alcohol Use Screen (AUDIT-C): Alcohol Screen: SCREEN FOR ALCOHOL (AUDIT-C) An alcohol screening test (AUDIT-C) was negative (score=4). 1. How often did you have a drink containing alcohol in the past year? Consider a drink to be a 12 ounce can or bottle of regular beer, 8 ounces of malt liquor, a 5 ounce glass of table wine, or a 1.5 ounce shot of liquor (like scotch, gin, or vodka). Four or more times a week 2. How many drinks containing alcohol did you have on a typical day when you were drinking in the past year? One or two drinks 3. How often did you have six or more drinks on one occasion in the past year? Never COVID-19 Immunization: Referred to another clinic for immunization (desired vaccine unavailable at this location) Sexual Orientation: The patient thinks of their sexual orientation as: Straight or Heterosexual RHS Screen: RHS Screen Session Format: Face to Face Environmental Check Upon inquiry, the individual reports that the environment is safe to proceed. Informed Consent to Screen and Document The individual consents to proceed with screening. The individual consents to documentation of responses. PRIMARY SCREEN: In the past 12 months, how often did a current or former intimate partner (e.g., boyfriend, girlfriend, , , sexual partner): 1. Scream or curse at you Never 2. Insult or talk down to you Never 3. Threaten you with harm Never 4. Physically hurt you Never 5. Force or pressure you to have sexual contact against your will, or when you were unable to say no Never ?? The HITS tool (items 1-4 above) is [place] copyright protected by Ben Jang MD, and the user has full rights to use it throughout the [place] system. PRIMARY SCREEN RESULT: The Primary Screen is NEGATIVE. The individual answered never to all forms of IPV above (i.e., answered never to all 5 items) The individual accepts education and/or resources: No EDUCATION: The individual indicated readiness to learn. Education offered during this session as noted above. The individual indicated understanding by asking relevant questions and making appropriate comments. No barriers to learning were observed or identified. /joan/ HILARY PHOENIX LPN PACT 10 Signed: 10/12/2023 11:03 HILARY PHOENIX [facility] Oct 12, 2023 06:24 AM PHYSICIAN NOTE: LOCAL TITLE: MD NOTE STANDARD TITLE: PHYSICIAN NOTE DATE OF NOTE: OCT 12, 2023@06:24 ENTRY DATE: OCT 12, 2023@06:24:58 AUTHOR: ZULY MADDEN EXP COSIGNER: URGENCY: STATUS: COMPLETED HISTORY OF PRESENT ILLNESS: SUNI MCCALL, is a 82 yo MALE , who presents at the [facility] for his annual visit. He maintains a nonVA PCP: Dr Eduardo Vickers. Last seen by Dr Vivas 10/06/22. [facility]. Seeing a photographer's assistant this wednesday. ? A Fib Seen 09/20/23 at [facility] for having lightheadedness while out with his daughter flower shopping. Plan is to have a holter moniter placed this wednesday. He was D/C'd on metoprolol. Active problems - Computerized Problem List is the source for the followin. NonVA Provider 2. Osteoarthritis of Knee 3. Sensorineural hearing loss, bilateral 4. Hypertension 5. Hypercholesterolemia ALLERGIES: ========= Patient has answered NKA HISTORY: PERIOD OF SERVICE - [facility] FROM Oct TO Oct COMBAT SERVICE INDICATED: No VITAL SIGNS: Blood Pressure 150/85 (10/12/2023 10:58)Repeat BP: 145/80 Pulse 98 (10/12/2023 10:58) Respiration 16 (10/12/2023 10:58) Pulse Oximetry 95% (10/12/2023 10:58) Temperature 98.5 F [36.9 C] (10/12/2023 10:58) Pain 0 (10/12/2023 10:58) Height 68 in [172.7 cm] (10/12/2023 10:58) Weight 172.8 lb [78.38 kg] (10/12/2023 10:58) BMI BMI: 26.3 REVIEW OF SYSTEMS: CARDIOVASCULAR: No chest pain RESPIRATORY: No SOB, no wheezing GASTROINTESTINAL: No abd pain, no N/V/D GENITOURINARY: No dysuria, no hematuria MUSCULOSKELETAL: No joint pain, no joint swelling PSYCHIATRIC: No anxiety, + depression NEUROLOGIC: No H/A, no numbness, no weakness EXAMINATION: GENERAL: WD/WN , pleasant & in NAD HEENT: Moist mucosa NECK: Supple, no carotid bruits HEART: RRR, S1-S2, no murmurs LUNGS: CTA B/L ABDOMEN: Soft, NT/ND, + BS x 4 Quads PERIPH PULSES: 2+ B/L EXTREMITIES: FROM x 4, no edema, using a walker NEUROLOGIC: AAO x3, no focal findings PSYCHIATRIC: Good eye contact, affect normal ASSESSMENT/PLAN: 1. Hypertension: well controlled on metoprolol succinate 25mg/day 2. Mixed Hyperlipidemia: on lovastatin 20mg/QHS 3. Depression: unexpectantly 06/2022 4. Tobacco Dependence: lifelong smoker, currently smoke 12-15 cigs/day 5. OA B/L Knees: followed by [facility], uses walker to help ambulate FOLLOW UP: 1 year - PACT 1 - Annual ========= No barriers; Patient understands and agrees to current treatment plan. If pt has any questions, concerns, or changes in current health status he/she will call or come [facility] to the [facility]. HTN Assess for Elevated BP>=140/90: The patient's blood pressure is usually adequately controlled. No medication changes are indicated at this time. Medication Reconciliation: Outpatient: Has the patient been taking medications as documented in the EMLR? YES: The patient has been taking medications as documented in the EMLR. Essential Medication List for Review used to complete this medication reconciliation. INCLUDED IN THIS LIST: Alphabetical list of active outpatient prescriptions dispensed from this [place] (local) and dispensed from another [place] or [facility] facility (remote) as well as [...] Remote Allergy/ADR Data available for this patient [place] [facility] [place] [facility] No Known Allergies Med Recon NoGlossary (Tool [...] display of VA prescriptions dispensed from another [place] or [facility] facility (remote) is limited to active outpatient prescription entries matched to National Drug File at the originating site and may not include some items such as investigational drugs, compounds, etc. NOT INCLUDED IN THIS LIST: Medications self-entered by the patient into personal health records (i.e. [facility]) are NOT included in this list. Non-VA medications documented outside this [place], remote inpatient orders (regardless of status) and remote clinic medications are NOT included in this list. The patient and provider must always discuss medications the patient is taking, regardless of where the medication was dispensed or obtained. ------ Non-VA LOVASTATIN 20MG TAB TAKE ONE TABLET BY MOUTH AT BEDTIME Patient wants to buy from Non-VA pharmacy. Medication prescribed by Non-VA provider. Non-VA METOPROLOL SUCCINATE 25MG SA TAB TAKE ONE TABLET BY MOUTH ONCE DAILY Patient wants to buy from Non-VA pharmacy. Medication prescribed by Non-VA provider. ------ SUPPLIES ------ /es/ ZULY MADDEN MD Primary Care Physician Signed: 10/12/2023 11:36 ZULY MADDEN
== END ==
LOC: HO.CARD 10:31
PROVIDERS: PCP Pediatrics; Visit Provider Internal Medicine Cardiovascular Disease
DX: I42.9 Cardiomyopathy, unspecified (principal); I48.0 Paroxysmal atrial fibrillation
CPT/HCPCS: 93242; 93306

== ENCOUNTER → 2024-07-03 10:41 | Outpatient (BNV) | payer MEDICARE, OTHER, SELFPAY | PROVIDERS: PCP Pediatrics; Visit Provider Internal Medicine | DX: I49.3 Ventricular premature depolarization (principal); I49.1 Atrial premature depolarization | CPT/HCPCS: 93244 ==

== ENCOUNTER 2024-08-24 10:49 | Outpatient (AMB) | payer MEDICARE, OTHER, SELFPAY ==
--- NOTE | 2024-08-24 11:00 | A.OFFVIS_ITS ---
Vital Signs 08/24/24 11:01 Height 5 ft 9 in BMI Reason not done Patient refused/unable BP 124/70 Blood Pressure Location Lt brachial Position Sitting Pulse 55 Intake Visit Reasons: 3m follow up Intake Note: 3 month follow-up with ekg feeling ok Research Microbiologist Required: No Echocardiographer: Echocardiographer Present Accompanied by: Daughter Allergies Seasonal Allergies Allergy (Mild, Verified 05/15/24 10:20) sneezing Medication List - Last Reconciled 08/24/24 by Victor M Arias MD acetaminophen 650 mg PO Q6H PRN amiodarone 200 mg PO DAILY 90 days apixaban (Eliquis) 5 mg PO BID@0800,1700 ascorbic acid (vitamin C) (Vitamin C) 1 g PO DAILY aspirin 81 mg PO DAILY atorvastatin 80 mg PO DAILY@1700 doxycycline hyclate 100 mg PO BID mitjrrryjee-knqfckwbn-bbiccnju 100-62.5-25 mcg (Trelegy Ellipta) 1 ea inhalation DAILY furosemide 20 mg PO DAILY loratadine (Claritin) 10 mg PO DAILY metoprolol tartrate 50 mg PO BID multivitamin 1 tab PO DAILY pantoprazole 40 mg PO DAILY@0630 valsartan 20 mg (1/2 x 40 mg) PO BID HPI Comments Details: Sandro comes for follow-up. He recently saw Pulmonary at [facility]. Had a chest x-ray there, do not have a copy of the results. He continues to have cough but no productive phlegm. Denies worsening shortness of breath. He said he is mostly limited in activity level due to the balance and knee issues. He walks with help of a walker but can not walk long distances. Currently still undergoing physical therapy at home and this is almost done and he is wishing to pursue physical therapy outside for balance as well as improvement in his weakness. He denies any clear orthopnea, PND, leg edema. Denies any weight gain. Denies any prolonged palpitation irregular heartbeat. Takes all his medications. No bleeding issues or neurologic events. [facility] Medical History Cardiomyopathy Acute respiratory failure with hypoxia Sepsis Bifascicular block Atrial flutter with rapid ventricular response Left lower lobe pneumonia Atrial fibrillation Paroxysmal atrial fibrillation Mixed hyperlipidemia Hypertension Family History Unknown No problems noted. Social History Household Members: Family Housing: House Do you presently have visiting nurse or other home services: No Alcohol intake: current Alcohol intake frequency: 0-2 drinks per day Alcohol type: beer Comment: Beer Patient Tobacco Use Status: Former Tobacco user Tobacco use type: Cigarette Cigarettes Per Day: 15 Years Smoked: 70 e-Cigarette/Vaping Use: Former Use Second Hand Smoke Exposure: No Advance Directives Date on File: 09/20/23 service: No Review of Systems Const Denies chills, Denies fatigue, Denies fever(s), Denies frequent falls, Denies weakness, Denies weight gain and Denies weight loss ENT Denies dizziness Card Denies chest pain, Denies leg edema, Denies lightheadedness, Denies palpitations, Denies dyspnea, Denies dyspnea on exertion, Denies orthopnea and Denies other (loss of consciousness) Resp Denies cough, Denies dyspnea and Denies dyspnea on exertion GI Denies hematochezia and Denies change in stool character Musc Denies abnormal gait, Denies muscle weakness, Denies numbness, Denies radiating pain into limb and Denies tingling Neuro Denies abnormal gait, Denies dizziness, Denies frequent falls, Denies numbness, Denies tingling and Denies weakness Endo Denies fatigue and Denies palpitations Physical Exam Vital Signs: Last Vital Signs Pulse 55 08/24/24 11:01 BP 124/70 08/24/24 11:01 Const General: cooperative, healthy appearing, comfortable and no acute distress Orientation/consciousness: patient oriented x3 Limitations: wheelchair Neck Neck: Yes normal visual inspection and Yes no JVD Resp Effort & Inspection: normal respiratory effort Auscultation: clear to auscultation bilaterally, crackles (Coarse) on the right 1/[address] way up (Posteriorly), no rales, no rhonchi and no wheezes Cardio Jugular venous distension: no JVD Rate: regular rate Rhythm: regular rhythm Heart sounds: S1 normal heart sound present, S2 normal heart sound present, no murmurs and no rubs Neuro General: patient oriented x3 Extrem General: Yes normal to inspection and No no pedal edema Psych Appearance: grossly normal Mental Status: mental status grossly normal Speech and movement: Normal speech and movement present Office Procedures EKG Details: EKG shows sinus bradycardia with first-degree AV block with right bundle-branch block and left axis deviation with voltage criteria for LVH with poor R-wave [place] [id number], Complete Assessment & Plan Assessment & Plan (1) Cardiomyopathy: Code(s): I42.9 - Cardiomyopathy, unspecified Category: Medical Plan: Cardiomyopathy with persistent moderate LV systolic dysfunction without signs or symptoms of heart failure. Findings of cardiomyopathy were discussed with him. No signs of heart failure. Symptoms associated with heart failure were discussed. Advised to call me. Has a concomitant COPD which limits his activity level and also possibly blood cause for his persistent exertional shortness of breath. Continue neurohormonal modulation. At this point time will continue metoprolol for neurohormonal modulation as as switch valsartan to Entresto therapy. Advised to monitor blood pressure at home maintain a log. Possible side effects related to Entresto therapy were discussed. Continue current low-dose diuretic therapy. Daily weight monitoring avoidance salt loading was discussed. (2) Paroxysmal atrial fibrillation: Code(s): I48.0 - Paroxysmal atrial fibrillation Category: Medical Plan: Paroxysmal atrial fibrillation has remained suppressed on amiodarone therapy. His persistent crackling on his right lung is concerning. Will review the chest x-ray. If this is not revealing would consider a noncontrast spiral CTA of the lungs to assess for any amiodarone toxicity that may change therapy. Potential change in pharmacotherapy to alternative agent and/or ablation was discussed. Continue full oral anticoagulation, currently on Eliquis 5 mg b.i.d.. Quarterly renal function test should be pursued. Remains high risk for recurrent thromboembolic complication. Will follow up in the clinic in 3 months time, sooner p.r.n.. 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
[2024-08-24 11:01] VITALS: BP 124/70; PULSE 55
== END 2024-08-24 11:33 | disposition home or self-care (01) ==
LOC: HO.HCS 10:49
PROVIDERS: PCP Pediatrics; Visit Provider Internal Medicine Cardiovascular Disease
DX: I42.9 Cardiomyopathy, unspecified (principal); I48.0 Paroxysmal atrial fibrillation
CPT/HCPCS: 93010; 99214; G2211

== ENCOUNTER → 2024-08-24 10:49 | Outpatient (BNVA) | payer MEDICARE, OTHER, SELFPAY | PROVIDERS: PCP Pediatrics; Visit Provider Internal Medicine Cardiovascular Disease | DX: I42.9 Cardiomyopathy, unspecified (principal); I48.0 Paroxysmal atrial fibrillation; I44.0 Atrioventricular block, first degree; R00.1 Bradycardia, unspecified; I45.10 Unspecified right bundle-branch block; R94.31 Abnormal electrocardiogram [ECG] [EKG] | CPT/HCPCS: 93005; 99212 ==

== ENCOUNTER 2024-12-14 10:28 | Outpatient (AMB) | payer MEDICARE, OTHER, SELFPAY ==
--- NOTE | 2024-12-14 10:41 | A.OFFVIS_ITS ---
Vital Signs 12/14/24 10:42 Height 5 ft 9 in BMI Reason not done Patient refused/unable BP 130/70 Blood Pressure Location Lt brachial Position Sitting Pulse 58 Intake Visit Reasons: 3m follow up Intake Note: 3 month follow-up with ekg feeling good [employer] Operator Required: No Distribution Operation Supervisor: Distribution Operation Supervisor Present Accompanied by: Daughter Allergies Seasonal Allergies Allergy (Mild, Verified 05/15/24 10:20) sneezing Medication List - Last Reconciled 12/14/24 by Victor M Arias MD acetaminophen 650 mg PO Q6H PRN amiodarone 200 mg PO DAILY 90 days apixaban (Eliquis) 5 mg PO BID ascorbic acid (vitamin C) (Vitamin C) 1 g PO DAILY aspirin 81 mg PO DAILY atorvastatin 80 mg PO DAILY@1700 gbxjyhzbfhd-lzzwrxrbd-omxrclwj 100-62.5-25 mcg (Trelegy Ellipta) 1 ea inhalation DAILY yrilkrwnfme-dcntawacj-tbdhicmf 100-62.5-25 mcg (Trelegy Ellipta) 1 inh inhalation DAILY furosemide 20 mg PO DAILY loratadine (Claritin) 10 mg PO DAILY metoprolol succinate ER 100 mg PO DAILY multivitamin 1 tab PO DAILY pantoprazole 40 mg PO DAILY@0630 sacubitril-valsartan 24-26 mg (Entresto) 1 tab PO BID trazodone 50 mg PO BEDTIME PRN HPI Comments Details: Sandro comes for follow-up. He is presenting here with his daughter. He said he has been trying to get more active with physical therapy and after his stroke and feels better. Continuously pulmonary in [facility] in his per the daughter had a chest x-ray in August because of crackles heard in his lungs and was reported as normal. He has not had any irregular heartbeat or rapid heart rate or palpitations. He denies any orthopnea. Does get exertional shortness of breath. Denies any weight gain or leg edema. Denies any chest pain. No lightheadedness, syncope. Takes all his medications. [facility] Medical History Balance problem Cardiomyopathy Acute respiratory failure with hypoxia Sepsis Bifascicular block Atrial flutter with rapid ventricular response Left lower lobe pneumonia Atrial fibrillation Paroxysmal atrial fibrillation Mixed hyperlipidemia Hypertension Family History Unknown No problems noted. Social History Household Members: Family Housing: House Do you presently have visiting nurse or other home services: No Alcohol intake: current Alcohol intake frequency: 0-2 drinks per day Alcohol ty pe: beer Comment: Beer Patient Tobacco Use Status: Former Tobacco user Tobacco use type: Cigarette Cigarettes Per Day: 15 Years Smoked: 70 e-Cigarette/Vaping Use: Former Use Second Hand Smoke Exposure: No Advance Directives Date on File: 09/20/23 service: No Review of Systems Const Denies chills, Denies fatigue, Denies fever(s), Denies frequent falls, Denies weakness, Denies weight gain and Denies weight loss ENT Denies dizziness Card Denies chest pain, Denies leg edema, Denies lightheadedness, Denies palpitations, Denies dyspnea, Denies dyspnea on exertion, Denies orthopnea and Denies other (loss of consciousness) Resp Denies cough, Denies dyspnea and Denies dyspnea on exertion GI Denies hematochezia and Denies change in stool character Musc Denies abnormal gait, Denies muscle weakness, Denies numbness, Denies radiating pain into limb and Denies tingling Neuro Denies abnormal gait, Denies dizziness, Denies frequent falls, Denies numbness, Denies tingling and Denies weakness Endo Denies fatigue and Denies palpitations Physical Exam Vital Signs: Last Vital Signs Pulse 58 12/14/24 10:42 BP 130/70 12/14/24 10:42 Const General: cooperative, healthy appearing, comfortable and no acute distress Orientation/consciousness: patient oriented x3 Limitations: wheelchair Neck Neck: Yes normal visual inspection and Yes no JVD Resp Effort & Inspection: normal respiratory effort Auscultation: crackles (Coarse) bilateral at the base, no rales, no rhonchi, no wheezes and diminished lung sounds Cardio Jugular venous distension: no JVD Rate: regular rate Rhythm: regular rhythm Heart sounds: S1 normal heart sound present, S2 normal heart sound present, no murmurs and no rubs Neuro General: patient oriented x3 Extrem General: Yes normal to inspection and No no pedal edema Psych Appearance: grossly normal Mental Status: mental status grossly normal Speech and movement: Normal speech and movement present Office Procedures EKG Details: EKG shows sinus bradycardia with first-degree AV block with right bundle and left anterior fascicular block consistent with bifascicular block with LVH with QS pattern in lead V1 V2 [id number], Complete Assessment & Plan Assessment & Plan (1) Paroxysmal atrial fibrillation: Code(s): I48.0 - Paroxysmal atrial fibrillation Category: Medical Plan: Paroxysmal atrial fibrillation this elderly gentleman without any recurrent symptoms amiodarone maintain rhythm. Doing well with it. He has had no heart failure symptoms. Due to his chronic lung disease and crackles I am concerned about amiodarone toxicity and would suggest a noncontrast high-resolution CTA of the chest to evaluate for amiodarone related toxicity. If not then would pursue with amiodarone therapy. Continue full oral anticoagulation, currently on Eliquis 5 mg b.i.d. given high risk for thromboembolic complication. Semi annual renal function test and annual CBC should be performed. Also annual check for amiodarone toxicity. He had some recent blood work and will try to follow-up through your office. (2) Cardiomyopathy: Code(s): I42.9 - Cardiomyopathy, unspecified Category: Medical Plan: Cardiomyopathy without overt heart failure. His symptoms are more related to neurologic issues and lung issues. Has no signs of fluid overload. Continue current neurohormonal modulation with Entresto as well as metoprolol therapy. Continue low-dose diuretic therapy. Daily weight monitoring avoidance salt loading was discussed. Advised to call me with worsening symptoms. Additional diuretics as need be. Will follow up in the clinic in 6 months time, sooner PRN. Thank you for allowing me to partake in his care Orders: Orders CT chest wo con - High Res Today I48.0 - Paroxysmal atrial fibrillation Coding Level of Care Code Est Pt Level 4 (17697) Complex EM visit Add On G2211 Diagnoses Paroxysmal atrial fibrillation I48.0 Cardiomyopathy I42.9 CPT Codes EKG - CPT: 90109-[id number], Complete ([id number])
[2024-12-14 10:42] VITALS: BP 130/70; PULSE 58
== END 2024-12-14 11:07 | disposition home or self-care (01) ==
LOC: HO.HCS 10:29
PROVIDERS: PCP Pediatrics; Visit Provider Internal Medicine Cardiovascular Disease
DX: I48.0 Paroxysmal atrial fibrillation (principal); I42.9 Cardiomyopathy, unspecified
CPT/HCPCS: 93010; 99214; G2211

== ENCOUNTER → 2024-12-14 10:28 | Outpatient (BNVA) | payer MEDICARE, OTHER, SELFPAY | PROVIDERS: PCP Pediatrics; Visit Provider Internal Medicine Cardiovascular Disease | DX: I48.0 Paroxysmal atrial fibrillation (principal); I42.9 Cardiomyopathy, unspecified | CPT/HCPCS: 93005; 99212 ==

== ENCOUNTER 2025-02-14 11:09 | Outpatient (REF) | payer MEDICARE, OTHER, SELFPAY ==
--- NOTE | ~2025-02-14 | CT_ITS ---
EXAMINATION: CT CHEST WITHOUT CONTRAST CLINICAL INFORMATION: I 48.0. Paroxysmal atrial fibrillation. COMPARISON: None available. TECHNIQUE: Multidetector volumetric CT imaging of the chest was done using high-resolution protocol. Axial MIP volume rendering provided. Sagittal and coronal reformatted images were obtained. This CT examination was performed using dose optimization techniques as appropriate, variously including the following: *Automated exposure control *Adjustment of mA and/or kV according to patient size (this includes techniques or standardized protocols for targeted exams where dose is matched to indication/reason for exam; i.e. extremities or head) *Use of iterative reconstruction technique DLP: 192 mGy-cm FINDINGS: BEHAVIORAL HEALTH THERAPIST: No lung volume loss. Cardiomediastinal silhouette demonstrates a calcified plaques in the aorta. S-shaped curvature of the axial skeleton. Multilevel spondylosis. Upper extremities both sides of the head. Patient's large body habitus.. LUNGS: Peripheral honeycombing both lungs. Nonspecific pulmonary patchy groundglass, lower lung lobes and to a lesser extent lingula and right middle lung lobe. No gross bronchiectasis. No gross pulmonary nodules. Respiratory airways is patent. MEDIASTINUM: Nonspecific prominent mediastinal lymph nodes. Calcified plaques in the thoracic aorta wall and its main branches and the coronary arteries. No aneurysm, thoracic aorta. Mild prominent right left chambers. No pericardial effusion. No pneumomediastinum. No hemopericardium. No pericardial effusion. Thyroid gland is not enlarged. CORONARY ARTERY CALCIFICATION: Calcified plaques. PLEURA: No pleural effusion. No pneumothorax. No calcified pleural plaques. No hemothorax. AXILLA: No lymphadenopathy. UPPER ABDOMEN: Small hiatal hernia. Calcified plaques in the splenic artery. Scattered diverticula in the splenic colonic flexure. Cholelithiasis in a contracted gallbladder. Dystrophic calcification right hepatic lobe. Calcified plaques in the renal arteries. Cystic lesion, right kidney. Calcified plaques in the abdominal aorta wall. Calcified plaque in the right main renal artery and the included mesenteric arteries OSSEOUS STRUCTURES: . Osteopenia versus osteoporosis. Multilevel spondylosis. Superior endplate compression deformity representing 30% volume loss at T12 vertebra without gross retropulsion. S-shaped curvature of the cervical thoracic and lumbar spine levoconvex curvature in the upper cervical thoracic junction, dextroconvex in the mid to lower thoracic spine. CT/CT chest wo con - High Res IMPRESSION: Consider UIP versus DIP. Atherosclerosis disease and coronary artery disease. Probable old superior endplate compression deformity at T12. Scoliosis and spondylosis, axial skeleton. Cholelithiasis. Fleischner guidelines were followed. Electronically signed by: Evan Gil MD 02/14/2025 11:42 AM EDT
== END 2025-02-14 11:10 | disposition home or self-care (01) ==
LOC: HO.CT 11:09
PROVIDERS: PCP Pediatrics; Visit Provider Internal Medicine Cardiovascular Disease
DX: I48.0 Paroxysmal atrial fibrillation (principal)
CPT/HCPCS: 71250

== ENCOUNTER → 2025-02-14 11:11 | Outpatient (BNV) | payer MEDICARE, OTHER, SELFPAY | PROVIDERS: PCP Pediatrics; Visit Provider Radiology Diagnostic Radiology | DX: I48.0 Paroxysmal atrial fibrillation (principal); K80.20 Calculus of gallbladder without cholecystitis without obstruction; I25.10 Atherosclerotic heart disease of native coronary artery without angina pectoris; M41.84 Other forms of scoliosis, thoracic region | CPT/HCPCS: 71250 ==